=== PATIENT | male | born 1970 | race Caucasian/White ===

== ENCOUNTER 2018-04-14 12:14 | Inpatient (IN) | payer MEDICARE, MEDICAID, SELFPAY ==
--- NOTE | 2018-04-14 12:19 | PDOC.HP ---
Date of Service: 04/14/18 Assessment/Plan - Assessment/Plan (1) Cellulitis of second toe, left Assessment: Patient has been afebrile with no active ongoing signs of infection Plan: Continue ceftriaxone for 6 weeks from date of surgery which was April 08, 2018 to run through May 20, 2018 Continue wound VAC with changes Wednesdays Followed by Dr. Pollock (2) Diabetes mellitus type 2 in obese Assessment: Blood sugars have been controlled Plan: Continue monitor blood sugars before meals and at bedtime with sliding scale coverage as needed (3) Diabetic peripheral neuropathy Assessment: Stable Plan: Continue gabapentin (4) Discharge planning issues Assessment: Patient will return to his assisted living facility once he has completed his course of antibiotics (5) GERD (gastroesophageal reflux disease) Assessment: Stable Plan: Continue PPI (6) HTN (hypertension) Assessment: Stable Plan: Continue home meds (7) Schizoaffective disorder Assessment: Stable Plan: Continue home meds (8) Staphylococcus aureus bacteremia Assessment: Repeat blood cultures have been negative patient has been afebrile Plan: We will complete 6 week course of IV antibiotics, ceftriaxone 2 g IV daily (9) Type 2 diabetes mellitus Assessment: Blood sugars have been controlled Plan: Continue diabetic diet sliding scale coverage before meals and at bedtime History of Present Illness - History of Present Illness Chief Complaint: MSSA wound infection and bactermia History of Present Illness: 47-year-old male with a past medical history diabetes mellitus complicated by peripheral neuropathy who allegedly has had his diabetes under good control with the last A1c is 6.2%. He recently underwent surgery of his left great toe which Dr. Jeremy Pollock did a fracture reduction with arthrodesis of his IPJ of his left hallux with K wire fixation and arthrodesis of the left second toe hammertoe correction. Patient had sustained fracture and dislocation of left hallux and fracture dislocation of the hammertoe deformity of his left second toe. Patient does not recall how the fracture occurred. 2 days ago he said that the left second and left first toe began to swell and developed redness and pain. He waited until today to see Dr. Pollock found that the patient had disruption of the hardware of the left hallux and focal signs of infection. Patient's previous postoperative visit was on Wednesday 3 days prior and the wound has been clean and dry. Patient reported having bumped the toe several times on Wednesday and again yesterday on Wednesday. When he was seen in the afternoon today and through the pins have been disrupted in the left great toe and second toe were grossly edematous and erythematous with localized cellulitis. The pin the second toe is 80% of the toe. Dr. Pollock arranged for the patient come to the emergency room for inpatient admission including parenteral antibiotics and to be set up for surgery. He was admitted under hospitalist service to the medical surgical unit. He was started on vancomycin and Zosyn. Dr. Pollock did take him back to the OR for surgical debridement of his wound. wound cultures grew MSSA. Blood cultures grew MSSA. Antibiotics narrowed to ceftriaxone daily after consultation with ID at [facility] and Dr. Pollock. the plan is to receive 6 weeks of IV antibiotic therapy. He will be admitted to [facility] here at [facility] to complete antibiotic course. He has been afebrile he is not voicing any complaints. 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: CVA Hepatobiliary: Other (GERARDO) Psych: Bipolar Infectious Disease: Other (MSSA bacteremia) Endocrine: Diabetes Dermatology: Cellulitis Review of Systems - Review of Systems Constitutional: denies: Fever, Chills Eyes: denies: Vision Change Respiratory: denies: Cough, Shortness of Breath Cardiovascular: denies: Chest Pain Gastrointestinal: denies: Nausea, Vomiting, Abdominal Pain, Diarrhea, Constipation Genitourinary: denies: Dysuria, Frequency Musculoskeletal: Foot Pain (Chronic neuropathic) Skin: Rash, Lesions Neurological: denies: Change in Speech, Confusion - Medications/Allergies Allergies/Adverse Reactions: Allergies Allergy/AdvReac Type Severity Reaction Status Date / Time No Known Allergies Allergy Unverified 04/07/18 16:50 Medications: Current Medications Acetaminophen (Tylenol) 650 mg MA Q4H PRN PRN Acetaminophen (Tylenol) 325 - 650 mg PO Q4H PRN PRN Al Hydrox/Mg Hydrox/Simethicone (Mylanta Liquid) 30 ml PO Q2H PRN PRN Allopurinol (Zyloprim) 100 mg PO DAILY VIBHA Atenolol (Tenormin) 25 mg PO DAILY VIBHA Citalopram Hydrobromide (Celexa) 30 mg PO DAILY VIBHA Dextrose (Insta-Glucose) 0 gm PO DIRECTED PRN Dextrose/Water () 0 gm IVP DIRECTED PRN Dimethicone/Zinc Oxide (Art Protect Cream) 0 gm TP PRN PRN Docusate Sodium (Colace) 100 mg PO TID PRN PRN Esomeprazole Magnesium (Nexium) 40 mg PO Q48H VIBHA Gabapentin (Neurontin) 300 mg PO HS [facility] Ceftriaxone Sodium/Dextrose (Rocephin) 2 gm in 50 mls @ 100 mls/hr IVPB Q24H [facility] IV Miscellaneous Supplies () 1 each IV DIRECTED [facility] Insulin Aspart (Novolog Flexpen) 0 units SC 0800,1200,1700 VIBHA PRN Reason: Protocol Iron/Minerals/Multivitamins (Theragran-M) 1 tab PO DAILY [facility] Lisinopril (Prinivil) 5 mg PO DAILY VIBHA Lorazepam (Ativan) 0.5 mg PO TID PRN PRN PRN Reason: Anxiety Magnesium Hydroxide (Milk Of Magnesia) 30 ml PO DAILY PRN PRN Morphine Sulfate () 1 - 2 mg IVP Q3H PRN PRN PRN Reason: Pain Pt's Own Clozapine (100mg Tablet) 2.5 each PO HS [facility] Polyethylene Glycol (Miralax) 17 gm PO DAILY PRN PRN PRN Reason: Constipation Sodium Chloride (Saline Flush 10 Ml Syringe) 0 ml IVP PRN PRN Topiramate (Topamax) 75 mg PO BID [facility] Objective - Exam Vitals and I&O: Intake & Output 04/13/18 04/14/18 04/14/18 23:59 11:59 23:59 Weight 126.9 kg General: Alert, Oriented x3, Cooperative, No acute distress HEENT: Atraumatic, PERRLA, EOMI Neck: Supple Lungs: Clear to auscultation, Normal air movement Cardiovascular: Regular rate Abdomen: Normal bowel sounds, Soft. denies: Tenderness Skin: Rashes, Breakdown, Significant lesion (Wound VAC intact) Neurological: Normal speech, Strength at 5/5 X4 ext Psych/Mental Status: Mental status NL, Mood NL
[2018-04-14 16:26] VITALS: BP 139/78; PULSE 79; RESP 18; TEMP 36.8; O2SAT 98
[2018-04-14] MEDS: Acetaminophen 325 MG TAB PO ×2 (17:01→21:29)
--- NOTE | 2018-04-14 17:43 | CMPROGNOTE_ITS ---
Date of Service: 04/14/18 Time of Service: 17:41 Care Management Progress Note S/O: Tejas has transition to SB1 today for wound care and 5.5 more weeks of IV antibiotics. eTjas has completed the SB1 and signed the contract with [facility]. CM has offered activities including activity cart. He states that he enjoys the Reiki and Music therapy offered. He has his phone in the room which he is able to access the internet and he visits with his Mom daily. A: 47 year old male admitted with osteomyelitits of left great toe with positive blood culture. Wound vac is now in place and he will need 5.5 weeks of IV antibiotics. P: Transition to SBI today and will remain in SB1 status until he completes a 6 week course of IV Ceftriaxone. He will continue with dressing change and wound vac. He will discharge home when medically ready. Tejas does have blister packed medication in the pharmacy that he will need returned to him prior to discharge home to [place]. CM to continue to provide support to patient and family ongoing discharge planning and disposition.
[2018-04-14] MEDS: Normal Saline Flush 10 ML SYR IVP (19:46)
[2018-04-14] MEDS: Topiramate 25 MG TAB 75 MG PO (19:46)
[2018-04-14] MEDS: Gabapentin 300 MG CAP PO (21:13)
[2018-04-15] VITALS (7 sets, daily range): BP systolic 109–123; BP diastolic 71–81; PULSE 82–100; RESP 16–20; TEMP 35.5–38; O2SAT 94–97
[2018-04-15] MEDS: Multivitamin w/Minerals TAB 1 TAB PO (08:26)
[2018-04-15] MEDS: Atenolol 25 MG TAB PO (08:26)
[2018-04-15] MEDS: Allopurinol 100 MG TAB PO (08:26)
[2018-04-15] MEDS: Lisinopril 5 MG TAB PO (08:27)
[2018-04-15] MEDS: Topiramate 25 MG TAB 75 MG PO ×2 (08:27→19:54)
[2018-04-15] MEDS: Citalopram 10 MG TAB 30 MG PO (08:27)
[2018-04-15] MEDS: Normal Saline Flush 10 ML SYR IVP ×2 (10:41→19:54)
--- NOTE | 2018-04-15 11:22 | PHARADMIT ---
Addendum entered by Skylar Mosher 05/24/18 16:20: VS-okay no labs no med changes, finishes oxacillin tomorrow Original Note: Addendum entered by Kenneth Cho III 05/23/18 11:20: VS-OK Lytes-OK, Labs-OK BM yesterday.... Oxacillin through Wednesday. Original Note: Addendum entered by Skylar Mosher 05/22/18 09:26: nothing new per morning report HR-92 other VS okay no labs no med changes, oxacillin continues through 05/25 Original Note: Addendum entered by Skylar Mosher 05/21/18 09:59: nothing new per morning report VS-okay no labs no med changes, oxacillin continues through 05/25 Original Note: Addendum entered by Katerin Sánchez 05/20/18 15:16: Dr Pollock in to see pt today. Plan for pt to go home after his last dose of antibiotic next vs ok, no med changes Original Note: Addendum entered by Kenneth Cho III 05/19/18 10:24: VS-OK No Labs FSBS-118 BM yesterday No changes Original Note: Addendum entered by Kenneth Cho III 05/18/18 11:13: Wound is now dressed with a Bandaid VS-OK FSBS-115 No Labs Still on target for 05/25 Oxacillin completion. Original Note: Addendum entered by Skylar Mosher 05/17/18 12:37: nothing new per morning report VS-okay no labs no med changes, oxacillin continues through 05/25 Original Note: Addendum entered by Skylar Mosher 05/16/18 08:31: nothing new per morning report VS-okay no labs no med changes, oxacillin continues through 05/25 Original Note: Addendum entered by Kenneth Cho III 05/15/18 10:27: VS-OK FSBS-100 No BM since 05/09 No med changes Original Note: Addendum entered by Kenneth Cho III 05/14/18 09:59: No VS, No Labs Oxacillin thru 05/25 Original Note: Addendum entered by Katerin Sánchez 05/13/18 11:42: VS-OK No changes per morning meeting Oxacillin finishes 05/25/18 Original Note: Addendum entered by Kenneth Cho III 05/11/18 11:02: VS-OK Lytes, H&H, Plts-OK SCr-1.21 Last-BM 05/09 no Changes Oxacillin finishes 05/25/18 Original Note: Addendum entered by Skylar Mosher 05/10/18 08:52: nothing new per morning report VS-okay no labs no med changes, oxacillin continues Original Note: Addendum entered by Skylar Mosher 05/09/18 11:00: MD to see patient today VS-okay no labs no med changes so far today, oxacillin continues Original Note: Addendum entered by Kenneth Cho III 05/08/18 12:48: MD to see patient tomorrow. VS-OK No changes Oxacillin thru 05-25-2018 Original Note: Addendum entered by Kenneth Cho III 05/07/18 12:19: No VS No Labs No stooling. Oxacilin continues. Original Note: Addendum entered by Kenneth Cho III 05/06/18 12:01: VS-OK no Labs LACTOFERRIN-NORMAL i-[id number]-[id number], no more diarrhea Oxacillin continues Original Note: Addendum entered by Kenneth Cho III 05/05/18 11:01: No VS No Labs MD order stool studies due to explosive diarrhea. Oxacillin continues. Original Note: Addendum entered by Katerin Sánchez 05/04/18 16:35: nothing new per morning report VS okay No labs no med changes, oxacillin continues through 05/25 Original Note: Addendum entered by Skylar Mosher 05/03/18 10:27: nothing new per morning report VS okay No labs no med changes, oxacillin continues through 05/25 Original Note: Addendum entered by Skylar Mosher 05/02/18 10:56: nothing new per morning report VS okay No labs no med changes, oxacillin continues through 05/25 Original Note: Addendum entered by Katerin Sánchez 05/01/18 11:25: NO CHANGES PER MORNING MEETING Original Note: Addendum entered by Kenneth Cho III 04/29/18 10:25: Swing bed patient here for 6 weeeks of Oxacillin therapy completing on 05/25. VS-OK Plts-294 FSBS-93 No changes Original Note: Addendum entered by Kenneth Cho III 04/28/18 09:18: Pharmacy Note Subjective Swing Bed here through 05/25 Objective VS-OK No Labs BM 04/27 Assessment Oxacillin continues Plan No change in plan Original Note: Addendum entered by Skylar Mosher 04/27/18 10:29: Pharmacy Note Subjective swingbed, end date of oxacillin to 05/25 Objective VS-okay no labs Assessment oxacillin continues, no med changes Plan continue to bring up pts own clozapine daily Original Note: Addendum entered by Skylar Mosher 04/26/18 11:40: Pharmacy Note Subjective swingbed. end date of oxacillin to 05/25 Objective VS-okay no labs Assessment oxacillin continues, no med changes Plan continue to bring up pts own clozapine daily Original Note: Addendum entered by Katerin Sánchez 04/25/18 16:11: Pharmacy Note Subjective swingbed. end date of oxacillin to 05/25 Objective vs ok, Assessment oxacillin continues, no med changes Plan continue to bring up pts own clozapine daily Original Note: Addendum entered by Skylar Mosher 04/24/18 10:04: Pharmacy Note Subjective MD adjusted end date of oxacillin to 05/25 due to 4 days of ceftriaxone before changing back to oxacillin Objective no VS WBC-9.41 h/h-12.5/38.7 Assessment oxacillin continues, no med changes Plan continue to bring up pts own meds Original Note: Addendum entered by Skylar Mosher 04/23/18 11:44: Pharmacy Note Subjective MD adjusted end date of oxacillin to 05/23 due to disruption of therapy (change of therapy to ceftriaxone before changing back to oxacillin) Objective VS okay no labs Assessment oxacillin continues, no med changes Plan continue to bring up pts own meds Original Note: Addendum entered by Kenneth Cho III 04/21/18 10:54: Pharmacy Note Subjective Seen by today, doing well, continue therapy. Objective VS-OK K+3.5 SCr-1.09 WBC-10.19 H&H,Plts-OK Assessment Oxacillin continues, Plan Use 10GM vial to make 5 doses, and minibag plus to make the 2pm dose. Original Note: Addendum entered by Kenneth Cho III 04/20/18 11:55: Pharmacy Note Subjective MD to put in for weekly labs now. Objective VS-OK VVS-OK No Labs, FSBS-97 Assessment No med changes, Oxacilllin continues. Plan Use large vials of Oxacillin to reconstitute. Original Note: Addendum entered by Katerin Sánchez 04/19/18 13:53: Pharmacy Note Subjective patient will be remaining here for the duration of therapy for osteomyelitis of left great toe. Completes 05/20 Objective vs ok, no labs today Assessment no med changes , oxacillin IV continues Plan Remember to bring up [employer] Clozaril each day. (2-1/2 tabs in blister pack from [facility]) Original Note: Addendum entered by Skylar Mosher 04/18/18 15:55: Pharmacy Note Subjective Objective VS-okay WBC-12.25 H/H-12.1/37.1 Assessment no med changes oxacillin continues Plan Remember to bring up [employer]Own Clozaril each day. (2-1/2 tabs in blister pack from [facility]) Original Note: Addendum entered by Kenneth Cho III 04/17/18 11:35: Pharmacy Note Subjective Hospitalist decided to return to Oxacilllin, instead of Rocephin, as it is the preferred agent in this case,and the patient will be remaining here for the duration of therapy. Completes 05/20 Objective VS-OK pain: 210 WBC-15.44 afebrile x 24hrs H&H,Plts-OK. BM 04/16 Assessment Tramadol added for additional pain relief along with Morphine IV & APAP Plan Remember to bring up [employer]Own Clozaril each day. (2-1/2 tabs in blister brianna from [facility]) Original Note: Addendum entered by Kenneth Cho III 04/16/18 13:18: Pharmacy Note Subjective Spiked temp overnight(38 C), OK now (36.7C0. Watch for repeat Blood & Urine culture, Chest X-ray Objective VS-OK Na-138 K+3.9 SCr-1.10 WBC-16.42 H&H-12.8/38.9 Plts-350 Assessment MSSA cultured sensitive to Rocephin. Lovenox restarted Plan Rocephin through 05/20 (6 wks total) Original Note: Addendum entered by Kenneth Cho III 04/15/18 11:24: VS-OK Swing Bed patient here to receive IV ABX x 6 weeks starting 04/08/18 Original Note: Admission Pharmacy Clinical Review POST SURGICAL INFECTION LEFT GREAT TOE SWING BED Below is the acute account Pharmacy Clincial Interventions: JAY RODRÍGUEZ Male : 1970 Emr# [id number] 04/08/18 10:41 - Pharmacy Review by Kenneth Cho III Acct Num: [id number] : 1970 Patient Age: 47 Addendum entered by Katerin Sánchez 04/14/18 09:54: Pharmacy Note Subjective pt to be switched to swingbed after PICC line placed. needs total of 6 weeks antibiotics (starting 04/08) Objective pain 3/10, vs ok, no labs today, FS 108 Assessment ceftriaxone started yesterday, no other med changes noted Plan clozapine to be brought in by family. it is blister packed with other meds from [facility]. Please take out clozapine and reseal each blister. Packs to be returned to family before discharge. Any ? Jacquelin is CM for this pt. Original Note: Addendum entered by Kenneth Cho III 04/13/18 15:06: Pharmacy Note Subjective following patient, changing wound VAC MonWedFri . MIDLINE PLACED FOR IV ABX Objective VS-OK H&H-12.4/378.6 WBC-12.31 Afebrile, Micro shows MSSA Assessment Oxacillin DC'd, Rocephin 2gm IV Q24HRS Started TO RUN FOR 6 WEEKS FROM SURGERY, (04/08) Plan Left great toe treatment for next 5+ weeks.Diabetic consult: will follow blood sugars and follow up. per Karis Weaver Original Note: Addendum entered by Skylar Mosher 04/12/18 16:58: Pharmacy Note Subjective trying wound vac to see if helps instead of doing amputation Objective VS-okay no labs today Assessment six weeks of iv abx needed, currently on oxacillin, MDs consulting [facility] ID on which abx to switch too as they are trying to get pt on once a day dosing Plan watch for changing of abx Original Note: Addendum entered by Cynthia Buchanan 04/10/18 13:19: Pharmacy Note Subjective Objective VS ok, afebrile, pain 5/10, lytes ok, WBC up 12.36 Micro sensitivities: Blood and toe sample both MSSA Assessment d/c Vanco & Zosyn, starting Oxacillin 2gram Q4h based on cultures Pt's own Clozapine was obtained. Arrived in blister pack w/multiple meds. Identified and removed only the Clozapine 100mg tablets (dose is 250mg=2.5 tablets). Sending up only ONE day at a time to prevent administration error and prevent the 1/2 tablet from crumbling. Sent up in yosi vial padded with cotton. Have a 7 day supply remaining beginning 04/10 Plan to see patient Wednesday for evaluation of nursing home treatment or amputation Original Note: Addendum entered by Cynthia Buchanan 04/09/18 10:40: Pharmacy Note Subjective Went to OR yesterday for debridement, may need amputation Objective VS ok, Afebrile, pain 3/10, labs pending, FSBS 113, CrCl~79ml/min Micro: both blood and toe sample: Staph.Aureus reported this morning Assessment Pt's own Clozapine being brought in, Chief Jailer obtaining, packaged in blister pack, will label appropriately and send to floor for HS dose, did miss last night's dose, possibly more than one It is NOT good to miss doses, usually very slow taper when discontinuing therapy, ANC is being monitored (7.88 yesterday) Vanco trough 16.0, same dose 1750mg IV q12h, although Micro indicates Staph Aureus, does NOT mention MRSA no insulin changes Morphine IVP for pain No DVT prophylaxis, but is wearing TEDS Plan Expect a change in Anbx coverage if MSSA, will be in today Will need PICC line if treating Osteomylelitis, but can't until positive blood cultures clear Currently remains on Vanco/Zosyn Original Note: Admission Pharmacy Clinical Review POST SURGICAL INFECTION LEFT GREAT TOE Code Status Full Code Current Weight Wgt- 129.2 kg Renally Cleared and Narrow Therapeutic Index Meds CrCl~ 79 mL/min Meds-OK QTc Value / Action Taken QTc-415 na BP Control, Fever BP-130/84 Tmax- 37.1C Electrolytes reviewed Na- 141 K+3.9 Mag-2.0 DVT Prophylaxis No (surgery ???) Opiate Usage / Scheduled Bowel Regimen Ordered Yes Yes Plt/SCr for Heparin / Enoxaparin Plts-230 SCr-1.23 INR for Warfarin na H/H stable, WBC/Bands H&H-12.0/35.8 WBC-11.83 Antibiotic appropriateness Zosyn, Vancomycin Cultures and Sensitivities Blood-pending Surgical ABX d/c within 24 hr NA DM control / Insulin Dosing BG-117 ZrH3e-6.2 Aspart, Heart Failure (Check EF%) (TAVO's, B-Block, Diuretics) Atenolol, Lisinopril, IV to PO Switch No Home Meds Reviewed Yes Home Meds Not Ordered Tatum, Ibuprofen, Comments Truong- Clozapine Initialized on 04/08/18 10:41 - END OF NOTE
--- NOTE | 2018-04-15 14:33 | CHAPLAIN ---
Tejas seemed pleased to know that he will be able venture out of the hospital building during the day, as he is on swing bed status now. He talked about enjoying the visits from the therapy dogs today, and the [employer] and [employer] players earlier in the week. His son in [place] called today too, which Tejas seemed happy about. He will be here for several more weeks for antibiotic care.
[2018-04-15] MEDS: Acetaminophen 325 MG TAB PO (17:28)
[2018-04-15] MEDS: Gabapentin 300 MG CAP PO (21:49)
[2018-04-16 07:25] VITALS: BP 121/81; PULSE 100; RESP 18; TEMP 36.7; O2SAT 95
[2018-04-16] MEDS: Esomeprazole 40 MG CAPCR PO (09:40)
[2018-04-16] MEDS: Lisinopril 5 MG TAB PO (09:40)
[2018-04-16] MEDS: Citalopram 10 MG TAB 30 MG PO (09:40)
[2018-04-16] MEDS: Atenolol 25 MG TAB PO (09:40)
[2018-04-16] MEDS: Topiramate 25 MG TAB 75 MG PO ×2 (09:40→20:28)
[2018-04-16] MEDS: Multivitamin w/Minerals TAB 1 TAB PO (09:40)
[2018-04-16] MEDS: Allopurinol 100 MG TAB PO (09:40)
[2018-04-16] MEDS: Normal Saline Flush 10 ML SYR IVP ×4 (09:41→21:49)
[2018-04-16] MEDS: Enoxaparin 40 MG/0.4 ML SYR SC (09:41)
[2018-04-16 11:50] LABS: Abs Immature Grans 0.22 k/cumm (0.0-0.09); Absolute Basophil Count 0.03 k/cumm (0.0-0.2); Absolute Eosinophil Count 0.05 k/cumm (0.0-0.7); Absolute Lymphocyte Count 2.87 k/cumm (1.2-3.4); Absolute Monocyte Count 1.76 k/cumm (0.11-0.7); Absolute Neutrophil Count 11.49 k/cumm (1.2-6.7); Basophils % 0.2; Eosinophils % 0.3; HCT 38.9 % (40.0-50.0); HGB 12.8 g/dL (13.5-17.5); Immature Grans % 1.3; Lymphocytes % 17.5; Mean Corp. HGB Concentration 32.9 g/dL (32.0-36.0); Mean Corpuscular Hemoglobin 29.2 pg (27.0-33.0); Mean Corpuscular Volume 88.8 fL (80-95); Mean Platelet Volume 10.9 fL (8.0-11.0); Monocytes % 10.7; Platelet Count 350 x1000/uL (130-400); RBC 4.38 m/cumm (4.50-6.00); RBC Distribution Width 14.7 % (11.8-14.1); White Blood Cell Count 16.42 k/cumm (4.4-10.8)
[2018-04-16 12:02] LABS: ALT 47 U/L (12-78); AST 22 U/L (15-37); Albumin 3.1 g/dL (3.4-5.0); Alkaline Phosphatase 100 U/L (46-116); Anion Gap 9.7 mmol/L (3-11); BUN 16 mg/dL (7-18); Bilirubin, Total 0.2 mg/dL (0.2-1.0); C-Reactive Protein 7.97 mg/dL (0.0-0.3); CO2 24.3 mmol/L (21.0-32.0); Calcium 8.6 mg/dL (8.5-10.1); Chloride 104 mmol/L (98-107); Glucose 91 mg/dL (70-100); Potassium 3.9 mmol/L (3.5-5.1); Sodium 138 mmol/L (136-145); Total Protein 7.6 g/dL (6.4-8.2)
[2018-04-16 12:24] LABS: ESR 71 MM/HR (0-15)
--- NOTE | 2018-04-16 12:52 | DI.REPORT_ITS ---
SYMPTOM/DIAGNOSIS: FEVER WORK UP PA AND LATERAL CHEST: The heart is not enlarged. Note is made of a PICC line, the tip of which lies in the superior vena cava just above the right atrium. The lungs are clear and well expanded. No pleural effusion is seen. CONCLUSION: No evidence of acute intrapulmonary process.
--- NOTE | 2018-04-16 12:54 | PDOC.PROG ---
Date of Service: 04/16/18 Assessment/Plan - Assessment/Plan (1) Cellulitis of second toe, left Assessment: Wound and culture grew MSSA continue sensitive to ceftriaxone. We will continue for 6 weeks from date of surgery which was April 08, 2018 to run through May 20, 2018 Continue wound VAC with changes Wednesdays Followed by Dr. Pollock (2) Diabetes mellitus type 2 in obese Plan: Continue diabetic diet sliding scale coverage before meals and at bedtime (3) Diabetic peripheral neuropathy Assessment: Stable continue gabapentin (4) Discharge planning issues Assessment: Case management following he will return to his assisted living facility once he has completed his course of antibiotics (5) GERD (gastroesophageal reflux disease) Assessment: Stable continue PPI (6) HTN (hypertension) Assessment: Stable continue to monitor and continue medications (7) Schizoaffective disorder Assessment: Stable continue home meds (8) Staphylococcus aureus bacteremia Assessment: Repeat blood cultures were negative patient is now again running low-grade fever with some tachycardia when a repeat his blood cultures. Original blood cultures did grow MSSA which was sensitive to the ceftriaxone he has been receiving (9) Fever Assessment: No focal source of infection. His wound per nursing report is improving. He denies any chest pain shortness of breath new rashes or lesions. Differentials include resistance to current antibiotic therapy, superimposed infection, pulmonary embolism. Plan: Will add urinalysis repeat blood cultures and chest x-ray. Continue to monitor for source of infection or fever Push fluids, fever management with acetaminophen as needed Incentive spirometer every to 2 hours while awake History of Present Illness - History of Present Illness Chief Complaint: Lightheadedness History of Present Illness: 's a 47-year-old male patient with a past medical history significant for diabetes mellitus who is here under swing level status following a debridement of an infected fracture reduction, being treated with ceftriaxone daily for an MSSA positive wound culture and blood culture. Yesterday he was noted to have a temperature of 38. And heart rate of 90-100s. He has no respiratory complaints no abdominal complaints has had no rashes or lesions nursing staff report that his wound continues to improve daily he did have a scheduled wound VAC change yesterday. He has no complaints of chest pain. There is no symptoms that raise suspicion for a source. This morning he did report some lightheadedness but this has improved he is voicing no other complaints telling me right now that he is feeling good Review of Systems - Review of Systems Constitutional: Fever. denies: Chills Respiratory: denies: Cough, Shortness of Breath Cardiovascular: denies: Chest Pain Genitourinary: denies: Dysuria, Frequency Musculoskeletal: denies: Foot Pain Skin: Lesions (Status post surgical debridement great toe). denies: Rash Neurological: Other (Lightheadedness). denies: Incoordination, Change in Speech - Medications/Allergies Allergies/Adverse Reactions: Allergies Allergy/AdvReac Type Severity Reaction Status Date / Time No Known Allergies Allergy Unverified 04/07/18 16:50 Medications: Current Medications Acetaminophen (Tylenol) 650 mg [place] Q4H PRN PRN Acetaminophen (Tylenol) 325 - 650 mg PO Q4H PRN PRN Last Admin: 04/15/18 17:28 Dose: 650 mg Al Hydrox/Mg Hydrox/Simethicone (Mylanta Liquid) 30 ml PO Q2H PRN PRN Allopurinol (Zyloprim) 100 mg PO DAILY [facility] Last Admin: 04/16/18 09:40 Dose: 100 mg Atenolol (Tenormin) 25 mg PO DAILY [facility] Last Admin: 04/16/18 09:40 Dose: 25 mg Citalopram Hydrobromide (Celexa) 30 mg PO DAILY [facility] Last Admin: 04/16/18 09:40 Dose: 30 mg Dextrose (Insta-Glucose) 0 gm PO DIRECTED PRN Dextrose/Water () 0 gm IVP DIRECTED PRN Dimethicone/Zinc Oxide (Art Protect Cream) 0 gm TP PRN PRN Docusate Sodium (Colace) 100 mg PO TID PRN PRN Enoxaparin Sodium (Lovenox) 40 mg SC Q24H [facility] Last Admin: 04/16/18 09:41 Dose: 40 mg Esomeprazole Magnesium (Nexium) 40 mg PO Q48H [facility] Last Admin: 04/16/18 09:40 Dose: 40 mg Gabapentin (Neurontin) 300 mg PO HS [facility] Last Admin: 04/15/18 21:49 Dose: 300 mg Ceftriaxone Sodium/Dextrose (Rocephin) 2 gm in 50 mls @ 100 mls/hr IVPB Q24H [facility] Last Admin: 04/16/18 09:41 Dose: 100 mls/hr IV Miscellaneous Supplies () 1 each IV DIRECTED [facility] Insulin Aspart (Novolog Flexpen) 0 units SC 0800,1200,1700 VIBHA PRN Reason: Protocol Last Admin: 04/16/18 12:05 Dose: Not Given Iron/Minerals/Multivitamins (Theragran-M) 1 tab PO DAILY [facility] Last Admin: 04/16/18 09:40 Dose: 1 tab Lisinopril (Prinivil) 5 mg PO DAILY [facility] Last Admin: 04/16/18 09:40 Dose: 5 mg Lorazepam (Ativan) 0.5 mg PO TID PRN PRN PRN Reason: Anxiety Magnesium Hydroxide (Milk Of Magnesia) 30 ml PO DAILY PRN PRN Morphine Sulfate () 1 - 2 mg IVP Q3H PRN PRN PRN Reason: Pain Last Admin: 04/15/18 19:54 Dose: 2 mg Pt's Own Clozapine (100mg Tablet) 2.5 each PO HS [facility] Last Admin: 04/15/18 21:50 Dose: 2.5 each Polyethylene Glycol (Miralax) 17 gm PO DAILY PRN PRN PRN Reason: Constipation Sodium Chloride (Saline Flush 10 Ml Syringe) 0 ml IVP PRN PRN Last Admin: 04/16/18 09:41 Dose: 20 ml Topiramate (Topamax) 75 mg PO BID [facility] Last Admin: 04/16/18 09:40 Dose: 75 mg Objective - Exam Vitals and I&O: Vital Signs Temp 36.7 C 04/16/18 07:25 Pulse 100 H 04/16/18 07:25 Resp 18 04/16/18 07:25 BP 121/81 04/16/18 07:25 Pulse Ox 95 04/16/18 07:25 Intake & Output 04/15/18 04/16/18 04/16/18 23:59 11:59 23:59 Intake Total 1260 200 Balance 1260 200 Intake: IV 140 Oral 1120 200 Other: Urine Color Yellow Urine Appearance Clear Urine Odor Normal Comment pt voiding ad aquiles in toilet; not assess by RN. pt reports no issues with GI or at this time pt voided independently in toilet. Voiding Methods Toilet General: Alert, Oriented x3, Cooperative, No acute distress HEENT: Mucous membr. moist/pink Lungs: Clear to auscultation. denies: Normal air movement (Diminished bases) Cardiovascular: Regular rate Abdomen: Normal bowel sounds, Soft. denies: Tenderness Extremities: Edema Skin: Significant lesion (Wound VAC intact). denies: Rashes Neurological: Normal speech, Strength at 5/5 X4 ext Psych/Mental Status: Mental status NL, Mood NL - Results Results: Laboratory Results WBC 16.42 k/cumm (4.4-10.8) H 04/16/18 11:45 RBC 4.38 m/cumm (4.50-6.00) L 04/16/18 11:45 Hgb 12.8 g/dL (13.5-17.5) L 04/16/18 11:45 Hct 38.9 % (40.0-50.0) L 04/16/18 11:45 MCV 88.8 fL (80-95) 04/16/18 11:45 MCH 29.2 pg (27.0-33.0) 04/16/18 11:45 MCHC 32.9 g/dL (32.0-36.0) 04/16/18 11:45 RDW 14.7 % (11.8-14.1) H 04/16/18 11:45 Plt Count 350 x1000/uL (130-400) 04/16/18 11:45 MPV 10.9 fL (8.0-11.0) 04/16/18 11:45 Immature Gran % 1.3 04/16/18 11:45 Neutrophils % 70.0 04/16/18 11:45 Lymphocytes % 17.5 04/16/18 11:45 Monocytes % 10.7 04/16/18 11:45 Eosinophils % 0.3 04/16/18 11:45 Basophils % 0.2 04/16/18 11:45 Absolute Neutrophils 11.49 k/cumm (1.2-6.7) H 04/16/18 11:45 Absolute Lymphocytes 2.87 k/cumm (1.2-3.4) 04/16/18 11:45 Absolute Monocytes 1.76 k/cumm (0.11-0.7) H 04/16/18 11:45 Absolute Eosinophils 0.05 k/cumm (0.0-0.7) 04/16/18 11:45 Absolute Basophils 0.03 k/cumm (0.0-0.2) 04/16/18 11:45 ESR 71 MM/HR (0-15) H 04/16/18 11:45 Sodium 138 mmol/L (136-145) 04/16/18 11:45 Potassium 3.9 mmol/L (3.5-5.1) 04/16/18 11:45 Chloride 104 mmol/L (98-107) 04/16/18 11:45 Carbon Dioxide 24.3 mmol/L (21.0-32.0) 04/16/18 11:45 Anion Gap 9.7 mmol/L (3-11) 04/16/18 11:45 BUN 16 mg/dL (7-18) 04/16/18 11:45 Creatinine 1.10 mg/dL (0.70-1.30) 04/16/18 11:45 Estimated GFR/1.73 m2 >= 60.00 (mL/min/1.73m2) 04/16/18 11:45 Glucose 91 mg/dL (70-100) 04/16/18 11:45 Calcium 8.6 mg/dL (8.5-10.1) 04/16/18 11:45 Total Bilirubin 0.2 mg/dL (0.2-1.0) 04/16/18 11:45 AST 22 U/L (15-37) 04/16/18 11:45 ALT 47 U/L (12-78) 04/16/18 11:45 Alkaline Phosphatase 100 U/L (46-116) 04/16/18 11:45 C-Reactive Protein 7.97 mg/dL (0.0-0.3) H 04/16/18 11:45 Total Protein 7.6 g/dL (6.4-8.2) 04/16/18 11:45 Albumin 3.1 g/dL (3.4-5.0) L 04/16/18 11:45
--- NOTE | 2018-04-16 12:57 | PDOC.PROG_ITS ---
Date of Service: 04/16/18 Assessment/Plan - Assessment/Plan (1) Cellulitis of second toe, left Assessment: Wound and culture grew MSSA continue sensitive to ceftriaxone. We will continue for 6 weeks from date of surgery which was April 08, 2018 to run through May 20, 2018 Continue wound VAC with changes Wednesdays Followed by Dr. Pollock (2) Diabetes mellitus type 2 in obese Plan: Continue diabetic diet sliding scale coverage before meals and at bedtime (3) Diabetic peripheral neuropathy Assessment: Stable continue gabapentin (4) Discharge planning issues Assessment: Case management following he will return to his assisted living facility once he has completed his course of antibiotics (5) GERD (gastroesophageal reflux disease) Assessment: Stable continue PPI (6) HTN (hypertension) Assessment: Stable continue to monitor and continue medications (7) Schizoaffective disorder Assessment: Stable continue home meds (8) Staphylococcus aureus bacteremia Assessment: Repeat blood cultures were negative patient is now again running low-grade fever with some tachycardia when a repeat his blood cultures. Original blood cultures did grow MSSA which was sensitive to the ceftriaxone he has been receiving (9) Fever Assessment: No focal source of infection. His wound per nursing report is improving. He denies any chest pain shortness of breath new rashes or lesions. Differentials include resistance to current antibiotic therapy, superimposed infection, pulmonary embolism. Plan: Will add urinalysis repeat blood cultures and chest x-ray. Continue to monitor for source of infection or fever Push fluids, fever management with acetaminophen as needed Incentive spirometer every to 2 hours while awake History of Present Illness - History of Present Illness Chief Complaint: Lightheadedness History of Present Illness: 's a 47-year-old male patient with a past medical history significant for diabetes mellitus who is here under swing level status following a debridement of an infected fracture reduction, being treated with ceftriaxone daily for an MSSA positive wound culture and blood culture. Yesterday he was noted to have a temperature of 38. And heart rate of 90-100s. He has no respiratory complaints no abdominal complaints has had no rashes or lesions nursing staff report that his wound continues to improve daily he did have a scheduled wound VAC change yesterday. He has no complaints of chest pain. There is no symptoms that raise suspicion for a source. This morning he did report some lightheadedness but this has improved he is voicing no other complaints telling me right now that he is feeling good Review of Systems - Review of Systems Constitutional: Fever. denies: Chills Respiratory: denies: Cough, Shortness of Breath Cardiovascular: denies: Chest Pain Genitourinary: denies: Dysuria, Frequency Musculoskeletal: denies: Foot Pain Skin: Lesions (Status post surgical debridement great toe). denies: Rash Neurological: Other (Lightheadedness). denies: Incoordination, Change in Speech - Medications/Allergies Allergies/Adverse Reactions: Allergies Allergy/AdvReac Type Severity Reaction Status Date / Time No Known Allergies Allergy Unverified 04/07/18 16:50 Medications: Current Medications Acetaminophen (Tylenol) 650 mg [place] Q4H PRN PRN Acetaminophen (Tylenol) 325 - 650 mg PO Q4H PRN PRN Last Admin: 04/15/18 17:28 Dose: 650 mg Al Hydrox/Mg Hydrox/Simethicone (Mylanta Liquid) 30 ml PO Q2H PRN PRN Allopurinol (Zyloprim) 100 mg PO DAILY [facility] Last Admin: 04/16/18 09:40 Dose: 100 mg Atenolol (Tenormin) 25 mg PO DAILY [facility] Last Admin: 04/16/18 09:40 Dose: 25 mg Citalopram Hydrobromide (Celexa) 30 mg PO DAILY [facility] Last Admin: 04/16/18 09:40 Dose: 30 mg Dextrose (Insta-Glucose) 0 gm PO DIRECTED PRN Dextrose/Water () 0 gm IVP DIRECTED PRN Dimethicone/Zinc Oxide (Art Protect Cream) 0 gm TP PRN PRN Docusate Sodium (Colace) 100 mg PO TID PRN PRN Enoxaparin Sodium (Lovenox) 40 mg SC Q24H [facility] Last Admin: 04/16/18 09:41 Dose: 40 mg Esomeprazole Magnesium (Nexium) 40 mg PO Q48H [facility] Last Admin: 04/16/18 09:40 Dose: 40 mg Gabapentin (Neurontin) 300 mg PO HS [facility] Last Admin: 04/15/18 21:49 Dose: 300 mg Ceftriaxone Sodium/Dextrose (Rocephin) 2 gm in 50 mls @ 100 mls/hr IVPB Q24H [facility] Last Admin: 04/16/18 09:41 Dose: 100 mls/hr IV Miscellaneous Supplies () 1 each IV DIRECTED [facility] Insulin Aspart (Novolog Flexpen) 0 units SC 0800,1200,1700 VIBHA PRN Reason: Protocol Last Admin: 04/16/18 12:05 Dose: Not Given Iron/Minerals/Multivitamins (Theragran-M) 1 tab PO DAILY [facility] Last Admin: 04/16/18 09:40 Dose: 1 tab Lisinopril (Prinivil) 5 mg PO DAILY [facility] Last Admin: 04/16/18 09:40 Dose: 5 mg Lorazepam (Ativan) 0.5 mg PO TID PRN PRN PRN Reason: Anxiety Magnesium Hydroxide (Milk Of Magnesia) 30 ml PO DAILY PRN PRN Morphine Sulfate () 1 - 2 mg IVP Q3H PRN PRN PRN Reason: Pain Last Admin: 04/15/18 19:54 Dose: 2 mg Pt's Own Clozapine (100mg Tablet) 2.5 each PO HS [facility] Last Admin: 04/15/18 21:50 Dose: 2.5 each Polyethylene Glycol (Miralax) 17 gm PO DAILY PRN PRN PRN Reason: Constipation Sodium Chloride (Saline Flush 10 Ml Syringe) 0 ml IVP PRN PRN Last Admin: 04/16/18 09:41 Dose: 20 ml Topiramate (Topamax) 75 mg PO BID [facility] Last Admin: 04/16/18 09:40 Dose: 75 mg Objective - Exam Vitals and I&O: Vital Signs Temp 36.7 C 04/16/18 07:25 Pulse 100 H 04/16/18 07:25 Resp 18 04/16/18 07:25 BP 121/81 04/16/18 07:25 Pulse Ox 95 04/16/18 07:25 Intake & Output 04/15/18 04/16/18 04/16/18 23:59 11:59 23:59 Intake Total 1260 200 Balance 1260 200 Intake: IV 140 Oral 1120 200 Other: Urine Color Yellow Urine Appearance Clear Urine Odor Normal Comment pt voiding ad aquiles in toilet; not assess by RN. pt reports no issues with GI or at this time pt voided independently in toilet. Voiding Methods Toilet General: Alert, Oriented x3, Cooperative, No acute distress HEENT: Mucous membr. moist/pink Lungs: Clear to auscultation. denies: Normal air movement (Diminished bases) Cardiovascular: Regular rate Abdomen: Normal bowel sounds, Soft. denies: Tenderness Extremities: Edema Skin: Significant lesion (Wound VAC intact). denies: Rashes Neurological: Normal speech, Strength at 5/5 X4 ext Psych/Mental Status: Mental status NL, Mood NL - Results Results: Laboratory Results WBC 16.42 k/cumm (4.4-10.8) H 04/16/18 11:45 RBC 4.38 m/cumm (4.50-6.00) L 04/16/18 11:45 Hgb 12.8 g/dL (13.5-17.5) L 04/16/18 11:45 Hct 38.9 % (40.0-50.0) L 04/16/18 11:45 MCV 88.8 fL (80-95) 04/16/18 11:45 MCH 29.2 pg (27.0-33.0) 04/16/18 11:45 MCHC 32.9 g/dL (32.0-36.0) 04/16/18 11:45 RDW 14.7 % (11.8-14.1) H 04/16/18 11:45 Plt Count 350 x1000/uL (130-400) 04/16/18 11:45 MPV 10.9 fL (8.0-11.0) 04/16/18 11:45 Immature Gran % 1.3 04/16/18 11:45 Neutrophils % 70.0 04/16/18 11:45 Lymphocytes % 17.5 04/16/18 11:45 Monocytes % 10.7 04/16/18 11:45 Eosinophils % 0.3 04/16/18 11:45 Basophils % 0.2 04/16/18 11:45 Absolute Neutrophils 11.49 k/cumm (1.2-6.7) H 04/16/18 11:45 Absolute Lymphocytes 2.87 k/cumm (1.2-3.4) 04/16/18 11:45 Absolute Monocytes 1.76 k/cumm (0.11-0.7) H 04/16/18 11:45 Absolute Eosinophils 0.05 k/cumm (0.0-0.7) 04/16/18 11:45 Absolute Basophils 0.03 k/cumm (0.0-0.2) 04/16/18 11:45 ESR 71 MM/HR (0-15) H 04/16/18 11:45 Sodium 138 mmol/L (136-145) 04/16/18 11:45 Potassium 3.9 mmol/L (3.5-5.1) 04/16/18 11:45 Chloride 104 mmol/L (98-107) 04/16/18 11:45 Carbon Dioxide 24.3 mmol/L (21.0-32.0) 04/16/18 11:45 Anion Gap 9.7 mmol/L (3-11) 04/16/18 11:45 BUN 16 mg/dL (7-18) 04/16/18 11:45 Creatinine 1.10 mg/dL (0.70-1.30) 04/16/18 11:45 Estimated GFR/1.73 m2 >= 60.00 (mL/min/1.73m2) 04/16/18 11:45 Glucose 91 mg/dL (70-100) 04/16/18 11:45 Calcium 8.6 mg/dL (8.5-10.1) 04/16/18 11:45 Total Bilirubin 0.2 mg/dL (0.2-1.0) 04/16/18 11:45 AST 22 U/L (15-37) 04/16/18 11:45 ALT 47 U/L (12-78) 04/16/18 11:45 Alkaline Phosphatase 100 U/L (46-116) 04/16/18 11:45 C-Reactive Protein 7.97 mg/dL (0.0-0.3) H 04/16/18 11:45 Total Protein 7.6 g/dL (6.4-8.2) 04/16/18 11:45 Albumin 3.1 g/dL (3.4-5.0) L 04/16/18 11:45
[2018-04-16 13:21] LABS: Troponin I < 0.02 ng/mL (0.00-0.06)
--- NOTE | 2018-04-16 14:48 | DI.VRAD_ITS ---
EXAM: XR Chest, 2 Views CLINICAL HISTORY: 47 years old, male; Signs and symptoms; Fever TECHNIQUE: Frontal and lateral views of the chest. COMPARISON: CR - CHEST 2 VIEWS PA,LAT 2012-03-07 11:49 FINDINGS: Lungs: Unremarkable. No consolidation. Pleural space: Unremarkable. No pneumothorax. Right central venous catheter tip is in the SVC. Heart: Unremarkable. No cardiomegaly. Mediastinum: Unremarkable. Bones/joints: Unremarkable. IMPRESSION: Normal chest x-rays. Right central venous catheter tip is in the SVC. No pneumothorax. Dictated and Authenticated by: Genesis Bella MD. Ordering:ELIZABETH FRANZ MD
[2018-04-16 15:48] VITALS: BP 101/66; PULSE 83; RESP 18; TEMP 36.2; O2SAT 98
[2018-04-16 17:18] LABS: Bilirubin Negative (Negative); Blood Negative (Negative); Clarity Clear; Glucose Negative (Negative); Ketones Negative (Negative); Leukocyte Esterase Negative (Negative); Nitrite Negative (Negative); Specific Gravity <= 1.005 (1.005-1.025); Urobilinogen 0.2 EU/dL (Up TO 0.2); pH 5.5 (5-8)
[2018-04-16] MEDS: Normal Saline 500 ML IV (17:44)
[2018-04-16 19:57] VITALS: TEMP 36.6
[2018-04-16] MEDS: Gabapentin 300 MG CAP PO (21:47)
[2018-04-16 23:38] VITALS: BP 110/71; PULSE 84; RESP 20; TEMP 36.3; O2SAT 97
[2018-04-17] MEDS: Normal Saline Flush 10 ML SYR IVP ×6 (01:58→22:34)
[2018-04-17 07:17] LABS: Abs Immature Grans 0.13 k/cumm (0.0-0.09); Absolute Basophil Count 0.03 k/cumm (0.0-0.2); Basophils % 0.2; Eosinophils % 0.5; HCT 38.6 % (40.0-50.0); HGB 12.6 g/dL (13.5-17.5); Immature Grans % 0.8; Lymphocytes % 18.1; Mean Corp. HGB Concentration 32.6 g/dL (32.0-36.0); Mean Corpuscular Hemoglobin 29.1 pg (27.0-33.0); Mean Corpuscular Volume 89.1 fL (80-95); Mean Platelet Volume 10.7 fL (8.0-11.0); Monocytes % 8.9; Neutrophils % 71.5; Platelet Count 327 x1000/uL (130-400); RBC 4.33 m/cumm (4.50-6.00); RBC Distribution Width 14.7 % (11.8-14.1); White Blood Cell Count 15.44 k/cumm (4.4-10.8)
[2018-04-17 07:19] LABS: Absolute Eosinophil Count 0.08 k/cumm (0.0-0.7); Absolute Lymphocyte Count 2.79 k/cumm (1.2-3.4); Absolute Monocyte Count 1.37 k/cumm (0.11-0.7); Absolute Neutrophil Count 11.04 k/cumm (1.2-6.7)
[2018-04-17 07:24] LABS: C-Reactive Protein 6.61 mg/dL (0.0-0.3)
[2018-04-17 07:30] VITALS: BP 125/61; PULSE 104; RESP 20; TEMP 36.6; O2SAT 96
[2018-04-17] MEDS: Citalopram 10 MG TAB 30 MG PO (08:56)
[2018-04-17] MEDS: Allopurinol 100 MG TAB PO (08:57)
[2018-04-17] MEDS: Lisinopril 5 MG TAB PO (08:57)
[2018-04-17] MEDS: Topiramate 25 MG TAB 75 MG PO ×2 (08:57→20:39)
[2018-04-17] MEDS: Atenolol 25 MG TAB PO (08:57)
[2018-04-17] MEDS: Multivitamin w/Minerals TAB 1 TAB PO (08:57)
[2018-04-17] MEDS: Enoxaparin 40 MG/0.4 ML SYR SC (10:13)
[2018-04-17 11:35] VITALS: BP 119/75; PULSE 83; RESP 20; TEMP 36.7; O2SAT 97
[2018-04-17 15:50] VITALS: BP 115/77; PULSE 82; RESP 20; TEMP 36.4; O2SAT 98
[2018-04-17] MEDS: Normal Saline 500 ML IV (18:06)
[2018-04-17] MEDS: traMADol 50 MG TAB 100 MG PO (20:39)
[2018-04-17] MEDS: Gabapentin 300 MG CAP PO (22:23)
[2018-04-18] VITALS: BP 110/70; PULSE 85; RESP 16; TEMP 36.1; O2SAT 93
[2018-04-18] MEDS: Normal Saline Flush 10 ML SYR IVP ×5 (02:10→21:46)
[2018-04-18 07:28] LABS: Abs Immature Grans 0.13 k/cumm (0.0-0.09); Absolute Eosinophil Count 0.09 k/cumm (0.0-0.7); Absolute Lymphocyte Count 2.39 k/cumm (1.2-3.4); Absolute Monocyte Count 1.15 k/cumm (0.11-0.7); Absolute Neutrophil Count 8.46 k/cumm (1.2-6.7); Basophils % 0.2; Eosinophils % 0.7; HCT 37.1 % (40.0-50.0); HGB 12.1 g/dL (13.5-17.5); Immature Grans % 1.1; Lymphocytes % 19.5; Mean Corp. HGB Concentration 32.6 g/dL (32.0-36.0); Mean Corpuscular Hemoglobin 29.2 pg (27.0-33.0); Mean Corpuscular Volume 89.6 fL (80-95); Mean Platelet Volume 10.9 fL (8.0-11.0); Monocytes % 9.4; Neutrophils % 69.1; Platelet Count 320 x1000/uL (130-400); RBC 4.14 m/cumm (4.50-6.00); RBC Distribution Width 14.6 % (11.8-14.1); White Blood Cell Count 12.25 k/cumm (4.4-10.8)
[2018-04-18 07:30] LABS: Absolute Basophil Count 0.02 k/cumm (0.0-0.2)
[2018-04-18 07:54] LABS: Anion Gap 6.8 mmol/L (3-11); BUN 16 mg/dL (7-18); C-Reactive Protein 5.17 mg/dL (0.0-0.3); CO2 24.2 mmol/L (21.0-32.0); CREATININE 1.14 mg/dL (0.70-1.30); Calcium 8.5 mg/dL (8.5-10.1); Chloride 107 mmol/L (98-107); Glucose 95 mg/dL (70-100); Potassium 3.7 mmol/L (3.5-5.1); Sodium 138 mmol/L (136-145)
[2018-04-18 07:55] VITALS: BP 115/76; PULSE 90; RESP 18; TEMP 36.6; O2SAT 97
[2018-04-18] MEDS: Multivitamin w/Minerals TAB 1 TAB PO (08:40)
[2018-04-18] MEDS: Lisinopril 5 MG TAB PO (08:40)
[2018-04-18] MEDS: Esomeprazole 40 MG CAPCR PO (08:40)
[2018-04-18] MEDS: Atenolol 25 MG TAB PO (08:40)
[2018-04-18] MEDS: Topiramate 25 MG TAB 75 MG PO ×2 (08:40→19:07)
[2018-04-18] MEDS: Citalopram 10 MG TAB 30 MG PO (08:40)
[2018-04-18] MEDS: Allopurinol 100 MG TAB PO (08:40)
[2018-04-18] MEDS: Enoxaparin 40 MG/0.4 ML SYR SC (10:05)
--- NOTE | 2018-04-18 10:21 | PDOC.CMPRO ---
Date of Service: 04/18/18 Time of Service: 10:21 Care Management Progress Note S/O: CM met with Tejas at bedside on the MS floor. He is sitting up in his chair when CM visits. Tejas is engaged in conversation, makes good eye contact and is talkative. Tejas has transitioned to SB1 for wound care and 5 more weeks of IV antibiotics. Tejas transitioned from IV abx to PO on Wednesday and reports that he is doing well. He has a wound vac in place on his left foot and denies pain. A: 47 year old male admitted with osteomyelitits of left great toe with positive blood culture. P: Tejas is on SB1 status until he completes a 6 week course of IV Ceftriaxone. He will continue with dressing changes and wound vac. He will discharge home when medically ready. Tejas does have blister packed medication in the pharmacy that he will need returned to him prior to discharge home to [place]. CM to continue to provide support to patient and family, ongoing discharge planning, and disposition.
--- NOTE | 2018-04-18 11:50 | NUR.NOTE ---
Nursing Note: 1000: discussion with CC Liliane Fuentes RN regarding pt's wound vac. Dr. Pollock to come in after hours to see pt. Wound vac was changed on Wednesday per request of Dr. Herr. Alfredo instructs RN to leave wound vac intact at this time and allow Dr. Pollock to take down wound vac this evening. wound vac is currently intact and at 125. continue to monitor.
[2018-04-18 14:58] LABS: ESR 63 MM/HR (0-15)
[2018-04-18 15:39] VITALS: BP 122/77; PULSE 82; RESP 17; TEMP 36.5; O2SAT 98
[2018-04-18] MEDS: Acetaminophen 325 MG TAB PO (19:08)
[2018-04-18] MEDS: Gabapentin 300 MG CAP PO (21:45)
[2018-04-18] MEDS: traMADol 50 MG TAB 100 MG PO (21:45)
[2018-04-19 01:08] VITALS: BP 117/76; PULSE 68; RESP 16; TEMP 35.1; O2SAT 97
[2018-04-19] MEDS: Normal Saline Flush 10 ML SYR IVP ×5 (01:53→19:40)
[2018-04-19 07:35] VITALS: BP 118/77; PULSE 87; RESP 18; TEMP 36.6; O2SAT 97
[2018-04-19] MEDS: Lisinopril 5 MG TAB PO (09:12)
[2018-04-19] MEDS: Allopurinol 100 MG TAB PO (09:12)
[2018-04-19] MEDS: Atenolol 25 MG TAB PO (09:12)
[2018-04-19] MEDS: Topiramate 25 MG TAB 75 MG PO ×2 (09:12→19:40)
[2018-04-19] MEDS: Multivitamin w/Minerals TAB 1 TAB PO (09:12)
[2018-04-19] MEDS: Citalopram 10 MG TAB 30 MG PO (09:13)
[2018-04-19] MEDS: Enoxaparin 40 MG/0.4 ML SYR SC (10:28)
--- NOTE | 2018-04-19 11:45 | PDOC.CMPRO ---
Date of Service: 04/19/18 Time of Service: 11:45 Care Management Progress Note S/O:CM met with patient at the bedside his antibiotic coverage has changed to Oxicillian q4 hours IV anticipate a total of 6 weeks of treatment. will be here this afternoon to assess the wound. Tejas states he has had visitors he is managing to keep his spirts up. He enjoys being in the community and helping others he reports it is difficult to sit still. He is worried about his bills he likes to be on time with payments. His Mom is going to milk pickup driver his checkbook and assist him in managing this from the hospital. A: 47 year old male admitted with osteomyelitits of left great toe with positive blood culture. Wound vac is in place, his IV antibiotics P: SB! IV antibiotics and wound management. He will continue with dressing change and wound vac. He will discharge home when medically ready. Tejas does have blister packed medication in the pharmacy that he will need returned to him prior to discharge home to [place]. CM to continue to provide support to patient and family ongoing discharge planning and disposition.
--- NOTE | 2018-04-19 11:55 | CMPROGNOTE_ITS ---
Date of Service: 04/19/18 Time of Service: 11:45 Care Management Progress Note S/O:CM met with patient at the bedside his antibiotic coverage has changed to Oxicillian q4 hours IV anticipate a total of 6 weeks of treatment. will be here this afternoon to assess the wound. Tejas states he has had visitors he is managing to keep his spirts up. He enjoys being in the community and helping others he reports it is difficult to sit still. He is worried about his bills he likes to be on time with payments. His Mom is going to pecan picker his checkbook and assist him in managing this from the hospital. A: 47 year old male admitted with osteomyelitits of left great toe with positive blood culture. Wound vac is in place, his IV antibiotics P: SB! IV antibiotics and wound management. He will continue with dressing change and wound vac. He will discharge home when medically ready. Tejas does have blister packed medication in the pharmacy that he will need returned to him prior to discharge home to [place]. CM to continue to provide support to patient and family ongoing discharge planning and disposition.
[2018-04-19] MEDS: traMADol 50 MG TAB 100 MG PO (14:04)
[2018-04-19 15:52] VITALS: BP 109/68; PULSE 79; RESP 20; TEMP 36.7; O2SAT 98
--- NOTE | 2018-04-19 19:49 | PGE_ITS ---
DATE: April 19, 2018 IMPRESSIONS: Eleven days status post debridement with removal of hardware right great toe for postop erative infection, with loosening of orthopedic hardware. PLAN: I am going to discontinue the wound vac at this time. We are going to start applying Angeline, which is a collagen-based dressing, to the wound once a day with a protective covering. He is to rem ain in the postoperative shoe during all weightbearing activities. I will order a radiograph of his right great toe tomorrow to see what is going on with the operative site. I will continue to watch him. He is to continue with his IV Rocephin as scheduled. He seems to be tolerating that well. SUBJECTIVE: Tejas is seen in his La-Z-Boy chair. He is comfortable. His foot is elevated. He say s he has a little bit of discomfort and he points to the base of the first metatarsocuneiform joint b ut otherwise he has been doing well. OBJECTIVE: Vitals: Temperature 36.7. Pulse 79. BP 109/68. Respirations 20. O2 saturation at room air is 98% . Podiatric exam - His midline catheter access has been replaced with a PICC line. Wound vac is in monica ce right great toe. The wound vac was removed. The wound is pink and granular and is nearly up to t he skin surface. He still has moderate edema affecting the great toe as would be expected. There is no erythema and no cellulitis. The second toe is healed. The incision is dry. The toe is nontende r. The toe is mildly edematous but otherwise unremarkable. LABORATORY DATA: Labs yesterday - WBC 12.25, hemoglobin 12.1, hematocrit 37.1. CRP is 5.17. Sed ra te is 63. All of these values are trending down from previous readings.
[2018-04-19] MEDS: Gabapentin 300 MG CAP PO (21:51)
[2018-04-19 23:28] VITALS: BP 107/76; PULSE 72; RESP 19; TEMP 35.9; O2SAT 98
[2018-04-20] MEDS: Normal Saline Flush 10 ML SYR IVP ×3 (05:42→18:47)
[2018-04-20 07:40] VITALS: BP 145/90; PULSE 81; RESP 16; TEMP 36.2; O2SAT 97
[2018-04-20] MEDS: Lisinopril 5 MG TAB PO (08:55)
[2018-04-20] MEDS: Allopurinol 100 MG TAB PO (08:55)
[2018-04-20] MEDS: Citalopram 10 MG TAB 30 MG PO (08:55)
[2018-04-20] MEDS: Multivitamin w/Minerals TAB 1 TAB PO (08:55)
[2018-04-20] MEDS: Topiramate 25 MG TAB 75 MG PO ×2 (08:55→19:40)
[2018-04-20] MEDS: Esomeprazole 40 MG CAPCR PO (08:55)
[2018-04-20] MEDS: Atenolol 25 MG TAB PO (08:55)
[2018-04-20] MEDS: Enoxaparin 40 MG/0.4 ML SYR SC (09:47)
--- NOTE | 2018-04-20 13:11 | DI.REPORT_ITS ---
SYMPTOMS/DIAGNOSIS: LT GREAT TOE SURGICAL INFECTION LEFT FOOT: The examination is compared with the previous study of April 07. Post surgical changes involving the great toe are again identified. On today's examination there is evidence of bony osteolysis involving the proximal metaphysis of the distal phalanx and distal metaphysis of the proximal phalanx of the great toe. There is associated soft tissue swelling. The findings would be consistent with osteomyelitis.
[2018-04-20] MEDS: Acetaminophen 325 MG TAB PO (15:57)
[2018-04-20 16:12] VITALS: BP 120/72; PULSE 73; RESP 19; TEMP 37.1; O2SAT 96
[2018-04-20] MEDS: traMADol 50 MG TAB 100 MG PO (17:01)
[2018-04-20] MEDS: Normal Saline 500 ML 30 ML IV (18:48)
[2018-04-20] MEDS: Gabapentin 300 MG CAP PO (22:11)
[2018-04-21] VITALS: BP 94/65; PULSE 68; RESP 20; TEMP 36.5; O2SAT 97
[2018-04-21] MEDS: Normal Saline Flush 10 ML SYR IVP ×6 (02:24→21:26)
[2018-04-21 07:35] LABS: Abs Immature Grans 0.06 k/cumm (0.0-0.09); Absolute Basophil Count 0.04 k/cumm (0.0-0.2); Absolute Eosinophil Count 0.14 k/cumm (0.0-0.7); Absolute Neutrophil Count 6.25 k/cumm (1.2-6.7); Basophils % 0.4; Eosinophils % 1.4; HCT 37.6 % (40.0-50.0); HGB 12.1 g/dL (13.5-17.5); Immature Grans % 0.6; Lymphocytes % 26.5; Mean Corp. HGB Concentration 32.2 g/dL (32.0-36.0); Mean Corpuscular Hemoglobin 28.9 pg (27.0-33.0); Mean Corpuscular Volume 89.7 fL (80-95); Mean Platelet Volume 11.2 fL (8.0-11.0); Monocytes % 9.8; Neutrophils % 61.3; Platelet Count 362 x1000/uL (130-400); RBC 4.19 m/cumm (4.50-6.00); RBC Distribution Width 14.7 % (11.8-14.1); White Blood Cell Count 10.19 k/cumm (4.4-10.8)
[2018-04-21 08:04] LABS: ALT 35 U/L (12-78); AST 18 U/L (15-37); Albumin 2.9 g/dL (3.4-5.0); Alkaline Phosphatase 93 U/L (46-116); Anion Gap 8.7 mmol/L (3-11); BUN 15 mg/dL (7-18); Bilirubin, Total 0.2 mg/dL (0.2-1.0); CO2 26.3 mmol/L (21.0-32.0); CREATININE 1.09 mg/dL (0.70-1.30); Calcium 8.5 mg/dL (8.5-10.1); Chloride 108 mmol/L (98-107); Glucose 93 mg/dL (70-100); Potassium 3.5 mmol/L (3.5-5.1); Sodium 143 mmol/L (136-145)
[2018-04-21] MEDS: Citalopram 10 MG TAB 30 MG PO (08:31)
[2018-04-21] MEDS: Atenolol 25 MG TAB PO (08:32)
[2018-04-21] MEDS: Allopurinol 100 MG TAB PO (08:32)
[2018-04-21] MEDS: Acetaminophen 325 MG TAB PO (08:32)
[2018-04-21] MEDS: Topiramate 25 MG TAB 75 MG PO ×2 (08:33→23:07)
[2018-04-21] MEDS: Lisinopril 5 MG TAB PO (08:33)
[2018-04-21] MEDS: Multivitamin w/Minerals TAB 1 TAB PO (08:33)
[2018-04-21 08:40] VITALS: BP 132/81; PULSE 95; RESP 18; TEMP 36.7; O2SAT 95
--- NOTE | 2018-04-21 08:40 | PGE_ITS ---
PODIATRY PROGRESS NOTE DATE OF SERVICE April 21, 2018 at 7:46 a.m. IMPRESSION Post surgical infection, left great toe with ongoing osteomyelitis. PLAN We will continue with the IV oxacillin, as he appears to be tolerating it well. His WBCs have significantly improved and he appears to be responding well to this medication without side effects. We will continue with the Angeline collagen dressing in an effort to continue to get the wound to heal. I did explain to Tejas that osteomyelitis in spite of IV antibiotics osteomyelitis can be difficult to clear, but as long as I see his CRP trending downwards, his WBCs normalizing and his general health appear to be improving, I am hopeful we will get this cleared up. He still has the potential for further surgical interventions, which would include a debridement amputation of the great toe if he fails to thrive. All questions have been answered. He understands and is agreeable to the course of treatment as outlined. He remains in-house for his IV antibiotics as planned. SUBJECTIVE Tejas is seen in his room. He sleeps in his chair. He states he sleeps well in the chair. He is just staying up late watching TV. He has no new complaints or problems. He states he is feeling more like himself. He still gets occasional discomfort in his left foot, but he states this morning, he has no pain at all. OBJECTIVE VITAL SIGNS - Temperature 36.5. Pulse 68. Blood pressure 94/65. O2 sat on room air is 97% with respirations of 20. Morning labs that are available show his WBCs have normalized, they were 16.42 on 04/16, they are now down to 10.19. RBCs are 4.19, hemoglobin 12.1, hematocrit is 37.6, those values have been steady. Chemistries are pending. The radiographs of his left foot that I ordered on Wednesday are consistent with postoperative changes of the IPJ of the great toe. There is some osteolysis. On either side of the joint as would be expected, which is also consistent with osteomyelitis. EXAMINATION The dressings are removed from his great toe. The base of the wound is pink and granular. There is no undermining. No sinus tracking. The skin margins are slowly beginning to contact. There is no erythema. No cellulitis. There is still moderate edema within the toe, but this is not unexpected. Palpation within the foot itself fails to reveal any deep space abscesses, inflammatory changes, or areas of concern. His calf is nontender to palpation. Please note that when his WBCs went up to 16,000, his Rocephin had been discontinued, and he was placed on oxacillin 2 grams q. 4, which he is tolerating well.
[2018-04-21] MEDS: Enoxaparin 40 MG/0.4 ML SYR SC (10:04)
--- NOTE | 2018-04-21 11:51 | PDOC.CMACT ---
Date of Service: 04/21/18 Time of Service: 11:51 Care Management Activity Note CM met with patient at the bedside he is improving since the transition to new antibiotic per MD notes. He is has enjoyed the music therapy and participated in Reiki. CM offered the activities cart he is not interested at this time. He enjoys watching television and his mother and friends have been to visit.He has his phone in his room and is able to communicate with friends and family though social media. He misses his work through [employer]. CM to continue to provide support and activities P: Tejas continues as SWB1 for antibiotics no change in status today. Tejas needs a total of 6 weeks of antibiotics anticipate end date is May 28. Plan will be for Tejas to return to [place] at time of discharge his car is here at [facility] and plan for him to transport himself home. CM to continue to provide support Pt and care team ongoing discharge planning and disposition.
--- NOTE | 2018-04-21 11:59 | CMACTNOTE_ITS ---
Date of Service: 04/21/18 Time of Service: 11:51 Care Management Activity Note CM met with patient at the bedside he is improving since the transition to new antibiotic per MD notes. He is has enjoyed the music therapy and participated in Reiki. CM offered the activities cart he is not interested at this time. He enjoys watching television and his mother and friends have been to visit.He has his phone in his room and is able to communicate with friends and family though social media. He misses his work through [employer]. CM to continue to provide support and activities P: Tejas continues as SWB1 for antibiotics no change in status today. Tejas needs a total of 6 weeks of antibiotics anticipate end date is May 28. Plan will be for Tejas to return to [place] at time of discharge his car is here at [facility] and plan for him to transport himself home. CM to continue to provide support Pt and care team ongoing discharge planning and disposition.
[2018-04-21 15:45] VITALS: BP 122/83; PULSE 75; RESP 21; TEMP 37.5; O2SAT 97
[2018-04-21] MEDS: Gabapentin 300 MG CAP PO (21:25)
[2018-04-21] MEDS: traMADol 50 MG TAB 100 MG PO (21:28)
[2018-04-22] MEDS: Normal Saline Flush 10 ML SYR IVP ×3 (05:57→13:56)
[2018-04-22 07:25] VITALS: BP 131/78; PULSE 91; RESP 16; TEMP 36.1; O2SAT 98
[2018-04-22] MEDS: Citalopram 10 MG TAB 30 MG PO (08:41)
[2018-04-22] MEDS: Atenolol 25 MG TAB PO (08:42)
[2018-04-22] MEDS: Multivitamin w/Minerals TAB 1 TAB PO (08:42)
[2018-04-22] MEDS: Lisinopril 5 MG TAB PO (08:42)
[2018-04-22] MEDS: Allopurinol 100 MG TAB PO (08:42)
[2018-04-22] MEDS: Esomeprazole 40 MG CAPCR PO (08:42)
[2018-04-22] MEDS: Topiramate 25 MG TAB 75 MG PO ×2 (08:42→19:26)
[2018-04-22] MEDS: Enoxaparin 40 MG/0.4 ML SYR SC (10:41)
[2018-04-22 15:48] VITALS: BP 109/69; PULSE 72; RESP 18; TEMP 36.8; O2SAT 99
[2018-04-22] MEDS: traMADol 50 MG TAB 100 MG PO (19:29)
[2018-04-22] MEDS: Gabapentin 300 MG CAP PO (22:17)
[2018-04-22] MEDS: Acetaminophen 325 MG TAB PO (22:17)
[2018-04-23] MEDS: Normal Saline Flush 10 ML SYR IVP ×2 (06:15→19:22)
[2018-04-23 07:30] VITALS: BP 110/70; PULSE 80; RESP 18; TEMP 36.1; O2SAT 98
[2018-04-23] MEDS: Citalopram 10 MG TAB 30 MG PO (08:53)
[2018-04-23] MEDS: Topiramate 25 MG TAB 75 MG PO ×2 (08:53→19:22)
[2018-04-23] MEDS: Atenolol 25 MG TAB PO (08:53)
[2018-04-23] MEDS: Lisinopril 5 MG TAB PO (08:53)
[2018-04-23] MEDS: Allopurinol 100 MG TAB PO (08:53)
[2018-04-23] MEDS: Multivitamin w/Minerals TAB 1 TAB PO (08:53)
[2018-04-23] MEDS: Enoxaparin 40 MG/0.4 ML SYR SC (10:30)
[2018-04-23 15:57] VITALS: BP 117/79; PULSE 69; RESP 17; TEMP 36.5; O2SAT 96
[2018-04-23] MEDS: Gabapentin 300 MG CAP PO (21:10)
[2018-04-23] MEDS: traMADol 50 MG TAB 100 MG PO (21:10)
[2018-04-23] MEDS: Acetaminophen 325 MG TAB PO (21:56)
[2018-04-24] MEDS: Normal Saline Flush 10 ML SYR IVP ×4 (05:14→22:57)
[2018-04-24 07:02] VITALS: BP 105/69; PULSE 85; RESP 17; TEMP 36.2; O2SAT 97
[2018-04-24 07:24] LABS: HCT 38.7 % (40.0-50.0); HGB 12.5 g/dL (13.5-17.5); Mean Corp. HGB Concentration 32.3 g/dL (32.0-36.0); Mean Corpuscular Hemoglobin 29.1 pg (27.0-33.0); Mean Corpuscular Volume 90.2 fL (80-95); Platelet Count 355 x1000/uL (130-400); RBC 4.29 m/cumm (4.50-6.00); RBC Distribution Width 14.9 % (11.8-14.1); White Blood Cell Count 9.41 k/cumm (4.4-10.8)
[2018-04-24 07:25] VITALS: BP 105/69; PULSE 85; RESP 17; TEMP 36.2; O2SAT 97
[2018-04-24] MEDS: Atenolol 25 MG TAB PO (08:37)
[2018-04-24] MEDS: Multivitamin w/Minerals TAB 1 TAB PO (08:37)
[2018-04-24] MEDS: Citalopram 10 MG TAB 30 MG PO (08:37)
[2018-04-24] MEDS: Esomeprazole 40 MG CAPCR PO (08:37)
[2018-04-24] MEDS: Topiramate 25 MG TAB 75 MG PO ×2 (08:37→20:47)
[2018-04-24] MEDS: Allopurinol 100 MG TAB PO (08:37)
[2018-04-24] MEDS: Lisinopril 5 MG TAB PO (08:37)
[2018-04-24] MEDS: Enoxaparin 40 MG/0.4 ML SYR SC (10:44)
--- NOTE | 2018-04-24 14:18 | PGE_ITS ---
DATE OF SERVICE: April 23, 2018 ASSESSMENT AND PLAN: #1. Cellulitis/osteomyelitis of left great toe, MSSA bacteremia - both wound and blood cultures with growth of MSSA. Mr. Tolentino was changed to ceftriaxone for ease of administration, but went on to deve lop almost immediate fevers, tachycardia, and leukocytosis. Leukocytosis has now resolved, and heart rate and temperature have all been normal with change back t o doxycycline. The plan is to continue with the current regimen for completion of a six-week course, approximately the 25 of May given the delay in care with change to ceftriaxone. As per Pharmac y, Mr. Tolentino received a total of a four-day course of ceftriaxone prior of change back. Continue woun d care. #2. Diabetes. Continue sliding scale coverage and ADA diet. #3. Diabetic peripheral neuropathy. Continue gabapentin. #4. GERD. Continue PPI therapy. #5. Hypertension. Appears stable. Blood pressure is under good control currently. Continue atenol ol and low-dose TAVO inhibitor. #6. Schizoaffective disorder. Continue home regimen of psychiatric medications. #7. Prophylaxis. Continue subcutaneous Lovenox and PPI therapy. SUBJECTIVE: Fctcf-oik-sbyn-old man with past medical history significant for diabetes, currently und er treatment for osteomyelitis of the left great toe. Mr. Tolentino had recently undergone a fracture repair with Dr. Jeremy Pollock. He went on to sustain a fra cture and dislocation of the left hallux and fracture dislocation of the hammertoe deformity of the l eft second toe, subsequently, with development of erythema and pain around the site. Subsequent work up via Podiatry revealed disruption of the hardware and focal signs of infection and Mr. Tolentino was adm itted to the hospital for further surgical debridement of his wound. Subsequent wound cultures grew MSSA, as did blood cultures. He is currently on course to be treated for six weeks total of antibiotic therapy with oxacillin. For ease of administration, Mr. Tolentino was c hanged from oxacillin to ceftriaxone, but went on to develop near-immediate signs of infection with t achycardia and fever, and subsequent labs revealed evidence of leukocytosis with a white count of 16. 42. The patient was changed back to oxacillin with resolution of temperatures, leukocytosis, and tac hycardia. This morning Mr. Tolentino is feeling well and undergoing a wound change by nursing. The wound appears to be clean and healing. No overnight events were reported. The patient remains afebrile. PHYSICAL EXAM: General: The patient appears quite comfortable sitting up out of bed. No acute distress noted. Vitals: Temperature 36.1 and afebrile since 04/15. Blood pressure 110/70. Heart rate 80. Pulse oxi metry 98% on room air. Neck: Supple. CV: Regular, non-tachycardic. Pulm: Clear to auscultation bilaterally, without crackles, rhonchi, or wheezing. Abdomen: Bowel sounds present. Soft, nontender, nondistended. Vascular: Minimal bilateral nonpitting edema. Extremities: Left lower extremity first digit with mild swelling and minimal erythema that appears t o be improving, with no warmth overlying the joint in question. LABS: Blood work obtained on 04/21 shows a normal sodium, potassium, bicarb, BUN and creatinine. Chl oride of 108. LFTs are normal as well. CBC with a normal white blood count and essentially normal differential. Hemoglobin mildly low at 12 .1 and it appears to be stable. Platelet count is normal as well. Blood cultures from 04/16/18 shows no growth x120 hours. Last positive blood culture is from 04/08/18 showing methicillin-sensitive Staph aureus. Wound cultures from left toe show growth of MSSA as well.
[2018-04-24 17:36] VITALS: BP 127/70; PULSE 76; RESP 18; TEMP 37.1; O2SAT 95
[2018-04-24] MEDS: Gabapentin 300 MG CAP PO (22:55)
[2018-04-24] MEDS: Normal Saline 500 ML 200 ML IV (22:57)
[2018-04-25] MEDS: traMADol 50 MG TAB 100 MG PO (00:01)
[2018-04-25 00:49] VITALS: BP 110/73; PULSE 66; RESP 19; TEMP 36.1; O2SAT 98
[2018-04-25] MEDS: Normal Saline Flush 10 ML SYR IVP ×5 (02:40→23:46)
[2018-04-25 07:29] LABS: Abs Immature Grans 0.06 k/cumm (0.0-0.09); Absolute Basophil Count 0.02 k/cumm (0.0-0.2); Absolute Eosinophil Count 0.09 k/cumm (0.0-0.7); Absolute Lymphocyte Count 2.52 k/cumm (1.2-3.4); Basophils % 0.2; Eosinophils % 0.9; HCT 38.7 % (40.0-50.0); HGB 12.5 g/dL (13.5-17.5); Immature Grans % 0.6; Lymphocytes % 24.3; Mean Corp. HGB Concentration 32.3 g/dL (32.0-36.0); Mean Corpuscular Hemoglobin 29.1 pg (27.0-33.0); Monocytes % 10.6; Neutrophils % 63.4; Platelet Count 356 x1000/uL (130-400); RBC Distribution Width 15.1 % (11.8-14.1); White Blood Cell Count 10.39 k/cumm (4.4-10.8)
[2018-04-25 07:42] VITALS: BP 109/73; PULSE 80; RESP 18; TEMP 36.1; O2SAT 96
--- NOTE | 2018-04-25 07:50 | PGE_ITS ---
DATE: APRIL 25, 2018 07:50 IMPRESSION: Infection status post open reduction and external fixation, neuropathic fracture of the great toe and second toe now being treated for osteomyelitis. PLAN: We will continue with the Angeline collagen dressings for the time being as long as we continue to see the wound closing. No changes need to be done. He continues on Oxacillin 2 grams q. 4. He has another 3 1/2 weeks of IV antibiotics to go. We will continue to follow episodically and monitor his progress. I appreciate the hospitalist's management of his comorbidities. SUBJECTIVE: Tejas is seen at the bedside. He looks in his usual state of health. He indicates that he is a little tired this morning. He indicates that he gets woken up several times each night for his IVs and vitals etc. but he is tolerating services well. He has no new complaints of pain or discomfort. OBJECTIVE: Vitals: He is afebrile. Temperature is 36.1. Blood pressure 110/73, respirations 19. O2 sat at room air is98%. Morning labs show WBCs remain normalized at 10.39, RBCs 4.3, hemoglobin 12.5, hematocrit 38.7. All of these are stable. Chemistries are all pending including C-reactive protein. Dressings are removed from his left great toe. The digit continues to improve. There is decreased edema. There is no erythema and no cellulitis. It was nontender to palpation. He has had about50% reduction in wound size over the interphalangeal joint. The wound is completely granulated up to the surface of the skin and the skin is beginning to contract and close down. No sinus tracts and no undermining appreciated. The second toe is well healed and nontender as well.
[2018-04-25] MEDS: Allopurinol 100 MG TAB PO (08:18)
[2018-04-25] MEDS: Multivitamin w/Minerals TAB 1 TAB PO (08:19)
[2018-04-25] MEDS: Topiramate 25 MG TAB 75 MG PO ×2 (08:19→20:14)
[2018-04-25] MEDS: Lisinopril 5 MG TAB PO (08:19)
[2018-04-25] MEDS: Citalopram 10 MG TAB 30 MG PO (08:19)
[2018-04-25] MEDS: Atenolol 25 MG TAB PO (08:19)
[2018-04-25 08:27] LABS: Anion Gap 11.1 mmol/L (3-11); BUN 11 mg/dL (7-18); C-Reactive Protein 1.53 mg/dL (0.0-0.3); CO2 22.9 mmol/L (21.0-32.0); CREATININE 1.17 mg/dL (0.70-1.30); Calcium 8.5 mg/dL (8.5-10.1); Chloride 108 mmol/L (98-107); Glucose 85 mg/dL (70-100); Potassium 3.6 mmol/L (3.5-5.1); Sodium 142 mmol/L (136-145)
[2018-04-25] MEDS: Enoxaparin 40 MG/0.4 ML SYR SC (09:40)
[2018-04-25 16:09] VITALS: BP 117/73; PULSE 87; RESP 18; TEMP 36.5; O2SAT 97
--- NOTE | 2018-04-25 18:40 | PGE_ITS ---
DATE: April 25, 2018 IMPRESSIONS: #1. Symptomatic onychomycosis, chronic, as below. #2. Ongoing osteomyelitis left hallux. PLAN: Mechanically and electrically debrided all toenails aggressively and atraumatically to patient tolerance 1 through 5 bilaterally. Gentle curettaged all debris free of the nail grooves. Excellen t reduction was appreciated. Symptomatology was reduced. He is to continue with his current protocol for the osteomyelitis and positive blood cultures includi ng Ancef 2 grams q.4h., with anticipation of ongoing antibiotics through the end of April. SUBJECTIVE: Tejas is seen in his easy chair. He had requested nail management. He had had pain as sociated with elongated hypertrophic toenails. OBJECTIVE: Tejas looks better this afternoon. This morning he was kind of sleepy when we saw him. He is not complaining of any pain or discomfort aside from tender toenails. On exam his peripheral pulses are palpable at the ankles. Feet are warm to the touch. There is no e alex. Skin is grossly intact with the exception of the left great toe. Calves are soft to palpation . Toenails are yellowish-brown, thickened, dystrophic, hypertrophic, and elongated, in need of debri elizabeth. There is subungual debris with periungual tenderness but no active drainage. All toenails a re affected. No tinea pedis is currently appreciated. Muscle groups are 5/5 bilaterally. Skeletal exam is grossly benign with the exception of ongoing osteomyelitis to the left great toe. Neurologic ally he is moderately neuropathic secondary to diabetes. Otherwise, toes are downgoing. LABORATORY DATA: His labs that were not back earlier this morning are remarkable for a CRP that is n ow at 1.53, down from 6.61.
[2018-04-25] MEDS: Gabapentin 300 MG CAP PO (22:53)
[2018-04-25 23:56] VITALS: BP 105/70; PULSE 77; RESP 16; TEMP 36.1; O2SAT 97
[2018-04-26] MEDS: Normal Saline Flush 10 ML SYR IVP ×5 (02:26→19:28)
[2018-04-26 07:15] VITALS: BP 121/78; PULSE 90; RESP 20; TEMP 36.1; O2SAT 97
[2018-04-26] MEDS: Allopurinol 100 MG TAB PO (08:16)
[2018-04-26] MEDS: Multivitamin w/Minerals TAB 1 TAB PO (08:16)
[2018-04-26] MEDS: Topiramate 25 MG TAB 75 MG PO ×2 (08:16→19:28)
[2018-04-26] MEDS: Esomeprazole 40 MG CAPCR PO (08:16)
[2018-04-26] MEDS: Lisinopril 5 MG TAB PO (08:16)
[2018-04-26] MEDS: Atenolol 25 MG TAB PO (08:17)
[2018-04-26] MEDS: Citalopram 10 MG TAB 30 MG PO (09:38)
[2018-04-26] MEDS: Normal Saline 500 ML 30 ML IV (10:45)
[2018-04-26] MEDS: Enoxaparin 40 MG/0.4 ML SYR SC (10:45)
[2018-04-26 15:54] VITALS: BP 113/70; PULSE 76; RESP 20; TEMP 36.3; O2SAT 97
[2018-04-26] MEDS: Acetaminophen 325 MG TAB PO (21:04)
[2018-04-26] MEDS: Gabapentin 300 MG CAP PO (21:04)
[2018-04-26] MEDS: traMADol 50 MG TAB 100 MG PO (22:23)
[2018-04-27] MEDS: Normal Saline Flush 10 ML SYR IVP ×4 (06:00→19:32)
[2018-04-27 07:31] VITALS: BP 123/80; PULSE 84; RESP 16; TEMP 36.4; O2SAT 96
[2018-04-27] MEDS: Citalopram 10 MG TAB 30 MG PO (08:02)
[2018-04-27] MEDS: Atenolol 25 MG TAB PO (08:02)
[2018-04-27] MEDS: Multivitamin w/Minerals TAB 1 TAB PO (08:02)
[2018-04-27] MEDS: Topiramate 25 MG TAB 75 MG PO ×2 (08:02→19:32)
[2018-04-27] MEDS: Allopurinol 100 MG TAB PO (08:02)
[2018-04-27] MEDS: Lisinopril 5 MG TAB PO (08:02)
[2018-04-27] MEDS: Enoxaparin 40 MG/0.4 ML SYR SC (09:37)
[2018-04-27 20:00] VITALS: BP 111/73; PULSE 68; RESP 18; TEMP 36.7; O2SAT 99
[2018-04-27] MEDS: Gabapentin 300 MG CAP PO (21:35)
[2018-04-27] MEDS: Acetaminophen 325 MG TAB PO (21:40)
[2018-04-28] MEDS: Normal Saline Flush 10 ML SYR IVP ×5 (05:45→22:13)
[2018-04-28 07:30] VITALS: BP 127/80; PULSE 70; RESP 21; TEMP 36.7; O2SAT 96
[2018-04-28 07:35] VITALS: BP 135/80; PULSE 69; RESP 22; TEMP 36.7; O2SAT 97
[2018-04-28 07:40] VITALS: BP 127/80; PULSE 70; RESP 21; TEMP 36.7; O2SAT 96
[2018-04-28] MEDS: Citalopram 10 MG TAB 30 MG PO (08:46)
[2018-04-28] MEDS: Lisinopril 5 MG TAB PO (08:47)
[2018-04-28] MEDS: Topiramate 25 MG TAB 75 MG PO ×2 (08:47→19:54)
[2018-04-28] MEDS: Allopurinol 100 MG TAB PO (08:47)
[2018-04-28] MEDS: Atenolol 25 MG TAB PO (08:47)
[2018-04-28] MEDS: Esomeprazole 40 MG CAPCR PO (08:47)
[2018-04-28] MEDS: Multivitamin w/Minerals TAB 1 TAB PO (08:47)
[2018-04-28] MEDS: Enoxaparin 40 MG/0.4 ML SYR SC (10:50)
[2018-04-28 16:05] VITALS: BP 108/71; PULSE 72; RESP 19; TEMP 36.6; O2SAT 95
--- NOTE | 2018-04-28 17:16 | PDOC.CMACT ---
Date of Service: 04/28/18 Time of Service: 17:16 Care Management Activity Note CM met with patient at the bedside he cheerful he was able to leave the facility to visit with his family and friends. He has been able to participate with Reki, music therapy and pet therapy. His anticipated antibiotic end date is 05/25/18 and he is aware. P: Tejas continues as SWB1 for antibiotics no change in status today. Tejas needs a total of 6 weeks of antibiotics anticipate end date is May 25. Plan will be for Tejas to return to [place] at time of discharge his car is here at [facility] and plan for him to transport himself home. CM to continue to provide support Pt and care team ongoing discharge planning and disposition.
[2018-04-28] MEDS: Acetaminophen 325 MG TAB PO (19:53)
[2018-04-28] MEDS: Gabapentin 300 MG CAP PO (22:13)
[2018-04-28 23:45] VITALS: BP 107/68; PULSE 61; RESP 20; TEMP 36.4; O2SAT 98
[2018-04-28] MEDS: traMADol 50 MG TAB 100 MG PO (23:55)
[2018-04-29] MEDS: Normal Saline Flush 10 ML SYR IVP ×6 (02:39→21:46)
[2018-04-29 07:10] VITALS: BP 133/83; PULSE 83; RESP 18; TEMP 36.3; O2SAT 95
[2018-04-29 07:17] LABS: Platelet Count 294 x1000/uL (130-400)
[2018-04-29] MEDS: Multivitamin w/Minerals TAB 1 TAB PO (08:36)
[2018-04-29] MEDS: Allopurinol 100 MG TAB PO (08:36)
[2018-04-29] MEDS: Lisinopril 5 MG TAB PO (08:36)
[2018-04-29] MEDS: Atenolol 25 MG TAB PO (08:36)
[2018-04-29] MEDS: Citalopram 10 MG TAB 30 MG PO (08:37)
[2018-04-29] MEDS: Topiramate 25 MG TAB 75 MG PO ×2 (08:37→20:06)
[2018-04-29] MEDS: Enoxaparin 40 MG/0.4 ML SYR SC (10:53)
[2018-04-29 15:45] VITALS: BP 139/85; PULSE 82; RESP 20; TEMP 36.7; O2SAT 97
[2018-04-29] MEDS: Normal Saline 500 ML 200 ML IV (18:07)
[2018-04-29] MEDS: Acetaminophen 325 MG TAB PO (20:06)
[2018-04-29] MEDS: Gabapentin 300 MG CAP PO (21:46)
[2018-04-29] MEDS: traMADol 50 MG TAB 100 MG PO (22:48)
[2018-04-30] MEDS: Normal Saline Flush 10 ML SYR IVP ×3 (02:12→10:36)
[2018-04-30 07:35] VITALS: BP 126/79; PULSE 77; RESP 20; TEMP 36; O2SAT 97
[2018-04-30] MEDS: Multivitamin w/Minerals TAB 1 TAB PO (09:21)
[2018-04-30] MEDS: Topiramate 25 MG TAB 75 MG PO ×2 (09:21→21:46)
[2018-04-30] MEDS: Esomeprazole 40 MG CAPCR PO (09:22)
[2018-04-30] MEDS: Allopurinol 100 MG TAB PO (09:22)
[2018-04-30] MEDS: Atenolol 25 MG TAB PO (09:22)
[2018-04-30] MEDS: Citalopram 10 MG TAB 30 MG PO (09:22)
[2018-04-30] MEDS: Lisinopril 5 MG TAB PO (09:22)
[2018-04-30] MEDS: Enoxaparin 40 MG/0.4 ML SYR SC (09:22)
[2018-04-30 15:59] VITALS: BP 107/66; PULSE 72; RESP 20; TEMP 36.8; O2SAT 96
[2018-04-30] MEDS: Normal Saline 500 ML IV (18:00)
[2018-04-30] MEDS: traMADol 50 MG TAB 100 MG PO (21:46)
[2018-04-30] MEDS: Gabapentin 300 MG CAP PO (21:47)
[2018-05-01 00:28] VITALS: BP 121/69; PULSE 66; RESP 18; TEMP 36.1; O2SAT 97
[2018-05-01] MEDS: Normal Saline Flush 10 ML SYR IVP ×7 (02:14→22:01)
[2018-05-01 07:15] VITALS: BP 114/75; PULSE 83; RESP 18; TEMP 36.6; O2SAT 94
[2018-05-01] MEDS: Lisinopril 5 MG TAB PO (08:17)
[2018-05-01] MEDS: Citalopram 10 MG TAB 30 MG PO (08:17)
[2018-05-01] MEDS: Topiramate 25 MG TAB 75 MG PO ×2 (08:17→20:50)
[2018-05-01] MEDS: Atenolol 25 MG TAB PO (08:17)
[2018-05-01] MEDS: Multivitamin w/Minerals TAB 1 TAB PO (08:17)
[2018-05-01] MEDS: Allopurinol 100 MG TAB PO (08:17)
[2018-05-01] MEDS: Enoxaparin 40 MG/0.4 ML SYR SC (10:29)
[2018-05-01 16:20] VITALS: BP 144/81; PULSE 80; RESP 20; TEMP 36.7; O2SAT 98
[2018-05-01] MEDS: Gabapentin 300 MG CAP PO (20:50)
[2018-05-01] MEDS: Normal Saline 500 ML 200 ML IV (22:06)
[2018-05-02 00:20] VITALS: BP 104/68; PULSE 80; RESP 16; TEMP 35.6; O2SAT 96
[2018-05-02] MEDS: Normal Saline Flush 10 ML SYR IVP ×3 (02:20→09:16)
[2018-05-02 07:40] VITALS: BP 138/82; PULSE 77; RESP 16; TEMP 36.1; O2SAT 96
[2018-05-02] MEDS: Enoxaparin 40 MG/0.4 ML SYR SC (09:15)
[2018-05-02] MEDS: Lisinopril 5 MG TAB PO (09:16)
[2018-05-02] MEDS: Topiramate 25 MG TAB 75 MG PO ×2 (09:16→20:31)
[2018-05-02] MEDS: Citalopram 10 MG TAB 30 MG PO (09:16)
[2018-05-02] MEDS: Multivitamin w/Minerals TAB 1 TAB PO (09:16)
[2018-05-02] MEDS: Esomeprazole 40 MG CAPCR PO (09:16)
[2018-05-02] MEDS: Allopurinol 100 MG TAB PO (09:16)
[2018-05-02] MEDS: Atenolol 25 MG TAB PO (09:17)
--- NOTE | 2018-05-02 13:33 | PDOC.PROG ---
Date of Service: 05/02/18 Time of Service: 12:35 Assessment/Plan - Assessment/Plan (1) Osteomyelitis of toe of left foot Plan: Continue Ancef 2 G every 4 hours. Has remained afebrile. No surrounding erythema or excessive drainage noted. Pain is being well managed on current regimen. Plan is to continue antibiotics for a total of 6 weeks. Podiatry following. (2) Type 2 diabetes mellitus Plan: Blood sugars have been well managed. Can provide sliding scale coverage if needed. Continue carb counting diet. Time spent with patient 20 mins Discussed case with Dr. Herr who is in agreement (3) HTN (hypertension) Plan: Has been normotensive, continue ACEI. History of Present Illness - History of Present Illness History of Present Illness: Tejas is a pleasant 47 yo gentleman with DM who is currently on swing bed status for treatment of osteomyelitis of the L hallux and symptomatic chronic onychomycosis. Today he has no complaints or concerns. Pain is being well managed. Is eating and drinking well and going to the bathroom without difficulty. Has been able to get out of the hospital on outings with family roughly 1-2 times/week and enjoys this. Has no complaints or concerns. Review of Systems - Review of Systems Constitutional: Other (10 point ROS obtained with pertinent positives noted in HPI, otherwise negative.) - Medications/Allergies Allergies/Adverse Reactions: Allergies Allergy/AdvReac Type Severity Reaction Status Date / Time No Known Allergies Allergy Unverified 04/07/18 16:50 Medications: Current Medications Acetaminophen (Tylenol) 650 mg WA Q4H PRN PRN Acetaminophen (Tylenol) 325 - 650 mg PO Q4H PRN PRN Last Admin: 04/29/18 20:06 Dose: 650 mg Al Hydrox/Mg Hydrox/Simethicone (Mylanta Liquid) 30 ml PO Q2H PRN PRN Allopurinol (Zyloprim) 100 mg PO DAILY [facility] Last Admin: 05/02/18 09:16 Dose: 100 mg Atenolol (Tenormin) 25 mg PO DAILY [facility] Last Admin: 05/02/18 09:17 Dose: 25 mg Citalopram Hydrobromide (Celexa) 30 mg PO DAILY [facility] Last Admin: 05/02/18 09:16 Dose: 30 mg Dextrose (Insta-Glucose) 0 gm PO DIRECTED PRN Dextrose/Water () 0 gm IVP DIRECTED PRN Dimethicone/Zinc Oxide (Art Protect Cream) 0 gm TP PRN PRN Docusate Sodium (Colace) 100 mg PO TID PRN PRN Enoxaparin Sodium (Lovenox) 40 mg SC Q24H [facility] Last Admin: 05/02/18 09:15 Dose: 40 mg Esomeprazole Magnesium (Nexium) 40 mg PO Q48H [facility] Last Admin: 05/02/18 09:16 Dose: 40 mg Gabapentin (Neurontin) 300 mg PO HS [facility] Last Admin: 05/01/18 20:50 Dose: 300 mg Sodium Chloride (Saline 500ml Bag) 500 mls @ 0 mls/hr IV PRN PRN PRN Reason: As Directed Last Admin: 05/01/18 22:06 Dose: 200 mls/hr Oxacillin Sodium/Dextrose (Bactocill) 2 gm in 50 mls @ 100 mls/hr IVPB Q4H [facility] Last Admin: 05/02/18 09:15 Dose: 100 mls/hr IV Miscellaneous Supplies () 1 each IV DIRECTED [facility] Iron/Minerals/Multivitamins (Theragran-M) 1 tab PO DAILY [facility] Last Admin: 05/02/18 09:16 Dose: 1 tab Lisinopril (Prinivil) 5 mg PO DAILY [facility] Last Admin: 05/02/18 09:16 Dose: 5 mg Lorazepam (Ativan) 0.5 mg PO TID PRN PRN PRN Reason: Anxiety Magnesium Hydroxide (Milk Of Magnesia) 30 ml PO DAILY PRN PRN Morphine Sulfate () 1 - 2 mg IVP Q3H PRN PRN PRN Reason: Pain Last Admin: 04/16/18 20:28 Dose: 2 mg Pt's Own Clozapine (100mg Tablet) 2.5 each PO HS [facility] Last Admin: 05/01/18 20:50 Dose: 2.5 each Polyethylene Glycol (Miralax) 17 gm PO DAILY PRN PRN PRN Reason: Constipation Sodium Chloride (Saline Flush 10 Ml Syringe) 0 ml IVP PRN PRN Last Admin: 05/02/18 09:16 Dose: 10 ml Topiramate (Topamax) 75 mg PO BID [facility] Last Admin: 05/02/18 09:16 Dose: 75 mg Tramadol HCl (Ultram) 100 mg PO Q4H PRN PRN PRN Reason: Pain Last Admin: 04/30/18 21:46 Dose: 100 mg Objective - Exam Vitals and I&O: Vital Signs Temp 36.1 C L 05/02/18 07:40 Pulse 77 05/02/18 07:40 Resp 16 05/02/18 07:40 BP 138/82 05/02/18 07:40 Pulse Ox 96 05/02/18 07:40 Intake & Output 05/01/18 05/02/18 05/02/18 23:59 11:59 23:59 Intake Total 1500 120 240 Balance 1500 120 240 Intake: IV 230 Oral 1270 120 240 Other: Urine Color Yellow Urine Appearance Clear Urine Odor None Comment Void x1 in the toilet. Urine not seen, voiding independently. Voiding Methods Toilet Toilet General: Alert, Oriented x3, Cooperative, No acute distress HEENT: Atraumatic, PERRLA, EOMI, Mucous membr. moist/pink Neck: Supple Lungs: Clear to auscultation, Normal air movement Cardiovascular: Regular rate, Normal S1, Normal S2. denies: Murmurs, Gallops, Rubs, Other Abdomen: Normal bowel sounds, Soft. denies: Tenderness, Hepatospenomegaly, Masses, Other Extremities: Normal pulses, Other (Dressing noted to L foot, appears CDI. Did not take down to assess wound. No surrounding erythema.) Neurological: Normal gait, Normal speech, Strength at 5/5 X4 ext, Normal tone, Sensation intact Psych/Mental Status: Mental status NL, Mood NL - Results Results: Laboratory Results WBC 10.39 k/cumm (4.4-10.8) 04/25/18 06:30 RBC 4.30 m/cumm (4.50-6.00) L 04/25/18 06:30 Hgb 12.5 g/dL (13.5-17.5) L 04/25/18 06:30 Hct 38.7 % (40.0-50.0) L 04/25/18 06:30 MCV 90.0 fL (80-95) 04/25/18 06:30 MCH 29.1 pg (27.0-33.0) 04/25/18 06:30 MCHC 32.3 g/dL (32.0-36.0) 04/25/18 06:30 RDW 15.1 % (11.8-14.1) H 04/25/18 06:30 Plt Count 294 x1000/uL (130-400) 04/29/18 06:39 MPV 11.0 fL (8.0-11.0) 04/25/18 06:30 Immature Gran % 0.6 04/25/18 06:30 Neutrophils % 63.4 04/25/18 06:30 Lymphocytes % 24.3 04/25/18 06:30 Monocytes % 10.6 04/25/18 06:30 Eosinophils % 0.9 04/25/18 06:30 Basophils % 0.2 04/25/18 06:30 Absolute Neutrophils 6.60 k/cumm (1.2-6.7) 04/25/18 06:30 Absolute Lymphocytes 2.52 k/cumm (1.2-3.4) 04/25/18 06:30 Absolute Monocytes 1.10 k/cumm (0.11-0.7) H 04/25/18 06:30 Absolute Eosinophils 0.09 k/cumm (0.0-0.7) 04/25/18 06:30 Absolute Basophils 0.02 k/cumm (0.0-0.2) 04/25/18 06:30 ESR 63 MM/HR (0-15) H 04/18/18 07:00 Sodium 142 mmol/L (136-145) 04/25/18 06:50 Potassium 3.6 mmol/L (3.5-5.1) 04/25/18 06:50 Chloride 108 mmol/L (98-107) H 04/25/18 06:50 Carbon Dioxide 22.9 mmol/L (21.0-32.0) 04/25/18 06:50 Anion Gap 11.1 mmol/L (3-11) H 04/25/18 06:50 BUN 11 mg/dL (7-18) 04/25/18 06:50 Creatinine 1.17 mg/dL (0.70-1.30) 04/25/18 06:50 Estimated GFR/1.73 m2 >= 60.00 (mL/min/1.73m2) 04/25/18 06:50 Glucose 85 mg/dL (70-100) 04/25/18 06:50 Calcium 8.5 mg/dL (8.5-10.1) 04/25/18 06:50 Total Bilirubin 0.2 mg/dL (0.2-1.0) 04/21/18 06:35 AST 18 U/L (15-37) 04/21/18 06:35 ALT 35 U/L (12-78) 04/21/18 06:35 Alkaline Phosphatase 93 U/L (46-116) 04/21/18 06:35 Troponin I < 0.02 ng/mL (0.00-0.06) 04/16/18 11:45 C-Reactive Protein 1.53 mg/dL (0.0-0.3) H 04/25/18 06:50 Total Protein 7.0 g/dL (6.4-8.2) 04/21/18 06:35 Albumin 2.9 g/dL (3.4-5.0) L 04/21/18 06:35 Urine Color Yellow (Yellow) 04/16/18 17:05 Urine Clarity Clear 04/16/18 17:05 Urine pH 5.5 (5-8) 04/16/18 17:05 Ur Specific Marshall <= 1.005 (1.005-1.025) 04/16/18 17:05 Urine Protein Negative mg/dL (Negative) 04/16/18 17:05 Urine Ketones Negative mg/dL (Negative) 04/16/18 17:05 Urine Blood Negative (Negative) 04/16/18 17:05 Urine Nitrite Negative (Negative) 04/16/18 17:05 Urine Bilirubin Negative (Negative) 04/16/18 17:05 Urine Urobilinogen 0.2 EU/dL (Up TO 0.2) 04/16/18 17:05 Ur Leukocyte Esterase Negative (Negative) 04/16/18 17:05 Urine Glucose Negative mg/dL (Negative) 04/16/18 17:05
--- NOTE | 2018-05-02 13:36 | PDOC.PROG_ITS ---
Date of Service: 05/02/18 Time of Service: 12:35 Assessment/Plan - Assessment/Plan (1) Osteomyelitis of toe of left foot Plan: Continue Ancef 2 G every 4 hours. Has remained afebrile. No surrounding erythema or excessive drainage noted. Pain is being well managed on current regimen. Plan is to continue antibiotics for a total of 6 weeks. Podiatry following. (2) Type 2 diabetes mellitus Plan: Blood sugars have been well managed. Can provide sliding scale coverage if needed. Continue carb counting diet. Time spent with patient 20 mins Discussed case with Dr. Herr who is in agreement (3) HTN (hypertension) Plan: Has been normotensive, continue ACEI. History of Present Illness - History of Present Illness History of Present Illness: Tejas is a pleasant 47 yo gentleman with DM who is currently on swing bed status for treatment of osteomyelitis of the L hallux and symptomatic chronic onychomycosis. Today he has no complaints or concerns. Pain is being well managed. Is eating and drinking well and going to the bathroom without difficulty. Has been able to get out of the hospital on outings with family roughly 1-2 times/week and enjoys this. Has no complaints or concerns. Review of Systems - Review of Systems Constitutional: Other (10 point ROS obtained with pertinent positives noted in HPI, otherwise negative.) - Medications/Allergies Allergies/Adverse Reactions: Allergies Allergy/AdvReac Type Severity Reaction Status Date / Time No Known Allergies Allergy Unverified 04/07/18 16:50 Medications: Current Medications Acetaminophen (Tylenol) 650 mg LA Q4H PRN PRN Acetaminophen (Tylenol) 325 - 650 mg PO Q4H PRN PRN Last Admin: 04/29/18 20:06 Dose: 650 mg Al Hydrox/Mg Hydrox/Simethicone (Mylanta Liquid) 30 ml PO Q2H PRN PRN Allopurinol (Zyloprim) 100 mg PO DAILY [facility] Last Admin: 05/02/18 09:16 Dose: 100 mg Atenolol (Tenormin) 25 mg PO DAILY [facility] Last Admin: 05/02/18 09:17 Dose: 25 mg Citalopram Hydrobromide (Celexa) 30 mg PO DAILY [facility] Last Admin: 05/02/18 09:16 Dose: 30 mg Dextrose (Insta-Glucose) 0 gm PO DIRECTED PRN Dextrose/Water () 0 gm IVP DIRECTED PRN Dimethicone/Zinc Oxide (Art Protect Cream) 0 gm TP PRN PRN Docusate Sodium (Colace) 100 mg PO TID PRN PRN Enoxaparin Sodium (Lovenox) 40 mg SC Q24H [facility] Last Admin: 05/02/18 09:15 Dose: 40 mg Esomeprazole Magnesium (Nexium) 40 mg PO Q48H [facility] Last Admin: 05/02/18 09:16 Dose: 40 mg Gabapentin (Neurontin) 300 mg PO HS [facility] Last Admin: 05/01/18 20:50 Dose: 300 mg Sodium Chloride (Saline 500ml Bag) 500 mls @ 0 mls/hr IV PRN PRN PRN Reason: As Directed Last Admin: 05/01/18 22:06 Dose: 200 mls/hr Oxacillin Sodium/Dextrose (Bactocill) 2 gm in 50 mls @ 100 mls/hr IVPB Q4H [facility] Last Admin: 05/02/18 09:15 Dose: 100 mls/hr IV Miscellaneous Supplies () 1 each IV DIRECTED [facility] Iron/Minerals/Multivitamins (Theragran-M) 1 tab PO DAILY [facility] Last Admin: 05/02/18 09:16 Dose: 1 tab Lisinopril (Prinivil) 5 mg PO DAILY [facility] Last Admin: 05/02/18 09:16 Dose: 5 mg Lorazepam (Ativan) 0.5 mg PO TID PRN PRN PRN Reason: Anxiety Magnesium Hydroxide (Milk Of Magnesia) 30 ml PO DAILY PRN PRN Morphine Sulfate () 1 - 2 mg IVP Q3H PRN PRN PRN Reason: Pain Last Admin: 04/16/18 20:28 Dose: 2 mg Pt's Own Clozapine (100mg Tablet) 2.5 each PO HS [facility] Last Admin: 05/01/18 20:50 Dose: 2.5 each Polyethylene Glycol (Miralax) 17 gm PO DAILY PRN PRN PRN Reason: Constipation Sodium Chloride (Saline Flush 10 Ml Syringe) 0 ml IVP PRN PRN Last Admin: 05/02/18 09:16 Dose: 10 ml Topiramate (Topamax) 75 mg PO BID [facility] Last Admin: 05/02/18 09:16 Dose: 75 mg Tramadol HCl (Ultram) 100 mg PO Q4H PRN PRN PRN Reason: Pain Last Admin: 04/30/18 21:46 Dose: 100 mg Objective - Exam Vitals and I&O: Vital Signs Temp 36.1 C L 05/02/18 07:40 Pulse 77 05/02/18 07:40 Resp 16 05/02/18 07:40 BP 138/82 05/02/18 07:40 Pulse Ox 96 05/02/18 07:40 Intake & Output 05/01/18 05/02/18 05/02/18 23:59 11:59 23:59 Intake Total 1500 120 240 Balance 1500 120 240 Intake: IV 230 Oral 1270 120 240 Other: Urine Color Yellow Urine Appearance Clear Urine Odor None Comment Void x1 in the toilet. Urine not seen, voiding independently. Voiding Methods Toilet Toilet General: Alert, Oriented x3, Cooperative, No acute distress HEENT: Atraumatic, PERRLA, EOMI, Mucous membr. moist/pink Neck: Supple Lungs: Clear to auscultation, Normal air movement Cardiovascular: Regular rate, Normal S1, Normal S2. denies: Murmurs, Gallops, Rubs, Other Abdomen: Normal bowel sounds, Soft. denies: Tenderness, Hepatospenomegaly, Masses, Other Extremities: Normal pulses, Other (Dressing noted to L foot, appears CDI. Did not take down to assess wound. No surrounding erythema.) Neurological: Normal gait, Normal speech, Strength at 5/5 X4 ext, Normal tone, Sensation intact Psych/Mental Status: Mental status NL, Mood NL - Results Results: Laboratory Results WBC 10.39 k/cumm (4.4-10.8) 04/25/18 06:30 RBC 4.30 m/cumm (4.50-6.00) L 04/25/18 06:30 Hgb 12.5 g/dL (13.5-17.5) L 04/25/18 06:30 Hct 38.7 % (40.0-50.0) L 04/25/18 06:30 MCV 90.0 fL (80-95) 04/25/18 06:30 MCH 29.1 pg (27.0-33.0) 04/25/18 06:30 MCHC 32.3 g/dL (32.0-36.0) 04/25/18 06:30 RDW 15.1 % (11.8-14.1) H 04/25/18 06:30 Plt Count 294 x1000/uL (130-400) 04/29/18 06:39 MPV 11.0 fL (8.0-11.0) 04/25/18 06:30 Immature Gran % 0.6 04/25/18 06:30 Neutrophils % 63.4 04/25/18 06:30 Lymphocytes % 24.3 04/25/18 06:30 Monocytes % 10.6 04/25/18 06:30 Eosinophils % 0.9 04/25/18 06:30 Basophils % 0.2 04/25/18 06:30 Absolute Neutrophils 6.60 k/cumm (1.2-6.7) 04/25/18 06:30 Absolute Lymphocytes 2.52 k/cumm (1.2-3.4) 04/25/18 06:30 Absolute Monocytes 1.10 k/cumm (0.11-0.7) H 04/25/18 06:30 Absolute Eosinophils 0.09 k/cumm (0.0-0.7) 04/25/18 06:30 Absolute Basophils 0.02 k/cumm (0.0-0.2) 04/25/18 06:30 ESR 63 MM/HR (0-15) H 04/18/18 07:00 Sodium 142 mmol/L (136-145) 04/25/18 06:50 Potassium 3.6 mmol/L (3.5-5.1) 04/25/18 06:50 Chloride 108 mmol/L (98-107) H 04/25/18 06:50 Carbon Dioxide 22.9 mmol/L (21.0-32.0) 04/25/18 06:50 Anion Gap 11.1 mmol/L (3-11) H 04/25/18 06:50 BUN 11 mg/dL (7-18) 04/25/18 06:50 Creatinine 1.17 mg/dL (0.70-1.30) 04/25/18 06:50 Estimated GFR/1.73 m2 >= 60.00 (mL/min/1.73m2) 04/25/18 06:50 Glucose 85 mg/dL (70-100) 04/25/18 06:50 Calcium 8.5 mg/dL (8.5-10.1) 04/25/18 06:50 Total Bilirubin 0.2 mg/dL (0.2-1.0) 04/21/18 06:35 AST 18 U/L (15-37) 04/21/18 06:35 ALT 35 U/L (12-78) 04/21/18 06:35 Alkaline Phosphatase 93 U/L (46-116) 04/21/18 06:35 Troponin I < 0.02 ng/mL (0.00-0.06) 04/16/18 11:45 C-Reactive Protein 1.53 mg/dL (0.0-0.3) H 04/25/18 06:50 Total Protein 7.0 g/dL (6.4-8.2) 04/21/18 06:35 Albumin 2.9 g/dL (3.4-5.0) L 04/21/18 06:35 Urine Color Yellow (Yellow) 04/16/18 17:05 Urine Clarity Clear 04/16/18 17:05 Urine pH 5.5 (5-8) 04/16/18 17:05 Ur Specific Johnson <= 1.005 (1.005-1.025) 04/16/18 17:05 Urine Protein Negative mg/dL (Negative) 04/16/18 17:05 Urine Ketones Negative mg/dL (Negative) 04/16/18 17:05 Urine Blood Negative (Negative) 04/16/18 17:05 Urine Nitrite Negative (Negative) 04/16/18 17:05 Urine Bilirubin Negative (Negative) 04/16/18 17:05 Urine Urobilinogen 0.2 EU/dL (Up TO 0.2) 04/16/18 17:05 Ur Leukocyte Esterase Negative (Negative) 04/16/18 17:05 Urine Glucose Negative mg/dL (Negative) 04/16/18 17:05
[2018-05-02 15:53] VITALS: BP 130/78; PULSE 75; RESP 18; TEMP 36.4; O2SAT 98
[2018-05-02] MEDS: traMADol 50 MG TAB 100 MG PO ×2 (20:28→21:42)
[2018-05-02] MEDS: Gabapentin 300 MG CAP PO (20:31)
[2018-05-02] MEDS: Normal Saline 500 ML 30 ML IV (21:39)
[2018-05-02] MEDS: Acetaminophen 325 MG TAB PO (21:47)
[2018-05-02 23:46] VITALS: BP 108/68; PULSE 78; RESP 18; TEMP 35.7; O2SAT 96
[2018-05-03] MEDS: Normal Saline Flush 10 ML SYR IVP ×5 (01:23→19:32)
[2018-05-03 07:40] VITALS: BP 126/78; PULSE 63; RESP 17; TEMP 36.1; O2SAT 97
[2018-05-03] MEDS: Lisinopril 5 MG TAB PO (08:34)
[2018-05-03] MEDS: Multivitamin w/Minerals TAB 1 TAB PO (08:35)
[2018-05-03] MEDS: Acetaminophen 325 MG TAB PO (08:35)
[2018-05-03] MEDS: Citalopram 10 MG TAB 30 MG PO (08:35)
[2018-05-03] MEDS: Topiramate 25 MG TAB 75 MG PO ×2 (08:35→19:32)
[2018-05-03] MEDS: Atenolol 25 MG TAB PO (08:36)
[2018-05-03] MEDS: Allopurinol 100 MG TAB PO (08:36)
[2018-05-03] MEDS: Enoxaparin 40 MG/0.4 ML SYR SC (10:41)
--- NOTE | 2018-05-03 15:44 | CHAPLAIN ---
I checked in with Tejas today. He was sitting up in his chair, connecting with family and friends using Facebook in his phone. Tejas is here until May 25 but has enjoyed some opportunities to leave for a few hours at a time. He recently to [employer] with his mom for dinner. Tejas is Jainism and has been visited by the [facility] when they visit on Mondays and Fridays.
[2018-05-03 16:07] VITALS: BP 128/73; PULSE 73; RESP 19; TEMP 36.6; O2SAT 96
[2018-05-03] MEDS: Gabapentin 300 MG CAP PO (21:37)
[2018-05-04] MEDS: Normal Saline Flush 10 ML SYR IVP ×5 (05:34→21:34)
[2018-05-04 07:05] LABS: Abs Immature Grans 0.03 k/cumm (0.0-0.09); Absolute Basophil Count 0.02 k/cumm (0.0-0.2); Absolute Eosinophil Count 0.13 k/cumm (0.0-0.7); Absolute Lymphocyte Count 1.94 k/cumm (1.2-3.4); Absolute Monocyte Count 0.93 k/cumm (0.11-0.7); Absolute Neutrophil Count 5.73 k/cumm (1.2-6.7); Basophils % 0.2; Eosinophils % 1.5; HCT 39.6 % (40.0-50.0); HGB 12.8 g/dL (13.5-17.5); Immature Grans % 0.3; Lymphocytes % 22.1; Mean Corp. HGB Concentration 32.3 g/dL (32.0-36.0); Mean Corpuscular Hemoglobin 29.2 pg (27.0-33.0); Mean Corpuscular Volume 90.2 fL (80-95); Monocytes % 10.6; Neutrophils % 65.3; Platelet Count 226 x1000/uL (130-400); RBC 4.39 m/cumm (4.50-6.00); RBC Distribution Width 15.6 % (11.8-14.1); White Blood Cell Count 8.78 k/cumm (4.4-10.8)
[2018-05-04 07:25] VITALS: BP 131/79; PULSE 80; RESP 20; TEMP 36.1; O2SAT 98
[2018-05-04 07:27] LABS: ALT 28 U/L (12-78); AST 15 U/L (15-37); Albumin 2.9 g/dL (3.4-5.0); Alkaline Phosphatase 106 U/L (46-116); BUN 11 mg/dL (7-18); Bilirubin, Total 0.2 mg/dL (0.2-1.0); CREATININE 1.12 mg/dL (0.70-1.30); Calcium 8.8 mg/dL (8.5-10.1); Chloride 107 mmol/L (98-107); Glucose 82 mg/dL (70-100); Potassium 3.5 mmol/L (3.5-5.1); Sodium 140 mmol/L (136-145); Total Protein 6.7 g/dL (6.4-8.2)
[2018-05-04] MEDS: Allopurinol 100 MG TAB PO (07:41)
[2018-05-04] MEDS: Topiramate 25 MG TAB 75 MG PO ×2 (07:41→20:10)
[2018-05-04] MEDS: Atenolol 25 MG TAB PO (07:41)
[2018-05-04] MEDS: Multivitamin w/Minerals TAB 1 TAB PO (07:41)
[2018-05-04] MEDS: Citalopram 10 MG TAB 30 MG PO (07:41)
[2018-05-04] MEDS: Lisinopril 5 MG TAB PO (07:41)
[2018-05-04] MEDS: Esomeprazole 40 MG CAPCR PO (07:41)
[2018-05-04] MEDS: Enoxaparin 40 MG/0.4 ML SYR SC (10:01)
--- NOTE | 2018-05-04 13:18 | PDOC.CMPRO ---
Date of Service: 05/04/18 Time of Service: 13:18 Care Management Progress Note S/O: CM met with Tejas at the bedside he is alert and talkative he states that he has been able to leave a few times a week and spend time with his Mom. He is maintaining his sense of humour and positive outlook. He is requesting a MD note for work CM will follow up and have the note completed to fax to his employer. Tejas states he has been having frequent loose stools yesterday and one today. This was reported to MD, encouraged patient to report ongoing symptoms to his primary nurse. A: 47 year old male admitted with osteomyelitits of left great toe with positive blood culture. P:Tejas continues as SWB1 for antibiotics no change in status today. Tejas needs a total of 6 weeks of antibiotics anticipate end date is May 25. Plan will be for Tejas to return to [place] at time of discharge his car is here at [facility] and plan for him to transport himself home. CM to continue to provide support Pt and care team ongoing discharge planning and disposition.
--- NOTE | 2018-05-04 13:48 | CMPROGNOTE_ITS ---
Date of Service: 05/04/18 Time of Service: 13:18 Care Management Progress Note S/O: CM met with Tejas at the bedside he is alert and talkative he states that he has been able to leave a few times a week and spend time with his Mom. He is maintaining his sense of humour and positive outlook. He is requesting a MD note for work CM will follow up and have the note completed to fax to his employer. Tejas states he has been having frequent loose stools yesterday and one today. This was reported to MD, encouraged patient to report ongoing symptoms to his primary nurse. A: 47 year old male admitted with osteomyelitits of left great toe with positive blood culture. P:Tejas continues as SWB1 for antibiotics no change in status today. Tejas needs a total of 6 weeks of antibiotics anticipate end date is May 25. Plan will be for Tejas to return to [place] at time of discharge his car is here at [facility] and plan for him to transport himself home. CM to continue to provide support Pt and care team ongoing discharge planning and disposition.
[2018-05-04 15:46] VITALS: BP 104/70; PULSE 83; RESP 20; TEMP 36.4; O2SAT 97
[2018-05-04] MEDS: Normal Saline 500 ML 200 ML IV (21:33)
[2018-05-04] MEDS: Gabapentin 300 MG CAP PO (21:34)
[2018-05-04 23:57] VITALS: BP 108/72; PULSE 73; RESP 19; TEMP 35.9; O2SAT 96
[2018-05-05] MEDS: Normal Saline Flush 10 ML SYR IVP ×6 (01:53→21:49)
[2018-05-05 07:40] VITALS: BP 121/81; PULSE 82; RESP 18; TEMP 36.1; O2SAT 96
[2018-05-05] MEDS: Citalopram 10 MG TAB 30 MG PO (07:52)
[2018-05-05] MEDS: Multivitamin w/Minerals TAB 1 TAB PO (07:53)
[2018-05-05] MEDS: Atenolol 25 MG TAB PO (07:53)
[2018-05-05] MEDS: Topiramate 25 MG TAB 75 MG PO ×2 (07:53→19:54)
[2018-05-05] MEDS: Allopurinol 100 MG TAB PO (07:53)
[2018-05-05] MEDS: Lisinopril 5 MG TAB PO (07:53)
[2018-05-05] MEDS: Enoxaparin 40 MG/0.4 ML SYR SC (10:45)
--- NOTE | 2018-05-05 14:54 | PDOC.CMACT ---
Date of Service: 05/05/18 Time of Service: 14:54 Care Management Activity Note Tejas has been able to participate with [employer], music therapy and pet therapy. He has gone out on pass, and went out today which he enjoys. His anticipated antibiotic end date is 05/25/18 which he is aware of. Activity cart is offered, as are the above therapies, and reading materials. P: Tejas to remain in swingbed for IV antibiotics until 05/25/18, he will then return to [place] [facility] which is his place of residence.
[2018-05-05 18:12] VITALS: BP 109/73; PULSE 90; RESP 20; TEMP 36.9; O2SAT 96
[2018-05-05] MEDS: Gabapentin 300 MG CAP PO (21:48)
[2018-05-05] MEDS: traMADol 50 MG TAB 100 MG PO (23:19)
[2018-05-06] MEDS: Normal Saline 500 ML 200 ML IV (02:18)
[2018-05-06] MEDS: Normal Saline Flush 10 ML SYR IVP ×5 (02:19→17:55)
[2018-05-06 07:25] VITALS: BP 112/74; PULSE 84; RESP 17; TEMP 36.1; O2SAT 95
[2018-05-06] MEDS: Multivitamin w/Minerals TAB 1 TAB PO (08:52)
[2018-05-06] MEDS: Allopurinol 100 MG TAB PO (08:53)
[2018-05-06] MEDS: traMADol 50 MG TAB 100 MG PO (08:53)
[2018-05-06] MEDS: Citalopram 10 MG TAB 30 MG PO (08:54)
[2018-05-06] MEDS: Topiramate 25 MG TAB 75 MG PO ×2 (08:54→20:40)
[2018-05-06] MEDS: Esomeprazole 40 MG CAPCR PO (08:55)
[2018-05-06] MEDS: Atenolol 25 MG TAB PO (08:55)
[2018-05-06] MEDS: Lisinopril 5 MG TAB PO (08:55)
[2018-05-06] MEDS: Enoxaparin 40 MG/0.4 ML SYR SC (10:39)
[2018-05-06 12:23] LABS: Campylobacter PCR SEE COMMENTS; Salmonella PCR SEE COMMENTS; Shiga Toxin PCR SEE COMMENTS; Shigella/Enteroinvasive Ecoli SEE COMMENTS
[2018-05-06 15:57] VITALS: BP 122/71; PULSE 79; RESP 18; TEMP 36.3; O2SAT 96
[2018-05-06] MEDS: Gabapentin 300 MG CAP PO (22:31)
[2018-05-07 07:55] VITALS: BP 129/83; PULSE 79; RESP 17; TEMP 35.9; O2SAT 96
[2018-05-07] MEDS: Enoxaparin 40 MG/0.4 ML SYR SC (10:03)
[2018-05-07] MEDS: Lisinopril 5 MG TAB PO (10:03)
[2018-05-07] MEDS: Topiramate 25 MG TAB 75 MG PO ×2 (10:03→20:22)
[2018-05-07] MEDS: Atenolol 25 MG TAB PO (10:03)
[2018-05-07] MEDS: Allopurinol 100 MG TAB PO (10:03)
[2018-05-07] MEDS: Multivitamin w/Minerals TAB 1 TAB PO (10:03)
[2018-05-07] MEDS: Citalopram 10 MG TAB 30 MG PO (10:25)
[2018-05-07] MEDS: Normal Saline Flush 10 ML SYR IVP ×4 (11:25→18:15)
[2018-05-07 15:58] VITALS: BP 125/83; PULSE 76; RESP 18; TEMP 36.5; O2SAT 97
[2018-05-07] MEDS: Gabapentin 300 MG CAP PO (22:27)
[2018-05-08 07:29] VITALS: BP 113/74; PULSE 83; RESP 18; TEMP 36.1; O2SAT 95
[2018-05-08] MEDS: Multivitamin w/Minerals TAB 1 TAB PO (08:33)
[2018-05-08] MEDS: Esomeprazole 40 MG CAPCR PO (08:33)
[2018-05-08] MEDS: Topiramate 25 MG TAB 75 MG PO ×2 (08:33→21:13)
[2018-05-08] MEDS: Allopurinol 100 MG TAB PO (08:33)
[2018-05-08] MEDS: Lisinopril 5 MG TAB PO (08:33)
[2018-05-08] MEDS: Atenolol 25 MG TAB PO (08:34)
[2018-05-08] MEDS: Citalopram 10 MG TAB 30 MG PO (08:34)
[2018-05-08] MEDS: Normal Saline Flush 10 ML SYR IVP ×3 (10:30→17:24)
[2018-05-08] MEDS: Enoxaparin 40 MG/0.4 ML SYR SC (10:30)
[2018-05-08] MEDS: Normal Saline 500 ML 200 ML IV (13:51)
[2018-05-08] MEDS: Gabapentin 300 MG CAP PO (21:13)
[2018-05-08 22:15] VITALS: BP 127/78; PULSE 76; RESP 20; TEMP 36.7; O2SAT 97
[2018-05-09] MEDS: Normal Saline Flush 10 ML SYR IVP ×5 (01:31→21:40)
[2018-05-09 07:35] VITALS: BP 101/60; PULSE 78; RESP 18; TEMP 36.1; O2SAT 96
[2018-05-09] MEDS: Citalopram 10 MG TAB 30 MG PO (07:54)
[2018-05-09] MEDS: Multivitamin w/Minerals TAB 1 TAB PO (07:54)
[2018-05-09] MEDS: Topiramate 25 MG TAB 75 MG PO ×2 (07:54→21:44)
[2018-05-09] MEDS: Atenolol 25 MG TAB PO (07:54)
[2018-05-09] MEDS: Lisinopril 5 MG TAB PO (07:54)
[2018-05-09] MEDS: Allopurinol 100 MG TAB PO (07:54)
[2018-05-09] MEDS: Acetaminophen 325 MG TAB PO (07:58)
[2018-05-09] MEDS: Enoxaparin 40 MG/0.4 ML SYR SC (09:21)
--- NOTE | 2018-05-09 14:27 | PDOC.CMPRO ---
Date of Service: 05/09/18 Time of Service: 14:27 Care Management Progress Note S/O: CM met with Tejas at the bedside he is alert and talkative. CM provided patient with letter for work and faxed it to Everett Matos at [facility]. No changes in patients plan of care today he will be discharged when medically ready per provider. A: 47 year old male admitted with osteomyelitits of left great toe with positive blood culture. P:Tejas continues as SWB1 for antibiotics no change in status today. Tejas needs a total of 6 weeks of antibiotics anticipate end date is May 25. Plan will be for Tejas to return to [place] at time of discharge his car is here at [facility] and plan for him to transport himself home. CM to continue to provide support Pt and care team ongoing discharge planning and disposition.
--- NOTE | 2018-05-09 14:33 | CMPROGNOTE_ITS ---
Date of Service: 05/09/18 Time of Service: 14:27 Care Management Progress Note S/O: CM met with Tejas at the bedside he is alert and talkative. CM provided patient with letter for work and faxed it to Everett Matos at [facility]. No changes in patients plan of care today he will be discharged when medically ready per provider. A: 47 year old male admitted with osteomyelitits of left great toe with positive blood culture. P:Tejas continues as SWB1 for antibiotics no change in status today. Tejas needs a total of 6 weeks of antibiotics anticipate end date is May 25. Plan will be for Tejas to return to [place] at time of discharge his car is here at [facility] and plan for him to transport himself home. CM to continue to provide support Pt and care team ongoing discharge planning and disposition.
--- NOTE | 2018-05-09 15:03 | PGE_ITS ---
PROGRESS NOTE DATE: May 09, 2018 @ 1433 hours ASSESSMENT/PLAN: 1. Osteomyelitis of toe of left foot - continue Ancef 2 grams every 4 hours. Has remained afebrile a nd according to last week's blood work has no leukocytosis or left shift. There does not appear to b e any drainage or erythema noted. Pain is well managed on current regimen. Last day of antibiotics is May 25. Podiatry is following. 2. Type 2 diabetes - blood sugars have been well managed on current regimen. Can provide sliding sca le if needed. Continue carb counting diet. Time spent with patient - 25 minutes. Discussed case with Dr. Marcelo, who is in agreement. ++++++++++++++++ HISTORY OF PRESENT ILLNESS: Tejas is a pleasant 47-year-old gentleman with diabetes who is currentl y on Swing Bed status for treatment of osteomyelitis of the left hallux and symptomatic chronic onych omycosis. Today he is sitting up in a recliner watching television without complaints or concerns. He believes that his pain is being well managed on Gabapentin, Tylenol, and Tramadol. Continues to r eceive IV antibiotics and seems to be tolerating this well. REVIEW OF SYSTEMS: A 10-point review of systems obtained with pertinent positives noted in HPI, othe rwise negative. PHYSICAL EXAM: General: 47-year-old male. Appears his stated age. In no acute distress. Alert and orie nted x 3. Pleasant and cooperative. Well-developed and well-nourished. Vital Signs: Temperate 36.1 degrees Celsius, pulse 78 and regular, blood pressure 101/60, respiratio ns 18, O2 saturation 96% on room air. HEENT: Unremarkable. Cardiovascular: Regular rate and rhythm, S1, S2, no S3 or S4. No murmurs, rubs, gallops or thrills. Lungs: Chest expansion symmetrical, respirations unlabored. Lungs are clear to auscultation. Abdomen: Round, soft, nontender to palpation with normoactive bowel sounds in all four quadrants. N o hepatosplenomegaly or prominent masses. Lower extremities: Normal pulses. Dressing noted to left foot, appears clean, dry and intact, no dr ainage or odor. Did not take down to assess wound. No surrounding erythema or edema. Neurological Exam: Nonfocal. LABORATORY DATA: No current labs. Is receiving weekly, next scheduled for 05/11. Labs on 05/04 showed no leukocytosis or significant anemia; no evidence of left shift. Normal kidney function.
[2018-05-09 15:51] VITALS: BP 117/76; PULSE 71; RESP 20; TEMP 36.6; O2SAT 97
[2018-05-09] MEDS: Gabapentin 300 MG CAP PO (21:40)
[2018-05-10 00:09] VITALS: BP 116/71; PULSE 73; RESP 16; TEMP 35.7; O2SAT 96
[2018-05-10] MEDS: Normal Saline Flush 10 ML SYR IVP ×5 (01:54→21:54)
[2018-05-10 07:19] VITALS: BP 118/76; PULSE 76; RESP 20; TEMP 36.4; O2SAT 95
[2018-05-10] MEDS: Esomeprazole 40 MG CAPCR PO (09:07)
[2018-05-10] MEDS: Citalopram 10 MG TAB 30 MG PO (09:07)
[2018-05-10] MEDS: Lisinopril 5 MG TAB PO (09:07)
[2018-05-10] MEDS: Multivitamin w/Minerals TAB 1 TAB PO (09:08)
[2018-05-10] MEDS: Allopurinol 100 MG TAB PO (09:08)
[2018-05-10] MEDS: Atenolol 25 MG TAB PO (09:08)
[2018-05-10] MEDS: traMADol 50 MG TAB 100 MG PO ×2 (09:08→22:01)
[2018-05-10] MEDS: Enoxaparin 40 MG/0.4 ML SYR SC (09:08)
[2018-05-10] MEDS: Topiramate 25 MG TAB 75 MG PO ×2 (09:16→20:01)
[2018-05-10] MEDS: Normal Saline 500 ML 100 ML IV (10:13)
--- NOTE | 2018-05-10 15:01 | CHAPLAIN ---
Tejas had friends in to visit this morning, and he said his mom will be in this afternoon. He is on a two-week countdown to being discharged.
[2018-05-10 15:59] VITALS: BP 122/74; PULSE 71; RESP 20; TEMP 36.7; O2SAT 96
[2018-05-10] MEDS: Gabapentin 300 MG CAP PO (21:53)
[2018-05-11] MEDS: Normal Saline Flush 10 ML SYR IVP ×6 (01:57→22:19)
[2018-05-11 06:40] VITALS: BP 115/74; PULSE 85; RESP 18; TEMP 36.7; O2SAT 93
[2018-05-11 07:18] LABS: Abs Immature Grans 0.07 k/cumm (0.0-0.09); Absolute Basophil Count 0.02 k/cumm (0.0-0.2); Absolute Eosinophil Count 0.07 k/cumm (0.0-0.7); Absolute Lymphocyte Count 1.66 k/cumm (1.2-3.4); Absolute Monocyte Count 1.15 k/cumm (0.11-0.7); Absolute Neutrophil Count 7.12 k/cumm (1.2-6.7); Basophils % 0.2; Eosinophils % 0.7; HCT 40.3 % (40.0-50.0); HGB 13.1 g/dL (13.5-17.5); Immature Grans % 0.7; Lymphocytes % 16.5; Mean Corp. HGB Concentration 32.5 g/dL (32.0-36.0); Mean Corpuscular Hemoglobin 28.9 pg (27.0-33.0); Mean Platelet Volume 11.7 fL (8.0-11.0); Monocytes % 11.4; Neutrophils % 70.5; Platelet Count 224 x1000/uL (130-400); RBC 4.53 m/cumm (4.50-6.00); RBC Distribution Width 15.4 % (11.8-14.1); White Blood Cell Count 10.09 k/cumm (4.4-10.8)
[2018-05-11 07:24] LABS: Anion Gap 10.3 mmol/L (3-11); BUN 12 mg/dL (7-18); C-Reactive Protein 2.76 mg/dL (0.0-0.3); CO2 24.7 mmol/L (21.0-32.0); CREATININE 1.21 mg/dL (0.70-1.30); Calcium 8.5 mg/dL (8.5-10.1); Chloride 107 mmol/L (98-107); Glucose 106 mg/dL (70-100); Potassium 3.7 mmol/L (3.5-5.1); Sodium 142 mmol/L (136-145)
[2018-05-11 07:34] VITALS: BP 118/71; PULSE 76; RESP 20; TEMP 36; O2SAT 95
[2018-05-11] MEDS: Citalopram 10 MG TAB 30 MG PO (08:10)
[2018-05-11] MEDS: Topiramate 25 MG TAB 75 MG PO ×2 (08:11→20:19)
[2018-05-11] MEDS: Atenolol 25 MG TAB PO (08:11)
[2018-05-11] MEDS: Allopurinol 100 MG TAB PO (08:11)
[2018-05-11] MEDS: Multivitamin w/Minerals TAB 1 TAB PO (08:11)
[2018-05-11] MEDS: Lisinopril 5 MG TAB PO (08:11)
--- NOTE | 2018-05-11 08:27 | PGE_ITS ---
PROGRESS NOTE May 11, 2018 at 7:57 a.m. IMPRESSIONS Approximately four weeks status post removal of hardware with debridement left great toe with osteomy elitis. PLAN We will repeat his radiograph; it has been over two weeks, actually almost three weeks since his last film. I applied silver nitrate to the base of the wound. We will continue with the collagen dressing moistened with Mepilex overlay. He has approximately two weeks of IV Ancef to complete a six-week course. I appreciate the continued medical care e is receiving through the Hospitalist Service and Nursing. SUBJECTIVE Tejas is seen in his room, he sleeps in his chair. He seems a little sleepy this morning, but is do ing well overall. He does indicate he gets occasional pain in is left foot, left great toe area, and indicates he had some discomfort yesterday. He indicates he is showering every other day. He continues to receive his Ancef every 4 hours. OBJECTIVE VITAL SIGNS - Temperature 36.7. Pulse 85. Blood pressure 115/74. Respirations 18. O2 sat at room air currently 93%. On examination, dressings are removed from the left great toe. The wound has significantly granulated and contracted. The base of the wound is now level with the skin, it is red and granular. The wound is slightly triangular shaped. It appears to be approximately 4 mm x 3 mm. The surrounding skin is he althy, pink. The toe remains moderately enlarged compared to his right, but significantly improved fr om his preoperative condition. The second toe, remains well healed. He has some flexion contracture within the toe itself, but it is asymptomatic. The 1st MPJ has good range of motion of the great toe. There are no sensitivities or t eloina areas within the left foot. His calves are soft to palpation. MORNING LABS WBC normal, hemoglobin 13.1 slightly up from previous blood draws. Glucose 106, CRP 2.76, which is up from 1.53, which was drawn two weeks ago on 04/25/2018.
[2018-05-11] MEDS: Enoxaparin 40 MG/0.4 ML SYR SC (10:04)
[2018-05-11] MEDS: Acetaminophen 325 MG TAB PO (10:13)
--- NOTE | 2018-05-11 11:06 | DI.REPORT_ITS ---
SYMPTOMS/DIAGNOSIS: OSTEOMYELITIS OF LEFT HALLUX/MONITORING, WOUND INFECTION LEFT FOOT: Examination is compared with the previous examination of 04/20/18, which showed bony resorption of the bones adjacent to the IP joint of the great toe with mildly increased loss of cortical bone at the base of the distal phalanx and probably increased radiodensity present in the head of the proximal phalanx. Deformity of second toe proximal phalanx again noted, grossly unchanged from the previous examination. CONCLUSION: Presumed infectious process at the IP joint of the great toe, increased bony density of the head of the proximal phalanx and mixed areas of increased bony lysis and increased bone density of the base of the distal phalanx with slight overall loss of length of the distal phalanx. The findings are consistent with osteomyelitis.
--- NOTE | 2018-05-11 12:56 | PDOC.PROG ---
Date of Service: 05/11/18 Time of Service: 12:56 Assessment/Plan - Assessment/Plan (1) Osteomyelitis of toe of left foot Assessment: Continue oxacillin with planned end date 05/25/2018. (2) Gout Assessment: Appears to be an acute gout flare left knee. Will check uric acid level. Rx indomethacin 50 mg 3 times daily ?9 doses. Local measures. Follow his exam. (3) Diabetes mellitus type 2 in obese Assessment: Blood sugar 106 today. Stable on current meds. (4) Schizoaffective disorder Assessment: Behaviors been stable. Continue present meds. (5) Discharge planning issues Assessment: Continue to monitor in swing bed level 1 through completion of the course of antibiotics for osteomyelitis. History of Present Illness - History of Present Illness Chief Complaint: Osteomyelitis left foot/acute gout History of Present Illness: He is about 4 weeks into his 6 week course of IV antibiotics for osteomyelitis. The oxacillin infusions are going well. He is developed some left knee pain. He states he has had gout in the past and this feels like an episode of gout. Dr. Pollock checked his wound today and thought things were going well. Review of Systems - Review of Systems Constitutional: denies: Fever, Chills, Sweats, Weakness Respiratory: denies: Cough, Shortness of Breath Cardiovascular: denies: Chest Pain, Palpitations Gastrointestinal: denies: Nausea, Vomiting, Abdominal Pain Musculoskeletal: Leg Pain (Left knee pain with flexion and weightbearing) Skin: denies: Rash, Lesions Neurological: denies: Weakness, Incoordination - Medications/Allergies Allergies/Adverse Reactions: Allergies Allergy/AdvReac Type Severity Reaction Status Date / Time No Known Allergies Allergy Unverified 04/07/18 16:50 Medications: Current Medications Acetaminophen (Tylenol) 650 mg [place] Q4H PRN PRN Acetaminophen (Tylenol) 325 - 650 mg PO Q4H PRN PRN Last Admin: 05/11/18 10:13 Dose: 650 mg Al Hydrox/Mg Hydrox/Simethicone (Mylanta Liquid) 30 ml PO Q2H PRN PRN Allopurinol (Zyloprim) 100 mg PO DAILY [facility] Last Admin: 05/11/18 08:11 Dose: 100 mg Atenolol (Tenormin) 25 mg PO DAILY [facility] Last Admin: 05/11/18 08:11 Dose: 25 mg Citalopram Hydrobromide (Celexa) 30 mg PO DAILY [facility] Last Admin: 05/11/18 08:10 Dose: 30 mg Dextrose (Insta-Glucose) 0 gm PO DIRECTED PRN Dextrose/Water () 0 gm IVP DIRECTED PRN Dimethicone/Zinc Oxide (Art Protect Cream) 0 gm TP PRN PRN Docusate Sodium (Colace) 100 mg PO TID PRN PRN Enoxaparin Sodium (Lovenox) 40 mg SC Q24H [facility] Last Admin: 05/11/18 10:04 Dose: 40 mg Esomeprazole Magnesium (Nexium) 40 mg PO Q48H [facility] Last Admin: 05/10/18 09:07 Dose: 40 mg Gabapentin (Neurontin) 300 mg PO HS [facility] Last Admin: 05/10/18 21:53 Dose: 300 mg Sodium Chloride (Saline 500ml Bag) 500 mls @ 0 mls/hr IV PRN PRN PRN Reason: As Directed Last Admin: 05/10/18 10:13 Dose: 100 mls/hr Oxacillin Sodium/Dextrose (Bactocill) 2 gm in 50 mls @ 100 mls/hr IVPB Q4H [facility] Last Admin: 05/11/18 10:04 Dose: 100 mls/hr IV Miscellaneous Supplies () 1 each IV DIRECTED [facility] Indomethacin (Indocin) 50 mg PO TID [facility] Stop: 05/14/18 08:31 Iron/Minerals/Multivitamins (Theragran-M) 1 tab PO DAILY [facility] Last Admin: 05/11/18 08:11 Dose: 1 tab Lisinopril (Prinivil) 5 mg PO DAILY [facility] Last Admin: 05/11/18 08:11 Dose: 5 mg Lorazepam (Ativan) 0.5 mg PO TID PRN PRN PRN Reason: Anxiety Magnesium Hydroxide (Milk Of Magnesia) 30 ml PO DAILY PRN PRN Morphine Sulfate () 1 - 2 mg IVP Q3H PRN PRN PRN Reason: Pain Last Admin: 04/16/18 20:28 Dose: 2 mg Pt's Own Clozapine (100mg Tablet) 2.5 each PO HS [facility] Last Admin: 05/10/18 21:53 Dose: 2.5 each Polyethylene Glycol (Miralax) 17 gm PO DAILY PRN PRN PRN Reason: Constipation Sodium Chloride (Saline Flush 10 Ml Syringe) 0 ml IVP PRN PRN Last Admin: 05/11/18 10:04 Dose: 30 ml Topiramate (Topamax) 75 mg PO BID [facility] Last Admin: 05/11/18 08:11 Dose: 75 mg Tramadol HCl (Ultram) 100 mg PO Q4H PRN PRN PRN Reason: Pain Last Admin: 05/10/18 22:01 Dose: 100 mg Objective - Exam Vitals and I&O: Vital Signs Temp 36.0 C L 05/11/18 07:34 Pulse 76 05/11/18 07:34 Resp 20 05/11/18 07:34 BP 118/71 05/11/18 07:34 Pulse Ox 95 05/11/18 07:34 Intake & Output 05/10/18 05/11/18 05/11/18 23:59 11:59 23:59 Intake Total 2042 618 Balance 2042 618 Intake: IV 303 198 Oral 1740 420 Other: Urine Color Yellow Urine Appearance Clear Urine Odor Normal Comment Voids independently, urine not seen. Denies problems pt up ad aquiles to void. urine unseen by nursing Voiding Methods Toilet Toilet General: Alert, Oriented x3, Cooperative Lungs: Normal air movement Cardiovascular: Regular rate Extremities: Tenderness/swelling (Left knee has some warmth overlying the joint but no outward sign of deformity no effusion no redness, right knee negative). denies: Clubbing, Cyanosis, Edema - Results Results: Laboratory Results WBC 10.09 k/cumm (4.4-10.8) 05/11/18 06:45 RBC 4.53 m/cumm (4.50-6.00) 05/11/18 06:45 Hgb 13.1 g/dL (13.5-17.5) L 05/11/18 06:45 Hct 40.3 % (40.0-50.0) 05/11/18 06:45 MCV 89.0 fL (80-95) 05/11/18 06:45 MCH 28.9 pg (27.0-33.0) 05/11/18 06:45 MCHC 32.5 g/dL (32.0-36.0) 05/11/18 06:45 RDW 15.4 % (11.8-14.1) H 05/11/18 06:45 Plt Count 224 x1000/uL (130-400) 05/11/18 06:45 MPV 11.7 fL (8.0-11.0) H 05/11/18 06:45 Immature Gran % 0.7 05/11/18 06:45 Neutrophils % 70.5 05/11/18 06:45 Lymphocytes % 16.5 05/11/18 06:45 Monocytes % 11.4 05/11/18 06:45 Eosinophils % 0.7 05/11/18 06:45 Basophils % 0.2 05/11/18 06:45 Absolute Neutrophils 7.12 k/cumm (1.2-6.7) H 05/11/18 06:45 Absolute Lymphocytes 1.66 k/cumm (1.2-3.4) 05/11/18 06:45 Absolute Monocytes 1.15 k/cumm (0.11-0.7) H 05/11/18 06:45 Absolute Eosinophils 0.07 k/cumm (0.0-0.7) 05/11/18 06:45 Absolute Basophils 0.02 k/cumm (0.0-0.2) 05/11/18 06:45 ESR 63 MM/HR (0-15) H 04/18/18 07:00 Sodium 142 mmol/L (136-145) 05/11/18 06:45 Potassium 3.7 mmol/L (3.5-5.1) 05/11/18 06:45 Chloride 107 mmol/L (98-107) 05/11/18 06:45 Carbon Dioxide 24.7 mmol/L (21.0-32.0) 05/11/18 06:45 Anion Gap 10.3 mmol/L (3-11) 05/11/18 06:45 BUN 12 mg/dL (7-18) 05/11/18 06:45 Creatinine 1.21 mg/dL (0.70-1.30) 05/11/18 06:45 Estimated GFR/1.73 m2 >= 60.00 (mL/min/1.73m2) 05/11/18 06:45 Glucose 106 mg/dL (70-100) H 05/11/18 06:45 Calcium 8.5 mg/dL (8.5-10.1) 05/11/18 06:45 Total Bilirubin 0.2 mg/dL (0.2-1.0) 05/04/18 06:24 AST 15 U/L (15-37) 05/04/18 06:24 ALT 28 U/L (12-78) 05/04/18 06:24 Alkaline Phosphatase 106 U/L (46-116) 05/04/18 06:24 Troponin I < 0.02 ng/mL (0.00-0.06) 04/16/18 11:45 C-Reactive Protein 2.76 mg/dL (0.0-0.3) H 05/11/18 06:45 Total Protein 6.7 g/dL (6.4-8.2) 05/04/18 06:24 Albumin 2.9 g/dL (3.4-5.0) L 05/04/18 06:24 Urine Color Yellow (Yellow) 04/16/18 17:05 Urine Clarity Clear 04/16/18 17:05 Urine pH 5.5 (5-8) 04/16/18 17:05 Ur Specific [place] <= 1.005 (1.005-1.025) 04/16/18 17:05 Urine Protein Negative mg/dL (Negative) 04/16/18 17:05 Urine Ketones Negative mg/dL (Negative) 04/16/18 17:05 Urine Blood Negative (Negative) 04/16/18 17:05 Urine Nitrite Negative (Negative) 04/16/18 17:05 Urine Bilirubin Negative (Negative) 04/16/18 17:05 Urine Urobilinogen 0.2 EU/dL (Up TO 0.2) 04/16/18 17:05 Ur Leukocyte Esterase Negative (Negative) 04/16/18 17:05 Urine Glucose Negative mg/dL (Negative) 04/16/18 17:05 Stool Campylobacter PCR See comments 05/05/18 11:35 Stool Salmonella PCR See comments 05/05/18 11:35 Stool Shigella PCR See comments 05/05/18 11:35 Shiga Toxin (PCR) See comments 05/05/18 11:35
--- NOTE | 2018-05-11 13:00 | PDOC.PROG_ITS ---
Date of Service: 05/11/18 Time of Service: 12:56 Assessment/Plan - Assessment/Plan (1) Osteomyelitis of toe of left foot Assessment: Continue oxacillin with planned end date 05/25/2018. (2) Gout Assessment: Appears to be an acute gout flare left knee. Will check uric acid level. Rx indomethacin 50 mg 3 times daily 9 doses. Local measures. Follow his exam. (3) Diabetes mellitus type 2 in obese Assessment: Blood sugar 106 today. Stable on current meds. (4) Schizoaffective disorder Assessment: Behaviors been stable. Continue present meds. (5) Discharge planning issues Assessment: Continue to monitor in swing bed level 1 through completion of the course of antibiotics for osteomyelitis. History of Present Illness - History of Present Illness Chief Complaint: Osteomyelitis left foot/acute gout History of Present Illness: He is about 4 weeks into his 6 week course of IV antibiotics for osteomyelitis. The oxacillin infusions are going well. He is developed some left knee pain. He states he has had gout in the past and this feels like an episode of gout. Dr. Pollock checked his wound today and thought things were going well. Review of Systems - Review of Systems Constitutional: denies: Fever, Chills, Sweats, Weakness Respiratory: denies: Cough, Shortness of Breath Cardiovascular: denies: Chest Pain, Palpitations Gastrointestinal: denies: Nausea, Vomiting, Abdominal Pain Musculoskeletal: Leg Pain (Left knee pain with flexion and weightbearing) Skin: denies: Rash, Lesions Neurological: denies: Weakness, Incoordination - Medications/Allergies Allergies/Adverse Reactions: Allergies Allergy/AdvReac Type Severity Reaction Status Date / Time No Known Allergies Allergy Unverified 04/07/18 16:50 Medications: Current Medications Acetaminophen (Tylenol) 650 mg [place] Q4H PRN PRN Acetaminophen (Tylenol) 325 - 650 mg PO Q4H PRN PRN Last Admin: 05/11/18 10:13 Dose: 650 mg Al Hydrox/Mg Hydrox/Simethicone (Mylanta Liquid) 30 ml PO Q2H PRN PRN Allopurinol (Zyloprim) 100 mg PO DAILY [facility] Last Admin: 05/11/18 08:11 Dose: 100 mg Atenolol (Tenormin) 25 mg PO DAILY [facility] Last Admin: 05/11/18 08:11 Dose: 25 mg Citalopram Hydrobromide (Celexa) 30 mg PO DAILY [facility] Last Admin: 05/11/18 08:10 Dose: 30 mg Dextrose (Insta-Glucose) 0 gm PO DIRECTED PRN Dextrose/Water () 0 gm IVP DIRECTED PRN Dimethicone/Zinc Oxide (Art Protect Cream) 0 gm TP PRN PRN Docusate Sodium (Colace) 100 mg PO TID PRN PRN Enoxaparin Sodium (Lovenox) 40 mg SC Q24H [facility] Last Admin: 05/11/18 10:04 Dose: 40 mg Esomeprazole Magnesium (Nexium) 40 mg PO Q48H [facility] Last Admin: 05/10/18 09:07 Dose: 40 mg Gabapentin (Neurontin) 300 mg PO HS [facility] Last Admin: 05/10/18 21:53 Dose: 300 mg Sodium Chloride (Saline 500ml Bag) 500 mls @ 0 mls/hr IV PRN PRN PRN Reason: As Directed Last Admin: 05/10/18 10:13 Dose: 100 mls/hr Oxacillin Sodium/Dextrose (Bactocill) 2 gm in 50 mls @ 100 mls/hr IVPB Q4H [facility] Last Admin: 05/11/18 10:04 Dose: 100 mls/hr IV Miscellaneous Supplies () 1 each IV DIRECTED [facility] Indomethacin (Indocin) 50 mg PO TID [facility] Stop: 05/14/18 08:31 Iron/Minerals/Multivitamins (Theragran-M) 1 tab PO DAILY [facility] Last Admin: 05/11/18 08:11 Dose: 1 tab Lisinopril (Prinivil) 5 mg PO DAILY [facility] Last Admin: 05/11/18 08:11 Dose: 5 mg Lorazepam (Ativan) 0.5 mg PO TID PRN PRN PRN Reason: Anxiety Magnesium Hydroxide (Milk Of Magnesia) 30 ml PO DAILY PRN PRN Morphine Sulfate () 1 - 2 mg IVP Q3H PRN PRN PRN Reason: Pain Last Admin: 04/16/18 20:28 Dose: 2 mg Pt's Own Clozapine (100mg Tablet) 2.5 each PO HS [facility] Last Admin: 05/10/18 21:53 Dose: 2.5 each Polyethylene Glycol (Miralax) 17 gm PO DAILY PRN PRN PRN Reason: Constipation Sodium Chloride (Saline Flush 10 Ml Syringe) 0 ml IVP PRN PRN Last Admin: 05/11/18 10:04 Dose: 30 ml Topiramate (Topamax) 75 mg PO BID [facility] Last Admin: 05/11/18 08:11 Dose: 75 mg Tramadol HCl (Ultram) 100 mg PO Q4H PRN PRN PRN Reason: Pain Last Admin: 05/10/18 22:01 Dose: 100 mg Objective - Exam Vitals and I&O: Vital Signs Temp 36.0 C L 05/11/18 07:34 Pulse 76 05/11/18 07:34 Resp 20 05/11/18 07:34 BP 118/71 05/11/18 07:34 Pulse Ox 95 05/11/18 07:34 Intake & Output 05/10/18 05/11/18 05/11/18 23:59 11:59 23:59 Intake Total 2042 618 Balance 2042 618 Intake: IV 303 198 Oral 1740 420 Other: Urine Color Yellow Urine Appearance Clear Urine Odor Normal Comment Voids independently, urine not seen. Denies problems pt up ad aquiles to void. urine unseen by nursing Voiding Methods Toilet Toilet General: Alert, Oriented x3, Cooperative Lungs: Normal air movement Cardiovascular: Regular rate Extremities: Tenderness/swelling (Left knee has some warmth overlying the joint but no outward sign of deformity no effusion no redness, right knee negative). denies: Clubbing, Cyanosis, Edema - Results Results: Laboratory Results WBC 10.09 k/cumm (4.4-10.8) 05/11/18 06:45 RBC 4.53 m/cumm (4.50-6.00) 05/11/18 06:45 Hgb 13.1 g/dL (13.5-17.5) L 05/11/18 06:45 Hct 40.3 % (40.0-50.0) 05/11/18 06:45 MCV 89.0 fL (80-95) 05/11/18 06:45 MCH 28.9 pg (27.0-33.0) 05/11/18 06:45 MCHC 32.5 g/dL (32.0-36.0) 05/11/18 06:45 RDW 15.4 % (11.8-14.1) H 05/11/18 06:45 Plt Count 224 x1000/uL (130-400) 05/11/18 06:45 MPV 11.7 fL (8.0-11.0) H 05/11/18 06:45 Immature Gran % 0.7 05/11/18 06:45 Neutrophils % 70.5 05/11/18 06:45 Lymphocytes % 16.5 05/11/18 06:45 Monocytes % 11.4 05/11/18 06:45 Eosinophils % 0.7 05/11/18 06:45 Basophils % 0.2 05/11/18 06:45 Absolute Neutrophils 7.12 k/cumm (1.2-6.7) H 05/11/18 06:45 Absolute Lymphocytes 1.66 k/cumm (1.2-3.4) 05/11/18 06:45 Absolute Monocytes 1.15 k/cumm (0.11-0.7) H 05/11/18 06:45 Absolute Eosinophils 0.07 k/cumm (0.0-0.7) 05/11/18 06:45 Absolute Basophils 0.02 k/cumm (0.0-0.2) 05/11/18 06:45 ESR 63 MM/HR (0-15) H 04/18/18 07:00 Sodium 142 mmol/L (136-145) 05/11/18 06:45 Potassium 3.7 mmol/L (3.5-5.1) 05/11/18 06:45 Chloride 107 mmol/L (98-107) 05/11/18 06:45 Carbon Dioxide 24.7 mmol/L (21.0-32.0) 05/11/18 06:45 Anion Gap 10.3 mmol/L (3-11) 05/11/18 06:45 BUN 12 mg/dL (7-18) 05/11/18 06:45 Creatinine 1.21 mg/dL (0.70-1.30) 05/11/18 06:45 Estimated GFR/1.73 m2 >= 60.00 (mL/min/1.73m2) 05/11/18 06:45 Glucose 106 mg/dL (70-100) H 05/11/18 06:45 Calcium 8.5 mg/dL (8.5-10.1) 05/11/18 06:45 Total Bilirubin 0.2 mg/dL (0.2-1.0) 05/04/18 06:24 AST 15 U/L (15-37) 05/04/18 06:24 ALT 28 U/L (12-78) 05/04/18 06:24 Alkaline Phosphatase 106 U/L (46-116) 05/04/18 06:24 Troponin I < 0.02 ng/mL (0.00-0.06) 04/16/18 11:45 C-Reactive Protein 2.76 mg/dL (0.0-0.3) H 05/11/18 06:45 Total Protein 6.7 g/dL (6.4-8.2) 05/04/18 06:24 Albumin 2.9 g/dL (3.4-5.0) L 05/04/18 06:24 Urine Color Yellow (Yellow) 04/16/18 17:05 Urine Clarity Clear 04/16/18 17:05 Urine pH 5.5 (5-8) 04/16/18 17:05 Ur Specific [place] <= 1.005 (1.005-1.025) 04/16/18 17:05 Urine Protein Negative mg/dL (Negative) 04/16/18 17:05 Urine Ketones Negative mg/dL (Negative) 04/16/18 17:05 Urine Blood Negative (Negative) 04/16/18 17:05 Urine Nitrite Negative (Negative) 04/16/18 17:05 Urine Bilirubin Negative (Negative) 04/16/18 17:05 Urine Urobilinogen 0.2 EU/dL (Up TO 0.2) 04/16/18 17:05 Ur Leukocyte Esterase Negative (Negative) 04/16/18 17:05 Urine Glucose Negative mg/dL (Negative) 04/16/18 17:05 Stool Campylobacter PCR See comments 05/05/18 11:35 Stool Salmonella PCR See comments 05/05/18 11:35 Stool Shigella PCR See comments 05/05/18 11:35 Shiga Toxin (PCR) See comments 05/05/18 11:35
[2018-05-11 13:38] LABS: Uric Acid 5.8 mg/dL (3.5-7.2)
[2018-05-11] MEDS: INDOMETHACIN 50 MG CAP PO ×2 (13:59→20:19)
[2018-05-11] MEDS: Normal Saline 500 ML 100 ML IV (14:32)
[2018-05-11 15:32] VITALS: BP 112/79; PULSE 76; RESP 16; TEMP 36.2; O2SAT 98
[2018-05-11] MEDS: traMADol 50 MG TAB 100 MG PO (22:18)
[2018-05-11] MEDS: Gabapentin 300 MG CAP PO (22:18)
[2018-05-11 22:51] VITALS: BP 119/75; PULSE 68; RESP 18; TEMP 36.9; O2SAT 94
[2018-05-12] MEDS: Normal Saline Flush 10 ML SYR IVP ×6 (01:56→22:31)
[2018-05-12 07:45] VITALS: BP 122/75; PULSE 76; RESP 18; TEMP 36.2; O2SAT 96
[2018-05-12] MEDS: Esomeprazole 40 MG CAPCR PO (08:52)
[2018-05-12] MEDS: INDOMETHACIN 50 MG CAP PO ×3 (08:52→20:05)
[2018-05-12] MEDS: Topiramate 25 MG TAB 75 MG PO ×2 (08:52→20:05)
[2018-05-12] MEDS: Allopurinol 100 MG TAB PO (08:53)
[2018-05-12] MEDS: Lisinopril 5 MG TAB PO (08:53)
[2018-05-12] MEDS: Multivitamin w/Minerals TAB 1 TAB PO (08:53)
[2018-05-12] MEDS: Citalopram 10 MG TAB 30 MG PO (08:53)
[2018-05-12] MEDS: Atenolol 25 MG TAB PO (08:54)
[2018-05-12] MEDS: Enoxaparin 40 MG/0.4 ML SYR SC (10:22)
[2018-05-12] MEDS: Normal Saline 500 ML 200 ML IV (14:44)
[2018-05-12 15:40] VITALS: BP 109/70; PULSE 76; RESP 20; TEMP 36.4; O2SAT 97
--- NOTE | 2018-05-12 16:23 | PDOC.CMACT ---
Date of Service: 05/12/18 Time of Service: 16:24 Care Management Activity Note CM met with patient at the bedside he cheerful he was able to leave the facility to visit with his family and friends. He has been able to participate with Reki, music therapy and pet therapy. His anticipated antibiotic end date is 05/25/18 and he is aware. Tejas asked that CM check on his car to make sure it is not in the way of other visitors. He states he was happy to receive a card from his coworkers he also received a gift certificate. Tejas appears to enjoy visitors including the trampoline team coach who visited this week. P: Tejas continues as SWB1 for antibiotics no change in status today. Tejas needs a total of 6 weeks of antibiotics anticipate end date is May 25. Plan will be for Tejas to return to [place] at time of discharge his car is here at [facility] and plan for him to transport himself home. CM to continue to provide support Pt and care team ongoing discharge planning and disposition.
--- NOTE | 2018-05-12 16:26 | CMACTNOTE_ITS ---
Date of Service: 05/12/18 Time of Service: 16:24 Care Management Activity Note CM met with patient at the bedside he cheerful he was able to leave the facility to visit with his family and friends. He has been able to participate with Reki, music therapy and pet therapy. His anticipated antibiotic end date is 05/25/18 and he is aware. Tejas asked that CM check on his car to make sure it is not in the way of other visitors. He states he was happy to receive a card from his coworkers he also received a gift certificate. Tejas appears to enjoy visitors including the educational psychology professor who visited this week. P: Tejas continues as SWB1 for antibiotics no change in status today. Tejas needs a total of 6 weeks of antibiotics anticipate end date is May 25. Plan will be for Tejas to return to [place] at time of discharge his car is here at [facility] and plan for him to transport himself home. CM to continue to provide support Pt and care team ongoing discharge planning and disposition.
[2018-05-12] MEDS: traMADol 50 MG TAB 100 MG PO (22:31)
[2018-05-12] MEDS: Gabapentin 300 MG CAP PO (22:32)
[2018-05-12 22:38] VITALS: BP 118/74; PULSE 63; RESP 20; TEMP 36.6; O2SAT 95
[2018-05-13] MEDS: Normal Saline Flush 10 ML SYR IVP ×5 (01:55→19:35)
[2018-05-13 07:46] VITALS: BP 107/62; PULSE 93; RESP 17; TEMP 36.5; O2SAT 94
[2018-05-13] MEDS: Atenolol 25 MG TAB PO (09:20)
[2018-05-13] MEDS: Multivitamin w/Minerals TAB 1 TAB PO (09:20)
[2018-05-13] MEDS: INDOMETHACIN 50 MG CAP PO ×3 (09:20→19:36)
[2018-05-13] MEDS: Allopurinol 100 MG TAB PO (09:20)
[2018-05-13] MEDS: Lisinopril 5 MG TAB PO (09:21)
[2018-05-13] MEDS: Topiramate 25 MG TAB 75 MG PO ×2 (09:21→19:35)
[2018-05-13] MEDS: Citalopram 10 MG TAB 30 MG PO (09:21)
[2018-05-13] MEDS: Enoxaparin 40 MG/0.4 ML SYR SC (09:22)
--- NOTE | 2018-05-13 12:35 | PDOC.CMPRO ---
Date of Service: 05/13/18 Time of Service: 12:35 Care Management Progress Note S/O: CM met with patient at the bedside. He states he is concerned today that his room at [facility] has been given away to another resident and he was not told he was being moved. He is able to articulate his feelings related to the change and he feels he should not have been moved. He states he worked hard to get his own room at the facility. He discussing the possibility of moving to subsidized housing. CM reviewed process for applying and offered assistance in completing he states he is not ready to move out and does not want to complete application. CM provide active listening and reflection of Tejas concern's. Encouraged Tejas to talk with Lillie at [facility] and express his feelings about the move and what his legal rights are. Tejas does not want CM to contact Lillie or advocate at this time. Encourage Tejas to talk with his Mom and offered other resources including mental health and [place]. He has been able to participate with Sharla today which he reports helped his mood. P: Tejas continues as SWB1 for antibiotics no change in status today. Tejas needs a total of 6 weeks of antibiotics anticipate end date is May 25. Plan will be for Tejas to return to [facility] at time of discharge his car is here at [facility] and plan for him to transport himself home. CM to continue to provide support Pt and care team ongoing discharge planning and disposition.
--- NOTE | 2018-05-13 12:48 | CMPROGNOTE_ITS ---
Date of Service: 05/13/18 Time of Service: 12:35 Care Management Progress Note S/O: CM met with patient at the bedside. He states he is concerned today that his room at [facility] has been given away to another resident and he was not told he was being moved. He is able to articulate his feelings related to the change and he feels he should not have been moved. He states he worked hard to get his own room at the facility. He discussing the possibility of moving to subsidized housing. CM reviewed process for applying and offered assistance in completing he states he is not ready to move out and does not want to complete application. CM provide active listening and reflection of Tejas concern's. Encouraged Tejas to talk with Llilie at [facility] and express his feelings about the move and what his legal rights are. Tejas does not want CM to contact Lillie or advocate at this time. Encourage Tejas to talk with his Mom and offered other resources including mental health and [place]. He has been able to participate with Sharla today which he reports helped his mood. P: Tejas continues as SWB1 for antibiotics no change in status today. Tejas needs a total of 6 weeks of antibiotics anticipate end date is May 25. Plan will be for Tejas to return to [facility] at time of discharge his car is here at [facility] and plan for him to transport himself home. CM to continue to provide support Pt and care team ongoing discharge planning and disposition.
--- NOTE | 2018-05-13 14:35 | CHAPLAIN ---
Tejas's mom was visiting when I stopped in. Tejas told me right away that he has less than two weeks left in his stay here. He also said he had Reiki today and has enjoyed receiving Reiki from both Delaney and Fercho, the Reiki volunteers. Earlier today, Tejas's 911 Emergency Dispatcher, Jacquelin Mondragon, told me that Tejas learned from [facility] staff today he was moved form a single room to a double room and so now has a roommate. He was upset about this, according to Jacquelin. Tejas didn't mention this during our conversation.
[2018-05-13 18:32] VITALS: BP 136/92; PULSE 69; RESP 20; TEMP 36.4; O2SAT 97
[2018-05-13] MEDS: traMADol 50 MG TAB 100 MG PO (21:45)
[2018-05-13] MEDS: Gabapentin 300 MG CAP PO (21:45)
[2018-05-13 23:12] VITALS: BP 107/67; PULSE 64; RESP 18; TEMP 36.6; O2SAT 96
[2018-05-14] MEDS: Normal Saline Flush 10 ML SYR IVP ×4 (06:07→21:59)
[2018-05-14] MEDS: Multivitamin w/Minerals TAB 1 TAB PO (08:25)
[2018-05-14] MEDS: INDOMETHACIN 50 MG CAP PO (08:25)
[2018-05-14] MEDS: Allopurinol 100 MG TAB PO (08:25)
[2018-05-14] MEDS: Lisinopril 5 MG TAB PO (08:25)
[2018-05-14] MEDS: Atenolol 25 MG TAB PO (08:25)
[2018-05-14] MEDS: Esomeprazole 40 MG CAPCR PO (08:26)
[2018-05-14] MEDS: Topiramate 25 MG TAB 75 MG PO ×2 (08:26→21:17)
[2018-05-14] MEDS: Citalopram 10 MG TAB 30 MG PO (08:27)
[2018-05-14 08:35] VITALS: BP 106/65; PULSE 72; RESP 16; TEMP 35.8; O2SAT 95
[2018-05-14] MEDS: Enoxaparin 40 MG/0.4 ML SYR SC (10:52)
[2018-05-14 15:32] VITALS: BP 124/62; PULSE 65; RESP 19; TEMP 36.7; O2SAT 97
[2018-05-14] MEDS: Gabapentin 300 MG CAP PO (21:18)
[2018-05-15] MEDS: Normal Saline Flush 10 ML SYR IVP ×6 (02:27→21:32)
[2018-05-15] MEDS: Normal Saline 500 ML 200 ML IV (02:28)
[2018-05-15 07:15] VITALS: BP 136/85; PULSE 77; RESP 16; TEMP 36.6; O2SAT 96
[2018-05-15] MEDS: Citalopram 10 MG TAB 30 MG PO (08:37)
[2018-05-15] MEDS: Topiramate 25 MG TAB 75 MG PO ×2 (08:38→19:29)
[2018-05-15] MEDS: Atenolol 25 MG TAB PO (08:38)
[2018-05-15] MEDS: Lisinopril 5 MG TAB PO (08:38)
[2018-05-15] MEDS: Multivitamin w/Minerals TAB 1 TAB PO (08:38)
[2018-05-15] MEDS: Allopurinol 100 MG TAB PO (08:38)
[2018-05-15] MEDS: Enoxaparin 40 MG/0.4 ML SYR SC (09:34)
[2018-05-15 15:33] VITALS: BP 132/67; PULSE 77; RESP 18; TEMP 36.4; O2SAT 96
[2018-05-15] MEDS: Acetaminophen 325 MG TAB PO (19:29)
[2018-05-15] MEDS: traMADol 50 MG TAB 100 MG PO (21:33)
[2018-05-15] MEDS: Gabapentin 300 MG CAP PO (21:33)
[2018-05-15 23:14] VITALS: BP 110/69; PULSE 70; RESP 16; TEMP 35.7; O2SAT 96
[2018-05-16] MEDS: Normal Saline Flush 10 ML SYR IVP ×5 (01:58→21:18)
[2018-05-16 07:27] VITALS: BP 116/78; PULSE 76; RESP 17; TEMP 36; O2SAT 96
[2018-05-16] MEDS: Atenolol 25 MG TAB PO (08:18)
[2018-05-16] MEDS: Multivitamin w/Minerals TAB 1 TAB PO (08:18)
[2018-05-16] MEDS: Citalopram 10 MG TAB 30 MG PO (08:18)
[2018-05-16] MEDS: Topiramate 25 MG TAB 75 MG PO ×2 (08:18→19:46)
[2018-05-16] MEDS: Esomeprazole 40 MG CAPCR PO (08:18)
[2018-05-16] MEDS: Allopurinol 100 MG TAB PO (08:18)
[2018-05-16] MEDS: Lisinopril 5 MG TAB PO (08:18)
[2018-05-16] MEDS: Enoxaparin 40 MG/0.4 ML SYR SC (09:35)
[2018-05-16 15:15] VITALS: BP 124/75; PULSE 72; RESP 20; TEMP 36.7; O2SAT 97
[2018-05-16] MEDS: Gabapentin 300 MG CAP PO (21:18)
--- NOTE | 2018-05-16 21:45 | PGE_ITS ---
DATE: May 16, 2018 IMPRESSION: Osteomyelitis of the left great toe, appears stable, approximately nine days of IV antib iotics remaining. PLAN: I am going to discontinue the current wound care to the left great toe and just cover it with a dry Band-Aid. The toe and foot should be washed on a daily basis with soap and water. I believe some of his pain is secondary to the postoperative shoe. It is not made for normal ambulat ory activities and I believe he is ready to advance back into his diabetic extra depth shoes. He is to remain in-house for the IV antibiotics. I will continue to follow him episodically or perio dically. SUBJECTIVE: Tejas is seen in his room. He remains in his recliner. He has completed approximately 4-1/2 weeks of IV Ancef management of osteomyelitis of his left great toe. He had some concern camelia ier today about swelling of his great toe and foot. He denies any fever, chills, or feelings of anca ise. He has been tolerating his IV infusions well. He indicates that after he walked around the hasmukh or in the surgical shoe his left foot aches after he sits down and he points to the ankle medial mall eolus medial side of his left foot. He is not having pain in the great toe. OBJECTIVE: Vital signs: Temperature 36.7. Pulse 72. BP 124/75. Respirations 20. O2 saturation at room air i s 97%. Podiatric exam - On examination of the left great toe the wound is 99% healed. There is a very small scab overlying the IPJ but it has basically closed. The toe remains moderately edematous but he alw ays has had a rather edematous great toe even preoperatively. The second toe is well healed. It case s show some mild flexor contracture. There is no pain to palpation of either toe at this point. Ran ge of motion at the first MPJ is adequate. He has no pain to palpable of the ankle, rear foot or mid foot joints. Tendon structures are intact. The posterior tibial tendon does not appear deficient. He has trace pretibial edema in the left leg as compared to the right but his calf is soft to palpati on, no findings of DVT. He does complain of numbness in both feet and has well established periphera l neuropathy secondary to his diabetes. LABORATORY DATA: There are no new labs to report at this time. IMAGING: He did have radiographs performed as I had ordered on 05/11/18. I did review these films an d they are as I would expect. There are changes consistent with osteomyelitis but I do not see any p rogressive deterioration of the bone structures.
[2018-05-17] MEDS: Normal Saline Flush 10 ML SYR IVP ×4 (02:00→21:43)
[2018-05-17 02:05] VITALS: BP 120/76; PULSE 85; RESP 17; TEMP 37; O2SAT 98
[2018-05-17 07:35] VITALS: BP 126/78; PULSE 76; RESP 24; TEMP 36.3; O2SAT 96
[2018-05-17] MEDS: Citalopram 10 MG TAB 30 MG PO (08:38)
[2018-05-17] MEDS: Topiramate 25 MG TAB 75 MG PO ×2 (08:38→20:16)
[2018-05-17] MEDS: Atenolol 25 MG TAB PO (08:38)
[2018-05-17] MEDS: Multivitamin w/Minerals TAB 1 TAB PO (08:38)
[2018-05-17] MEDS: Allopurinol 100 MG TAB PO (08:38)
[2018-05-17] MEDS: Lisinopril 5 MG TAB PO (08:39)
[2018-05-17] MEDS: Enoxaparin 40 MG/0.4 ML SYR SC (10:55)
--- NOTE | 2018-05-17 11:00 | PDOC.CMPRO ---
Date of Service: 05/17/18 Time of Service: 11:00 Care Management Progress Note S/O: CM met with patient at the bedside. He is engaged in conversation and denies any additional activity needs. He had music therapy and reki this week. He was seen by on 05/16/18, continue with the plan for him to return home to [place] at time of discharge. No changes in status today. P: Tejas continues as SWB1 for antibiotics q4 hours no change in status today. Tejas needs a total of 6 weeks of antibiotics anticipate end date is May 25. Plan will be for Tejas to return to [place] at time of discharge his car is here at [facility] and plan for him to transport himself home. CM to continue to provide support Pt and care team ongoing discharge planning and disposition.
--- NOTE | 2018-05-17 11:03 | CMPROGNOTE_ITS ---
Date of Service: 05/17/18 Time of Service: 11:00 Care Management Progress Note S/O: CM met with patient at the bedside. He is engaged in conversation and denies any additional activity needs. He had music therapy and reki this week. He was seen by on 05/16/18, continue with the plan for him to return home to [place] at time of discharge. No changes in status today. P: Tejas continues as SWB1 for antibiotics q4 hours no change in status today. Tejas needs a total of 6 weeks of antibiotics anticipate end date is May 25. Plan will be for Tejas to return to [place] at time of discharge his car is here at [facility] and plan for him to transport himself home. CM to continue to provide support Pt and care team ongoing discharge planning and disposition.
[2018-05-17] MEDS: Normal Saline 500 ML IV (11:14)
[2018-05-17 16:02] VITALS: BP 104/69; PULSE 77; RESP 19; TEMP 36.7; O2SAT 97
[2018-05-17] MEDS: Gabapentin 300 MG CAP PO (21:43)
[2018-05-18 01:36] VITALS: BP 133/83; PULSE 77; RESP 17; TEMP 36.1; O2SAT 96
[2018-05-18] MEDS: Normal Saline Flush 10 ML SYR IVP ×4 (01:36→22:02)
[2018-05-18 07:20] VITALS: BP 147/81; PULSE 83; RESP 16; TEMP 36.3; O2SAT 95
[2018-05-18] MEDS: Allopurinol 100 MG TAB PO (08:00)
[2018-05-18] MEDS: Acetaminophen 325 MG TAB PO (08:00)
[2018-05-18] MEDS: Topiramate 25 MG TAB 75 MG PO ×2 (08:00→21:23)
[2018-05-18] MEDS: Esomeprazole 40 MG CAPCR PO (08:00)
[2018-05-18] MEDS: Citalopram 10 MG TAB 30 MG PO (08:00)
[2018-05-18] MEDS: Atenolol 25 MG TAB PO (08:00)
[2018-05-18] MEDS: Lisinopril 5 MG TAB PO (08:01)
[2018-05-18] MEDS: Multivitamin w/Minerals TAB 1 TAB PO (08:01)
[2018-05-18] MEDS: Enoxaparin 40 MG/0.4 ML SYR SC (10:05)
--- NOTE | 2018-05-18 12:45 | PDOC.CMACT ---
Date of Service: 05/18/18 Time of Service: 12:45 Care Management Activity Note Tejas is doing well in the swingbed program for IV antibiotics. He has been able to leave the facility on pass and enjoys this as he is able to visit with friends. He has been able to participate with Reiki, music therapy and pet therapy. His anticipated antibiotic end date is 05/25/18 and he is aware. P: Tejas continues as SWB1 for antibiotics no change in status today. Tejas needs a total of 6 weeks of antibiotics anticipate end date is May 25. Plan will be for Tejas to return to [place] at time of discharge his car is here at [facility] and plan for him to transport himself home. CM to continue to provide support Pt and care team ongoing discharge planning and disposition.
--- NOTE | 2018-05-18 13:02 | CMACTNOTE_ITS ---
Date of Service: 05/18/18 Time of Service: 12:45 Care Management Activity Note Tejas is doing well in the swingbed program for IV antibiotics. He has been able to leave the facility on pass and enjoys this as he is able to visit with friends. He has been able to participate with Reiki, music therapy and pet therapy. His anticipated antibiotic end date is 05/25/18 and he is aware. P: Tejas continues as SWB1 for antibiotics no change in status today. Tejas needs a total of 6 weeks of antibiotics anticipate end date is May 25. Plan will be for Tejas to return to [place] at time of discharge his car is here at [facility] and plan for him to transport himself home. CM to continue to provide support Pt and care team ongoing discharge planning and disposition.
[2018-05-18] MEDS: Normal Saline 500 ML IV (14:15)
[2018-05-18 15:26] VITALS: BP 116/78; PULSE 72; RESP 18; TEMP 36.8; O2SAT 95
[2018-05-18] MEDS: Gabapentin 300 MG CAP PO (21:23)
[2018-05-19 07:25] VITALS: BP 111/74; PULSE 64; RESP 18; TEMP 36.4; O2SAT 96
[2018-05-19] MEDS: Citalopram 10 MG TAB 30 MG PO (08:50)
[2018-05-19] MEDS: Multivitamin w/Minerals TAB 1 TAB PO (08:50)
[2018-05-19] MEDS: Lisinopril 5 MG TAB PO (08:50)
[2018-05-19] MEDS: Atenolol 25 MG TAB PO (08:50)
[2018-05-19] MEDS: Topiramate 25 MG TAB 75 MG PO ×2 (08:50→19:49)
[2018-05-19] MEDS: Allopurinol 100 MG TAB PO (08:50)
[2018-05-19] MEDS: Enoxaparin 40 MG/0.4 ML SYR SC (10:40)
[2018-05-19 16:18] VITALS: BP 120/77; PULSE 68; RESP 18; TEMP 36.3; O2SAT 98
[2018-05-19] MEDS: traMADol 50 MG TAB 100 MG PO (22:10)
[2018-05-19] MEDS: Gabapentin 300 MG CAP PO (22:10)
[2018-05-19] MEDS: Normal Saline Flush 10 ML SYR IVP (22:11)
[2018-05-19 22:12] VITALS: BP 119/78; PULSE 67; TEMP 36.8; O2SAT 98
[2018-05-20] MEDS: Normal Saline Flush 10 ML SYR IVP ×4 (02:07→14:58)
[2018-05-20 08:14] VITALS: BP 119/80; PULSE 82; RESP 17; TEMP 36.9; O2SAT 95
[2018-05-20] MEDS: Topiramate 25 MG TAB 75 MG PO ×2 (08:23→20:01)
[2018-05-20] MEDS: Allopurinol 100 MG TAB PO (08:23)
[2018-05-20] MEDS: Citalopram 10 MG TAB 30 MG PO (08:23)
[2018-05-20] MEDS: Esomeprazole 40 MG CAPCR PO (08:23)
[2018-05-20] MEDS: Atenolol 25 MG TAB PO (08:23)
[2018-05-20] MEDS: Lisinopril 5 MG TAB PO (08:24)
[2018-05-20] MEDS: Multivitamin w/Minerals TAB 1 TAB PO (08:24)
[2018-05-20] MEDS: Enoxaparin 40 MG/0.4 ML SYR SC (09:55)
--- NOTE | 2018-05-20 13:59 | PGE_ITS ---
PODIATRY PROGRESS NOTE DATE: May 20, 2018 @ 1254 hours IMPRESSIONS: Entering his last week of IV antibiotics for osteomyelitis of the left great toe. PLAN: 1. Continue prescribed course of antibiotics. Anticipate going home after his last dose next . 2. I will follow-up sometime next week and then see him obviously in the office for ongoing care. +++++++++++++++++ SUBJECTIVE: Tejas is seen in his room. He is resting quietly. He appears in his usual state of he alth. He indicates that he's been trying to walk twice a day and that after he walks he gets a littl e bit of pain up on the dorsal aspect of his foot back towards the rear foot. Otherwise he has no co mplaints or problems. He did shower this morning. Continues to put a Band-Aid strip over the top of the great toe. OBJECTIVE: Vitals - temperature is 36.9, pulse 82, BP 119/80, respirations 17, O2 sat at room air is 95%. There are no new labs to report. Examination of his LEFT FOOT - the great toe is looking better overall. The edema is markedly reduce d, color is normal. He still has a small, very superficial opening over the top of the toe; but ther e are no signs of infection at all. The second toe is asymptomatic. I palpated across the forefoot, midfoot, rearfoot and ankle joints of his left foot - no pain, no tenosynovitis, nothing to indicate there was any type of pathology. His calf is soft to palpation. There were no concerns at this santana cture.
--- NOTE | 2018-05-20 15:14 | CHAPLAIN ---
Tejas said Dr. Degroot, DPM, was in early today and said Tejas is healing well. He will be discharged in less than a week. Today Tejas showed my photos of his grandchildren and shared some personal history. He is looking forward to his son, daughter in law and grandchildren's visit in May. Tejas said he may go out on a pass tomorrow.
[2018-05-20 16:48] VITALS: BP 145/83; PULSE 74; RESP 18; TEMP 36.1; O2SAT 98
[2018-05-20] MEDS: Acetaminophen 325 MG TAB PO (21:50)
[2018-05-20] MEDS: Gabapentin 300 MG CAP PO (21:51)
[2018-05-20] MEDS: Docusate Sodium 100 MG CAP PO (21:51)
[2018-05-21 08:05] VITALS: BP 112/63; PULSE 86; RESP 18; TEMP 36.6; O2SAT 97
[2018-05-21] MEDS: Multivitamin w/Minerals TAB 1 TAB PO (09:13)
[2018-05-21] MEDS: Lisinopril 5 MG TAB PO (09:13)
[2018-05-21] MEDS: Atenolol 25 MG TAB PO (09:13)
[2018-05-21] MEDS: Allopurinol 100 MG TAB PO (09:13)
[2018-05-21] MEDS: Enoxaparin 40 MG/0.4 ML SYR SC (09:13)
[2018-05-21] MEDS: Citalopram 10 MG TAB 30 MG PO (09:13)
[2018-05-21] MEDS: Topiramate 25 MG TAB 75 MG PO ×2 (09:13→19:51)
[2018-05-21] MEDS: Normal Saline Flush 10 ML SYR IVP ×2 (09:14→14:24)
[2018-05-21] MEDS: Acetaminophen 325 MG TAB PO ×2 (09:22→22:07)
[2018-05-21] MEDS: Gabapentin 300 MG CAP PO (22:07)
[2018-05-21 23:41] VITALS: BP 116/74; PULSE 72; RESP 19; TEMP 36.2; O2SAT 97
[2018-05-22] MEDS: Normal Saline Flush 10 ML SYR IVP ×3 (05:26→13:51)
[2018-05-22 07:45] VITALS: BP 121/82; PULSE 92; RESP 20; TEMP 36.5; O2SAT 95
[2018-05-22] MEDS: Lisinopril 5 MG TAB PO (08:37)
[2018-05-22] MEDS: Topiramate 25 MG TAB 75 MG PO ×2 (08:38→21:40)
[2018-05-22] MEDS: Atenolol 25 MG TAB PO (08:38)
[2018-05-22] MEDS: Multivitamin w/Minerals TAB 1 TAB PO (08:38)
[2018-05-22] MEDS: Allopurinol 100 MG TAB PO (08:38)
[2018-05-22] MEDS: Citalopram 10 MG TAB 30 MG PO (08:38)
[2018-05-22] MEDS: Esomeprazole 40 MG CAPCR PO (08:38)
[2018-05-22] MEDS: Enoxaparin 40 MG/0.4 ML SYR SC (09:15)
[2018-05-22] MEDS: traMADol 50 MG TAB 100 MG PO (12:45)
[2018-05-22 15:30] VITALS: BP 108/70; PULSE 78; RESP 18; TEMP 35.7; O2SAT 96
[2018-05-22] MEDS: Acetaminophen 325 MG TAB PO (18:55)
[2018-05-22] MEDS: Normal Saline 500 ML IV (18:56)
[2018-05-22] MEDS: Gabapentin 300 MG CAP PO (22:03)
[2018-05-23] MEDS: Normal Saline Flush 10 ML SYR IVP ×5 (02:47→20:32)
[2018-05-23 05:53] VITALS: BP 115/73; PULSE 55; RESP 18; TEMP 35.9; O2SAT 94
[2018-05-23 07:10] VITALS: BP 137/82; PULSE 76; RESP 20; TEMP 36.4; O2SAT 96
[2018-05-23] MEDS: Atenolol 25 MG TAB PO (07:49)
[2018-05-23] MEDS: Lisinopril 5 MG TAB PO (07:49)
[2018-05-23] MEDS: Citalopram 10 MG TAB 30 MG PO (07:49)
[2018-05-23] MEDS: Multivitamin w/Minerals TAB 1 TAB PO (07:49)
[2018-05-23] MEDS: Topiramate 25 MG TAB 75 MG PO ×2 (07:49→20:32)
[2018-05-23] MEDS: Allopurinol 100 MG TAB PO (07:49)
[2018-05-23] MEDS: Enoxaparin 40 MG/0.4 ML SYR SC (09:05)
[2018-05-23 09:28] LABS: Abs Immature Grans 0.08 k/cumm (0.0-0.09); Absolute Basophil Count 0.02 k/cumm (0.0-0.2); Absolute Lymphocyte Count 2.11 k/cumm (1.2-3.4); Absolute Neutrophil Count 6.84 k/cumm (1.2-6.7); Basophils % 0.2; HCT 41.5 % (40.0-50.0); HGB 13.4 g/dL (13.5-17.5); Immature Grans % 0.8; Lymphocytes % 20.8; Mean Corp. HGB Concentration 32.3 g/dL (32.0-36.0); Mean Corpuscular Hemoglobin 29.1 pg (27.0-33.0); Mean Platelet Volume 11.9 fL (8.0-11.0); Monocytes % 9.9; Neutrophils % 67.3; Platelet Count 258 x1000/uL (130-400); RBC 4.61 m/cumm (4.50-6.00); RBC Distribution Width 15.3 % (11.8-14.1); White Blood Cell Count 10.15 k/cumm (4.4-10.8)
[2018-05-23 10:19] LABS: ALT 38 U/L (12-78); AST 18 U/L (15-37); Albumin 3.2 g/dL (3.4-5.0); Alkaline Phosphatase 121 U/L (46-116); Anion Gap 5.6 mmol/L (3-11); BUN 12 mg/dL (7-18); Bilirubin, Total 0.2 mg/dL (0.2-1.0); C-Reactive Protein 1.47 mg/dL (0.0-0.3); CO2 25.4 mmol/L (21.0-32.0); CREATININE 1.24 mg/dL (0.70-1.30); Calcium 8.7 mg/dL (8.5-10.1); Chloride 107 mmol/L (98-107); Glucose 134 mg/dL (70-100); Sodium 138 mmol/L (136-145); Total Protein 6.6 g/dL (6.4-8.2)
--- NOTE | 2018-05-23 11:10 | PDOC.CMPRO ---
Date of Service: 05/23/18 Time of Service: 11:10 Care Management Progress Note S/O: Tejas makes good eye contact, he is engaged in conversation related to his discharge plan. He has several questions r/t his follow up care. He does not feel he will need home health services. He states I am nervous about returning home. CM provided active listening he states he is unsure when he should return to work. He also is concerned that his room has changed at [facility] and he will now have a roommate. He states he does not want to look for other housing at this time. Tejas has been able to voice his concerns about the room change to development administrator at [facility]. He understands that he will need to continue to follow up with as directed. He states he is having more pain in the left foot, he feels that is is related to his neuropathy. He reports he has taken Tylenol, and Tramadol neither provided him with relief. He states is aware of his discomfort and explained to him that is was probably r/t his neuropathy. CM will follow up with as to when Tejas should return to work. Tejas does have several medications in the pharmacy that he will need to be given back upon discharge. A: Tejas is a 47 year old male admitted with wound infection to his left foot, currently swing bed level 1 for IV antibiotics. P: Tejas continues as SWB1 for antibiotics no change in status today. Tejas's final day of antibiotics are on Wednesday. Plan will be for Tejas to return to [place] at time of discharge his car is here at [facility] and plan for him to transport himself home. CM to continue to provide support Pt and care team ongoing discharge planning and disposition.
--- NOTE | 2018-05-23 11:24 | CMPROGNOTE_ITS ---
Date of Service: 05/23/18 Time of Service: 11:10 Care Management Progress Note S/O: Tejas makes good eye contact, he is engaged in conversation related to his discharge plan. He has several questions r/t his follow up care. He does not feel he will need home health services. He states I am nervous about returning home. CM provided active listening he states he is unsure when he should return to work. He also is concerned that his room has changed at [facility] and he will now have a roommate. He states he does not want to look for other housing at this time. Tejas has been able to voice his concerns about the room change to learning administrator at [facility]. He understands that he will need to continue to follow up with as directed. He states he is having more pain in the left foot, he feels that is is related to his neuropathy. He reports he has taken Tylenol, and Tramadol neither provided him with relief. He states is aware of his discomfort and explained to him that is was probably r/t his neuropathy. CM will follow up with as to when Tejas should return to work. Tejas does have several medications in the pharmacy that he will need to be given back upon discharge. A: Tejas is a 47 year old male admitted with wound infection to his left foot, currently swing bed level 1 for IV antibiotics. P: Tejas continues as SWB1 for antibiotics no change in status today. Tejas's final day of antibiotics are on Wednesday. Plan will be for Tejas to return to [place] at time of discharge his car is here at [facility] and plan for him to transport himself home. CM to continue to provide support Pt and care team ongoing discharge planning and disposition.
[2018-05-23 11:33] LABS: ESR 24 MM/HR (0-15)
[2018-05-23 15:46] VITALS: BP 103/72; PULSE 78; RESP 20; TEMP 36.3; O2SAT 96
[2018-05-23 20:40] VITALS: BP 129/85; PULSE 81; RESP 16; TEMP 37.6; O2SAT 98
[2018-05-23] MEDS: Gabapentin 300 MG CAP PO (21:38)
[2018-05-24 07:50] VITALS: BP 137/82; PULSE 90; RESP 18; TEMP 36.3; O2SAT 100
[2018-05-24] MEDS: Lisinopril 5 MG TAB PO (07:50)
[2018-05-24] MEDS: Esomeprazole 40 MG CAPCR PO (07:50)
[2018-05-24] MEDS: Multivitamin w/Minerals TAB 1 TAB PO (07:50)
[2018-05-24] MEDS: Citalopram 10 MG TAB 30 MG PO (07:50)
[2018-05-24] MEDS: Allopurinol 100 MG TAB PO (07:51)
[2018-05-24] MEDS: Atenolol 25 MG TAB PO (07:51)
[2018-05-24] MEDS: Topiramate 25 MG TAB 75 MG PO ×2 (07:51→20:26)
[2018-05-24] MEDS: Enoxaparin 40 MG/0.4 ML SYR SC (09:12)
[2018-05-24] MEDS: Normal Saline 500 ML IV (09:12)
[2018-05-24] MEDS: Normal Saline Flush 10 ML SYR IVP ×3 (09:12→17:34)
--- NOTE | 2018-05-24 15:45 | CHAPLAIN ---
Tejas was pleasant as always. Said he is looking forward to discharge tomorrow or the next day.
[2018-05-24 15:54] VITALS: BP 110/74; PULSE 74; RESP 20; TEMP 36.7; O2SAT 97
[2018-05-24] MEDS: Gabapentin 300 MG CAP PO (22:09)
[2018-05-24 23:46] VITALS: BP 100/66; PULSE 71; RESP 18; TEMP 35.8; O2SAT 95
[2018-05-25 07:30] VITALS: BP 137/78; PULSE 87; RESP 20; TEMP 36; O2SAT 96
[2018-05-25] MEDS: Allopurinol 100 MG TAB PO (07:42)
[2018-05-25] MEDS: Topiramate 25 MG TAB 75 MG PO (07:42)
[2018-05-25] MEDS: Citalopram 10 MG TAB 30 MG PO (07:42)
[2018-05-25] MEDS: Atenolol 25 MG TAB PO (07:43)
[2018-05-25] MEDS: Normal Saline Flush 10 ML SYR IVP ×2 (07:43→14:32)
[2018-05-25] MEDS: Multivitamin w/Minerals TAB 1 TAB PO (07:43)
[2018-05-25] MEDS: Lisinopril 5 MG TAB PO (07:43)
--- NOTE | 2018-05-25 11:48 | DISCHARGE ---
Discharge - Discharge Orders Referrals: Sakina Meng MD [Primary Care Provider] - 06/09/18 9:45 am Jeremy Pollock DPM [[facility] STAFF PHYSICIAN] - 06/16/18 2:00 pm - Discharge Plan Disposition: HOME Condition: Improving Diet:: Carb Counting Equipment/Supplies:: No Equipment Needed Activity:: Activity as Tolerated - Instructions Micromedex Instructions: Wound Infection (DC) Additional Instructions: wash feet, including wound on left great toe daily with warm soapy water. Rinse well and gently pat dry. can cover with dry bandaid to protect. Continue all your medications as directed.
--- NOTE | 2018-05-25 11:51 | PDOC.DISCH_ITS ---
Discharge - Discharge Orders Referrals: Sakina Meng MD [Primary Care Provider] - 06/09/18 9:45 am Jeremy Pollock DPM [[facility] STAFF PHYSICIAN] - 06/16/18 2:00 pm - Discharge Plan Disposition: HOME Condition: Improving Diet:: Carb Counting Equipment/Supplies:: No Equipment Needed Activity:: Activity as Tolerated - Instructions Micromedex Instructions: Wound Infection (DC) Additional Instructions: wash feet, including wound on left great toe daily with warm soapy water. Rinse well and gently pat dry. can cover with dry bandaid to protect. Continue all your medications as directed.
--- NOTE | 2018-05-25 12:02 | PDOC.DCSUM_ITS ---
Date of Service: 05/25/18 Discharge diagnosis: Osteomyelitis of the left great toe Diabetes mellitus type 2 History of present illness and hospital course: This is a 47-year-old male patient with a past medical history significant for diabetes mellitus type 2 well-known to the hospitalist service who was admitted back in March for diabetic foot ulcer with osteomyelitis of the left great toe. He has been followed by podiatry who was recommended 6-week course of Ancef 2 g every 4 hours which she is due to complete today. Dr. Pollock has been satisfied with the appearance of his left great toe and deems him safe for discharge to home. He has remained afebrile with stable vital signs. Medically he has been stable with no active issues. He is eating and drinking well his bowels and bladder are functioning well. His diabetes mellitus type 2 has been well controlled on his carb controlled diet. His blood sugars have been 80s to low 100s. His sed rate and CRP have continually trended downward. He has had no elevated white counts. He will be discharged back to his assisted living facility with no services follow-up appointments have been scheduled with his primary care provider and Dr. Pollock. Condition at discharge Temp 36.0 pulse 87 respiratory rate 20 O2 sat 96% on room air blood pressure 137 /78 General: Skin is pale warm dry well perfused she is in no acute distress HEENT head is normocephalic atraumatic oral mucosa moist Cardiovascular: Regular rate and rhythm Respiratory: Respirations are even and unlabored breath sounds are clear Abdomen: Round soft slightly distended nontender with positive bowel sounds Extremities: Moves all extremities x4 strength equal bilaterally Skin: Superficial open area less than 1 cm on left great toe Psychiatric: Normal mood flat affect Lab data White count 10.1 hemoglobin 13.4 hematocrit 41.5 platelet count 258. Sodium 138 potassium 4.0 chloride 107 CO2 25 anion gap 5.6 BUN 12 creatinine 1.24 GFR greater than 60 glucose 134 total bili 0.2 calcium 8.7 AST 18 ALT 38 alk phos 121 C-reactive protein 1.47 ESR 24 protein 6.6 albumin 3.2 Medications at discharge: No new medications Continue as previously prescribed Mylanta 30 mL's daily as needed Acetaminophen 650 mg 4 times daily as needed Allopurinol 100 mg daily Atenolol 25 mg daily Citalopram 30 mg daily Clozapine 250 mg at bedtime Colace 100 mg daily if needed esomeprazole 40 mg daily Neurontin 300 mg at bedtime Sliding scale NovoLog as needed Lisinopril 5 mg daily Lorazepam 0.5 mg daily Milk of magnesia 30 mL's as needed Multivitamin 1 tab daily Polyethylene glycol 17 g daily as needed Topamax 75 mg twice daily Disposition: Discharged back to his residence with no new services follow-up appointment has been scheduled with his primary care provider, Sakina Hadley MD on June 09, 2018 at 9:[address] Pollock June 16, 2018 at 2 PM.
--- NOTE | 2018-05-25 12:31 | PDOC.CMDIS ---
Date of Service: 05/25/18 Time of Service: 12:31 LACE Index Scoring Tool - Questions: Length of Stay (in days): 14 or more Acuity (Admit via E.D.?): Yes Comorbidities: Diabetes w/o Complication E.D. Visits: 2 - Answers: Total Score: 13 Risk of Readmission: High Risk Care Management Discharge Reason for Hospitalization: Cellulitis of the left foot with osteomylitis swing bed x 6 weeks for antibiotics. Discharge Plan: Tejas will be dischaged home today to [place], and follow up with as directed. He is nervous about returning home, and the infection returning to his left foot. He would like to meet with before leaving the hosptial. CCRN has contacted 's office to inquire on seeing the patient prior to his discharge. Patient/Family Education Needs: Discharge education, limitation and follow up plan of care. Ask me three education, and self management. CM contacted OR and requested see patient prior to his discharge. - MH Services (Omit if N/A) Current MH Services: [facility]
--- NOTE | 2018-05-25 15:56 | PGE_ITS ---
DATE: May 25, 2018 IMPRESSIONS: #1. 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 #2. Subsequent open reduction with fixation. #3. Subsequent pin track infections involving the great toe with disruption of hardware requiring op en debridement and prolonged antibiotics secondary to osteomyelitis. PLAN: Tejas is fully aware that he needs to control his diabetes. He needs to wash his foot on a d aily basis with soap and water. Apply moisturizing creams. Wear appropriate shoes and socks during all weightbearing activities. He is to phone the office if there is any increasing pain, redness, or swelling in any of his digits. Otherwise, I will see him in the office within two weeks. He should have his PICC line removed upon discharge. I appreciate the hospitalists and nursing support of thi s difficult case. SUBJECTIVE: Tejas is seen in his room. He is comfortable. He is dressed back in his street clothe s. He is receiving his final dose of oxacillin and he is preparing to go home. He has no new compla ints of pain or discomfort. He is a little anxious about returning home. OBJECTIVE: Vital signs: He is afebrile. BP is 137/78. Pulse is 87. Respirations 20. O2 saturation at room a ir is 96%. On exam his left foot is significantly improved. The incision is closed. The toe is not warm. Ther e is generalized enlargement of the toe but not unexpected based on his operative needs and the sever e edema and deformity that was previously inherent to the digit. The second toe is slightly contract ured at the PIPJ but is completely asymptomatic. The rest of the foot is cool to the touch in a norm al sort of way. There is no inflammation, no pain, no tenderness. He has completed six weeks of oxa cillin through a PICC line. LABORATORY DATA: Labs drawn on 05/23 show normalized WBCs at 10.15, hemoglobin at 13.4, which is actu ally on the high side of where he has been during this admission. Neutrophils are 6.84. Monocytes a re 1.0. His sed rate is 24. Blood sugar was 134. CRP is 1.47, down from 2.76 on 05/11. His albumin is 3.2, which is low but high er than it has been; the last reading at 2.9.
[2018-05-25] MEDS: Bacitracin 1 PACKET (16:00)
[2018-05-31 19:22] LABS: Clozapine 297 ng/mL (>350); Clozapine+Norclozapine Total 446 ng/mL (>450); Norclozapine 149 ng/mL
== END 2018-05-25 16:21 | disposition home or self-care (01) | DRG 949 ==
PROVIDERS: Family Medicine; Internal Medicine; Nurse Practitioner Acute Care; Nurse Practitioner Primary Care; Admitting Provider Internal Medicine; PCP Family Medicine; Visit Provider Family Medicine
DX: T81.4XXD Infection following a procedure, subsequent encounter (principal); R78.81 Bacteremia; M86.172 Other acute osteomyelitis, left ankle and foot; T84.223D Displacement of internal fixation device of bones of foot and toes, subsequent encounter; L03.032 Cellulitis of left toe; B95.61 Methicillin susceptible Staphylococcus aureus infection as the cause of diseases classified elsewhere; E11.42 Type 2 diabetes mellitus with diabetic polyneuropathy; Z79.2 Long term (current) use of antibiotics; K21.9 Gastro-esophageal reflux disease without esophagitis; I10 Essential (primary) hypertension; F25.9 Schizoaffective disorder, unspecified; S92.412D Displaced fracture of proximal phalanx of left great toe, subsequent encounter for fracture with routine healing; S92.502D Displaced unspecified fracture of left lesser toe(s), subsequent encounter for fracture with routine healing; Z98.1 Arthrodesis status; X58.XXXD Exposure to other specified factors, subsequent encounter; I25.10 Atherosclerotic heart disease of native coronary artery without angina pectoris; K75.81 Nonalcoholic steatohepatitis (NASH); E66.9 Obesity, unspecified; B35.1 Tinea unguium; M10.9 Gout, unspecified; F31.9 Bipolar disorder, unspecified
CPT/HCPCS: 36415; 80048; 80053; 85027; 85652; 87040; 87505; 99309; 99315; J1650; 71046; 73630; 73660; 80159; 81003; 83630; 84484; 84550; 85025; 85049; 86140; 87324; 93005; 93010; 99305; 99308; 99310; J2700

== ENCOUNTER 2018-06-02 08:53 | Outpatient (CLI) | payer MEDICARE, MEDICAID, SELFPAY ==
[2018-06-02 09:19] LABS: Abs Immature Grans 0.04 k/cumm (0.0-0.09); Absolute Basophil Count 0.02 k/cumm (0.0-0.2); Absolute Eosinophil Count 0.07 k/cumm (0.0-0.7); Absolute Lymphocyte Count 2.29 k/cumm (1.2-3.4); Absolute Monocyte Count 0.91 k/cumm (0.11-0.7); Basophils % 0.2; Eosinophils % 0.6; HCT 41.8 % (40.0-50.0); HGB 13.7 g/dL (13.5-17.5); Immature Grans % 0.4; Lymphocytes % 20.1; Mean Corp. HGB Concentration 32.8 g/dL (32.0-36.0); Mean Corpuscular Hemoglobin 28.7 pg (27.0-33.0); Mean Corpuscular Volume 87.6 fL (80-95); Mean Platelet Volume 11.8 fL (8.0-11.0); Neutrophils % 70.7; Platelet Count 267 x1000/uL (130-400); RBC 4.77 m/cumm (4.50-6.00); White Blood Cell Count 11.39 k/cumm (4.4-10.8)
[2018-06-02 09:21] LABS: Absolute Neutrophil Count 8.05 k/cumm (1.2-6.7)
== END 2018-06-02 09:13 ==
PROVIDERS: PCP Family Medicine; Visit Provider Nurse Practitioner Psychiatric/Mental Health
DX: F20.9 Schizophrenia, unspecified (principal); Z79.899 Other long term (current) drug therapy
CPT/HCPCS: 36415; 85025

== ENCOUNTER 2018-06-29 11:19 | Outpatient (CLI) | payer MEDICARE, MEDICAID, SELFPAY ==
[2018-06-29 12:07] LABS: Abs Immature Grans 0.07 k/cumm (0.0-0.09); Absolute Lymphocyte Count 2.68 k/cumm (1.2-3.4); Absolute Monocyte Count 1.12 k/cumm (0.11-0.7); Basophils % 0.2; Eosinophils % 0.5; HCT 41.9 % (40.0-50.0); HGB 13.9 g/dL (13.5-17.5); Immature Grans % 0.5; Lymphocytes % 20.1; Mean Corp. HGB Concentration 33.2 g/dL (32.0-36.0); Mean Corpuscular Hemoglobin 28.4 pg (27.0-33.0); Mean Corpuscular Volume 85.7 fL (80-95); Mean Platelet Volume 11.9 fL (8.0-11.0); Monocytes % 8.4; Neutrophils % 70.3; Platelet Count 273 x1000/uL (130-400); RBC 4.89 m/cumm (4.50-6.00); White Blood Cell Count 13.32 k/cumm (4.4-10.8)
[2018-06-29 12:10] LABS: Absolute Basophil Count 0.03 k/cumm (0.0-0.2); Absolute Eosinophil Count 0.07 k/cumm (0.0-0.7); Absolute Neutrophil Count 9.36 k/cumm (1.2-6.7)
== END 2018-06-29 11:39 ==
PROVIDERS: PCP Family Medicine; Visit Provider Nurse Practitioner Psychiatric/Mental Health
DX: F20.9 Schizophrenia, unspecified (principal); Z79.899 Other long term (current) drug therapy
CPT/HCPCS: 36415; 85025

== ENCOUNTER 2018-08-01 09:28 | Outpatient (CLI) | payer MEDICARE, MEDICAID, SELFPAY ==
[2018-08-01 10:12] LABS: Absolute Basophil Count 0.02 k/cumm (0.0-0.2); Absolute Monocyte Count 0.88 k/cumm (0.11-0.7); Absolute Neutrophil Count 8.48 k/cumm (1.2-6.7); Basophils % 0.2; Eosinophils % 0.3; HCT 44.1 % (40.0-50.0); HGB 14.6 g/dL (13.5-17.5); Immature Grans % 0.8; Lymphocytes % 19.9; Mean Corp. HGB Concentration 33.1 g/dL (32.0-36.0); Mean Corpuscular Hemoglobin 28.3 pg (27.0-33.0); Mean Corpuscular Volume 85.5 fL (80-95); Mean Platelet Volume 11.5 fL (8.0-11.0); Monocytes % 7.4; Neutrophils % 71.4; Platelet Count 280 x1000/uL (130-400); RBC 5.16 m/cumm (4.50-6.00); RBC Distribution Width 15.2 % (11.8-14.1); White Blood Cell Count 11.88 k/cumm (4.4-10.8)
[2018-08-01 10:16] LABS: Absolute Eosinophil Count 0.04 k/cumm (0.0-0.7); Absolute Lymphocyte Count 2.36 k/cumm (1.2-3.4)
== END 2018-08-01 09:48 ==
PROVIDERS: PCP Family Medicine; Visit Provider Nurse Practitioner Psychiatric/Mental Health
DX: F20.9 Schizophrenia, unspecified (principal); Z79.899 Other long term (current) drug therapy
CPT/HCPCS: 36415; 85025

== ENCOUNTER 2018-08-29 09:32 | Outpatient (CLI) | payer MEDICARE, MEDICAID, SELFPAY ==
[2018-08-29 10:27] LABS: Abs Immature Grans 0.13 k/cumm (0.0-0.09); Absolute Basophil Count 0.01 k/cumm (0.0-0.2); Absolute Eosinophil Count 0.05 k/cumm (0.0-0.7); Absolute Monocyte Count 0.96 k/cumm (0.11-0.7); Basophils % 0.1; Eosinophils % 0.4; HCT 44.3 % (40.0-50.0); HGB 14.8 g/dL (13.5-17.5); Immature Grans % 1.1; Mean Corp. HGB Concentration 33.4 g/dL (32.0-36.0); Mean Corpuscular Hemoglobin 28.7 pg (27.0-33.0); Mean Platelet Volume 11.3 fL (8.0-11.0); Monocytes % 7.8; Neutrophils % 71.6; Platelet Count 261 x1000/uL (130-400); RBC 5.15 m/cumm (4.50-6.00); RBC Distribution Width 15.7 % (11.8-14.1); White Blood Cell Count 12.29 k/cumm (4.4-10.8)
[2018-08-29 10:29] LABS: Absolute Lymphocyte Count 2.34 k/cumm (1.2-3.4)
== END 2018-08-29 09:52 ==
PROVIDERS: PCP Family Medicine; Visit Provider Nurse Practitioner Psychiatric/Mental Health
DX: F20.9 Schizophrenia, unspecified (principal); Z79.899 Other long term (current) drug therapy
CPT/HCPCS: 36415; 85025

== ENCOUNTER 2018-09-29 08:57 | Outpatient (CLI) | payer MEDICARE, MEDICAID, SELFPAY ==
[2018-09-29 09:23] LABS: Abs Immature Grans 0.09 k/cumm (0.0-0.09); Absolute Lymphocyte Count 2.76 k/cumm (1.2-3.4); Absolute Monocyte Count 1.08 k/cumm (0.11-0.7); Basophils % 0.2; Eosinophils % 0.6; HGB 14.3 g/dL (13.5-17.5); Immature Grans % 0.7; Lymphocytes % 21.7; Mean Corp. HGB Concentration 33.3 g/dL (32.0-36.0); Mean Corpuscular Hemoglobin 29.1 pg (27.0-33.0); Mean Corpuscular Volume 87.6 fL (80-95); Mean Platelet Volume 11.4 fL (8.0-11.0); Monocytes % 8.5; Neutrophils % 68.3; Platelet Count 255 x1000/uL (130-400); RBC 4.91 m/cumm (4.50-6.00); RBC Distribution Width 15.3 % (11.8-14.1); White Blood Cell Count 12.71 k/cumm (4.4-10.8)
[2018-09-29 09:28] LABS: Absolute Basophil Count 0.03 k/cumm (0.0-0.2); Absolute Eosinophil Count 0.08 k/cumm (0.0-0.7); Absolute Neutrophil Count 8.68 k/cumm (1.2-6.7)
== END 2018-09-29 09:17 ==
PROVIDERS: PCP Family Medicine; Visit Provider Nurse Practitioner Psychiatric/Mental Health
DX: F20.9 Schizophrenia, unspecified (principal); Z79.899 Other long term (current) drug therapy
CPT/HCPCS: 36415; 85025

== ENCOUNTER 2018-11-03 11:17 | Outpatient (CLI) | payer MEDICARE, MEDICAID, SELFPAY ==
[2018-11-03 11:40] LABS: Abs Immature Grans 0.09 k/cumm (0.0-0.09); Absolute Basophil Count 0.01 k/cumm (0.0-0.2); Absolute Eosinophil Count 0.24 k/cumm (0.0-0.7); Absolute Monocyte Count 1.52 k/cumm (0.11-0.7); Basophils % 0.1; Eosinophils % 1.7; HCT 43.9 % (40.0-50.0); HGB 14.6 g/dL (13.5-17.5); Immature Grans % 0.6; Mean Corp. HGB Concentration 33.3 g/dL (32.0-36.0); Mean Corpuscular Volume 87.1 fL (80-95); Mean Platelet Volume 11.2 fL (8.0-11.0); Neutrophils % 69.6; Platelet Count 257 x1000/uL (130-400); RBC 5.04 m/cumm (4.50-6.00); RBC Distribution Width 15.3 % (11.8-14.1); White Blood Cell Count 13.85 k/cumm (4.4-10.8)
[2018-11-03 11:42] LABS: Absolute Lymphocyte Count 2.35 k/cumm (1.2-3.4); Absolute Neutrophil Count 9.64 k/cumm (1.2-6.7)
== END 2018-11-03 11:37 ==
PROVIDERS: PCP Family Medicine; Visit Provider Nurse Practitioner Psychiatric/Mental Health
DX: F20.9 Schizophrenia, unspecified (principal); Z79.899 Other long term (current) drug therapy
CPT/HCPCS: 36415; 85025

== ENCOUNTER 2018-11-29 11:34 | Outpatient (CLI) | payer MEDICARE, MEDICAID, SELFPAY ==
[2018-11-29 12:17] LABS: Abs Immature Grans 0.06 k/cumm (0.0-0.09); Absolute Monocyte Count 1.09 k/cumm (0.11-0.7); Basophils % 0.2; Eosinophils % 0.6; HCT 44.2 % (40.0-50.0); HGB 14.8 g/dL (13.5-17.5); Immature Grans % 0.5; Lymphocytes % 19.2; Mean Corp. HGB Concentration 33.5 g/dL (32.0-36.0); Mean Corpuscular Hemoglobin 29.2 pg (27.0-33.0); Mean Corpuscular Volume 87.4 fL (80-95); Monocytes % 8.7; Neutrophils % 70.8; Platelet Count 251 x1000/uL (130-400); RBC 5.06 m/cumm (4.50-6.00); RBC Distribution Width 14.9 % (11.8-14.1); White Blood Cell Count 12.53 k/cumm (4.4-10.8)
[2018-11-29 12:20] LABS: Absolute Basophil Count 0.03 k/cumm (0.0-0.2); Absolute Eosinophil Count 0.08 k/cumm (0.0-0.7); Absolute Lymphocyte Count 2.41 k/cumm (1.2-3.4); Absolute Neutrophil Count 8.87 k/cumm (1.2-6.7)
== END 2018-11-29 11:54 ==
PROVIDERS: PCP Family Medicine; Visit Provider Nurse Practitioner Psychiatric/Mental Health
DX: F20.9 Schizophrenia, unspecified (principal); Z79.899 Other long term (current) drug therapy
CPT/HCPCS: 36415; 85025

== ENCOUNTER 2018-12-22 18:40 | Outpatient (REF) | payer MEDICARE, MEDICAID, SELFPAY ==
[2018-12-22 22:08] LABS: Anion Gap 12.3 mmol/L (3-11); BUN 17 mg/dL (7-18); CO2 23.7 mmol/L (21.0-32.0); CREATININE 1.31 mg/dL (0.70-1.30); Calcium 9.1 mg/dL (8.5-10.1); Chloride 104 mmol/L (98-107); Estimated GFR 58.65 (mL/min/1.73m2); Glucose 88 mg/dL (70-100); Potassium 3.8 mmol/L (3.5-5.1); Sodium 140 mmol/L (136-145); TSH (W/Ref FT4) 3.03 uIU/mL (0.358-3.74)
== END 2018-12-22 19:00 ==
LOC: NCHCN 18:40
PROVIDERS: PCP Family Medicine; Visit Provider Specialist/Technologist Athletic Trainer
DX: R19.7 Diarrhea, unspecified (principal); R79.89 Other specified abnormal findings of blood chemistry
CPT/HCPCS: 80048; 84443

== ENCOUNTER 2018-12-27 13:54 | Outpatient (CLI) | payer MEDICARE, MEDICAID, SELFPAY ==
[2018-12-27 14:22] LABS: Abs Immature Grans 0.09 k/cumm (0.0-0.09); Absolute Basophil Count 0.03 k/cumm (0.0-0.2); Absolute Eosinophil Count 0.06 k/cumm (0.0-0.7); Absolute Lymphocyte Count 2.67 k/cumm (1.2-3.4); Absolute Monocyte Count 1.14 k/cumm (0.11-0.7); Basophils % 0.2; Eosinophils % 0.4; HCT 41.9 % (40.0-50.0); HGB 14.1 g/dL (13.5-17.5); Immature Grans % 0.6; Lymphocytes % 17.1; Mean Corp. HGB Concentration 33.7 g/dL (32.0-36.0); Mean Corpuscular Hemoglobin 29.6 pg (27.0-33.0); Mean Corpuscular Volume 87.8 fL (80-95); Mean Platelet Volume 11.7 fL (8.0-11.0); Monocytes % 7.3; Neutrophils % 74.4; Platelet Count 260 x1000/uL (130-400); RBC 4.77 m/cumm (4.50-6.00); White Blood Cell Count 15.59 k/cumm (4.4-10.8)
[2018-12-27 15:40] LABS: Hemoglobin A1C 6.2 % (4.5-6.2)
[2018-12-27 15:57] LABS: ALT 40 U/L (12-78); AST 16 U/L (15-37); Albumin 3.5 g/dL (3.4-5.0); Alkaline Phosphatase 99 U/L (46-116); Anion Gap 12.5 mmol/L (3-11); BUN 16 mg/dL (7-18); Bilirubin, Total 0.3 mg/dL (0.2-1.0); CO2 21.5 mmol/L (21.0-32.0); CREATININE 1.37 mg/dL (0.70-1.30); Calcium 8.9 mg/dL (8.5-10.1); Chloride 106 mmol/L (98-107); Cholesterol 136 mg/dL (50-200); Glucose 118 mg/dL (70-100); HDL Cholesterol 37 mg/dL (40-60); LDL CHOLESTEROL 71 mg/dL (<100); Potassium 4.2 mmol/L (3.5-5.1); Sodium 140 mmol/L (136-145); TSH (W/Ref FT4) 1.06 uIU/mL (0.358-3.74); Total Protein 6.7 g/dL (6.4-8.2); Triglyceride 255 mg/dL (30-150)
[2018-12-29 06:53] LABS: Vitamin D 25 Total 22.9 ng/ml (30-100)
[2018-12-29 08:39] LABS: Clozapine 417 ng/mL (>350); Clozapine+Norclozapine Total 644 ng/mL (>450); Norclozapine 227 ng/mL
== END 2018-12-27 14:14 ==
PROVIDERS: PCP Family Medicine; Visit Provider Nurse Practitioner Psychiatric/Mental Health
DX: F25.0 Schizoaffective disorder, bipolar type (principal); Z51.81 Encounter for therapeutic drug level monitoring; Z79.899 Other long term (current) drug therapy
CPT/HCPCS: 36415; 80053; 80061; 82306; 83721; 80159; 83036; 84443; 85025

== ENCOUNTER 2019-01-27 09:56 | Outpatient (CLI) | payer MEDICARE, MEDICAID, SELFPAY ==
[2019-01-27 10:26] LABS: Abs Immature Grans 0.04 k/cumm (0.0-0.09); Absolute Basophil Count 0.01 k/cumm (0.0-0.2); Absolute Eosinophil Count 0.03 k/cumm (0.0-0.7); Absolute Lymphocyte Count 2.17 k/cumm (1.2-3.4); Absolute Monocyte Count 0.85 k/cumm (0.11-0.7); Basophils % 0.1; Eosinophils % 0.3; HCT 43.4 % (40.0-50.0); HGB 14.6 g/dL (13.5-17.5); Immature Grans % 0.4; Lymphocytes % 19.4; Mean Corp. HGB Concentration 33.6 g/dL (32.0-36.0); Mean Corpuscular Hemoglobin 29.2 pg (27.0-33.0); Mean Corpuscular Volume 86.8 fL (80-95); Mean Platelet Volume 11.8 fL (8.0-11.0); Monocytes % 7.6; Neutrophils % 72.2; Platelet Count 256 x1000/uL (130-400); RBC Distribution Width 14.7 % (11.8-14.1); White Blood Cell Count 11.18 k/cumm (4.4-10.8)
[2019-01-27 10:36] LABS: Absolute Neutrophil Count 8.07 k/cumm (1.2-6.7)
== END 2019-01-27 10:16 ==
PROVIDERS: Nurse Practitioner Psychiatric/Mental Health; PCP Family Medicine; Visit Provider Nurse Practitioner Psychiatric/Mental Health
DX: F20.9 Schizophrenia, unspecified (principal); Z79.899 Other long term (current) drug therapy
CPT/HCPCS: 36415; 85025

== ENCOUNTER 2019-03-01 11:41 | Outpatient (CLI) | payer MEDICARE, MEDICAID, SELFPAY ==
[2019-03-01 12:30] LABS: Abs Immature Grans 0.07 k/cumm (0.0-0.09); Absolute Basophil Count 0.01 k/cumm (0.0-0.2); Absolute Lymphocyte Count 2.29 k/cumm (1.2-3.4); Absolute Monocyte Count 0.86 k/cumm (0.11-0.7); Basophils % 0.1; Eosinophils % 0.3; HCT 42.4 % (40.0-50.0); HGB 14.2 g/dL (13.5-17.5); Immature Grans % 0.6; Lymphocytes % 19.2; Mean Corp. HGB Concentration 33.5 g/dL (32.0-36.0); Mean Corpuscular Hemoglobin 29.3 pg (27.0-33.0); Mean Corpuscular Volume 87.4 fL (80-95); Monocytes % 7.2; Neutrophils % 72.6; Platelet Count 241 x1000/uL (130-400); RBC 4.85 m/cumm (4.50-6.00); RBC Distribution Width 14.9 % (11.8-14.1); White Blood Cell Count 11.94 k/cumm (4.4-10.8)
[2019-03-01 12:50] LABS: Absolute Eosinophil Count 0.04 k/cumm (0.0-0.7); Absolute Neutrophil Count 8.67 k/cumm (1.2-6.7)
[2019-03-03 11:15] LABS: IgA 174 mg/dL (85-499); Interpretation SEE COMMENTS; Tissue Transglutaminase IgA <1.2 U/mL (<4.0)
== END 2019-03-01 12:01 ==
PROVIDERS: PCP Family Medicine; Visit Provider Nurse Practitioner Psychiatric/Mental Health
DX: F20.9 Schizophrenia, unspecified (principal); Z79.899 Other long term (current) drug therapy; R19.7 Diarrhea, unspecified
CPT/HCPCS: 36415; 82784; 83516; 85025

== ENCOUNTER 2019-03-31 10:08 | Outpatient (CLI) | payer MEDICARE, MEDICAID, SELFPAY ==
[2019-03-31 10:57] LABS: Abs Immature Grans 0.11 k/cumm (0.0-0.09); Absolute Basophil Count 0.02 k/cumm (0.0-0.2); Absolute Eosinophil Count 0.04 k/cumm (0.0-0.7); Absolute Lymphocyte Count 2.31 k/cumm (1.2-3.4); Absolute Monocyte Count 1.01 k/cumm (0.11-0.7); Basophils % 0.2; Eosinophils % 0.3; HCT 43.3 % (40.0-50.0); HGB 14.8 g/dL (13.5-17.5); Immature Grans % 0.9; Mean Corp. HGB Concentration 34.2 g/dL (32.0-36.0); Mean Corpuscular Volume 87.7 fL (80-95); Mean Platelet Volume 11.5 fL (8.0-11.0); Monocytes % 8.3; Neutrophils % 71.3; Platelet Count 256 x1000/uL (130-400); RBC 4.94 m/cumm (4.50-6.00); RBC Distribution Width 15.1 % (11.8-14.1); White Blood Cell Count 12.14 k/cumm (4.4-10.8)
[2019-03-31 11:00] LABS: Absolute Neutrophil Count 8.66 k/cumm (1.2-6.7)
== END 2019-03-31 10:28 ==
PROVIDERS: PCP Family Medicine; Visit Provider Nurse Practitioner Psychiatric/Mental Health
DX: F20.9 Schizophrenia, unspecified (principal); Z79.899 Other long term (current) drug therapy
CPT/HCPCS: 36415; 85025

== ENCOUNTER 2019-05-03 13:33 | Outpatient (CLI) | payer MEDICARE, MEDICAID, SELFPAY ==
[2019-05-03 14:07] LABS: Abs Immature Grans 0.08 k/cumm (0.0-0.09); Absolute Basophil Count 0.03 k/cumm (0.0-0.2); Absolute Eosinophil Count 0.04 k/cumm (0.0-0.7); Absolute Monocyte Count 1.06 k/cumm (0.11-0.7); Basophils % 0.2; Eosinophils % 0.3; HCT 40.4 % (40.0-50.0); HGB 13.7 g/dL (13.5-17.5); Immature Grans % 0.5; Lymphocytes % 18.8; Mean Corp. HGB Concentration 33.9 g/dL (32.0-36.0); Mean Corpuscular Volume 88.6 fL (80-95); Mean Platelet Volume 11.1 fL (8.0-11.0); Monocytes % 7.3; Neutrophils % 72.9; Platelet Count 228 x1000/uL (130-400); RBC 4.56 m/cumm (4.50-6.00); RBC Distribution Width 14.8 % (11.8-14.1); White Blood Cell Count 14.56 k/cumm (4.4-10.8)
[2019-05-03 14:15] LABS: Absolute Lymphocyte Count 2.74 k/cumm (1.2-3.4); Absolute Neutrophil Count 10.61 k/cumm (1.2-6.7)
== END 2019-05-03 13:53 ==
PROVIDERS: PCP Family Medicine; Visit Provider Nurse Practitioner Psychiatric/Mental Health
DX: F20.9 Schizophrenia, unspecified (principal); Z79.899 Other long term (current) drug therapy
CPT/HCPCS: 36415; 85025

== ENCOUNTER 2019-06-02 12:41 | Outpatient (CLI) | payer MEDICARE, MEDICAID, SELFPAY ==
[2019-06-02 13:05] LABS: Abs Immature Grans 0.13 k/cumm (0.0-0.09); Absolute Basophil Count 0.03 k/cumm (0.0-0.2); Absolute Eosinophil Count 0.07 k/cumm (0.0-0.7); Absolute Lymphocyte Count 2.85 k/cumm (1.2-3.4); Absolute Monocyte Count 1.21 k/cumm (0.11-0.7); Absolute Neutrophil Count 12.01 k/cumm (1.2-6.7); Basophils % 0.2; Eosinophils % 0.4; HCT 42.3 % (40.0-50.0); HGB 14.3 g/dL (13.5-17.5); Immature Grans % 0.8; Lymphocytes % 17.5; Mean Corp. HGB Concentration 33.8 g/dL (32.0-36.0); Mean Corpuscular Hemoglobin 30.2 pg (27.0-33.0); Mean Corpuscular Volume 89.4 fL (80-95); Mean Platelet Volume 11.7 fL (8.0-11.0); Monocytes % 7.4; Neutrophils % 73.7; Platelet Count 280 x1000/uL (130-400); RBC 4.73 m/cumm (4.50-6.00); RBC Distribution Width 14.4 % (11.8-14.1)
== END 2019-06-02 13:01 ==
PROVIDERS: PCP Family Medicine; Visit Provider Nurse Practitioner Psychiatric/Mental Health
DX: F20.9 Schizophrenia, unspecified (principal); Z79.899 Other long term (current) drug therapy
CPT/HCPCS: 36415; 85025

== ENCOUNTER 2019-06-28 13:33 | Outpatient (CLI) | payer MEDICARE, MEDICAID, SELFPAY ==
[2019-06-28 14:01] LABS: Abs Immature Grans 0.11 k/cumm (0.0-0.09); Absolute Basophil Count 0.01 k/cumm (0.0-0.2); Absolute Eosinophil Count 0.03 k/cumm (0.0-0.7); Absolute Lymphocyte Count 2.88 k/cumm (1.2-3.4); Absolute Monocyte Count 1.17 k/cumm (0.11-0.7); Absolute Neutrophil Count 10.27 k/cumm (1.2-6.7); Basophils % 0.1; Eosinophils % 0.2; HCT 39.9 % (40.0-50.0); HGB 13.7 g/dL (13.5-17.5); Immature Grans % 0.8; Lymphocytes % 19.9; Mean Corp. HGB Concentration 34.3 g/dL (32.0-36.0); Mean Corpuscular Hemoglobin 30.5 pg (27.0-33.0); Mean Corpuscular Volume 88.9 fL (80-95); Mean Platelet Volume 11.4 fL (8.0-11.0); Monocytes % 8.1; Neutrophils % 70.9; Platelet Count 259 x1000/uL (130-400); RBC 4.49 m/cumm (4.50-6.00); RBC Distribution Width 14.2 % (11.8-14.1); White Blood Cell Count 14.49 k/cumm (4.4-10.8)
== END 2019-06-28 13:53 ==
PROVIDERS: PCP Family Medicine; Visit Provider Nurse Practitioner Psychiatric/Mental Health
DX: F20.9 Schizophrenia, unspecified (principal); Z79.899 Other long term (current) drug therapy
CPT/HCPCS: 36415; 85025

== ENCOUNTER 2019-08-02 14:27 | Outpatient (CLI) | payer MEDICARE, MEDICAID, SELFPAY ==
[2019-08-02 15:03] LABS: Absolute Basophil Count 0.03 k/cumm (0.0-0.2); Absolute Lymphocyte Count 3.24 k/cumm (1.2-3.4); Absolute Monocyte Count 1.13 k/cumm (0.11-0.7); Basophils % 0.2; Eosinophils % 0.4; HCT 40.4 % (40.0-50.0); HGB 13.6 g/dL (13.5-17.5); Immature Grans % 0.7; Lymphocytes % 23.6; Mean Corp. HGB Concentration 33.7 g/dL (32.0-36.0); Mean Corpuscular Hemoglobin 30.2 pg (27.0-33.0); Mean Corpuscular Volume 89.8 fL (80-95); Mean Platelet Volume 11.5 fL (8.0-11.0); Monocytes % 8.2; Neutrophils % 66.9; Platelet Count 261 x1000/uL (130-400); RBC Distribution Width 14.4 % (11.8-14.1); White Blood Cell Count 13.74 k/cumm (4.4-10.8)
[2019-08-02 15:05] LABS: Absolute Eosinophil Count 0.05 k/cumm (0.0-0.7); Absolute Neutrophil Count 9.19 k/cumm (1.2-6.7)
== END 2019-08-02 14:47 ==
PROVIDERS: PCP Family Medicine; Visit Provider Nurse Practitioner Psychiatric/Mental Health
DX: F20.9 Schizophrenia, unspecified (principal); Z79.899 Other long term (current) drug therapy
CPT/HCPCS: 36415; 85025

== ENCOUNTER 2019-08-28 15:18 | Outpatient (CLI) | payer MEDICARE, MEDICAID, SELFPAY ==
[2019-08-28 15:57] LABS: Abs Immature Grans 0.11 k/cumm (0.0-0.09); Absolute Basophil Count 0.02 k/cumm (0.0-0.2); Absolute Eosinophil Count 0.06 k/cumm (0.0-0.7); Absolute Lymphocyte Count 3.26 k/cumm (1.2-3.4); Basophils % 0.1; Eosinophils % 0.4; HCT 39.8 % (40.0-50.0); HGB 13.7 g/dL (13.5-17.5); Immature Grans % 0.7; Lymphocytes % 20.2; Mean Corp. HGB Concentration 34.4 g/dL (32.0-36.0); Mean Corpuscular Hemoglobin 30.8 pg (27.0-33.0); Mean Corpuscular Volume 89.4 fL (80-95); Mean Platelet Volume 11.2 fL (8.0-11.0); Monocytes % 8.3; Neutrophils % 70.3; Platelet Count 272 x1000/uL (130-400); RBC 4.45 m/cumm (4.50-6.00); RBC Distribution Width 14.2 % (11.8-14.1); White Blood Cell Count 16.12 k/cumm (4.4-10.8)
[2019-08-28 15:59] LABS: Absolute Monocyte Count 1.34 k/cumm (0.11-0.7); Absolute Neutrophil Count 11.33 k/cumm (1.2-6.7)
== END 2019-08-28 15:38 ==
PROVIDERS: PCP Family Medicine; Visit Provider Nurse Practitioner Psychiatric/Mental Health
DX: F20.9 Schizophrenia, unspecified (principal); Z79.899 Other long term (current) drug therapy
CPT/HCPCS: 36415; 85025

== ENCOUNTER 2019-09-08 16:15 | Outpatient (REF) | payer MEDICARE, MEDICAID, SELFPAY ==
[2019-09-08 19:12] LABS: Anion Gap 10.1 mmol/L (3-11); BUN 14 mg/dL (7-18); CO2 22.9 mmol/L (21.0-32.0); CREATININE 1.17 mg/dL (0.70-1.30); Chloride 107 mmol/L (98-107); Glucose 125 mg/dL (74-106); Sodium 140 mmol/L (136-145); Vitamin B12 506 pg/mL (193-986)
== END 2019-09-08 16:35 ==
LOC: NCHCN 16:15
PROVIDERS: PCP Family Medicine; Visit Provider Family Medicine
DX: R79.89 Other specified abnormal findings of blood chemistry (principal); R73.09 Other abnormal glucose; G60.9 Hereditary and idiopathic neuropathy, unspecified
CPT/HCPCS: 80048; 82607

== ENCOUNTER 2019-09-28 15:23 | Outpatient (CLI) | payer MEDICARE, MEDICAID, SELFPAY ==
[2019-09-28 15:54] LABS: Abs Immature Grans 0.11 k/cumm (0.0-0.09); Absolute Basophil Count 0.02 k/cumm (0.0-0.2); Absolute Monocyte Count 1.21 k/cumm (0.11-0.7); Absolute Neutrophil Count 10.95 k/cumm (1.2-6.7); Basophils % 0.1; Eosinophils % 0.3; HCT 41.8 % (40.0-50.0); HGB 14.3 g/dL (13.5-17.5); Immature Grans % 0.7 %; Lymphocytes % 18.5; Mean Corp. HGB Concentration 34.2 g/dL (32.0-36.0); Mean Corpuscular Hemoglobin 30.6 pg (27.0-33.0); Mean Corpuscular Volume 89.5 fL (80-95); Mean Platelet Volume 11.2 fL (8.0-11.0); Neutrophils % 72.4; Platelet Count 243 x1000/uL (130-400); RBC 4.67 m/cumm (4.50-6.00); RBC Distribution Width 14.5 % (11.8-14.1); White Blood Cell Count 15.12 k/cumm (4.4-10.8)
[2019-09-28 15:55] LABS: Absolute Eosinophil Count 0.05 k/cumm (0.0-0.7)
== END 2019-09-28 15:43 ==
PROVIDERS: PCP Family Medicine; Visit Provider Nurse Practitioner Psychiatric/Mental Health
DX: F20.9 Schizophrenia, unspecified (principal); Z79.899 Other long term (current) drug therapy
CPT/HCPCS: 36415; 85025

== ENCOUNTER 2019-10-30 10:58 | Outpatient (CLI) | payer MEDICARE, MEDICAID, SELFPAY ==
[2019-10-30 11:32] LABS: Absolute Eosinophil Count 0.03 k/cumm (0.0-0.7); Absolute Lymphocyte Count 2.59 k/cumm (1.2-3.4); Absolute Monocyte Count 1.16 k/cumm (0.11-0.7); Basophils % 0.1; Eosinophils % 0.2; HCT 41.9 % (40.0-50.0); HGB 14.2 g/dL (13.5-17.5); Immature Grans % 0.7 %; Lymphocytes % 18.9; Mean Corp. HGB Concentration 33.9 g/dL (32.0-36.0); Mean Corpuscular Hemoglobin 30.3 pg (27.0-33.0); Mean Corpuscular Volume 89.3 fL (80-95); Mean Platelet Volume 11.2 fL (8.0-11.0); Monocytes % 8.5; Neutrophils % 71.6; Platelet Count 273 x1000/uL (130-400); RBC 4.69 m/cumm (4.50-6.00); RBC Distribution Width 14.2 % (11.8-14.1)
[2019-10-30 11:36] LABS: Absolute Basophil Count 0.01 k/cumm (0.0-0.2); Absolute Neutrophil Count 9.81 k/cumm (1.2-6.7)
== END 2019-10-30 11:18 ==
PROVIDERS: PCP Family Medicine; Visit Provider Nurse Practitioner Psychiatric/Mental Health
DX: F20.9 Schizophrenia, unspecified (principal); Z79.899 Other long term (current) drug therapy
CPT/HCPCS: 36415; 85025

== ENCOUNTER 2019-11-29 12:31 | Outpatient (CLI) | payer MEDICARE, MEDICAID, SELFPAY ==
[2019-11-29 13:06] LABS: Abs Immature Grans 0.08 k/cumm (0.0-0.09); Absolute Basophil Count 0.01 k/cumm (0.0-0.2); Absolute Eosinophil Count 0.03 k/cumm (0.0-0.7); Absolute Lymphocyte Count 2.68 k/cumm (1.2-3.4); Basophils % 0.1; Eosinophils % 0.2; HCT 41.2 % (40.0-50.0); HGB 13.8 g/dL (13.5-17.5); Immature Grans % 0.6 %; Lymphocytes % 21.4; Mean Corp. HGB Concentration 33.5 g/dL (32.0-36.0); Mean Corpuscular Volume 89.6 fL (80-95); Mean Platelet Volume 11.4 fL (8.0-11.0); Monocytes % 6.9; Neutrophils % 70.8; Platelet Count 256 x1000/uL (130-400); RBC Distribution Width 14.4 % (11.8-14.1); White Blood Cell Count 12.53 k/cumm (4.4-10.8)
[2019-11-29 13:09] LABS: Absolute Monocyte Count 0.86 k/cumm (0.11-0.7); Absolute Neutrophil Count 8.87 k/cumm (1.2-6.7)
== END 2019-11-29 12:51 ==
PROVIDERS: PCP Family Medicine; Visit Provider Nurse Practitioner Psychiatric/Mental Health
DX: F20.9 Schizophrenia, unspecified (principal); Z79.899 Other long term (current) drug therapy
CPT/HCPCS: 36415; 85025

== ENCOUNTER 2019-12-24 13:43 | Outpatient (REF) | payer MEDICARE, MEDICAID, SELFPAY ==
[2019-12-26 23:27] LABS: Clozapine 740 ng/mL (>350); Clozapine+Norclozapine Total 1064 ng/mL (>450); Norclozapine 324 ng/mL
== END 2019-12-24 14:03 ==
LOC: NCHCN 13:43
PROVIDERS: PCP Family Medicine; Visit Provider Family Medicine
DX: F20.89 Other schizophrenia (principal); Z51.81 Encounter for therapeutic drug level monitoring
CPT/HCPCS: 80159

== ENCOUNTER 2020-01-09 01:45 | Outpatient (CLI) | payer MEDICARE, MEDICAID, SELFPAY ==
[2020-01-09 13:00] LABS: Abs Immature Grans 0.04 k/cumm (0.0-0.09); Absolute Basophil Count 0.02 k/cumm (0.0-0.2); Absolute Eosinophil Count 0.05 k/cumm (0.0-0.7); Absolute Lymphocyte Count 2.92 k/cumm (1.2-3.4); Absolute Monocyte Count 0.85 k/cumm (0.11-0.7); Absolute Neutrophil Count 7.83 k/cumm (1.2-6.7); Basophils % 0.2; Eosinophils % 0.4; HCT 42.5 % (40.0-50.0); HGB 14.6 g/dL (13.5-17.5); Immature Grans % 0.3 %; Lymphocytes % 24.9; Mean Corp. HGB Concentration 34.4 g/dL (32.0-36.0); Mean Corpuscular Hemoglobin 30.5 pg (27.0-33.0); Mean Corpuscular Volume 88.7 fL (80-95); Mean Platelet Volume 11.7 fL (8.0-11.0); Monocytes % 7.3; Neutrophils % 66.9; Platelet Count 272 x1000/uL (130-400); RBC 4.79 m/cumm (4.50-6.00); RBC Distribution Width 14.7 % (11.8-14.1); White Blood Cell Count 11.71 k/cumm (4.4-10.8)
[2020-01-11 02:11] LABS: Clozapine 687 ng/mL (>350); Clozapine+Norclozapine Total 1013 ng/mL (>450); Norclozapine 326 ng/mL
== END 2020-01-09 02:05 ==
PROVIDERS: PCP Family Medicine; Visit Provider Nurse Practitioner Psychiatric/Mental Health
DX: F20.9 Schizophrenia, unspecified (principal); Z79.899 Other long term (current) drug therapy; Z51.81 Encounter for therapeutic drug level monitoring
CPT/HCPCS: 36415; 80159; 85025

== ENCOUNTER 2020-03-01 02:02 | Outpatient (CLI) | payer MEDICARE, MEDICAID, SELFPAY ==
--- NOTE | 2020-03-01 | DI.MRI_ITS ---
EXAM: MR LOWER EXTREMITY LT WO/W CLINICAL HISTORY: DIABETIC ULCER, ? OSTEOMYELITIS. TECHNIQUE: Multiplanar multisequence MRI was performed. COMPARISON: CR LEFT GREAT TOE from 05/11/2018 FINDINGS: MR examination of the forefoot was performed to evaluate suspected osteomyelitis in a patient with re ported diabetic ulcer. There is soft tissue deformity the great toe. There is abnormal signal in what appears to be fused p halanx of the great toe. This is most prominent in distal phalanx, also increased signal noted at si te of the interphalangeal fusion. Enhancement is noted associated with the distal aspect of fused digit and associated with the region of the IP fusion and in the distal shaft of the proximal phalangeal component. There may be some con tribution by postsurgical changes but the findings are suspicious for osteomyelitis particularly invo lving the distal portion of the digit. Remainder of the bones of great toe and bones of the 2nd thro ugh 4th toes appear intact. Metatarsals show normal signal. Increased soft tissue signal noted arou nd the fused phalanx of the great toe. No abscess formation. No significant tendinous or ligamentou s abnormality, the IP joint is fused in a flexed position. IMPRESSION: Findings suspicious for osteomyelitis involving the distal phalangeal component and possibly the prox imal phalangeal component of fused great toe phalanx. No abscess or other significant findings. DATA REPOSITORY:
[2020-03-01 14:02] LABS: CREATININE 1.24 mg/dL (0.70-1.30)
[2020-03-01] MEDS: Normal Saline Flush 10 ML SYR IVP (14:46)
[2020-03-01] MEDS: Gadoterate meglumine 20 ML VIAL IVP (14:47)
== END 2020-03-01 02:22 ==
PROVIDERS: PCP Family Medicine; Visit Provider Podiatrist
DX: L97.528 Non-pressure chronic ulcer of other part of left foot with other specified severity (principal); Z13.89 Encounter for screening for other disorder; E11.9 Type 2 diabetes mellitus without complications
CPT/HCPCS: 73720; 82565

== ENCOUNTER 2020-03-13 03:51 | Outpatient (CLI) | payer MEDICARE, MEDICAID, SELFPAY ==
[2020-03-13 08:04] LABS: Absolute Basophil Count 0.01 k/cumm (0.0-0.2); Absolute Eosinophil Count 0.06 k/cumm (0.0-0.7); Absolute Lymphocyte Count 3.68 k/cumm (1.2-3.4); Absolute Neutrophil Count 7.75 k/cumm (1.2-6.7); Basophils % 0.1; Eosinophils % 0.5; HCT 44.1 % (40.0-50.0); HGB 14.9 g/dL (13.5-17.5); Immature Grans % 0.8 %; Lymphocytes % 28.7; Mean Corp. HGB Concentration 33.8 g/dL (32.0-36.0); Mean Corpuscular Hemoglobin 30.5 pg (27.0-33.0); Mean Corpuscular Volume 90.2 fL (80-95); Mean Platelet Volume 11.4 fL (8.0-11.0); Monocytes % 9.4; Neutrophils % 60.5; Platelet Count 269 x1000/uL (130-400); RBC 4.89 m/cumm (4.50-6.00); RBC Distribution Width 14.6 % (11.8-14.1); White Blood Cell Count 12.81 k/cumm (4.4-10.8)
== END 2020-03-13 04:11 ==
PROVIDERS: PCP Family Medicine; Visit Provider Nurse Practitioner Psychiatric/Mental Health
DX: F20.9 Schizophrenia, unspecified (principal); Z79.899 Other long term (current) drug therapy
CPT/HCPCS: 36415; 85025

== ENCOUNTER 2020-03-15 06:24 | Day surgery (SDC) | payer MEDICARE, MEDICAID, SELFPAY ==
[2020-03-15 06:38] VITALS: BP 131/75; PULSE 94; RESP 18; TEMP 36.4; O2SAT 97
[2020-03-15] MEDS: Lactated Ringers 1,000 ML 80 ML IV (07:03)
[2020-03-15] MEDS: ceFAZolin 1 GM/50 ML BAG IVPB (07:25)
[2020-03-15] MEDS: Bupivacaine 0.5% Pres-Free 30 ML VIAL (07:29)
[2020-03-15] MEDS: Lidocaine 1% Multi-Dose 50 ML VIAL (07:29)
--- NOTE | 2020-03-15 07:48 | BONE_PTH ---
PATIENT: Tejas Tolentino LOC: [facility] U#:[id number] AGE/SX: 49/M ROOM: RE03/15/[address]: Jeremy Pollock : 1970 BED: DIS: 03/15/2020 SPEC #: [id number] RECD: 03/15/20 11:49 STATUS: BETHANY REQ #: [id number] ALTAGRACIA: 03/15/20 07:[address]: Jeremy Pollock DEPT: Surgical Specimen RECD BY: Tammie Gil ENTERED: 03/15/20 11:50 SP TYPE: Bone OTHR DR: Sakina Meng V Tissues: 1 - BONE BX/CURRETTE NOT PATH FRACTURE Procedures: GROSS AND MICRO LEVEL 3 DECALCIFICATION Comments: [id number]
--- NOTE | 2020-03-15 08:07 | W.PM.DSUDISC ---
Discharge Plan Disposition Patient Disposition: HOME Condition: Good Discharge Details Reason For Visit: debridement left hallux Attending Provider: Jeremy Pollock Primary Care Provider: Sakina Meng V Home Meds and New Rx's Prescriptions: New amoxicillin-pot clavulanate [Augmentin] 875-125 mg tablet 1 tab PO Q12H Qty: 30 RF: 0 Continued clozapine 100 MG tablet 250 mg PO HS RF: 0 citalopram [Celexa] 10 MG tablet 30 mg PO DAILY Qty: 3 RF: 0 atenolol 25 MG tablet 25 mg PO DAILY RF: 0 gabapentin [Neurontin] 300 MG capsule 300 mg PO HS Qty: 3 RF: 0 lisinopril 5 MG tablet 5 mg PO DAILY RF: 0 Freedavite 1 EACH tablet 1 ea PO DAILY RF: 0 acetaminophen [Tylenol] 325 MG tablet 325 - 650 mg PO Q4H PRN PRNRF: 0 polyethylene glycol 3350 17 GM powder in packet 17 gm PO DAILY PRN PRN (Reason: Constipation) RF: 0 magnesium hydroxide [Milk of Magnesia] 30 ML suspension 30 ml PO DAILY PRN PRNRF: 0 docusate sodium [Colace] 100 MG capsule 100 mg PO TID PRN PRNRF: 0 alum-mag hydroxide-simeth [Mag-Al Plus] 30 ML suspension 30 ml PO Q2H PRN PRNRF: 0 insulin aspart U-100 [Novolog Flexpen U-100 Insulin] 300 UNITS/3 ML insulin pen 0 units Sub-Q 0800,1200,1700 RF: 0 allopurinol 100 MG tablet 100 mg PO DAILY RF: 0 topiramate [Topamax] 25 MG tablet 75 mg PO BID RF: 0 esomeprazole magnesium [Nexium] 40 MG capsule,delayed release(DR/EC) 40 mg PO .EVERY OTHER DAY RF: 0 lorazepam 0.5 MG tablet 0.5 mg PO PRN PRNRF: 0 Discharge Orders Discharge Orders: Discharge Order (Routine); Ordered 03/15/20 Ordered By: Jeremy Pollock DS: Diagnosis Discharge Diagnosis (1) Osteomyelitis of toe of left foot: Status: Acute
--- NOTE | 2020-03-15 08:23 | ROE_ITS ---
Date of service: 03/15/20 Time of Service: 08:23 Operative Note Operative Note DATE OF PROCEDURE: 03/15/20 PRE-OP DIAGNOSIS: Osteomyelitis left hallux PROCEDURE: Debridement left hallux including bone SURGEON: Jeremy Pollock ANESTHESIA: local ESTIMATED BLOOD LOSS: 1 PATHOLOGY: other COMPLICATIONS: None Patient was transported to: same day Patient's condition: stable Indications: 49-year-old male with poorly controlled diabetes, diabetic peripheral neuropathy, chronic ulceration to the left hallux with osteomyelitis. He is being brought to the OR for debridement of the left hallux and to obtain bone for microbiology and pathology. Tejas understands potential risks and complications pertaining to pain, scarring, ongoing infection, he understands the potential for loss of the great toe. All questions have been answered. Informed consents been obtained. Findings: No purulence was identified within the incisional?debridement region. The bone was hard when resected and no purulence identified. Procedure Description: Tejas was brought to the operative suite placed in the supine position with the left great toe was anesthetized with 5 cc of a 50: 50 mixture 1% lidocaine with epinephrine, 0.5% Marcaine plain. He was prepped and draped in the usual sterile podiatric fashion. Timeout was performed by protocol. Attention was directed to the medial aspect of his left great toe where a chronic ulcer is noted along the plantar medial aspect at the IPJ level. A lateral, lateral dorsal incision was placed approximately 2 cm in length at the IPJ level. The incision was deepened in controlled depth fashion. The incision was opened and dorsal and plantarly. The medial side of the hallux was appreciated no purulence was identified hypertrophy medially at the interphalangeal joint which is clinically fused was appreciated. With osteotome and mallet this hypertrophic region was resected. Bone specimens were sent to microbiology for aerobic and anaerobic culture and a piece sent to pathology for evaluation. Utilizing a hand rasp all rough and bony edges were smoothed. Co pious irrigation of the wound was performed. Utilizing a #15 scalpel the plantar ulcer was gently debrided removing the hyper hypertrophy and getting it down to bloody margins. The medial wound incision was closed with simple interrupted suture of 4-0 nylon Xeroform gauze fluff compression dressings were applied. Tejas left the OR with vital signs stable vascular status intact sharp and sponge counts were correct he will be followed by myself next week in the office.
== END 2020-03-15 08:37 | disposition home or self-care (01) ==
PROVIDERS: PCP Family Medicine; Visit Provider Podiatrist
PROC: (CPT 11044; principal; 2020-03-15 07:30)
DX: E11.622 Type 2 diabetes mellitus with other skin ulcer (principal); L98.496 Non-pressure chronic ulcer of skin of other sites with bone involvement without evidence of necrosis; E11.65 Type 2 diabetes mellitus with hyperglycemia; E11.42 Type 2 diabetes mellitus with diabetic polyneuropathy
CPT/HCPCS: 11044; 87070; 87075; 87205; 88304; 88311; J0690

== ENCOUNTER 2020-04-10 01:17 | Outpatient (CLI) | payer MEDICARE, MEDICAID, SELFPAY ==
[2020-04-10 11:23] LABS: Abs Immature Grans 0.07 k/cumm (0.0-0.09); Absolute Basophil Count 0.01 k/cumm (0.0-0.2); Absolute Eosinophil Count 0.04 k/cumm (0.0-0.7); Absolute Lymphocyte Count 2.25 k/cumm (1.2-3.4); Basophils % 0.1; Eosinophils % 0.3; HCT 43.1 % (40.0-50.0); HGB 14.5 g/dL (13.5-17.5); Immature Grans % 0.6 %; Lymphocytes % 18.9; Mean Corp. HGB Concentration 33.6 g/dL (32.0-36.0); Mean Corpuscular Hemoglobin 30.1 pg (27.0-33.0); Mean Corpuscular Volume 89.6 fL (80-95); Mean Platelet Volume 11.8 fL (8.0-11.0); Monocytes % 6.5; Neutrophils % 73.6; Platelet Count 281 x1000/uL (130-400); RBC 4.81 m/cumm (4.50-6.00); RBC Distribution Width 14.8 % (11.8-14.1); White Blood Cell Count 11.91 k/cumm (4.4-10.8)
[2020-04-10 11:24] LABS: Absolute Monocyte Count 0.77 k/cumm (0.11-0.7); Absolute Neutrophil Count 8.77 k/cumm (1.2-6.7)
[2020-04-12 09:07] LABS: Clozapine 666 ng/mL (350-600); Clozapine+Norclozapine Total 946 ng/mL; Norclozapine 280 ng/mL
== END 2020-04-10 01:37 ==
PROVIDERS: PCP Family Medicine; Visit Provider Nurse Practitioner Family
DX: F20.9 Schizophrenia, unspecified (principal); Z79.899 Other long term (current) drug therapy; Z51.81 Encounter for therapeutic drug level monitoring
CPT/HCPCS: 36415; 80159; 85025

== ENCOUNTER 2020-04-30 01:26 | Outpatient (CLI) | payer MEDICARE, MEDICAID, SELFPAY ==
[2020-04-30 11:44] LABS: Absolute Basophil Count 0.03 10^3/uL (0.0-0.2); Absolute Eosinophil Count 0.04 10^3/uL (0.0-0.7); Absolute Lymphocyte Count 2.69 10^3/uL (1.2-3.4); Basophils % 0.2; Eosinophils % 0.3; HCT 43.1 % (40.0-50.0); HGB 14.5 g/dL (13.5-17.5); Immature Grans % 0.8; Lymphocytes % 21.1; MCH 29.9 pg (27.0-33.0); MCHC 33.6 % (32.0-36.0); MCV 88.9 fL (80-95); MPV 11.7 fL (8.0-11.0); Monocytes % 6.4; Neutrophils % 71.2; Nucleated RBC 0 %; Platelet Count 251 10^3/uL (130-400); RBC 4.85 10^6/uL (4.36-5.78); RDW 14.4 % (11.8-14.1); RDW-SD 46.1 fL; WBC 12.73 10^3/uL (4.4-10.8)
[2020-04-30 11:48] LABS: Absolute Monocyte Count 0.81 10^3/uL (0.1-0.8); Absolute Neutrophil Count 9.06 10^3/uL (1.2-6.7)
== END 2020-04-30 01:46 ==
PROVIDERS: PCP Family Medicine; Visit Provider Nurse Practitioner Family
DX: Z79.899 Other long term (current) drug therapy (principal); F20.9 Schizophrenia, unspecified
CPT/HCPCS: 36415; 85025

== ENCOUNTER 2020-05-29 05:00 | Outpatient (CLI) | payer MEDICARE, MEDICAID, SELFPAY ==
[2020-05-29 12:18] LABS: Abs Immature Grans 0.08 10^3/uL (0.0-0.06); Absolute Basophil Count 0.03 10^3/uL (0.0-0.2); Absolute Eosinophil Count 0.03 10^3/uL (0.0-0.7); Absolute Lymphocyte Count 2.17 10^3/uL (1.2-3.4); Absolute Monocyte Count 0.85 10^3/uL (0.1-0.8); Basophils % 0.2; Eosinophils % 0.2; HCT 45.3 % (40.0-50.0); HGB 14.7 g/dL (13.5-17.5); Immature Grans % 0.6; Lymphocytes % 17.1; MCH 29.7 pg (27.0-33.0); MCHC 32.5 % (32.0-36.0); MCV 91.5 fL (80-95); MPV 11.6 fL (8.0-11.0); Monocytes % 6.7; Neutrophils % 75.2; Nucleated RBC 0 %; Platelet Count 261 10^3/uL (130-400); RBC 4.95 10^6/uL (4.36-5.78); RDW 14.2 % (11.8-14.1); RDW-SD 47.4 fL; WBC 12.71 10^3/uL (4.4-10.8)
[2020-05-29 12:19] LABS: Absolute Neutrophil Count 9.56 10^3/uL (1.2-6.7)
== END 2020-05-29 05:20 ==
PROVIDERS: PCP Family Medicine; Visit Provider Nurse Practitioner Family
DX: F20.9 Schizophrenia, unspecified (principal); Z79.899 Other long term (current) drug therapy
CPT/HCPCS: 36415; 85025

== ENCOUNTER 2020-06-27 05:00 | Outpatient (CLI) | payer MEDICARE, MEDICAID, SELFPAY ==
[2020-06-27 13:26] LABS: Absolute Basophil Count 0.04 10^3/uL (0.0-0.2); Absolute Lymphocyte Count 2.57 10^3/uL (1.2-3.4); Basophils % 0.3; Eosinophils % 0.5; HCT 42.7 % (40.0-50.0); HGB 14.2 g/dL (13.5-17.5); Immature Grans % 0.8; Lymphocytes % 19.7; MCHC 33.3 % (32.0-36.0); MCV 90.3 fL (80-95); MPV 11.9 fL (8.0-11.0); Monocytes % 7.4; Neutrophils % 71.3; Nucleated RBC 0 %; Platelet Count 266 10^3/uL (130-400); RBC 4.73 10^6/uL (4.36-5.78); RDW 13.7 % (11.8-14.1); RDW-SD 45.3 fL; WBC 13.05 10^3/uL (4.4-10.8)
[2020-06-27 13:28] LABS: Absolute Eosinophil Count 0.07 10^3/uL (0.0-0.7); Absolute Monocyte Count 0.97 10^3/uL (0.1-0.8)
== END 2020-06-27 05:20 ==
PROVIDERS: PCP Family Medicine; Visit Provider Nurse Practitioner Family
DX: F20.9 Schizophrenia, unspecified (principal); Z79.899 Other long term (current) drug therapy
CPT/HCPCS: 36415; 85025

== ENCOUNTER 2020-07-30 03:17 | Outpatient (CLI) | payer MEDICARE, MEDICAID, SELFPAY ==
[2020-07-30 11:30] LABS: Abs Immature Grans 0.11 10^3/uL (0.0-0.06); Absolute Basophil Count 0.04 10^3/uL (0.0-0.2); Absolute Eosinophil Count 0.04 10^3/uL (0.0-0.7); Absolute Lymphocyte Count 2.72 10^3/uL (1.2-3.4); Absolute Monocyte Count 0.95 10^3/uL (0.1-0.8); Basophils % 0.3; Eosinophils % 0.3; HCT 44.8 % (40.0-50.0); HGB 15.1 g/dL (13.5-17.5); Immature Grans % 0.9; Lymphocytes % 21.4; MCHC 33.7 % (32.0-36.0); MCV 89.1 fL (80-95); MPV 11.7 fL (8.0-11.0); Monocytes % 7.5; Neutrophils % 69.6; Nucleated RBC 0 %; Platelet Count 267 10^3/uL (130-400); RBC 5.03 10^6/uL (4.36-5.78); RDW 14.2 % (11.8-14.1); WBC 12.73 10^3/uL (4.4-10.8)
[2020-07-30 11:35] LABS: Absolute Neutrophil Count 8.86 10^3/uL (1.2-6.7)
== END 2020-07-30 03:37 ==
PROVIDERS: PCP Family Medicine; Visit Provider Nurse Practitioner Family
DX: F20.9 Schizophrenia, unspecified (principal); Z79.899 Other long term (current) drug therapy
CPT/HCPCS: 36415; 85025

== ENCOUNTER 2020-08-27 03:17 | Outpatient (CLI) | payer MEDICARE, MEDICAID, SELFPAY ==
[2020-08-27 11:46] LABS: Abs Immature Grans 0.09 10^3/uL (0.0-0.06); Absolute Basophil Count 0.03 10^3/uL (0.0-0.2); Absolute Eosinophil Count 0.04 10^3/uL (0.0-0.7); Absolute Monocyte Count 0.93 10^3/uL (0.1-0.8); Basophils % 0.2; Eosinophils % 0.3; HCT 42.8 % (40.0-50.0); HGB 14.5 g/dL (13.5-17.5); Immature Grans % 0.7; Lymphocytes % 19.9; MCH 29.8 pg (27.0-33.0); MCHC 33.9 % (32.0-36.0); MCV 87.9 fL (80-95); MPV 11.7 fL (8.0-11.0); Neutrophils % 71.9; Nucleated RBC 0 %; Platelet Count 276 10^3/uL (130-400); RBC 4.87 10^6/uL (4.36-5.78); RDW 14.2 % (11.8-14.1); RDW-SD 45.5 fL; WBC 13.29 10^3/uL (4.4-10.8)
[2020-08-27 11:49] LABS: Absolute Lymphocyte Count 2.64 10^3/uL (1.2-3.4); Absolute Neutrophil Count 9.56 10^3/uL (1.2-6.7)
== END 2020-08-27 03:37 ==
PROVIDERS: PCP Family Medicine; Visit Provider Nurse Practitioner Family
DX: F20.9 Schizophrenia, unspecified (principal); Z79.899 Other long term (current) drug therapy
CPT/HCPCS: 36415; 85025

== ENCOUNTER 2020-09-09 08:02 | Outpatient (REF) | payer MEDICARE, MEDICAID, SELFPAY ==
[2020-09-09 20:16] LABS: Bacteria Negative HPF (Negative); C & S Indicated? No; Casts Negative LPF (Negative); Crystals Negative HPF (Negative); Epithelial Cells Rare HPF (Negative); Mucus Negative (Negative); WBC 0-2 HPF (0-5)
== END 2020-09-09 08:22 ==
LOC: NCHCN 08:02
PROVIDERS: PCP Family Medicine; Visit Provider Nurse Practitioner Family
DX: R30.0 Dysuria (principal)
CPT/HCPCS: 81015

== ENCOUNTER 2020-09-24 03:19 | Outpatient (CLI) | payer MEDICARE, MEDICAID, SELFPAY ==
[2020-09-24 11:58] LABS: Abs Immature Grans 0.09 10^3/uL (0.0-0.06); Absolute Basophil Count 0.03 10^3/uL (0.0-0.2); Absolute Lymphocyte Count 2.55 10^3/uL (1.2-3.4); Absolute Monocyte Count 0.99 10^3/uL (0.1-0.8); Basophils % 0.2; Eosinophils % 0.3; HCT 44.5 % (40.0-50.0); HGB 14.9 g/dL (13.5-17.5); Immature Grans % 0.6; Lymphocytes % 17.3; MCHC 33.5 % (32.0-36.0); MCV 89.7 fL (80-95); MPV 11.7 fL (8.0-11.0); Monocytes % 6.7; Neutrophils % 74.9; Nucleated RBC 0 %; Platelet Count 284 10^3/uL (130-400); RBC 4.96 10^6/uL (4.36-5.78); RDW 13.9 % (11.8-14.1); RDW-SD 45.1 fL; WBC 14.76 10^3/uL (4.4-10.8)
[2020-09-24 11:59] LABS: Absolute Eosinophil Count 0.04 10^3/uL (0.0-0.7); Absolute Neutrophil Count 11.06 10^3/uL (1.2-6.7)
== END 2020-09-24 03:39 ==
PROVIDERS: Psychiatry & Neurology Psychiatry; PCP Family Medicine; Visit Provider Family Medicine
DX: F20.9 Schizophrenia, unspecified (principal); Z79.899 Other long term (current) drug therapy
CPT/HCPCS: 36415; 85025

== ENCOUNTER 2020-10-23 03:20 | Outpatient (CLI) | payer MEDICARE, MEDICAID, SELFPAY ==
[2020-10-23 09:37] LABS: Abs Immature Grans 0.09 10^3/uL (0.0-0.06); Absolute Basophil Count 0.03 10^3/uL (0.0-0.2); Absolute Eosinophil Count 0.06 10^3/uL (0.0-0.7); Absolute Monocyte Count 0.74 10^3/uL (0.1-0.8); Basophils % 0.3; Eosinophils % 0.5; HCT 45.4 % (40.0-50.0); Immature Grans % 0.8; Lymphocytes % 20.6; MCH 29.8 pg (27.0-33.0); MCV 90.3 fL (80-95); MPV 11.3 fL (8.0-11.0); Monocytes % 6.4; Neutrophils % 71.4; Nucleated RBC 0 %; Platelet Count 278 10^3/uL (130-400); RBC 5.03 10^6/uL (4.36-5.78); RDW-SD 46.8 fL; WBC 11.58 10^3/uL (4.4-10.8)
[2020-10-23 09:38] LABS: Absolute Lymphocyte Count 2.39 10^3/uL (1.2-3.4); Absolute Neutrophil Count 8.27 10^3/uL (1.2-6.7)
== END 2020-10-23 03:40 ==
PROVIDERS: Psychiatry & Neurology Psychiatry; PCP Family Medicine; Visit Provider Family Medicine
DX: F20.9 Schizophrenia, unspecified (principal); Z79.899 Other long term (current) drug therapy
CPT/HCPCS: 36415; 85025

== ENCOUNTER 2020-11-19 02:24 | Outpatient (CLI) | payer MEDICARE, MEDICAID, SELFPAY ==
[2020-11-19 10:31] LABS: Abs Immature Grans 0.12 10^3/uL (0.0-0.06); Absolute Basophil Count 0.04 10^3/uL (0.0-0.2); Absolute Lymphocyte Count 2.59 10^3/uL (1.2-3.4); Basophils % 0.3; Eosinophils % 0.4; HCT 43.2 % (40.0-50.0); HGB 14.4 g/dL (13.5-17.5); Immature Grans % 0.9; Lymphocytes % 19.3; MCH 29.8 pg (27.0-33.0); MCHC 33.3 % (32.0-36.0); MCV 89.4 fL (80-95); MPV 11.2 fL (8.0-11.0); Monocytes % 6.6; Neutrophils % 72.5; Nucleated RBC 0 %; Platelet Count 291 10^3/uL (130-400); RBC 4.83 10^6/uL (4.36-5.78); RDW 13.8 % (11.8-14.1); RDW-SD 45.4 fL
[2020-11-19 10:33] LABS: Absolute Eosinophil Count 0.05 10^3/uL (0.0-0.7); Absolute Monocyte Count 0.88 10^3/uL (0.1-0.8); Absolute Neutrophil Count 9.72 10^3/uL (1.2-6.7)
== END 2020-11-19 02:25 | disposition home or self-care (01) ==
LOC: LBO 02:24
PROVIDERS: Psychiatry & Neurology Psychiatry; PCP Family Medicine; Visit Provider Family Medicine
DX: F20.9 Schizophrenia, unspecified (principal); Z79.899 Other long term (current) drug therapy
CPT/HCPCS: 36415; 85025

== ENCOUNTER 2020-12-09 03:11 | Outpatient (CLI) | payer MEDICARE, MEDICAID, SELFPAY ==
[2020-12-09 10:20] LABS: Abs Immature Grans 0.11 10^3/uL (0.0-0.06); Absolute Eosinophil Count 0.02 10^3/uL (0.0-0.7); Absolute Monocyte Count 0.71 10^3/uL (0.1-0.8); Basophils % 0.3; Eosinophils % 0.2; HCT 42.8 % (40.0-50.0); HGB 14.3 g/dL (13.5-17.5); Immature Grans % 0.9; Lymphocytes % 15.3; MCH 29.8 pg (27.0-33.0); MCHC 33.4 % (32.0-36.0); MCV 89.2 fL (80-95); MPV 11.5 fL (8.0-11.0); Monocytes % 5.9; Neutrophils % 77.4; Nucleated RBC 0 %; Platelet Count 274 10^3/uL (130-400); RDW 13.8 % (11.8-14.1); RDW-SD 44.6 fL
[2020-12-09 10:24] LABS: Absolute Basophil Count 0.04 10^3/uL (0.0-0.2); Absolute Lymphocyte Count 1.84 10^3/uL (1.2-3.4); Absolute Neutrophil Count 9.29 10^3/uL (1.2-6.7)
== END 2020-12-09 03:12 | disposition home or self-care (01) ==
LOC: LBO 03:11
PROVIDERS: PCP Family Medicine; Visit Provider Psychiatry & Neurology Psychiatry
DX: F20.9 Schizophrenia, unspecified (principal); Z79.899 Other long term (current) drug therapy
CPT/HCPCS: 36415; 85025

== ENCOUNTER 2020-12-31 04:09 | Outpatient (CLI) | payer MEDICARE, MEDICAID, SELFPAY ==
[2020-12-31 10:47] LABS: Abs Immature Grans 0.07 10^3/uL (0.0-0.06); Absolute Basophil Count 0.03 10^3/uL (0.0-0.2); Absolute Eosinophil Count 0.06 10^3/uL (0.0-0.7); Absolute Lymphocyte Count 2.56 10^3/uL (1.2-3.4); Absolute Monocyte Count 1.09 10^3/uL (0.1-0.8); Basophils % 0.2; Eosinophils % 0.4; HCT 44.1 % (40.0-50.0); HGB 14.6 g/dL (13.5-17.5); Immature Grans % 0.5; Lymphocytes % 17.2; MCH 29.7 pg (27.0-33.0); MCHC 33.1 % (32.0-36.0); MCV 89.6 fL (80-95); MPV 11.3 fL (8.0-11.0); Monocytes % 7.3; Neutrophils % 74.4; Nucleated RBC 0 %; Platelet Count 288 10^3/uL (130-400); RBC 4.92 10^6/uL (4.36-5.78); RDW 13.9 % (11.8-14.1); RDW-SD 45.5 fL; WBC 14.91 10^3/uL (4.4-10.8)
[2020-12-31 10:49] LABS: Absolute Neutrophil Count 11.09 10^3/uL (1.2-6.7)
== END 2020-12-31 04:10 | disposition home or self-care (01) ==
PROVIDERS: PCP Family Medicine; Visit Provider Psychiatry & Neurology Psychiatry
DX: F20.9 Schizophrenia, unspecified (principal); Z79.899 Other long term (current) drug therapy
CPT/HCPCS: 36415; 85025

== ENCOUNTER 2021-02-04 03:41 | Outpatient (CLI) | payer MEDICARE, MEDICAID, SELFPAY ==
[2021-02-04 13:21] LABS: Abs Immature Grans 0.11 10^3/uL (0.0-0.06); Absolute Basophil Count 0.04 10^3/uL (0.0-0.2); Absolute Eosinophil Count 0.06 10^3/uL (0.0-0.7); Absolute Lymphocyte Count 3.41 10^3/uL (1.2-3.4); Absolute Neutrophil Count 9.46 10^3/uL (1.2-6.7); Basophils % 0.3; Eosinophils % 0.4; HCT 40.9 % (40.0-50.0); HGB 13.9 g/dL (13.5-17.5); Immature Grans % 0.8; Lymphocytes % 23.9; MCV 88.3 fL (80-95); MPV 11.3 fL (8.0-11.0); Monocytes % 8.3; Neutrophils % 66.3; Nucleated RBC 0 %; Platelet Count 272 10^3/uL (130-400); RBC 4.63 10^6/uL (4.36-5.78); RDW 14.1 % (11.8-14.1); RDW-SD 45.2 fL; WBC 14.27 10^3/uL (4.4-10.8)
[2021-02-04 14:03] LABS: Absolute Monocyte Count 1.18 10^3/uL (0.1-0.8)
== END 2021-02-04 03:42 | disposition home or self-care (01) ==
LOC: LBO 03:41
PROVIDERS: PCP Family Medicine; Visit Provider Psychiatry & Neurology Psychiatry
DX: F20.9 Schizophrenia, unspecified (principal); Z79.899 Other long term (current) drug therapy
CPT/HCPCS: 36415; 85025

== ENCOUNTER 2021-03-04 03:47 | Outpatient (CLI) | payer MEDICARE, MEDICAID, SELFPAY ==
[2021-03-04 09:02] LABS: Abs Immature Grans 0.11 10^3/uL (0.0-0.06); Absolute Basophil Count 0.06 10^3/uL (0.0-0.2); Absolute Lymphocyte Count 2.68 10^3/uL (1.2-3.4); Basophils % 0.5; Eosinophils % 0.6; HGB 14.5 g/dL (13.5-17.5); Immature Grans % 0.9; Lymphocytes % 21.5; MCH 29.7 pg (27.0-33.0); MCV 90.2 fL (80-95); MPV 11.1 fL (8.0-11.0); Monocytes % 7.5; Nucleated RBC 0 %; Platelet Count 295 10^3/uL (130-400); RBC 4.88 10^6/uL (4.36-5.78); RDW 13.6 % (11.8-14.1); RDW-SD 45.2 fL; WBC 12.47 10^3/uL (4.4-10.8)
[2021-03-04 09:03] LABS: Absolute Eosinophil Count 0.07 10^3/uL (0.0-0.7); Absolute Monocyte Count 0.94 10^3/uL (0.1-0.8)
== END 2021-03-04 03:48 | disposition home or self-care (01) ==
LOC: LBO 03:47
PROVIDERS: PCP Family Medicine; Visit Provider Psychiatry & Neurology Psychiatry
DX: F20.9 Schizophrenia, unspecified (principal); Z79.899 Other long term (current) drug therapy
CPT/HCPCS: 36415; 85025

== ENCOUNTER 2021-04-01 03:59 | Outpatient (CLI) | payer MEDICARE, MEDICAID, SELFPAY ==
[2021-04-01 10:14] LABS: Abs Immature Grans 0.11 10^3/uL (0.0-0.06); Absolute Basophil Count 0.05 10^3/uL (0.0-0.2); Absolute Eosinophil Count 0.05 10^3/uL (0.0-0.7); Absolute Lymphocyte Count 2.46 10^3/uL (1.2-3.4); Basophils % 0.4; Eosinophils % 0.4; HCT 43.1 % (40.0-50.0); HGB 14.4 g/dL (13.5-17.5); Immature Grans % 0.8; Lymphocytes % 18.9; MCH 29.9 pg (27.0-33.0); MCHC 33.4 % (32.0-36.0); MCV 89.6 fL (80-95); Monocytes % 7.5; Nucleated RBC 0 %; Platelet Count 284 10^3/uL (130-400); RBC 4.81 10^6/uL (4.36-5.78); RDW 13.7 % (11.8-14.1); RDW-SD 45.4 fL; WBC 12.99 10^3/uL (4.4-10.8)
[2021-04-01 10:17] LABS: Absolute Monocyte Count 0.97 10^3/uL (0.1-0.8); Absolute Neutrophil Count 9.35 10^3/uL (1.2-6.7)
== END 2021-04-01 04:00 | disposition home or self-care (01) ==
LOC: LBO 03:59
PROVIDERS: PCP Family Medicine; Visit Provider Psychiatry & Neurology Psychiatry
DX: F20.9 Schizophrenia, unspecified (principal); Z79.899 Other long term (current) drug therapy
CPT/HCPCS: 36415; 85025

== ENCOUNTER 2021-04-29 03:54 | Outpatient (CLI) | payer MEDICARE, MEDICAID, SELFPAY ==
[2021-04-29 10:50] LABS: Abs Immature Grans 0.13 10^3/uL (0.0-0.06); Absolute Basophil Count 0.05 10^3/uL (0.0-0.2); Absolute Eosinophil Count 0.05 10^3/uL (0.0-0.7); Absolute Lymphocyte Count 2.53 10^3/uL (1.2-3.4); Absolute Monocyte Count 1.01 10^3/uL (0.1-0.8); Absolute Neutrophil Count 9.06 10^3/uL (1.2-6.7); Basophils % 0.4; Eosinophils % 0.4; HCT 43.1 % (40.0-50.0); HGB 14.3 g/dL (13.5-17.5); Lymphocytes % 19.7; MCH 29.4 pg (27.0-33.0); MCHC 33.2 % (32.0-36.0); MCV 88.5 fL (80-95); Monocytes % 7.9; Neutrophils % 70.6; Nucleated RBC 0 %; Platelet Count 324 10^3/uL (130-400); RBC 4.87 10^6/uL (4.36-5.78); RDW 13.6 % (11.8-14.1); RDW-SD 44.1 fL; WBC 12.83 10^3/uL (4.4-10.8)
== END 2021-04-29 03:55 | disposition home or self-care (01) ==
PROVIDERS: PCP Family Medicine; Visit Provider Psychiatry & Neurology Psychiatry
DX: F20.9 Schizophrenia, unspecified (principal); Z79.899 Other long term (current) drug therapy
CPT/HCPCS: 36415; 85025

== ENCOUNTER 2021-05-29 03:34 | Outpatient (CLI) | payer MEDICARE, MEDICAID, SELFPAY ==
[2021-05-29 10:26] LABS: Abs Immature Grans 0.12 10^3/uL (0.0-0.06); Absolute Eosinophil Count 0.04 10^3/uL (0.0-0.7); Absolute Monocyte Count 0.88 10^3/uL (0.1-0.8); Basophils % 0.4; Eosinophils % 0.3; HCT 44.1 % (40.0-50.0); HGB 14.5 g/dL (13.5-17.5); Immature Grans % 0.9; Lymphocytes % 17.3; MCH 29.2 pg (27.0-33.0); MCHC 32.9 % (32.0-36.0); MCV 88.7 fL (80-95); MPV 11.3 fL (8.0-11.0); Monocytes % 6.3; Neutrophils % 74.8; Nucleated RBC 0 %; Platelet Count 292 10^3/uL (130-400); RBC 4.97 10^6/uL (4.36-5.78); RDW 13.8 % (11.8-14.1); RDW-SD 44.9 fL; WBC 13.89 10^3/uL (4.4-10.8)
[2021-05-29 10:28] LABS: Absolute Basophil Count 0.06 10^3/uL (0.0-0.2); Absolute Neutrophil Count 10.39 10^3/uL (1.2-6.7)
== END 2021-05-29 03:35 | disposition home or self-care (01) ==
LOC: LBO 03:34
PROVIDERS: PCP Family Medicine; Visit Provider Psychiatry & Neurology Psychiatry
DX: F20.9 Schizophrenia, unspecified (principal); Z79.899 Other long term (current) drug therapy
CPT/HCPCS: 36415; 85025

== ENCOUNTER 2021-06-27 11:48 | Outpatient (REF) | payer MEDICARE, MEDICAID, SELFPAY ==
[2021-06-27 20:49] LABS: ALT 49 U/L (16-63); AST 29 U/L (15-37); Albumin 3.7 g/dL (3.4-5.0); Alkaline Phosphatase 109 U/L (46-116); Anion Gap 13.3 mmol/L (3-11); BUN 9 mg/dL (7-18); Bilirubin, Total 0.3 mg/dL (0.2-1.0); CO2 21.7 mmol/L (21.0-32.0); Calcium 9.1 mg/dL (8.5-10.1); Calculated LDL 84 mg/dL (<100); Chloride 105 mmol/L (98-107); Cholesterol 156 mg/dL (<200); Glucose 108 mg/dL (74-106); HDL Cholesterol 38 mg/dL (40-60); Potassium 4.4 mmol/L (3.5-5.1); Sodium 140 mmol/L (136-145); Total Protein 7.1 g/dL (6.4-8.2); Triglyceride 173 mg/dL (<150)
[2021-06-27 21:06] LABS: Hemoglobin A1C 5.9 % (<5.7)
[2021-06-30 05:20] LABS: Vitamin D 25 Total 23.6 ng/mL (30-100)
[2021-06-30 10:15] LABS: HBs Antibody, Quant <3.1 mIU/mL (See Note); Hepatitis B Surface Ab Negative (See Note)
[2021-06-30 10:29] LABS: PSA, Screening 0.4 ng/mL (0.0-3.5)
[2021-06-30 10:53] LABS: Hepatitis C Ab w Rflx HCV PCR Negative (Negative)
== END 2021-06-27 11:49 | disposition home or self-care (01) ==
LOC: NCHCN 11:48
PROVIDERS: PCP Family Medicine; Visit Provider Family Medicine
DX: K76.0 Fatty (change of) liver, not elsewhere classified (principal); E11.9 Type 2 diabetes mellitus without complications; Z00.00 Encounter for general adult medical examination without abnormal findings; I10 Essential (primary) hypertension; E78.5 Hyperlipidemia, unspecified; Z12.5 Encounter for screening for malignant neoplasm of prostate; Z11.59 Encounter for screening for other viral diseases
CPT/HCPCS: 80053; 80061; 82306; 84153; 86706; 86803; 83036

== ENCOUNTER 2021-06-30 03:47 | Outpatient (CLI) | payer MEDICARE, MEDICAID, SELFPAY ==
[2021-06-30 09:55] LABS: Abs Immature Grans 0.17 10^3/uL (0.0-0.06); Absolute Basophil Count 0.06 10^3/uL (0.0-0.2); Absolute Lymphocyte Count 2.72 10^3/uL (1.2-3.4); Absolute Neutrophil Count 9.67 10^3/uL (1.2-6.7); Basophils % 0.4; Eosinophils % 0.6; HGB 14.5 g/dL (13.5-17.5); Immature Grans % 1.2; Lymphocytes % 19.6; MCH 29.5 pg (27.0-33.0); MCV 89.6 fL (80-95); MPV 11.3 fL (8.0-11.0); Monocytes % 8.6; Neutrophils % 69.6; Nucleated RBC 0 %; Platelet Count 287 10^3/uL (130-400); RBC 4.91 10^6/uL (4.36-5.78); RDW 13.9 % (11.8-14.1); RDW-SD 45.9 fL
[2021-06-30 09:56] LABS: Absolute Eosinophil Count 0.08 10^3/uL (0.0-0.7)
== END 2021-06-30 03:48 | disposition home or self-care (01) ==
LOC: LBO 03:48
PROVIDERS: PCP Family Medicine; Visit Provider Psychiatry & Neurology Psychiatry
DX: F20.9 Schizophrenia, unspecified (principal); Z79.899 Other long term (current) drug therapy
CPT/HCPCS: 36415; 85025

== ENCOUNTER 2021-07-29 02:24 | Outpatient (CLI) | payer MEDICARE, MEDICAID, SELFPAY ==
[2021-07-29 11:05] LABS: Abs Immature Grans 0.22 10^3/uL (0.0-0.06); Absolute Basophil Count 0.08 10^3/uL (0.0-0.2); Absolute Eosinophil Count 0.06 10^3/uL (0.0-0.7); Basophils % 0.5; Eosinophils % 0.4; HCT 45.5 % (40.0-50.0); HGB 14.3 g/dL (13.5-17.5); Immature Grans % 1.4; Lymphocytes % 15.7; MCH 28.9 pg (27.0-33.0); MCHC 31.4 % (32.0-36.0); MCV 91.9 fL (80-95); Monocytes % 7.4; Neutrophils % 74.6; Nucleated RBC 0 %; Platelet Count 270 10^3/uL (130-400); RBC 4.95 10^6/uL (4.36-5.78); RDW 14.4 % (11.8-14.1); RDW-SD 48.5 fL; WBC 16.21 10^3/uL (4.4-10.8)
[2021-07-29 11:06] LABS: Absolute Lymphocyte Count 2.54 10^3/uL (1.2-3.4); Absolute Neutrophil Count 12.09 10^3/uL (1.2-6.7)
== END 2021-07-29 02:25 | disposition home or self-care (01) ==
LOC: LBO 02:24
PROVIDERS: PCP Family Medicine; Visit Provider Psychiatry & Neurology Psychiatry
DX: Z79.899 Other long term (current) drug therapy (principal); F20.9 Schizophrenia, unspecified
CPT/HCPCS: 36415; 85025

== ENCOUNTER 2021-08-28 02:18 | Outpatient (CLI) | payer MEDICARE, MEDICAID, SELFPAY ==
[2021-08-28 13:35] LABS: Abs Immature Grans 0.14 10^3/uL (0.0-0.06); Absolute Eosinophil Count 0.05 10^3/uL (0.0-0.7); Absolute Lymphocyte Count 2.98 10^3/uL (1.2-3.4); Basophils % 0.3; Eosinophils % 0.3; HCT 42.9 % (40.0-50.0); Immature Grans % 0.9; Lymphocytes % 19.1; MCH 29.5 pg (27.0-33.0); MCHC 32.6 % (32.0-36.0); MCV 90.3 fL (80-95); MPV 11.3 fL (8.0-11.0); Monocytes % 6.4; Nucleated RBC 0 %; Platelet Count 288 10^3/uL (130-400); RBC 4.75 10^6/uL (4.36-5.78); RDW 13.8 % (11.8-14.1); RDW-SD 46.2 fL; WBC 15.58 10^3/uL (4.4-10.8)
[2021-08-28 13:44] LABS: Absolute Basophil Count 0.05 10^3/uL (0.0-0.2); Absolute Neutrophil Count 11.37 10^3/uL (1.2-6.7)
== END 2021-08-28 02:19 | disposition home or self-care (01) ==
LOC: LBO 02:18
PROVIDERS: PCP Family Medicine; Visit Provider Psychiatry & Neurology Psychiatry
DX: F20.9 Schizophrenia, unspecified (principal); Z79.899 Other long term (current) drug therapy
CPT/HCPCS: 36415; 85025

== ENCOUNTER 2021-09-29 02:37 | Outpatient (CLI) | payer MEDICARE, MEDICAID, SELFPAY ==
[2021-09-29 11:55] LABS: Abs Immature Grans 0.15 10^3/uL (0.0-0.06); Absolute Basophil Count 0.05 10^3/uL (0.0-0.2); Absolute Eosinophil Count 0.06 10^3/uL (0.0-0.7); Basophils % 0.3; Eosinophils % 0.4; HCT 44.5 % (40.0-50.0); HGB 14.6 g/dL (13.5-17.5); Lymphocytes % 19.8; MCH 29.7 pg (27.0-33.0); MCHC 32.8 % (32.0-36.0); MCV 90.6 fL (80-95); Monocytes % 6.9; Neutrophils % 71.6; Nucleated RBC 0 %; Platelet Count 268 10^3/uL (130-400); RBC 4.91 10^6/uL (4.36-5.78); RDW 13.9 % (11.8-14.1); RDW-SD 46.4 fL; WBC 15.57 10^3/uL (4.4-10.8)
[2021-09-29 12:00] LABS: Absolute Lymphocyte Count 3.08 10^3/uL (1.2-3.4); Absolute Monocyte Count 1.07 10^3/uL (0.1-0.8); Absolute Neutrophil Count 11.15 10^3/uL (1.2-6.7)
== END 2021-09-29 02:38 | disposition home or self-care (01) ==
PROVIDERS: PCP Family Medicine; Visit Provider Psychiatry & Neurology Psychiatry
DX: Z79.899 Other long term (current) drug therapy (principal); F20.9 Schizophrenia, unspecified
CPT/HCPCS: 36415; 85025

== ENCOUNTER 2021-10-28 02:01 | Outpatient (CLI) | payer MEDICARE, MEDICAID, SELFPAY ==
[2021-10-28 10:59] LABS: Abs Immature Grans 0.19 10^3/uL (0.0-0.06); Absolute Basophil Count 0.04 10^3/uL (0.0-0.2); Absolute Eosinophil Count 0.06 10^3/uL (0.0-0.7); Absolute Lymphocyte Count 2.71 10^3/uL (1.2-3.4); Absolute Neutrophil Count 9.87 10^3/uL (1.2-6.7); Basophils % 0.3; Eosinophils % 0.4; HCT 43.3 % (40.0-50.0); HGB 14.2 g/dL (13.5-17.5); Immature Grans % 1.4; Lymphocytes % 19.4; MCH 29.6 pg (27.0-33.0); MCHC 32.8 % (32.0-36.0); MCV 90.4 fL (80-95); Monocytes % 7.9; Neutrophils % 70.6; Nucleated RBC 0 %; Platelet Count 278 10^3/uL (130-400); RBC 4.79 10^6/uL (4.36-5.78); RDW 13.7 % (11.8-14.1); RDW-SD 45.6 fL; WBC 13.98 10^3/uL (4.4-10.8)
[2021-10-28 12:03] LABS: Hemoglobin A1C 6.1 % (<5.7)
[2021-10-28 13:46] LABS: ALT 76 U/L (16-63); AST 50 U/L (15-37); Albumin 3.6 g/dL (3.4-5.0); Alkaline Phosphatase 106 U/L (46-116); Anion Gap 12.6 mmol/L (3-11); BUN 10 mg/dL (7-18); Bilirubin, Total 0.3 mg/dL (0.2-1.0); CO2 22.4 mmol/L (21.0-32.0); CREATININE 1.1 mg/dL (0.70-1.30); Calcium 8.9 mg/dL (8.5-10.1); Calculated LDL 38 mg/dL (<100); Chloride 105 mmol/L (98-107); Cholesterol 124 mg/dL (<200); Ferritin 231 ng/mL (26-388); Glucose 114 mg/dL (74-106); HDL Cholesterol 47 mg/dL (40-60); Magnesium 1.6 mg/dL (1.8-2.4); Potassium 4.1 mmol/L (3.5-5.1); Sodium 140 mmol/L (136-145); Total Protein 6.9 g/dL (6.4-8.2); Triglyceride 195 mg/dL (<150); Vitamin B12 366 pg/mL (193-986)
[2021-10-28 14:08] LABS: C-Reactive Protein 1.23 mg/dL (0.0-0.3); FREE T4 0.81 ng/dL (0.76-1.46)
[2021-10-28 22:29] LABS: T3,Free 3.5 pg/mL (2.8-5.3)
[2021-10-30 05:05] LABS: Vitamin D 25 Total 30.2 ng/mL (30-100)
== END 2021-10-28 02:02 | disposition home or self-care (01) ==
LOC: LBO 02:01
PROVIDERS: PCP Family Medicine; Visit Provider Psychiatry & Neurology Psychiatry
DX: F25.0 Schizoaffective disorder, bipolar type (principal); Z79.899 Other long term (current) drug therapy
CPT/HCPCS: 36415; 80053; 80061; 82306; 82607; 82728; 83036; 83735; 84439; 84443; 84481; 85025; 86140

== ENCOUNTER 2021-11-17 02:46 | Outpatient (CLI) | payer MEDICARE, MEDICAID, SELFPAY ==
[2021-11-17 11:25] LABS: Abs Immature Grans 0.16 10^3/uL (0.0-0.06); Absolute Basophil Count 0.05 10^3/uL (0.0-0.2); Absolute Eosinophil Count 0.05 10^3/uL (0.0-0.7); Absolute Neutrophil Count 10.91 10^3/uL (1.2-6.7); Basophils % 0.3; Eosinophils % 0.3; HCT 44.3 % (40.0-50.0); HGB 14.6 g/dL (13.5-17.5); Immature Grans % 1.1; Lymphocytes % 19.1; MCH 29.5 pg (27.0-33.0); MCV 89.5 fL (80-95); Monocytes % 7.4; Neutrophils % 71.8; Nucleated RBC 0 %; Platelet Count 276 10^3/uL (130-400); RBC 4.95 10^6/uL (4.36-5.78); RDW-SD 45.7 fL
[2021-11-17 11:37] LABS: Absolute Monocyte Count 1.12 10^3/uL (0.1-0.8)
== END 2021-11-17 02:47 | disposition home or self-care (01) ==
LOC: LBO 02:46
PROVIDERS: PCP Family Medicine; Visit Provider Psychiatry & Neurology Psychiatry
DX: Z79.899 Other long term (current) drug therapy (principal); F20.9 Schizophrenia, unspecified
CPT/HCPCS: 36415; 85025

== ENCOUNTER 2021-12-08 08:53 | Emergency (ER) | payer MEDICARE, MEDICAID, SELFPAY ==
[2021-12-08 09:08] VITALS: BP 153/91; PULSE 98; RESP 16; TEMP 36.6; O2SAT 100
--- NOTE | 2021-12-08 09:36 | ED.GENADUL_ITS ---
Discharge Plan Disposition Patient Disposition: HOME Condition: Stable Discharge Details Clinical Impression: Constipation, Right sided abdominal pain Primary Care Provider: Sakina Meng V ED Provider: Desiree Smith Home Meds and New Rx's Prescriptions: Continued clozapine 100 MG tablet 250 mg PO HS 0RF atenolol 25 MG tablet 25 mg PO DAILY 0RF gabapentin [Neurontin] 300 MG capsule 300 mg PO HS Qty: 3 0RF lisinopril 5 MG tablet 5 mg PO DAILY 0RF Freedavite 1 EACH tablet 1 ea PO DAILY 0RF acetaminophen [Tylenol] 325 MG tablet 325 - 650 mg PO Q4H PRN PRN0RF allopurinol 100 MG tablet 100 mg PO DAILY 0RF topiramate [Topamax] 25 MG tablet 50 mg PO BID 0RF No Action citalopram 40 mg tablet 40 mg PO DAILY 0RF Metamucil Packet 1 packet PO DAILY 0RF Rx Instructions: mix into at least 8 oz of water or juice before administering aspirin 325 mg Tablet,Delayed Release (Dr/Ec) 325 mg PO DAILY 0RF pantoprazole 40 mg tablet,delayed release (DR/EC) 40 mg PO DAILY 0RF Label Comments: TAKE 1 TABLET BY MOUTH DAILY rosuvastatin 5 mg tablet 5 mg PO DAILY 0RF acidophilus-pectin, citrus 25 million cell -100 mg Tablet 1 tab PO DAILY 0RF cholecalciferol (vitamin D3) [Vitamin D3] 50 mcg (2,000 unit) Tablet 50 mcg PO DAILY 0RF Discharge Instructions Instructions: Constipation (ED), Abdominal Pain (ED) Additional Instructions: Your recurrent right-sided abdominal discomfort seems to correlate with your constipation. The most important thing you can do is encourage more water intake. This will help soften your stool and allow you to have a bowel movement. This should also make your Metamucil more effective. You are given a dose of milk of magnesia while here. Hopefully, this will produce a bowel movement in the next few hours and help with your discomfort. This is available [id number]. If this is unsuccessful over the next 24 to 48 hours, you may consider trying magnesium citrate which is also available [id number]. For both of these, please increase water intake and take as directed on the packaging. Please follow-up with your primary care provider within the week for reevaluation if your constipation persists. If you develop fever/chills, and pain, nausea/vomiting, inability to hydrate or other new/worsening symptom please seek care urgently once again. Referrals: Sakina Meng MD [Primary Care Provider] - Discharge Data Discharge Date/Time-TO BE ENTERED AT DEPARTURE: 12/08/21 10:10 Medical Decision Making Patient is a pleasant 51-year-old male presenting with chief complaint of right- sided abdominal discomfort and constipation. Patient endorses history of irritable bowel syndrome. States that typically he takes Metamucil daily. States that despite this he has not had a bowel movement in the past 4 days. He states that typically when he becomes constipated he has a right-sided abdominal discomfort. Indicates the upper aspect of the right side of the abdomen is area of pain. Denies any lower pain. States that it is quite mild. Not worsened with food. Patient is status post cholecystectomy. He denies any nausea or vomiting. No change in urinary habits. Pain does not radiate into his back. No change in his appetite. Denies any chest pain, shortness of breath. He has not tried any stool softeners. He reports he does not drink any water throughout the course of the day. On exam, patient appears nontoxic. Vital signs are stable. He does appear dehydrated. Skin is quite dry. Normal cardiac and lung auscultation. Abdomen is benign with no peritoneal findings noted. No pain is elicited with palpation. No CVA tenderness. Patient I discussed treatment options. It sounds at this time that his pain is associated with recurrent constipation. I encouraged hydration. We did discuss the need for hydration while taking his daily Metamucil. He is interested in trying a stool softener prior to discharge. Patient I did discuss labs or imaging and he would like to hold off on this, follow watch and wait approach. Encourage close follow-up with primary care. Just prior to patient leaving, he had large spontaneous bowel movement. HPI General Date/Time Provider Initiated Documentation: 12/08/21 09:22 . Limitations to Documentation: no limitations . Information obtained by: patient and RN notes reviewed . History of Present Illness 51 year old M presents to the emergency department with the chief complaint of constipation, described as moderate, with intensity rated at 5. Quality is described as aching, and is localized to the abdomen. Patient reports no radiation. Patient started experiencing this day(s) (4) and it has been constant. improves with No relieving factors improve symptom(s), No exacerbating factors reported . Patient notes no other symptoms.. Patient did receive the following treatments prior to arrival, none Related Data Home Medications Medication Instructions Recorded Confirmed Freedavite 1.8 mg iron-400 mcg 1 ea PO DAILY NS 01/16/13 12/08/21 tablet (jbvoefrt-lop-jqeo fum-folic ac) Neurontin 300 mg capsule 300 mg PO HS #3 NS 01/16/13 12/08/21 (gabapentin) atenolol 25 mg tablet 25 mg PO DAILY tab-cap NS 01/16/13 12/08/21 clozapine 100 mg tablet 250 mg PO HS NS 01/16/13 12/08/21 lisinopril 5 mg tablet 5 mg PO DAILY NS 01/16/13 12/08/21 allopurinol 100 mg tablet 100 mg PO DAILY 03/16/18 12/08/21 topiramate 25 mg tablet (Topamax) 50 mg PO BID 03/16/18 12/08/21 acetaminophen 325 mg tablet 325 - 650 mg PO Q4H PRN PRN tab 04/14/18 12/08/21 (Tylenol) acidophilus 25 million 1 tab PO DAILY 12/08/21 12/08/21 cell-pectin, citrus 100 mg tablet aspirin 325 mg tablet,delayed 325 mg PO DAILY 12/08/21 12/08/21 release cholecalciferol (vitamin D3) 50 50 mcg PO DAILY 12/08/21 12/08/21 mcg (2,000 unit) tablet (Vitamin D3) citalopram 40 mg tablet 40 mg PO DAILY 12/08/21 12/08/21 pantoprazole 40 mg tablet,delayed 40 mg PO DAILY 12/08/21 12/08/21 release psyllium 1 packet PO DAILY 12/08/21 12/08/21 rosuvastatin 5 mg tablet 5 mg PO DAILY 12/08/21 12/08/21 Previous Rx's Medication Instructions Recorded acetaminophen 325 mg tablet 325 - 650 mg PO Q4H PRN PRN tab 04/14/18 (Tylenol) Allergies Allergy/AdvReac Type Severity Reaction Status Date / Time No Known Allergies Allergy Unverified 12/08/21 09:13 General Stated Complaint: Abd Prob GUS: 3 Review of Systems Constitutional Constitutional: Reports as per HPI, Denies chills and Denies fever(s) Cardiovascular Cardiovascular: Reports as per HPI, Denies chest pain and Denies dyspnea Respiratory Respiratory: Reports as per HPI, Denies cough and Denies dyspnea Gastrointestinal Gastrointestinal: Reports as per HPI Genitourinary Genitourinary: Denies system reviewed and no additional complaints, except as documented (patient denies any change in urinary habits) Musculoskeletal Musculoskeletal: Reports as per HPI and Denies back pain Integumentary/Breasts Skin/Breast: Reports as per HPI and Denies rash Neurologic Neurologic: Reports as per HPI [facility] All Active Problems (Updated 12/08/21 @ 09:59 by ANGELO Flores) Constipation (Acute) Right sided abdominal pain (Acute) Osteomyelitis of toe of left foot (Acute) Type 2 diabetes mellitus (Chronic) Discharge planning issues (Acute) Staphylococcus aureus bacteremia (Acute) Fever (Acute) Positive blood culture (Acute) Diabetic peripheral neuropathy (Chronic) GERD (gastroesophageal reflux disease) (Chronic) Gout (Acute) Schizoaffective disorder (Chronic) HTN (hypertension) (Chronic) Cellulitis of great toe, left (Acute) Cellulitis of second toe, left (Acute) Diabetes mellitus type 2 in obese (Chronic) Medical History (Updated 12/08/21 @ 09:59 by ANGELO Flores) Diabetes mellitus Diabetic polyneuropathy Essential hypertension Fatty liver Hyperlipidemia Hypothyroidism Morbid obesity Schizoaffective disorder Surgical History (Updated 07/13/18 @ 14:35 by [facility]) Cholecystectomy repair Patent foramen ovale Family History Mother Personal history of malignant neoplasm Breast cancer Father Heart disease Atrial Fibrillation Sister Epilepsy Grandfather Personal history of malignant neoplasm Leukemia Grandmother Personal history of malignant neoplasm pancreatic cancer Social History Smoking/Tobacco Use Status: Former Tobacco Use Smoking risk assessment performed?: Yes Alcohol Intake: never Drug use: Never Do you feel safe at home: Yes Do you feel safe in your relationship?: Yes Exam Const General: cooperative, healthy appearing, comfortable, no acute distress and well developed Nutritional Appearance: well nourished and overweight Orientation: alert and awake Resp Effort & Inspection: normal respiratory effort, able to speak in complete sentences and no respiratory distress Auscultation: clear to auscultation bilaterally, no rales, no rhonchi and no wheezes Cardio Rate: regular rate Rhythm: regular rhythm Heart Sounds: S1 normal and S2 normal GI Inspection: normal to inspection, no edema and non-distended Palpation: soft, no hepatosplenomegaly, no guarding, not rigid and tender (mild tenderness along the right side of the abdomen, more so in RUQ) Negative for not at McBurney's point, Major's sign negative and with no rebound tenderness Back/Spine/Pelvis Back: no CVA tenderness Skin General skin exam: no rashes or lesions noted Trauma: no lacerations or abrasions Neuro General: patient alert and patient awake Cognition: normal cognition Speech: speech normal Gait: normal gait Psych Appearance: grossly normal and well kempt Mental Status: mental status grossly normal Speech and Movement: speech and movement normal Course Vital Signs Vital signs: Vital Signs Temperature 36.6 C 12/08/21 09:08 Pulse 98 H 12/08/21 09:08 Respiratory Rate 16 12/08/21 09:08 Blood Pressure 153/91 H 12/08/21 09:08 Pulse Oximetry 100 12/08/21 09:08 Temperature 36.6 C 12/08/21 09:08 Temperature Source Temporal Artery Scan 12/08/21 09:08 Pulse 98 H 12/08/21 09:08 Respiratory Rate 16 12/08/21 09:08 Respiratory Effort Non-Labored 12/08/21 09:11 Blood Pressure 153/91 H 12/08/21 09:08 Blood Pressure Position Sitting 12/08/21 09:08 Pulse Oximetry 100 12/08/21 09:08 Oxygen Delivery Method Room Air 12/08/21 09:08 Oxygen Flow Rate 0 12/08/21 09:08 Pain Level 5 12/08/21 09:08
== END 2021-12-08 10:10 | disposition home or self-care (01) ==
PROVIDERS: Emergency Provider Physician Assistant; PCP Family Medicine
DX: K59.00 Constipation, unspecified (principal); R10.9 Unspecified abdominal pain
CPT/HCPCS: 99282

== ENCOUNTER 2021-12-23 02:57 | Outpatient (CLI) | payer MEDICARE, MEDICAID, SELFPAY ==
[2021-12-23 10:24] LABS: Abs Immature Grans 0.16 10^3/uL (0.0-0.06); Absolute Basophil Count 0.08 10^3/uL (0.0-0.2); Absolute Eosinophil Count 0.15 10^3/uL (0.0-0.7); Absolute Lymphocyte Count 3.09 10^3/uL (1.2-3.4); Basophils % 0.5; Eosinophils % 0.9; HCT 45.7 % (40.0-50.0); HGB 14.7 g/dL (13.5-17.5); Lymphocytes % 19.1; MCH 29.6 pg (27.0-33.0); MCHC 32.2 % (32.0-36.0); Monocytes % 8.4; Neutrophils % 70.1; Nucleated RBC 0 %; Platelet Count 276 10^3/uL (130-400); RBC 4.97 10^6/uL (4.36-5.78); RDW-SD 47.2 fL; WBC 16.16 10^3/uL (4.4-10.8)
[2021-12-23 10:25] LABS: Absolute Monocyte Count 1.36 10^3/uL (0.1-0.8); Absolute Neutrophil Count 11.33 10^3/uL (1.2-6.7)
== END 2021-12-23 02:58 | disposition home or self-care (01) ==
LOC: LBO 02:57
PROVIDERS: PCP Family Medicine; Visit Provider Psychiatry & Neurology Psychiatry
DX: F25.0 Schizoaffective disorder, bipolar type (principal); Z79.899 Other long term (current) drug therapy
CPT/HCPCS: 36415; 85025

== ENCOUNTER 2022-01-12 02:40 | Outpatient (CLI) | payer MEDICARE, MEDICAID, SELFPAY ==
[2022-01-12 10:55] LABS: Abs Immature Grans 0.21 10^3/uL (0.0-0.06); Absolute Eosinophil Count 0.06 10^3/uL (0.0-0.7); Absolute Lymphocyte Count 2.77 10^3/uL (1.2-3.4); Absolute Monocyte Count 1.04 10^3/uL (0.1-0.8); Basophils % 0.4; Eosinophils % 0.4; HCT 44.2 % (40.0-50.0); HGB 14.3 g/dL (13.5-17.5); Immature Grans % 1.3; Lymphocytes % 17.3; MCH 29.4 pg (27.0-33.0); MCHC 32.4 % (32.0-36.0); MCV 90.8 fL (80-95); Monocytes % 6.5; Neutrophils % 74.1; Platelet Count 267 10^3/uL (130-400); RBC 4.87 10^6/uL (4.36-5.78); RDW 13.8 % (11.8-14.1); RDW-SD 46.5 fL
[2022-01-12 10:58] LABS: Absolute Basophil Count 0.06 10^3/uL (0.0-0.2); Absolute Neutrophil Count 11.86 10^3/uL (1.2-6.7)
[2022-01-12 12:16] LABS: Vitamin D 25 Total 34.5 ng/mL (30-100)
[2022-01-12 12:18] LABS: Hemoglobin A1C 6.2 % (<5.7)
[2022-01-12 12:33] LABS: ALT 61 U/L (16-63); AST 37 U/L (15-37); Albumin 3.7 g/dL (3.4-5.0); Alkaline Phosphatase 136 U/L (46-116); Anion Gap 10.8 mmol/L (3-11); BUN 15 mg/dL (7-18); Bilirubin, Total 0.3 mg/dL (0.2-1.0); CO2 23.2 mmol/L (21.0-32.0); CREATININE 1.1 mg/dL (0.70-1.30); Calcium 8.8 mg/dL (8.5-10.1); Calculated LDL 17 mg/dL (<100); Chloride 107 mmol/L (98-107); Cholesterol 115 mg/dL (<200); Ferritin 243 ng/mL (26-388); Glucose 129 mg/dL (74-106); HDL Cholesterol 43 mg/dL (40-60); Magnesium 1.9 mg/dL (1.8-2.4); Potassium 4.3 mmol/L (3.5-5.1); Sodium 141 mmol/L (136-145); TSH 0.68 uIU/mL (0.36-3.74); Triglyceride 278 mg/dL (<150); Vitamin B12 333 pg/mL (193-986)
[2022-01-12 12:50] LABS: C-Reactive Protein 1.35 mg/dL (0.0-0.3)
[2022-01-12 17:43] LABS: T3,Free 3.2 pg/mL (2.8-5.3)
== END 2022-01-12 02:41 | disposition home or self-care (01) ==
LOC: LBO 02:40
PROVIDERS: PCP Family Medicine; Visit Provider Psychiatry & Neurology Psychiatry
DX: F25.9 Schizoaffective disorder, unspecified (principal)
CPT/HCPCS: 36415; 80053; 80061; 82306; 82607; 82728; 83036; 83735; 84439; 84443; 84481; 85025; 86140

== ENCOUNTER 2022-02-10 02:19 | Outpatient (CLI) | payer MEDICARE, MEDICAID, SELFPAY ==
[2022-02-10 10:18] LABS: Abs Immature Grans 0.17 10^3/uL (0.0-0.06); Absolute Basophil Count 0.05 10^3/uL (0.0-0.2); Absolute Eosinophil Count 0.08 10^3/uL (0.0-0.7); Basophils % 0.4; Eosinophils % 0.6; HCT 42.6 % (40.0-50.0); HGB 14.3 g/dL (13.5-17.5); Immature Grans % 1.3; Lymphocytes % 19.6; MCH 29.6 pg (27.0-33.0); MCHC 33.6 % (32.0-36.0); MCV 88 fL (80-95); MPV 11.2 fL (8.0-11.0); Monocytes % 6.6; Neutrophils % 71.5; Platelet Count 281 10^3/uL (130-400); RBC 4.83 10^6/uL (4.36-5.78)
[2022-02-10 10:26] LABS: Absolute Lymphocyte Count 2.67 10^3/uL (1.2-3.4); Absolute Neutrophil Count 9.72 10^3/uL (1.2-6.7)
== END 2022-02-10 02:20 | disposition home or self-care (01) ==
LOC: LBO 02:19
PROVIDERS: PCP Family Medicine; Visit Provider Psychiatry & Neurology Psychiatry
DX: F20.9 Schizophrenia, unspecified (principal); Z79.899 Other long term (current) drug therapy
CPT/HCPCS: 36415; 85025

== ENCOUNTER 2022-03-11 02:10 | Outpatient (CLI) | payer MEDICARE, MEDICAID, SELFPAY ==
[2022-03-11 10:19] LABS: Absolute Lymphocyte Count 1.99 10^3/uL (1.2-3.4); Absolute Monocyte Count 0.91 10^3/uL (0.1-0.8); Basophils % 0.2; Eosinophils % 0.6; HCT 44.1 % (40.0-50.0); HGB 14.5 g/dL (13.5-17.5); Immature Grans % 0.8; Lymphocytes % 16.1; MCHC 32.9 % (32.0-36.0); MCV 91 fL (80-95); MPV 11.1 fL (8.0-11.0); Monocytes % 7.4; Neutrophils % 74.9; Platelet Count 246 10^3/uL (130-400); RBC 4.84 10^6/uL (4.36-5.78); RDW 13.8 % (11.8-14.1); RDW-SD 46.8 fL; WBC 12.35 10^3/uL (4.4-10.8)
[2022-03-11 10:20] LABS: Absolute Basophil Count 0.02 10^3/uL (0.0-0.2); Absolute Eosinophil Count 0.07 10^3/uL (0.0-0.7); Absolute Neutrophil Count 9.25 10^3/uL (1.2-6.7)
== END 2022-03-11 02:11 | disposition home or self-care (01) ==
LOC: LBO 02:10
PROVIDERS: PCP Family Medicine; Visit Provider Psychiatry & Neurology Psychiatry
DX: F20.9 Schizophrenia, unspecified (principal); Z79.899 Other long term (current) drug therapy
CPT/HCPCS: 36415; 85025

== ENCOUNTER 2022-03-24 16:01 | Outpatient (REF) | payer MEDICARE, MEDICAID, SELFPAY ==
[2022-03-24 15:48] LABS: Hemoglobin A1C 5.9 % (<5.7)
[2022-03-24 16:46] LABS: TSH (W/Ref FT4) 1.02 uIU/mL (0.36-3.74); Vitamin B12 374 pg/mL (193-986)
== END 2022-03-24 16:02 | disposition home or self-care (01) ==
LOC: NCHCN 16:01
PROVIDERS: PCP Family Medicine; Visit Provider Family Medicine
DX: I10 Essential (primary) hypertension (principal); E11.9 Type 2 diabetes mellitus without complications; R20.2 Paresthesia of skin
CPT/HCPCS: 82607; 83036; 84443

== ENCOUNTER 2022-04-06 11:31 | Outpatient (CLI) | payer MEDICARE, MEDICAID, SELFPAY ==
[2022-04-06 12:05] LABS: Abs Immature Grans 0.11 10^3/uL (0.0-0.06); Absolute Eosinophil Count 0.06 10^3/uL (0.0-0.7); Absolute Lymphocyte Count 2.64 10^3/uL (1.2-3.4); Absolute Monocyte Count 0.96 10^3/uL (0.1-0.8); Basophils % 0.3; Eosinophils % 0.4; HCT 43.2 % (40.0-50.0); HGB 14.8 g/dL (13.5-17.5); Immature Grans % 0.8; Lymphocytes % 18.1; MCH 30.3 pg (27.0-33.0); MCHC 34.3 % (32.0-36.0); MCV 89 fL (80-95); MPV 11.2 fL (8.0-11.0); Monocytes % 6.6; Neutrophils % 73.8; Platelet Count 264 10^3/uL (130-400); RBC 4.88 10^6/uL (4.36-5.78); RDW 14.2 % (11.8-14.1); RDW-SD 45.8 fL; WBC 14.61 10^3/uL (4.4-10.8)
[2022-04-06 12:07] LABS: Absolute Basophil Count 0.04 10^3/uL (0.0-0.2); Absolute Neutrophil Count 10.78 10^3/uL (1.2-6.7)
== END 2022-04-06 11:32 | disposition home or self-care (01) ==
LOC: LBO 11:32
PROVIDERS: PCP Family Medicine; Visit Provider Psychiatry & Neurology Psychiatry
DX: F25.0 Schizoaffective disorder, bipolar type (principal); Z79.899 Other long term (current) drug therapy
CPT/HCPCS: 36415; 85025

== ENCOUNTER 2022-05-04 04:00 | Outpatient (CLI) | payer MEDICARE, MEDICAID, SELFPAY ==
[2022-05-04 10:46] LABS: Abs Immature Grans 0.16 10^3/uL (0.0-0.06); Absolute Eosinophil Count 0.14 10^3/uL (0.0-0.7); Basophils % 0.3; Eosinophils % 0.9; HCT 42.4 % (40.0-50.0); HGB 14.6 g/dL (13.5-17.5); Immature Grans % 1.1; Lymphocytes % 18.2; MCH 30.5 pg (27.0-33.0); MCHC 34.4 % (32.0-36.0); MCV 89 fL (80-95); MPV 11.1 fL (8.0-11.0); Monocytes % 6.6; Neutrophils % 72.9; Platelet Count 289 10^3/uL (130-400); RBC 4.78 10^6/uL (4.36-5.78); RDW 14.2 % (11.8-14.1); RDW-SD 46.5 fL; WBC 15.19 10^3/uL (4.4-10.8)
[2022-05-04 10:47] LABS: Absolute Basophil Count 0.05 10^3/uL (0.0-0.2); Absolute Lymphocyte Count 2.76 10^3/uL (1.2-3.4); Absolute Neutrophil Count 11.07 10^3/uL (1.2-6.7)
== END 2022-05-04 04:01 | disposition home or self-care (01) ==
LOC: LBO 04:01
PROVIDERS: PCP Family Medicine; Visit Provider Psychiatry & Neurology Psychiatry
DX: F20.9 Schizophrenia, unspecified (principal); Z79.899 Other long term (current) drug therapy
CPT/HCPCS: 36415; 85025

== ENCOUNTER 2022-06-02 02:09 | Outpatient (CLI) | payer MEDICARE, MEDICAID, SELFPAY ==
[2022-06-02 11:34] LABS: Abs Immature Grans 0.13 10^3/uL (0.0-0.06); Absolute Basophil Count 0.06 10^3/uL (0.0-0.2); Absolute Lymphocyte Count 2.59 10^3/uL (1.2-3.4); Basophils % 0.4; Eosinophils % 0.8; HCT 43.4 % (40.0-50.0); HGB 14.5 g/dL (13.5-17.5); Immature Grans % 0.9; Lymphocytes % 18.3; MCHC 33.4 % (32.0-36.0); MCV 90 fL (80-95); MPV 11.2 fL (8.0-11.0); Monocytes % 7.6; Platelet Count 268 10^3/uL (130-400); RBC 4.84 10^6/uL (4.36-5.78); RDW 13.9 % (11.8-14.1); RDW-SD 45.6 fL; WBC 14.13 10^3/uL (4.4-10.8)
[2022-06-02 11:35] LABS: Absolute Eosinophil Count 0.11 10^3/uL (0.0-0.7); Absolute Monocyte Count 1.07 10^3/uL (0.1-0.8); Absolute Neutrophil Count 10.17 10^3/uL (1.2-6.7)
[2022-06-02 11:54] LABS: Hemoglobin A1C 5.8 % (<5.7)
[2022-06-02 12:49] LABS: ALT 41 U/L (16-63); AST 26 U/L (15-37); Albumin 3.6 g/dL (3.4-5.0); Alkaline Phosphatase 106 U/L (46-116); BUN 11 mg/dL (7-18); Bilirubin, Total 0.4 mg/dL (0.2-1.0); CREATININE 1.2 mg/dL (0.70-1.30); Calcium 8.9 mg/dL (8.5-10.1); Calculated LDL 35 mg/dL (<100); Chloride 106 mmol/L (98-107); Cholesterol 108 mg/dL (<200); Estimated GFR 73.67 (mL/min/1.73m2); Ferritin 141 ng/mL (26-388); Folate 19.5 ng/mL (8.6-20.0); Glucose 119 mg/dL (74-106); HDL Cholesterol 40 mg/dL (40-60); Magnesium 1.7 mg/dL (1.8-2.4); Potassium 4.1 mmol/L (3.5-5.1); Sodium 141 mmol/L (136-145); TSH 1.29 uIU/mL (0.36-3.74); Total Protein 7.4 g/dL (6.4-8.2); Triglyceride 169 mg/dL (<150); Vitamin B12 357 pg/mL (193-986)
[2022-06-02 13:05] LABS: C-Reactive Protein 1.44 mg/dL (0.0-0.3); FREE T4 0.77 ng/dL (0.76-1.46)
[2022-06-02 22:30] LABS: T3,Free 2.9 pg/mL (2.8-5.3)
[2022-06-03 08:00] LABS: Homocysteine 10.6 umol/L (5.0-13.9)
[2022-06-03 15:47] LABS: Copper, Serum 92 mcg/dL (73-129)
[2022-06-03 22:16] LABS: Zinc, S 64 mcg/dL (60-106)
[2022-06-04 15:07] LABS: 1,25-Dihydroxyvitamin D 22 pg/mL (18-64)
== END 2022-06-02 02:10 | disposition home or self-care (01) ==
LOC: LBO 02:09
PROVIDERS: PCP Family Medicine; Visit Provider Psychiatry & Neurology Psychiatry
DX: F25.0 Schizoaffective disorder, bipolar type (principal); Z51.81 Encounter for therapeutic drug level monitoring; Z79.899 Other long term (current) drug therapy; R79.89 Other specified abnormal findings of blood chemistry
CPT/HCPCS: 36415; 80053; 80061; 82306; 82525; 83090; 84630; 82607; 82652; 82728; 82746; 83036; 83735; 84439; 84443; 84481; 85025; 86140

== ENCOUNTER 2022-06-30 01:54 | Outpatient (CLI) | payer MEDICARE, MEDICAID, SELFPAY ==
[2022-06-30 10:57] LABS: Abs Immature Grans 0.12 10^3/uL (0.0-0.06); Absolute Basophil Count 0.04 10^3/uL (0.0-0.2); Absolute Eosinophil Count 0.13 10^3/uL (0.0-0.7); Absolute Lymphocyte Count 2.73 10^3/uL (1.2-3.4); Absolute Monocyte Count 0.95 10^3/uL (0.1-0.8); Absolute Neutrophil Count 9.27 10^3/uL (1.2-6.7); Basophils % 0.3; HCT 43.8 % (40.0-50.0); HGB 14.2 g/dL (13.5-17.5); Immature Grans % 0.9; Lymphocytes % 20.6; MCH 29.3 pg (27.0-33.0); MCHC 32.4 % (32.0-36.0); MCV 91 fL (80-95); MPV 11.1 fL (8.0-11.0); Monocytes % 7.2; Platelet Count 280 10^3/uL (130-400); RBC 4.84 10^6/uL (4.36-5.78); RDW 14.2 % (11.8-14.1); RDW-SD 47.3 fL; WBC 13.24 10^3/uL (4.4-10.8)
== END 2022-06-30 01:55 | disposition home or self-care (01) ==
LOC: LBO 01:54
PROVIDERS: PCP Family Medicine; Visit Provider Psychiatry & Neurology Psychiatry
DX: F25.0 Schizoaffective disorder, bipolar type (principal); Z79.899 Other long term (current) drug therapy
CPT/HCPCS: 36415; 85025

== ENCOUNTER 2022-07-27 03:18 | Outpatient (CLI) | payer MEDICARE, MEDICAID, SELFPAY ==
[2022-07-27 11:35] LABS: Abs Immature Grans 0.14 10^3/uL (0.0-0.06); Absolute Eosinophil Count 0.06 10^3/uL (0.0-0.7); Absolute Lymphocyte Count 2.83 10^3/uL (1.2-3.4); Absolute Monocyte Count 1.17 10^3/uL (0.1-0.8); Basophils % 0.3; Eosinophils % 0.4; HGB 15.1 g/dL (13.5-17.5); Immature Grans % 0.9; Lymphocytes % 18.2; MCHC 33.6 % (32.0-36.0); MCV 89 fL (80-95); MPV 11.1 fL (8.0-11.0); Monocytes % 7.5; Neutrophils % 72.7; Platelet Count 264 10^3/uL (130-400); RBC 5.04 10^6/uL (4.36-5.78); RDW 14.3 % (11.8-14.1); RDW-SD 46.9 fL; WBC 15.55 10^3/uL (4.4-10.8)
[2022-07-27 11:36] LABS: Absolute Basophil Count 0.05 10^3/uL (0.0-0.2)
== END 2022-07-27 03:19 | disposition home or self-care (01) ==
LOC: LBO 03:18
PROVIDERS: PCP Family Medicine; Visit Provider Psychiatry & Neurology Psychiatry
DX: F25.0 Schizoaffective disorder, bipolar type (principal); Z79.899 Other long term (current) drug therapy
CPT/HCPCS: 36415; 85025

== ENCOUNTER 2022-08-24 02:55 | Outpatient (CLI) | payer MEDICARE, MEDICAID, SELFPAY ==
[2022-08-24 11:26] LABS: Abs Immature Grans 0.15 10^3/uL (0.0-0.06); Absolute Basophil Count 0.06 10^3/uL (0.0-0.2); Absolute Eosinophil Count 0.09 10^3/uL (0.0-0.7); Absolute Lymphocyte Count 2.86 10^3/uL (1.2-3.4); Absolute Monocyte Count 1.06 10^3/uL (0.1-0.8); Absolute Neutrophil Count 10.73 10^3/uL (1.2-6.7); Basophils % 0.4; Eosinophils % 0.6; Lymphocytes % 19.1; MCH 30.4 pg (27.0-33.0); MCHC 33.3 % (32.0-36.0); MCV 91 fL (80-95); MPV 11.3 fL (8.0-11.0); Monocytes % 7.1; Neutrophils % 71.8; Platelet Count 263 10^3/uL (130-400); RBC 4.61 10^6/uL (4.36-5.78); RDW 14.2 % (11.8-14.1); RDW-SD 47.7 fL; WBC 14.95 10^3/uL (4.4-10.8)
== END 2022-08-24 02:56 | disposition home or self-care (01) ==
LOC: LBO 02:55
PROVIDERS: PCP Family Medicine; Visit Provider Psychiatry & Neurology Psychiatry
DX: F25.0 Schizoaffective disorder, bipolar type (principal); Z79.899 Other long term (current) drug therapy
CPT/HCPCS: 36415; 85025

== ENCOUNTER 2022-09-22 03:49 | Outpatient (CLI) | payer MEDICARE, MEDICAID, SELFPAY ==
[2022-09-22 12:36] LABS: Abs Immature Grans 0.11 10^3/uL (0.0-0.06); Absolute Basophil Count 0.03 10^3/uL (0.0-0.2); Absolute Lymphocyte Count 3.15 10^3/uL (1.2-3.4); Absolute Monocyte Count 1.05 10^3/uL (0.1-0.8); Basophils % 0.2; Eosinophils % 0.8; HCT 43.4 % (40.0-50.0); HGB 14.3 g/dL (13.5-17.5); Immature Grans % 0.8; Lymphocytes % 21.9; MCH 29.7 pg (27.0-33.0); MCHC 32.9 % (32.0-36.0); MCV 90 fL (80-95); MPV 11.1 fL (8.0-11.0); Monocytes % 7.3; Platelet Count 247 10^3/uL (130-400); RBC 4.81 10^6/uL (4.36-5.78); RDW 14.3 % (11.8-14.1); RDW-SD 47.7 fL; WBC 14.38 10^3/uL (4.4-10.8)
[2022-09-22 12:38] LABS: Absolute Eosinophil Count 0.12 10^3/uL (0.0-0.7); Absolute Neutrophil Count 9.92 10^3/uL (1.2-6.7)
== END 2022-09-22 03:50 | disposition home or self-care (01) ==
LOC: LBO 03:49
PROVIDERS: PCP Family Medicine; Visit Provider Psychiatry & Neurology Psychiatry
DX: F20.9 Schizophrenia, unspecified (principal); Z79.899 Other long term (current) drug therapy
CPT/HCPCS: 36415; 85025

== ENCOUNTER 2022-10-20 03:13 | Outpatient (CLI) | payer MEDICARE, MEDICAID, SELFPAY ==
[2022-10-20 09:47] LABS: Abs Immature Grans 0.15 10^3/uL (0.0-0.06); Absolute Basophil Count 0.04 10^3/uL (0.0-0.2); Absolute Eosinophil Count 0.07 10^3/uL (0.0-0.7); Absolute Lymphocyte Count 2.74 10^3/uL (1.2-3.4); Absolute Monocyte Count 0.95 10^3/uL (0.1-0.8); Absolute Neutrophil Count 8.13 10^3/uL (1.2-6.7); Basophils % 0.3; Eosinophils % 0.6; HCT 45.3 % (40.0-50.0); HGB 14.9 g/dL (13.5-17.5); Immature Grans % 1.2; Lymphocytes % 22.7; MCH 29.7 pg (27.0-33.0); MCHC 32.9 % (32.0-36.0); MCV 90 fL (80-95); MPV 11.9 fL (8.0-11.0); Monocytes % 7.9; Neutrophils % 67.3; Platelet Count 226 10^3/uL (130-400); RBC 5.01 10^6/uL (4.36-5.78); RDW 14.1 % (11.8-14.1); WBC 12.08 10^3/uL (4.4-10.8)
== END 2022-10-20 03:14 | disposition home or self-care (01) ==
LOC: LBO 03:13
PROVIDERS: PCP Family Medicine; Visit Provider Psychiatry & Neurology Psychiatry
DX: F25.0 Schizoaffective disorder, bipolar type (principal); Z79.899 Other long term (current) drug therapy
CPT/HCPCS: 36415; 85025

== ENCOUNTER 2022-11-10 02:03 | Outpatient (CLI) | payer MEDICARE, MEDICAID, SELFPAY ==
[2022-11-10 09:26] LABS: Abs Immature Grans 0.16 10^3/uL (0.0-0.06); Absolute Eosinophil Count 0.14 10^3/uL (0.0-0.7); Absolute Monocyte Count 1.08 10^3/uL (0.1-0.8); Absolute Neutrophil Count 9.52 10^3/uL (1.2-6.7); Basophils % 0.4; HCT 46.4 % (40.0-50.0); Immature Grans % 1.2; Lymphocytes % 19.8; MCH 29.5 pg (27.0-33.0); MCHC 32.3 % (32.0-36.0); MCV 91 fL (80-95); Monocytes % 7.9; Neutrophils % 69.7; Platelet Count 318 10^3/uL (130-400); RBC 5.08 10^6/uL (4.36-5.78); RDW 13.9 % (11.8-14.1); RDW-SD 46.9 fL; WBC 13.66 10^3/uL (4.4-10.8)
[2022-11-10 09:28] LABS: Absolute Basophil Count 0.05 10^3/uL (0.0-0.2)
== END 2022-11-10 02:04 | disposition home or self-care (01) ==
LOC: LBO 02:03
PROVIDERS: PCP Family Medicine; Visit Provider Psychiatry & Neurology Psychiatry
DX: F25.0 Schizoaffective disorder, bipolar type (principal); Z79.899 Other long term (current) drug therapy
CPT/HCPCS: 36415; 85025

== ENCOUNTER 2022-12-10 02:03 | Outpatient (CLI) | payer MEDICARE, MEDICAID, SELFPAY ==
[2022-12-10 10:29] LABS: Abs Immature Grans 0.12 10^3/uL (0.0-0.06); Absolute Eosinophil Count 0.07 10^3/uL (0.0-0.7); Absolute Monocyte Count 1.15 10^3/uL (0.1-0.8); Basophils % 0.3; Eosinophils % 0.5; HCT 43.6 % (40.0-50.0); HGB 14.6 g/dL (13.5-17.5); Immature Grans % 0.8; Lymphocytes % 17.2; MCH 30.7 pg (27.0-33.0); MCHC 33.5 % (32.0-36.0); MCV 92 fL (80-95); MPV 11.4 fL (8.0-11.0); Neutrophils % 73.2; Platelet Count 273 10^3/uL (130-400); RBC 4.75 10^6/uL (4.36-5.78); RDW 13.9 % (11.8-14.1); RDW-SD 46.8 fL; WBC 14.34 10^3/uL (4.4-10.8)
[2022-12-10 10:30] LABS: Absolute Basophil Count 0.04 10^3/uL (0.0-0.2); Absolute Lymphocyte Count 2.47 10^3/uL (1.2-3.4)
== END 2022-12-10 02:04 | disposition home or self-care (01) ==
LOC: LBO 02:03
PROVIDERS: PCP Family Medicine; Visit Provider Psychiatry & Neurology Psychiatry
DX: F25.0 Schizoaffective disorder, bipolar type (principal); Z79.899 Other long term (current) drug therapy
CPT/HCPCS: 36415; 85025

== ENCOUNTER 2023-01-05 02:12 | Outpatient (CLI) | payer MEDICARE, MEDICAID, SELFPAY ==
[2023-01-05 09:08] LABS: Abs Immature Grans 0.13 10^3/uL (0.0-0.06); Absolute Basophil Count 0.05 10^3/uL (0.0-0.2); Absolute Eosinophil Count 0.12 10^3/uL (0.0-0.7); Absolute Lymphocyte Count 2.94 10^3/uL (1.2-3.4); Absolute Monocyte Count 1.19 10^3/uL (0.1-0.8); Basophils % 0.3; Eosinophils % 0.8; HGB 14.3 g/dL (13.5-17.5); Immature Grans % 0.8; MCH 29.9 pg (27.0-33.0); MCHC 33.3 % (32.0-36.0); MCV 90 fL (80-95); MPV 10.8 fL (8.0-11.0); Monocytes % 7.7; Neutrophils % 71.4; Platelet Count 307 10^3/uL (130-400); RBC 4.78 10^6/uL (4.36-5.78); RDW-SD 46.4 fL; WBC 15.47 10^3/uL (4.4-10.8)
[2023-01-05 09:10] LABS: Absolute Neutrophil Count 11.05 10^3/uL (1.2-6.7)
== END 2023-01-05 02:13 | disposition home or self-care (01) ==
LOC: LBO 02:13
PROVIDERS: PCP Family Medicine; Visit Provider Psychiatry & Neurology Psychiatry
DX: Z79.899 Other long term (current) drug therapy (principal); F20.9 Schizophrenia, unspecified
CPT/HCPCS: 36415; 85025

== ENCOUNTER 2023-01-13 19:13 | Outpatient (REF) | payer MEDICARE, MEDICAID, SELFPAY | END 2023-01-13 19:14 | disposition home or self-care (01) | LOC: NCHCN 19:13 | PROVIDERS: PCP Family Medicine; Visit Provider Podiatrist Foot & Ankle Surgery | DX: L02.612 Cutaneous abscess of left foot; E11.42 Type 2 diabetes mellitus with diabetic polyneuropathy; L03.032 Cellulitis of left toe | CPT/HCPCS: 87077; 87070; 87075; 87186; 87205 ==

== ENCOUNTER 2023-02-01 15:45 | Outpatient (CLI) | payer MEDICARE, MEDICAID, SELFPAY ==
[2023-02-01 09:24] LABS: Abs Immature Grans 0.11 10^3/uL (0.0-0.06); Absolute Basophil Count 0.03 10^3/uL (0.0-0.2); Absolute Lymphocyte Count 2.36 10^3/uL (1.2-3.4); Absolute Monocyte Count 1.14 10^3/uL (0.1-0.8); Basophils % 0.2; Eosinophils % 0.5; HCT 42.9 % (40.0-50.0); HGB 14.4 g/dL (13.5-17.5); Immature Grans % 0.7; Lymphocytes % 15.9; MCH 30.1 pg (27.0-33.0); MCHC 33.6 % (32.0-36.0); MCV 90 fL (80-95); MPV 10.9 fL (8.0-11.0); Monocytes % 7.7; Platelet Count 276 10^3/uL (130-400); RBC 4.79 10^6/uL (4.36-5.78); RDW 14.2 % (11.8-14.1); RDW-SD 46.5 fL; WBC 14.82 10^3/uL (4.4-10.8)
[2023-02-01 09:40] LABS: Absolute Eosinophil Count 0.07 10^3/uL (0.0-0.7); Absolute Neutrophil Count 11.12 10^3/uL (1.2-6.7)
== END 2023-02-01 15:46 | disposition home or self-care (01) ==
LOC: LBO 15:45
PROVIDERS: PCP Family Medicine; Visit Provider Psychiatry & Neurology Psychiatry
DX: F25.0 Schizoaffective disorder, bipolar type (principal); Z79.899 Other long term (current) drug therapy
CPT/HCPCS: 36415; 85025

== ENCOUNTER 2023-03-02 03:14 | Outpatient (CLI) | payer MEDICARE, MEDICAID, SELFPAY ==
[2023-03-02 10:10] LABS: Abs Immature Grans 0.13 10^3/uL (0.0-0.06); Absolute Basophil Count 0.05 10^3/uL (0.0-0.2); Absolute Eosinophil Count 0.17 10^3/uL (0.0-0.7); Basophils % 0.3; HCT 43.9 % (40.0-50.0); HGB 14.5 g/dL (13.5-17.5); Immature Grans % 0.8; Lymphocytes % 14.7; MCH 29.7 pg (27.0-33.0); MCV 90 fL (80-95); MPV 10.6 fL (8.0-11.0); Monocytes % 7.1; Neutrophils % 76.1; Platelet Count 312 10^3/uL (130-400); RBC 4.88 10^6/uL (4.36-5.78); RDW 14.3 % (11.8-14.1); RDW-SD 47.5 fL; WBC 16.58 10^3/uL (4.4-10.8)
[2023-03-02 10:13] LABS: Absolute Lymphocyte Count 2.44 10^3/uL (1.2-3.4); Absolute Monocyte Count 1.18 10^3/uL (0.1-0.8); Absolute Neutrophil Count 12.62 10^3/uL (1.2-6.7)
== END 2023-03-02 03:15 | disposition home or self-care (01) ==
LOC: LBO 03:14
PROVIDERS: PCP Family Medicine; Visit Provider Counselor Addiction (Substance Use Disorder)
DX: F20.9 Schizophrenia, unspecified (principal); Z79.899 Other long term (current) drug therapy
CPT/HCPCS: 36415; 85025

== ENCOUNTER 2023-03-31 02:34 | Outpatient (CLI) | payer MEDICARE, MEDICAID, SELFPAY ==
[2023-03-31 11:02] LABS: Abs Immature Grans 0.14 10^3/uL (0.0-0.06); Absolute Eosinophil Count 0.05 10^3/uL (0.0-0.7); Absolute Monocyte Count 1.09 10^3/uL (0.1-0.8); Absolute Neutrophil Count 11.19 10^3/uL (1.2-6.7); Basophils % 0.3; Eosinophils % 0.3; HCT 39.7 % (40.0-50.0); HGB 13.2 g/dL (13.5-17.5); Immature Grans % 0.9; Lymphocytes % 17.3; MCH 29.2 pg (27.0-33.0); MCHC 33.2 % (32.0-36.0); MCV 88 fL (80-95); MPV 10.1 fL (8.0-11.0); Monocytes % 7.2; Platelet Count 365 10^3/uL (130-400); RBC 4.52 10^6/uL (4.36-5.78); RDW 14.2 % (11.8-14.1); RDW-SD 45.7 fL; WBC 15.12 10^3/uL (4.4-10.8)
[2023-03-31 11:09] LABS: Absolute Basophil Count 0.05 10^3/uL (0.0-0.2); Absolute Lymphocyte Count 2.62 10^3/uL (1.2-3.4)
== END 2023-03-31 02:35 | disposition home or self-care (01) ==
PROVIDERS: PCP Family Medicine; Visit Provider Counselor Addiction (Substance Use Disorder)
DX: F20.9 Schizophrenia, unspecified (principal); Z79.899 Other long term (current) drug therapy
CPT/HCPCS: 36415; 85025

== ENCOUNTER 2023-04-29 15:04 | Outpatient (CLI) | payer MEDICARE, MEDICAID, SELFPAY ==
[2023-04-29 10:55] LABS: Abs Immature Grans 0.11 10^3/uL (0.0-0.06); Absolute Basophil Count 0.04 10^3/uL (0.0-0.2); Absolute Eosinophil Count 0.07 10^3/uL (0.0-0.7); Absolute Lymphocyte Count 2.19 10^3/uL (1.2-3.4); Absolute Neutrophil Count 10.99 10^3/uL (1.2-6.7); Basophils % 0.3; Eosinophils % 0.5; HCT 43.1 % (40.0-50.0); HGB 14.2 g/dL (13.5-17.5); Immature Grans % 0.8; Lymphocytes % 15.2; MCH 28.9 pg (27.0-33.0); MCHC 32.9 % (32.0-36.0); MCV 88 fL (80-95); MPV 10.4 fL (8.0-11.0); Monocytes % 6.9; Neutrophils % 76.3; Platelet Count 334 10^3/uL (130-400); RBC 4.91 10^6/uL (4.36-5.78); RDW 14.2 % (11.8-14.1); RDW-SD 45.8 fL
[2023-04-29 10:56] LABS: Absolute Monocyte Count 0.99 10^3/uL (0.1-0.8)
[2023-04-29 11:31] LABS: Hemoglobin A1C 6.1 % (<5.7)
[2023-04-29 12:06] LABS: ALT 29 U/L (16-63); AST 19 U/L (15-37); Albumin 3.4 g/dL (3.4-5.0); Alkaline Phosphatase 126 U/L (46-116); Anion Gap 8.3 mmol/L (3-11); BUN 8 mg/dL (7-18); Bilirubin, Total 0.4 mg/dL (0.2-1.0); CO2 24.7 mmol/L (21.0-32.0); CREATININE 1.3 mg/dL (0.70-1.30); Chloride 106 mmol/L (98-107); Creatine Kinase 173 U/L (39-308); Estimated GFR 66.51 (mL/min/1.73m2); Glucose 124 mg/dL (74-106); Potassium 3.7 mmol/L (3.5-5.1); Sodium 139 mmol/L (136-145); Total Protein 7.5 g/dL (6.4-8.2)
== END 2023-04-29 15:05 | disposition home or self-care (01) ==
LOC: LBO 15:09
PROVIDERS: PCP Family Medicine; Visit Provider Counselor Addiction (Substance Use Disorder)
DX: Z79.899 Other long term (current) drug therapy (principal); E11.9 Type 2 diabetes mellitus without complications; I10 Essential (primary) hypertension
CPT/HCPCS: 36415; 80053; 82550; 83036; 85025

== ENCOUNTER 2023-05-26 02:09 | Outpatient (CLI) | payer MEDICARE, MEDICAID, SELFPAY ==
[2023-05-26 14:43] LABS: Abs Immature Grans 0.11 10^3/uL (0.0-0.06); Absolute Lymphocyte Count 2.85 10^3/uL (1.2-3.4); Basophils % 0.3; Eosinophils % 0.8; HCT 40.4 % (40.0-50.0); HGB 13.4 g/dL (13.5-17.5); Immature Grans % 0.8; Lymphocytes % 19.5; MCH 28.6 pg (27.0-33.0); MCHC 33.2 % (32.0-36.0); MCV 86 fL (80-95); MPV 11.1 fL (8.0-11.0); Monocytes % 7.3; Neutrophils % 71.3; Platelet Count 262 10^3/uL (130-400); RBC 4.69 10^6/uL (4.36-5.78); RDW 14.5 % (11.8-14.1); RDW-SD 45.4 fL; WBC 14.59 10^3/uL (4.4-10.8)
[2023-05-26 14:45] LABS: Absolute Basophil Count 0.04 10^3/uL (0.0-0.2); Absolute Eosinophil Count 0.12 10^3/uL (0.0-0.7); Absolute Monocyte Count 1.07 10^3/uL (0.1-0.8)
== END 2023-05-26 02:10 | disposition home or self-care (01) ==
LOC: LBO 02:09
PROVIDERS: PCP Family Medicine; Visit Provider Counselor Addiction (Substance Use Disorder)
DX: F20.9 Schizophrenia, unspecified (principal); Z79.899 Other long term (current) drug therapy
CPT/HCPCS: 36415; 85025

== ENCOUNTER 2023-06-21 02:00 | Outpatient (CLI) | payer MEDICARE, MEDICAID, SELFPAY ==
[2023-06-21 11:05] LABS: Abs Immature Grans 0.09 10^3/uL (0.0-0.06); Absolute Basophil Count 0.03 10^3/uL (0.0-0.2); Absolute Eosinophil Count 0.05 10^3/uL (0.0-0.7); Absolute Lymphocyte Count 2.13 10^3/uL (1.2-3.4); Absolute Monocyte Count 1.13 10^3/uL (0.1-0.8); Absolute Neutrophil Count 9.98 10^3/uL (1.2-6.7); Basophils % 0.2; Eosinophils % 0.4; HCT 43.1 % (40.0-50.0); HGB 14.3 g/dL (13.5-17.5); Immature Grans % 0.7; Lymphocytes % 15.9; MCH 28.5 pg (27.0-33.0); MCHC 33.2 % (32.0-36.0); MCV 86 fL (80-95); MPV 10.9 fL (8.0-11.0); Monocytes % 8.4; Neutrophils % 74.4; Platelet Count 291 10^3/uL (130-400); RBC 5.02 10^6/uL (4.36-5.78); RDW 14.6 % (11.8-14.1); WBC 13.41 10^3/uL (4.4-10.8)
== END 2023-06-21 02:01 | disposition home or self-care (01) ==
LOC: LBO 02:00
PROVIDERS: PCP Family Medicine; Visit Provider Counselor Addiction (Substance Use Disorder)
DX: F20.9 Schizophrenia, unspecified (principal); Z79.899 Other long term (current) drug therapy
CPT/HCPCS: 36415; 85025

== ENCOUNTER 2023-07-05 13:19 | Outpatient (REF) | payer MEDICARE, MEDICAID, SELFPAY ==
[2023-07-05 16:00] LABS: Abs Immature Grans 0.06 10^3/uL (0.0-0.06); Absolute Eosinophil Count 0.06 10^3/uL (0.0-0.7); Absolute Lymphocyte Count 1.87 10^3/uL (1.2-3.4); Absolute Monocyte Count 0.86 10^3/uL (0.1-0.8); Absolute Neutrophil Count 8.79 10^3/uL (1.2-6.7); Basophils % 0.3; Eosinophils % 0.5; HCT 44.7 % (40.0-50.0); HGB 14.9 g/dL (13.5-17.5); Immature Grans % 0.5; MCH 28.8 pg (27.0-33.0); MCHC 33.3 % (32.0-36.0); MCV 87 fL (80-95); MPV 11.6 fL (8.0-11.0); Monocytes % 7.4; Neutrophils % 75.3; Platelet Count 316 10^3/uL (130-400); RBC 5.17 10^6/uL (4.36-5.78); RDW-SD 47.7 fL; WBC 11.67 10^3/uL (4.4-10.8)
[2023-07-05 16:16] LABS: Absolute Basophil Count 0.04 10^3/uL (0.0-0.2)
[2023-07-05 16:28] LABS: Anion Gap 12.5 mmol/L (3-11); BUN 6 mg/dL (7-18); CO2 22.5 mmol/L (21.0-32.0); CREATININE 1.2 mg/dL (0.70-1.30); Calcium 9.9 mg/dL (8.5-10.1); Chloride 106 mmol/L (98-107); Estimated GFR 72.76 (mL/min/1.73m2); Glucose 143 mg/dL (74-106); Potassium 3.7 mmol/L (3.5-5.1); Sodium 141 mmol/L (136-145)
== END 2023-07-05 13:20 | disposition home or self-care (01) ==
LOC: NCHCN 13:19
PROVIDERS: PCP Family Medicine; Visit Provider Nurse Practitioner Family
DX: R19.7 Diarrhea, unspecified (principal)
CPT/HCPCS: 80048; 85025

== ENCOUNTER 2023-07-20 02:58 | Outpatient (CLI) | payer MEDICARE, MEDICAID, SELFPAY ==
[2023-07-20 10:11] LABS: Abs Immature Grans 0.09 10^3/uL (0.0-0.06); Absolute Basophil Count 0.05 10^3/uL (0.0-0.2); Absolute Eosinophil Count 0.05 10^3/uL (0.0-0.7); Absolute Lymphocyte Count 1.67 10^3/uL (1.2-3.4); Absolute Monocyte Count 1.08 10^3/uL (0.1-0.8); Basophils % 0.4; Eosinophils % 0.4; HCT 44.1 % (40.0-50.0); HGB 14.4 g/dL (13.5-17.5); Immature Grans % 0.7; Lymphocytes % 12.2; MCH 28.2 pg (27.0-33.0); MCHC 32.7 % (32.0-36.0); MCV 87 fL (80-95); MPV 10.8 fL (8.0-11.0); Monocytes % 7.9; Neutrophils % 78.4; Platelet Count 314 10^3/uL (130-400); RDW 15.5 % (11.8-14.1); WBC 13.72 10^3/uL (4.4-10.8)
[2023-07-20 10:14] LABS: Absolute Neutrophil Count 10.76 10^3/uL (1.2-6.7)
== END 2023-07-20 02:59 | disposition home or self-care (01) ==
LOC: LBO 02:59
PROVIDERS: PCP Family Medicine; Visit Provider Counselor Addiction (Substance Use Disorder)
DX: F20.9 Schizophrenia, unspecified (principal)
CPT/HCPCS: 36415; 85025

== ENCOUNTER 2023-08-18 03:33 | Outpatient (CLI) | payer MEDICARE, MEDICAID, SELFPAY ==
[2023-08-18 11:05] LABS: Abs Immature Grans 0.13 10^3/uL (0.0-0.06); Absolute Basophil Count 0.05 10^3/uL (0.0-0.2); Absolute Eosinophil Count 0.07 10^3/uL (0.0-0.7); Absolute Lymphocyte Count 2.31 10^3/uL (1.2-3.4); Basophils % 0.3; Eosinophils % 0.4; HCT 43.1 % (40.0-50.0); HGB 14.3 g/dL (13.5-17.5); Immature Grans % 0.8; Lymphocytes % 14.1; MCH 28.8 pg (27.0-33.0); MCHC 33.2 % (32.0-36.0); MCV 87 fL (80-95); MPV 11.6 fL (8.0-11.0); Monocytes % 5.7; Neutrophils % 78.7; Platelet Count 293 10^3/uL (130-400); RBC 4.97 10^6/uL (4.36-5.78); RDW 15.2 % (11.8-14.1); RDW-SD 48.3 fL; WBC 16.35 10^3/uL (4.4-10.8)
[2023-08-18 11:08] LABS: Absolute Monocyte Count 0.93 10^3/uL (0.1-0.8); Absolute Neutrophil Count 12.87 10^3/uL (1.2-6.7)
== END 2023-08-18 03:34 | disposition home or self-care (01) ==
LOC: LBO 03:33
PROVIDERS: PCP Family Medicine; Visit Provider Counselor Addiction (Substance Use Disorder)
DX: F20.9 Schizophrenia, unspecified (principal); Z79.899 Other long term (current) drug therapy
CPT/HCPCS: 36415; 85025

== ENCOUNTER 2023-09-13 02:53 | Outpatient (CLI) | payer MEDICARE, MEDICAID, SELFPAY ==
[2023-09-13 10:29] LABS: Absolute Basophil Count 0.05 10^3/uL (0.0-0.2); Absolute Eosinophil Count 0.08 10^3/uL (0.0-0.7); Absolute Monocyte Count 1.12 10^3/uL (0.1-0.8); Basophils % 0.3; Eosinophils % 0.5; HCT 44.4 % (40.0-50.0); HGB 14.8 g/dL (13.5-17.5); Immature Grans % 0.7; MCH 29.2 pg (27.0-33.0); MCHC 33.3 % (32.0-36.0); MCV 88 fL (80-95); MPV 11.2 fL (8.0-11.0); Monocytes % 7.3; Neutrophils % 74.2; Platelet Count 282 10^3/uL (130-400); RBC 5.07 10^6/uL (4.36-5.78); RDW 14.7 % (11.8-14.1); RDW-SD 47.2 fL; WBC 15.32 10^3/uL (4.4-10.8)
[2023-09-13 10:31] LABS: Absolute Neutrophil Count 11.37 10^3/uL (1.2-6.7)
== END 2023-09-13 02:54 | disposition home or self-care (01) ==
LOC: LBO 02:53
PROVIDERS: PCP Family Medicine; Visit Provider Counselor Addiction (Substance Use Disorder)
DX: F20.9 Schizophrenia, unspecified (principal); Z79.899 Other long term (current) drug therapy
CPT/HCPCS: 36415; 85025

== ENCOUNTER 2023-09-17 05:45 | Emergency (ER) | payer MEDICARE, MEDICAID, SELFPAY ==
[2023-09-17 05:37] VITALS: BP 154/85; PULSE 110; RESP 18; TEMP 36.7; O2SAT 98
--- NOTE | 2023-09-17 05:57 | W.ED.GENAD ---
Discharge Plan Disposition Patient Disposition: Home Condition: Stable Discharge Details Clinical Impression: Ulcer of heel, Constipation Primary Care Provider: Sakina Meng V ED Provider: Andrzej Segovia Meds and New Rx's Prescriptions: New docusate sodium [DOK] 100 mg capsule 100 mg PO DAILY Qty: 30 0RF Continued indomethacin 50 mg capsule 50 mg PO TID PRN Rx Instructions: administer with food or milk diphenoxylate-atropine 2.5-0.025 mg tablet 1 tab PO QID PRN psyllium husk [Metamucil] 0.4 gram capsule 0.4 g PO DAILY gabapentin 300 mg capsule 300 mg PO QHS citalopram 10 mg tablet 10 mg PO DAILY multivitamin Tablet 1 tab PO DAILY benztropine 1 mg tablet 1 mg PO DAILY Rx Instructions: along with 2 mg to total 3 mg hs. benztropine 2 mg tablet See Rx Instructions PO QHS Rx Instructions: orally every day at bedtime; Take QHS for side-effect of shaking hands along with 1 mg to total 3 mg hs. Probiotic (B. coagulans) 10 billion cell capsule,delayed release(DR/EC) 1 cell PO clotrimazole 1 % cream 1 applic topical BID docusate sodium [Colace] 100 mg capsule 100 mg PO DAILY PRN clozapine 100 MG tablet 250 mg PO HS atenolol 25 MG tablet 25 mg PO DAILY lisinopril 5 MG tablet 5 mg PO DAILY Freedavite 1 EACH tablet 1 ea PO DAILY aspirin 325 mg Tablet,Delayed Release (Dr/Ec) 325 mg PO DAILY pantoprazole 40 mg tablet,delayed release (DR/EC) 40 mg PO DAILY Patient Comments: TAKE 1 TABLET BY MOUTH DAILY rosuvastatin 5 mg tablet 5 mg PO DAILY cholecalciferol (vitamin D3) [Vitamin D3] 50 mcg (2,000 unit) Tablet 50 mcg PO DAILY allopurinol 100 MG tablet 100 mg PO DAILY topiramate [Topamax] 25 MG tablet 50 mg PO BID Discharge Instructions Instructions: Constipation (ED) Referrals: Sakina Meng MD [Primary Care Provider] - 5 days Discharge Data Discharge Physician: Andrzej Segovia Medical Decision Making Patient who comes in for constipation that is chronic requesting medication. This time he has no abdominal pain does not seem to be impacted and has no vomiting will be giving mag citrate to take at the intermediate. His heel ulcers and left foot are in good condition and will continue treatments at the long-term and have advised him that the restless leg syndrome should be addressed with a primary care provider. Medical Records Medical records reviewed: Yes I reviewed the patient's medical records. HPI General Date/Time Provider Initiated Documentation: 09/17/23 05:57. HPI Narrative: Patient presents emergency department brought in by the ambulance from a long-term where they take care of him. He is a diabetic and has a chronic foot ulcer that they take care of him but the reason is here is that he has been constipated on and off for the last 2 weeks and is requesting something for his constipation. Denies any abdominal pain denies any fever denies any chills states it is also she has restless leg syndrome. Related Data Home Medications Medication Instructions Recorded Confirmed Freedavite 1.8 mg iron-400 mcg 1 ea PO DAILY 01/16/13 01/28/23 tablet (qzllozzg-bjo-iyit fum-folic ac) atenolol 25 mg tablet 25 mg PO DAILY 01/16/13 01/28/23 clozapine 100 mg tablet 250 mg PO HS 01/16/13 01/28/23 lisinopril 5 mg tablet 5 mg PO DAILY 01/16/13 01/28/23 allopurinol 100 mg tablet 100 mg PO DAILY 03/16/18 01/28/23 topiramate 25 mg tablet (Topamax) 50 mg PO BID 03/16/18 01/28/23 aspirin 325 mg tablet,delayed 325 mg PO DAILY 12/08/21 01/28/23 release cholecalciferol (vitamin D3) 50 50 mcg PO DAILY 12/08/21 01/28/23 mcg (2,000 unit) tablet (Vitamin D3) pantoprazole 40 mg tablet,delayed 40 mg PO DAILY 12/08/21 01/28/23 release rosuvastatin 5 mg tablet 5 mg PO DAILY 12/08/21 01/28/23 diphenoxylate-atropine 2.5 1 tab PO QID PRN 10/29/22 01/28/23 mg-0.025 mg tablet gabapentin 300 mg capsule 300 mg PO QHS 10/29/22 01/28/23 indomethacin 50 mg capsule 50 mg PO TID PRN 10/29/22 01/28/23 psyllium husk 0.4 gram capsule 0.4 g PO DAILY 10/29/22 01/28/23 (Metamucil) Bacillus coagulans 10 billion cell 1 cell PO 11/02/22 01/28/23 capsule,delayed release (Probiotic (B. coagulans)) benztropine 1 mg tablet 1 mg PO DAILY 11/02/22 01/28/23 benztropine 2 mg tablet See Rx Instructions PO QHS 11/02/22 01/28/23 citalopram 10 mg tablet 10 mg PO DAILY 11/02/22 01/28/23 clotrimazole 1 % topical cream 1 applic topical BID 11/02/22 01/28/23 docusate sodium 100 mg capsule 100 mg PO DAILY PRN 11/02/22 01/28/23 (Colace) multivitamin 1 tab PO DAILY 11/02/22 01/28/23 docusate sodium 100 mg capsule 100 mg PO DAILY #30 caps 09/17/23 (DOK) Previous Rx's Medication Instructions Recorded docusate sodium 100 mg capsule 100 mg PO DAILY #30 caps 09/17/23 (DOK) Allergies Allergy/AdvReac Type Severity Reaction Status Date / Time No Known Allergies Allergy Unverified 09/17/23 05:42 General Stated Complaint: Orthopedic GUS: 4 Review of Systems Narrative: Review of Systems: Constitutional: No fevers, chills, sweats Eye: No recent visual problems ENT: No ear pain, nasal congestion, sore throat Respiratory: No shortness of breath, cough Cardiovascular: No Chest pain, palpitations, syncope Gastrointestinal: No nausea, vomiting, diarrhea Genitourinary: No hematuria Pernell/Lymph: Negative for bruising tendency, swollen lymph glands Endocrine: Negative for excessive thirst, excessive hunger Musculoskeletal: No back pain, neck pain, joint pain, muscle pain, decreased range of motion Integumentary: No rash, pruritus, abrasions Neurologic: Alert & oriented X 4 Psychiatric: No anxiety, depression PFSH All Active Problems (Updated 09/17/23 @ 06:12 by Andrzej Segovia MD) Constipation (Acute) Abscess (Acute) Ulcer of heel (Acute) BMI 38.0-38.9,adult (Acute) History of tobacco use (Acute) IBS (irritable bowel syndrome) (Chronic) Foot deformity (Acute) Tremor (Acute) Nail dystrophy (Acute) Osteomyelitis of toe of left foot (Acute) Type 2 diabetes mellitus (Chronic) Discharge planning issues (Acute) Staphylococcus aureus bacteremia (Acute) Fever (Acute) Positive blood culture (Acute) Diabetic peripheral neuropathy (Chronic) GERD (gastroesophageal reflux disease) (Chronic) Gout (Acute) Schizoaffective disorder (Chronic) HTN (hypertension) (Chronic) Cellulitis of great toe, left (Acute) Cellulitis of second toe, left (Acute) Diabetes mellitus type 2 in obese (Chronic) Medical History Acute pain of left knee (03/04/16) Diverticulosis Cerebral artery occlusion Atrial septal aneurysm Fatty liver Schizoaffective disorder Hypothyroidism Hyperlipidemia Morbid obesity Diabetes mellitus Diabetic polyneuropathy Essential hypertension Surgical History repair Patent foramen ovale Cholecystectomy Family History Mother Personal history of malignant neoplasm Breast cancer Father Heart disease Atrial Fibrillation Sister Epilepsy Grandfather Personal history of malignant neoplasm Leukemia Grandmother Personal history of malignant neoplasm pancreatic cancer Social History Smoking/Tobacco Use Status: Former Tobacco Use Smoking risk assessment performed?: Yes Alcohol Intake: never Drug use: Never Substance use type: does not use Housing: other Do you feel safe at home: Yes Do you feel safe in your relationship?: Yes Exam Narrative Exam Narrative: Exam; vitals signs as reported above normal Constitutional; In no acute distress, afebrile General: cooperative, healthy appearing, comfortable and no acute distress HEENT: Head: normal to inspection, no palpable skull fracture and normocephalic atraumatic Eyes: : appearance normal, both eyes and all related structures EOM intact bilaterally Pupils: PERRL : conjunctiva normal Direct ophthalmoscopy: normal light reflex, normal conjunctiva, normal visual acuity Ears: Normal TM, normal external canal Nose: normal no rhinorreha Neck no JVD, supple non tender Neck: normal visual inspection, full ROM and no lymphadenopathy Chest: normal inspection of the chest Respiratory : normal respiratory effort and able to speak in complete sentences no wheezing no rales Cardio Rate: regular rate, rhythm: regular rhythm normal heart sounds S1 and S2 no murmurs, gallops, or rubs GI : normal to inspection, normal bowel sounds, soft, non tender, non distended, no organomegaly Back/Spine/ no CVA tenderness Thoracic/Lumbar Spine: no tenderness or deformities Skin no rashes or lesions Neuro: patient alert oriented x 4 and no meningeal signs, Cranial Nerves: CN's II-XI intact bilaterally, Cognition: normal cognition, Speech: speech normal, Gait: normal gait, Depp tendon reflexes normal 2+ muscle strength 5/5 bilaterally Extremities, no edema, full range of motion, normal strength with the left sided heel and toe ulcers that are granulating nonnecrotic no redness no erythema Course Vital Signs Vital signs: Vital Signs Temperature 36.7 C 09/17/23 05:37 Pulse 110 H 09/17/23 05:37 Respiratory Rate 18 09/17/23 05:37 Blood Pressure 154/85 H 09/17/23 05:37 Pulse Oximetry 98 09/17/23 05:37 Temperature 36.7 C 09/17/23 05:37 Temperature Source Temporal Artery Scan 09/17/23 05:37 Pulse 110 H 09/17/23 05:37 Respiratory Rate 18 09/17/23 05:37 Respiratory Effort Normal, Non-Labored 09/17/23 05:43 Blood Pressure 154/85 H 09/17/23 05:37 Blood Pressure Position Sitting 09/17/23 05:37 Pulse Oximetry 98 09/17/23 05:37 Oxygen Delivery Method Room Air 09/17/23 05:37 Oxygen Flow Rate 0 09/17/23 05:37 Pain Level 7 09/17/23 05:44
[2023-09-17] MEDS: Magnesium Citrate 300 ML BTL PO (06:25)
== END 2023-09-17 06:25 | disposition home or self-care (01) ==
PROVIDERS: Emergency Provider Emergency Medicine Emergency Medical Services; PCP Family Medicine
DX: K59.00 Constipation, unspecified (principal); L97.429 Non-pressure chronic ulcer of left heel and midfoot with unspecified severity; E11.9 Type 2 diabetes mellitus without complications
CPT/HCPCS: 99283

== ENCOUNTER 2023-09-17 23:11 | Emergency (ER) | payer MEDICARE, MEDICAID, SELFPAY ==
[2023-09-17 23:05] VITALS: BP 119/90; PULSE 103; RESP 18; TEMP 36.6; O2SAT 98
--- NOTE | 2023-09-17 23:10 | ED.GENADUL_ITS ---
Discharge Plan Disposition Patient Disposition: Home Condition: Stable Discharge Details Clinical Impression: Trouble getting to sleep, Anxiousness Primary Care Provider: Sakina Meng V ED Provider: Corinna Hernandez Home Meds and New Rx's Prescriptions: No Action indomethacin 50 mg capsule 50 mg PO TID PRN Rx Instructions: administer with food or milk diphenoxylate-atropine 2.5-0.025 mg tablet 1 tab PO QID PRN psyllium husk [Metamucil] 0.4 gram capsule 0.4 g PO DAILY gabapentin 300 mg capsule 300 mg PO QHS citalopram 10 mg tablet 10 mg PO DAILY multivitamin Tablet 1 tab PO DAILY benztropine 1 mg tablet 1 mg PO DAILY Rx Instructions: along with 2 mg to total 3 mg hs. benztropine 2 mg tablet See Rx Instructions PO QHS Rx Instructions: orally every day at bedtime; Take QHS for side-effect of shaking hands along with 1 mg to total 3 mg hs. Probiotic (B. coagulans) 10 billion cell capsule,delayed release(DR/EC) 1 cell PO clotrimazole 1 % cream 1 applic topical BID docusate sodium [Colace] 100 mg capsule 100 mg PO DAILY PRN clozapine 100 MG tablet 250 mg PO HS atenolol 25 MG tablet 25 mg PO DAILY lisinopril 5 MG tablet 5 mg PO DAILY Freedavite 1 EACH tablet 1 ea PO DAILY aspirin 325 mg Tablet,Delayed Release (Dr/Ec) 325 mg PO DAILY pantoprazole 40 mg tablet,delayed release (DR/EC) 40 mg PO DAILY Patient Comments: TAKE 1 TABLET BY MOUTH DAILY rosuvastatin 5 mg tablet 5 mg PO DAILY cholecalciferol (vitamin D3) [Vitamin D3] 50 mcg (2,000 unit) Tablet 50 mcg PO DAILY allopurinol 100 MG tablet 100 mg PO DAILY topiramate [Topamax] 25 MG tablet 50 mg PO BID docusate sodium [DOK] 100 mg capsule 100 mg PO DAILY Qty: 30 0RF Discharge Instructions Instructions: Anxiety (ED) Additional Instructions: You were given 1 mg or Lorazepam and 3mg Melatonin here in the ED. Please take 1mg Lorazepam at bedtime as needed at bedtime to help with sleeping. You may also try melatonin 3 mg at bedtime which you may get [id number]. Follow up with primary care provider in 3-5 days to discuss your new medication and whether or not this may be related to the medication. Return to ED sooner if any worsening or concerns. Increase oral fluids. Referrals: Sakina Meng MD [Primary Care Provider] - 09/21/23 (Call to discuss adverse reaction) Medical Decision Making 53-year-old male presents with chief complaint of unable to sleep. He did start a new medication 3 days ago and now is anxious and restless and cannot sleep. Lorazepam 1 mg p.o. ordered. Patient is able to call to get a ride home. Will observe for approximately 15 minutes and plan to discharge patient home with 3 tablets of lorazepam, 3 mg Melatonin and instructions. Patient was able to get ahold of family for a ride. Medical Records Medical records reviewed: Yes I reviewed the patient's medical records. HPI General Mode of arrival: EMS (Ambulatory with EMS) . Date/Time Provider Initiated Documentation: 09/17/23 23:24 . Limitations to Documentation: no limitations . Information obtained by: patient, EMS, RN notes reviewed and old records revie wed . HPI Narrative: 53-year-old male with past medical history of schizoaffective disorder, restless leg syndrome, diabetes mellitus, morbid obesity hyperlipidemia hypothyroidism, hypertension and diabetic polyneuropathy presents to the ER with a chief complaint of anxiety unable to relax and trouble sleeping. He did start Ingrezza 3 days ago which is for tardive dyskinesia. Patient was seen here approximately 24 hours ago for constipation and a foot ulcer. He is being treated by his PCP from [facility] following his foot ulcer for diabetes. Related Data Home Medications Medication Instructions Recorded Confirmed Freedavite 1.8 mg iron-400 mcg 1 ea PO DAILY 01/16/13 01/28/23 tablet (zwxvjlvd-qqb-zbtk fum-folic ac) atenolol 25 mg tablet 25 mg PO DAILY 01/16/13 01/28/23 clozapine 100 mg tablet 250 mg PO HS 01/16/13 01/28/23 lisinopril 5 mg tablet 5 mg PO DAILY 01/16/13 01/28/23 allopurinol 100 mg tablet 100 mg PO DAILY 03/16/18 01/28/23 topiramate 25 mg tablet (Topamax) 50 mg PO BID 03/16/18 01/28/23 aspirin 325 mg tablet,delayed 325 mg PO DAILY 12/08/21 01/28/23 release cholecalciferol (vitamin D3) 50 50 mcg PO DAILY 12/08/21 01/28/23 mcg (2,000 unit) tablet (Vitamin D3) pantoprazole 40 mg tablet,delayed 40 mg PO DAILY 12/08/21 01/28/23 release rosuvastatin 5 mg tablet 5 mg PO DAILY 12/08/21 01/28/23 diphenoxylate-atropine 2.5 1 tab PO QID PRN 10/29/22 01/28/23 mg-0.025 mg tablet gabapentin 300 mg capsule 300 mg PO QHS 10/29/22 01/28/23 indomethacin 50 mg capsule 50 mg PO TID PRN 10/29/22 01/28/23 psyllium husk 0.4 gram capsule 0.4 g PO DAILY 10/29/22 01/28/23 (Metamucil) Bacillus coagulans 10 billion cell 1 cell PO 11/02/22 01/28/23 capsule,delayed release (Probiotic (B. coagulans)) benztropine 1 mg tablet 1 mg PO DAILY 11/02/22 01/28/23 benztropine 2 mg tablet See Rx Instructions PO QHS 11/02/22 01/28/23 citalopram 10 mg tablet 10 mg PO DAILY 11/02/22 01/28/23 clotrimazole 1 % topical cream 1 applic topical BID 11/02/22 01/28/23 docusate sodium 100 mg capsule 100 mg PO DAILY PRN 11/02/22 01/28/23 (Colace) multivitamin 1 tab PO DAILY 11/02/22 01/28/23 docusate sodium 100 mg capsule 100 mg PO DAILY #30 caps 09/17/23 (DOK) Previous Rx's Medication Instructions Recorded docusate sodium 100 mg capsule 100 mg PO DAILY #30 caps 09/17/23 (DOK) Allergies Allergy/AdvReac Type Severity Reaction Status Date / Time No Known Allergies Allergy Unverified 09/17/23 23:11 General GUS: 4 Review of Systems Psychiatric Psychiatric: Reports as per HPI and Reports anxiety PFSH All Active Problems (Updated 09/17/23 @ 23:29 by Corinna Hernandez NP) Anxiousness (Chronic) Trouble getting to sleep (Acute) Constipation (Acute) Abscess (Acute) Ulcer of heel (Acute) BMI 38.0-38.9,adult (Acute) History of tobacco use (Acute) IBS (irritable bowel syndrome) (Chronic) Foot deformity (Acute) Tremor (Acute) Nail dystrophy (Acute) Osteomyelitis of toe of left foot (Acute) Type 2 diabetes mellitus (Chronic) Discharge planning issues (Acute) Staphylococcus aureus bacteremia (Acute) Fever (Acute) Positive blood culture (Acute) Diabetic peripheral neuropathy (Chronic) GERD (gastroesophageal reflux disease) (Chronic) Gout (Acute) Schizoaffective disorder (Chronic) HTN (hypertension) (Chronic) Cellulitis of great toe, left (Acute) Cellulitis of second toe, left (Acute) Diabetes mellitus type 2 in obese (Chronic) Medical History Acute pain of left knee (03/04/16) Diverticulosis Cerebral artery occlusion Atrial septal aneurysm Fatty liver Schizoaffective disorder Hypothyroidism Hyperlipidemia Morbid obesity Diabetes mellitus Diabetic polyneuropathy Essential hypertension Surgical History repair Patent foramen ovale Cholecystectomy Family History Mother Personal history of malignant neoplasm Breast cancer Father Heart disease Atrial Fibrillation Sister Epilepsy Grandfather Personal history of malignant neoplasm Leukemia Grandmother Personal history of malignant neoplasm pancreatic cancer Social History Smoking/Tobacco Use Status: Former Tobacco Use Smoking risk assessment performed?: Yes Alcohol Intake: never Drug use: Never Substance use type: does not use Housing: other Do you feel safe at home: Yes Do you feel safe in your relationship?: Yes Exam Narrative Exam Narrative: Constitutional: Alert and oriented x3. Appears stated age. Obese body habitus. Appears anxious. Requesting to walk around the department. Head: Normocephalic, no trauma. Eyes: Pupils PERRL, Red reflex noted, EOM's intact. Eyelids symmetrical without lesions, discharge, or swelling. Chest: , Normal S1, S2, distal pulses intact. Resp: Lungs clear to auscultation bilaterally, no wheezes, rales, or rhonchi. Abdomen: Soft, non-distended, Normoactive bowel sounds all 4 quads. Musculoskeletal: Normal gait, 5/5 strength to all four extremities. Wearing a walking boot on his left lower extremity. Skin: No suspicious rashes or lesions. Capillary refill less than 2 sec. Neurologic: Cranial nerves II-XII intact. Alert and oriented x 3. Motor: No deficits noted. Sensory: Intact bilaterally all 4 extremities. Reflexes: DTR's intact bilaterally.. Hematologic/Lymphatic: No ecchymosis, no lymphadenopathy. Psych Appearance: well kempt Mood: anxious mood Affect: anxious affect Attitude: cooperative Thought Content: no hallucinations, no homicidality and suicidality
[2023-09-17 23:12] VITALS: RESP 18
[2023-09-17] MEDS: LORazepam 1 MG TAB PO (23:27)
[2023-09-17] MEDS: Melatonin 3 MG TAB PO (23:27)
[2023-09-18] MEDS: LORazepam 1 MG TAB 3 MG PO (00:08)
== END 2023-09-18 00:29 | disposition home or self-care (01) ==
PROVIDERS: Emergency Provider Registered Nurse Emergency; PCP Family Medicine
DX: F41.9 Anxiety disorder, unspecified (principal); G47.9 Sleep disorder, unspecified; G25.81 Restless legs syndrome; E03.9 Hypothyroidism, unspecified; E78.5 Hyperlipidemia, unspecified; E11.42 Type 2 diabetes mellitus with diabetic polyneuropathy; I10 Essential (primary) hypertension; Z79.82 Long term (current) use of aspirin; Z79.899 Other long term (current) drug therapy; Z87.891 Personal history of nicotine dependence
CPT/HCPCS: 99283

== ENCOUNTER 2023-10-19 03:44 | Outpatient (CLI) | payer MEDICARE, MEDICAID, SELFPAY ==
[2023-10-19 11:03] LABS: Abs Immature Grans 0.13 10^3/uL (0.0-0.06); Absolute Basophil Count 0.05 10^3/uL (0.0-0.2); Absolute Eosinophil Count 0.03 10^3/uL (0.0-0.7); Absolute Monocyte Count 1.07 10^3/uL (0.1-0.8); Basophils % 0.3; Eosinophils % 0.2; HCT 41.8 % (40.0-50.0); HGB 13.9 g/dL (13.5-17.5); Immature Grans % 0.8; Lymphocytes % 19.6; MCH 29.6 pg (27.0-33.0); MCHC 33.3 % (32.0-36.0); MCV 89 fL (80-95); Neutrophils % 72.1; Platelet Count 327 10^3/uL (130-400); RBC 4.69 10^6/uL (4.36-5.78); RDW 14.5 % (11.8-14.1); RDW-SD 46.9 fL; WBC 15.32 10^3/uL (4.4-10.8)
[2023-10-19 11:05] LABS: Absolute Neutrophil Count 11.05 10^3/uL (1.2-6.7)
== END 2023-10-19 03:45 | disposition home or self-care (01) ==
PROVIDERS: PCP Family Medicine; Visit Provider Counselor Addiction (Substance Use Disorder)
DX: Z79.899 Other long term (current) drug therapy (principal)
CPT/HCPCS: 36415; 85025

== ENCOUNTER 2023-11-15 05:04 | Outpatient (CLI) | payer MEDICARE, MEDICAID, SELFPAY ==
[2023-11-15 13:40] LABS: Abs Immature Grans 0.12 10^3/uL (0.0-0.06); Absolute Lymphocyte Count 2.77 10^3/uL (1.2-3.4); Absolute Monocyte Count 1.17 10^3/uL (0.1-0.8); Absolute Neutrophil Count 12.15 10^3/uL (1.2-6.7); Basophils % 0.4; Eosinophils % 0.2; HCT 43.2 % (40.0-50.0); HGB 14.6 g/dL (13.5-17.5); Immature Grans % 0.7; MCH 29.6 pg (27.0-33.0); MCHC 33.8 % (32.0-36.0); MCV 88 fL (80-95); MPV 11.6 fL (8.0-11.0); Monocytes % 7.2; Neutrophils % 74.5; Platelet Count 298 10^3/uL (130-400); RBC 4.93 10^6/uL (4.36-5.78); RDW 14.1 % (11.8-14.1); RDW-SD 45.4 fL; WBC 16.31 10^3/uL (4.4-10.8)
[2023-11-15 13:41] LABS: Absolute Basophil Count 0.07 10^3/uL (0.0-0.2); Absolute Eosinophil Count 0.03 10^3/uL (0.0-0.7)
== END 2023-11-15 05:05 | disposition home or self-care (01) ==
LOC: LBO 05:04
PROVIDERS: PCP Family Medicine; Visit Provider Counselor Addiction (Substance Use Disorder)
DX: F20.9 Schizophrenia, unspecified (principal); Z79.899 Other long term (current) drug therapy
CPT/HCPCS: 36415; 85025

== ENCOUNTER 2023-12-07 12:56 | Outpatient (CLI) | payer MEDICARE, MEDICAID, SELFPAY ==
[2023-12-07 11:41] LABS: Abs Immature Grans 0.07 10^3/uL (0.0-0.06); Absolute Basophil Count 0.04 10^3/uL (0.0-0.2); Absolute Eosinophil Count 0.03 10^3/uL (0.0-0.7); Absolute Lymphocyte Count 2.37 10^3/uL (1.2-3.4); Basophils % 0.3; Eosinophils % 0.2; HCT 41.5 % (40.0-50.0); HGB 14.1 g/dL (13.5-17.5); Immature Grans % 0.5; Lymphocytes % 16.9; MCH 29.1 pg (27.0-33.0); MCV 86 fL (80-95); MPV 11.3 fL (8.0-11.0); Monocytes % 8.1; Platelet Count 285 10^3/uL (130-400); RBC 4.84 10^6/uL (4.36-5.78); RDW 13.7 % (11.8-14.1); RDW-SD 42.7 fL
[2023-12-07 11:43] LABS: Absolute Monocyte Count 1.13 10^3/uL (0.1-0.8); Absolute Neutrophil Count 10.36 10^3/uL (1.2-6.7)
== END 2023-12-07 12:57 | disposition home or self-care (01) ==
LOC: LBO 12:56
PROVIDERS: PCP Family Medicine; Visit Provider Counselor Addiction (Substance Use Disorder)
DX: F20.9 Schizophrenia, unspecified (principal); Z79.899 Other long term (current) drug therapy
CPT/HCPCS: 36415; 85025

== ENCOUNTER 2023-12-13 20:23 | Outpatient (REF) | payer MEDICARE, MEDICAID, SELFPAY ==
[2023-12-14 20:31] LABS: Campylobacter PCR Negative (Negative); Salmonella PCR Negative (Negative); Shiga Toxin PCR Negative (Negative); Shigella/Enteroinvasive Ecoli Negative (Negative)
== END 2023-12-13 20:24 | disposition home or self-care (01) ==
LOC: NCHCN 20:23
PROVIDERS: PCP Family Medicine; Visit Provider Nurse Practitioner Family
DX: R19.7 Diarrhea, unspecified (principal)
CPT/HCPCS: 87329; 87505

== ENCOUNTER 2023-12-14 18:14 | Outpatient (REF) | payer MEDICARE, MEDICAID, SELFPAY ==
[2023-12-14 17:50] LABS: C Diff PCR Negative (Negative)
== END 2023-12-14 18:15 | disposition home or self-care (01) ==
LOC: NCHCN 18:14
PROVIDERS: PCP Family Medicine; Visit Provider Nurse Practitioner Family
DX: R19.7 Diarrhea, unspecified (principal)
CPT/HCPCS: 87329; 87493; 87505; 83630

== ENCOUNTER 2024-01-04 04:33 | Outpatient (CLI) | payer MEDICARE, MEDICAID, SELFPAY ==
[2024-01-04 10:15] LABS: Abs Immature Grans 0.06 10^3/uL (0.0-0.06); Absolute Basophil Count 0.04 10^3/uL (0.0-0.2); Absolute Eosinophil Count 0.08 10^3/uL (0.0-0.7); Absolute Lymphocyte Count 2.79 10^3/uL (1.2-3.4); Absolute Monocyte Count 0.86 10^3/uL (0.1-0.8); Absolute Neutrophil Count 8.76 10^3/uL (1.2-6.7); Basophils % 0.3; Eosinophils % 0.6; HCT 46.2 % (40.0-50.0); HGB 15.1 g/dL (13.5-17.5); Immature Grans % 0.5; Lymphocytes % 22.2; MCH 29.2 pg (27.0-33.0); MCHC 32.7 % (32.0-36.0); MCV 89 fL (80-95); MPV 11.1 fL (8.0-11.0); Monocytes % 6.8; Neutrophils % 69.6; Platelet Count 300 10^3/uL (130-400); RBC 5.17 10^6/uL (4.36-5.78); RDW 14.6 % (11.8-14.1); RDW-SD 48.2 fL; WBC 12.59 10^3/uL (4.4-10.8)
== END 2024-01-04 04:34 | disposition home or self-care (01) ==
LOC: LBO 04:33
PROVIDERS: PCP Family Medicine; Visit Provider Counselor Addiction (Substance Use Disorder)
DX: F20.9 Schizophrenia, unspecified (principal); Z79.899 Other long term (current) drug therapy
CPT/HCPCS: 36415; 85025

== ENCOUNTER 2024-02-07 04:45 | Outpatient (CLI) | payer MEDICARE, MEDICAID, SELFPAY ==
[2024-02-07 11:02] LABS: Abs Immature Grans 0.12 10^3/uL (0.0-0.06); Absolute Basophil Count 0.07 10^3/uL (0.0-0.2); Absolute Lymphocyte Count 2.97 10^3/uL (1.2-3.4); Basophils % 0.4 %; Eosinophils % 0.2 %; HCT 43.2 % (40.0-50.0); HGB 14.2 g/dL (13.5-17.5); Immature Grans % 0.7 %; Lymphocytes % 16.8 %; MCH 28.8 pg (27.0-33.0); MCHC 32.9 % (32.0-36.0); MCV 88 fL (80-95); MPV 11.3 fL (8.0-11.0); Monocytes % 6.2 %; Neutrophils % 75.7 %; Platelet Count 322 10^3/uL (130-400); RBC 4.93 10^6/uL (4.36-5.78); RDW 14.4 % (11.8-14.1); RDW-SD 46.5 fL; WBC 17.69 10^3/uL (4.4-10.8)
[2024-02-07 11:04] LABS: Absolute Eosinophil Count 0.04 10^3/uL (0.0-0.7); Absolute Neutrophil Count 13.39 10^3/uL (1.2-6.7)
== END 2024-02-07 04:46 | disposition home or self-care (01) ==
PROVIDERS: PCP Family Medicine; Visit Provider Nurse Practitioner Family
DX: F20.5 Residual schizophrenia (principal); Z79.899 Other long term (current) drug therapy
CPT/HCPCS: 36415; 85025

== ENCOUNTER 2024-02-10 14:23 | Outpatient (REF) | payer MEDICARE, MEDICAID, SELFPAY ==
[2024-02-11 23:26] LABS: Campylobacter PCR Negative (Negative); Salmonella PCR Negative (Negative); Shiga Toxin PCR Negative (Negative); Shigella/Enteroinvasive Ecoli Negative (Negative)
== END 2024-02-10 14:24 | disposition home or self-care (01) ==
LOC: NCHCN 14:23
PROVIDERS: PCP Family Medicine; Visit Provider Nurse Practitioner Family
DX: R19.7 Diarrhea, unspecified (principal)
CPT/HCPCS: 87329; 87505; 83630

== ENCOUNTER 2024-03-06 06:03 | Outpatient (CLI) | payer MEDICARE, MEDICAID, SELFPAY ==
[2024-03-06 11:11] LABS: Abs Immature Grans 0.08 10^3/uL (0.0-0.06); Absolute Eosinophil Count 0.07 10^3/uL (0.0-0.7); Absolute Monocyte Count 1.13 10^3/uL (0.1-0.8); Absolute Neutrophil Count 13.05 10^3/uL (1.2-6.7); Basophils % 0.2 %; Eosinophils % 0.4 %; HCT 44.2 % (40.0-50.0); HGB 14.8 g/dL (13.5-17.5); Immature Grans % 0.5 %; MCH 29.5 pg (27.0-33.0); MCHC 33.5 % (32.0-36.0); MCV 88 fL (80-95); MPV 11.4 fL (8.0-11.0); Monocytes % 6.7 %; Neutrophils % 77.2 %; Platelet Count 281 10^3/uL (130-400); RBC 5.02 10^6/uL (4.36-5.78); RDW 14.6 % (11.8-14.1)
[2024-03-06 11:28] LABS: Absolute Basophil Count 0.03 10^3/uL (0.0-0.2); Absolute Lymphocyte Count 2.54 10^3/uL (1.2-3.4)
== END 2024-03-06 06:04 | disposition home or self-care (01) ==
LOC: LBO 06:04
PROVIDERS: PCP Family Medicine; Visit Provider Nurse Practitioner Family
DX: Z79.899 Other long term (current) drug therapy (principal)
CPT/HCPCS: 36415; 85025

== ENCOUNTER 2024-04-04 04:49 | Outpatient (CLI) | payer MEDICARE, MEDICAID, SELFPAY ==
[2024-04-04 11:56] LABS: Absolute Basophil Count 0.04 10^3/uL (0.0-0.2); Absolute Eosinophil Count 0.05 10^3/uL (0.0-0.7); Absolute Neutrophil Count 9.23 10^3/uL (1.2-6.7); Basophils % 0.3 %; Eosinophils % 0.4 %; HCT 41.7 % (40.0-50.0); Immature Grans % 0.8 %; Lymphocytes % 21.4 %; MCH 29.9 pg (27.0-33.0); MCHC 33.6 % (32.0-36.0); MCV 89 fL (80-95); MPV 10.8 fL (8.0-11.0); Monocytes % 6.6 %; Neutrophils % 70.5 %; Platelet Count 271 10^3/uL (130-400); RBC 4.68 10^6/uL (4.36-5.78); RDW 14.2 % (11.8-14.1); RDW-SD 45.5 fL; WBC 13.09 10^3/uL (4.4-10.8)
[2024-04-04 11:58] LABS: Absolute Monocyte Count 0.86 10^3/uL (0.1-0.8)
== END 2024-04-04 04:50 | disposition home or self-care (01) ==
LOC: LBO 04:49
PROVIDERS: PCP Family Medicine; Visit Provider Nurse Practitioner Family
DX: Z79.899 Other long term (current) drug therapy (principal); F25.0 Schizoaffective disorder, bipolar type
CPT/HCPCS: 36415; 85025

== ENCOUNTER 2024-05-02 16:20 | Outpatient (CLI) | payer MEDICARE, MEDICAID, SELFPAY ==
[2024-05-02 10:36] LABS: Abs Immature Grans 0.07 10^3/uL (0.0-0.06); Absolute Basophil Count 0.03 10^3/uL (0.0-0.2); Absolute Lymphocyte Count 2.44 10^3/uL (1.2-3.4); Absolute Monocyte Count 1.01 10^3/uL (0.1-0.8); Basophils % 0.2 %; Eosinophils % 0.4 %; HGB 14.3 g/dL (13.5-17.5); Immature Grans % 0.5 %; Lymphocytes % 17.4 %; MCH 29.8 pg (27.0-33.0); MCV 88 fL (80-95); MPV 11.4 fL (8.0-11.0); Monocytes % 7.2 %; Neutrophils % 74.3 %; Platelet Count 284 10^3/uL (130-400); RDW 14.1 % (11.8-14.1); RDW-SD 45.6 fL; WBC 14.04 10^3/uL (4.4-10.8)
[2024-05-02 10:40] LABS: Absolute Eosinophil Count 0.06 10^3/uL (0.0-0.7); Absolute Neutrophil Count 10.43 10^3/uL (1.2-6.7)
== END 2024-05-02 16:21 | disposition home or self-care (01) ==
LOC: LBO 16:21
PROVIDERS: PCP Family Medicine; Visit Provider Nurse Practitioner Family
DX: Z79.899 Other long term (current) drug therapy (principal)
CPT/HCPCS: 36415; 85025

== ENCOUNTER 2024-06-02 01:21 | Outpatient (CLI) | payer MEDICARE, MEDICAID, SELFPAY ==
[2024-06-02 10:25] LABS: Abs Immature Grans 0.13 10^3/uL (0.0-0.06); Absolute Eosinophil Count 0.06 10^3/uL (0.0-0.7); Basophils % 0.3 %; Eosinophils % 0.4 %; HCT 43.9 % (40.0-50.0); HGB 15.1 g/dL (13.5-17.5); Immature Grans % 0.9 %; Lymphocytes % 18.4 %; MCH 30.6 pg (27.0-33.0); MCHC 34.4 % (32.0-36.0); MCV 89 fL (80-95); MPV 11.5 fL (8.0-11.0); Monocytes % 7.3 %; Neutrophils % 72.7 %; Platelet Count 314 10^3/uL (130-400); RBC 4.93 10^6/uL (4.36-5.78); RDW 14.4 % (11.8-14.1); RDW-SD 46.1 fL; WBC 15.02 10^3/uL (4.4-10.8)
[2024-06-02 10:27] LABS: Absolute Basophil Count 0.05 10^3/uL (0.0-0.2); Absolute Lymphocyte Count 2.76 10^3/uL (1.2-3.4); Absolute Neutrophil Count 10.92 10^3/uL (1.2-6.7)
== END 2024-06-02 01:22 | disposition home or self-care (01) ==
PROVIDERS: Nurse Practitioner Psychiatric/Mental Health; PCP Family Medicine; Visit Provider Nurse Practitioner Psychiatric/Mental Health
DX: Z79.899 Other long term (current) drug therapy (principal)
CPT/HCPCS: 36415; 85025

== ENCOUNTER 2024-06-27 03:41 | Outpatient (CLI) | payer MEDICARE, MEDICAID, SELFPAY ==
[2024-06-27 10:50] LABS: Abs Immature Grans 0.13 10^3/uL (0.0-0.06); Absolute Basophil Count 0.04 10^3/uL (0.0-0.2); Absolute Eosinophil Count 0.04 10^3/uL (0.0-0.7); Absolute Monocyte Count 1.08 10^3/uL (0.1-0.8); Basophils % 0.3 %; Eosinophils % 0.3 %; HCT 41.3 % (40.0-50.0); Immature Grans % 0.9 %; Lymphocytes % 17.9 %; MCH 30.1 pg (27.0-33.0); MCHC 33.9 % (32.0-36.0); MCV 89 fL (80-95); MPV 11.2 fL (8.0-11.0); Monocytes % 7.6 %; Platelet Count 272 10^3/uL (130-400); RBC 4.65 10^6/uL (4.36-5.78); RDW 14.1 % (11.8-14.1); RDW-SD 45.4 fL; WBC 14.22 10^3/uL (4.4-10.8)
[2024-06-27 10:52] LABS: Absolute Lymphocyte Count 2.55 10^3/uL (1.2-3.4); Absolute Neutrophil Count 10.38 10^3/uL (1.2-6.7)
== END 2024-06-27 03:42 | disposition home or self-care (01) ==
LOC: LBO 03:42
PROVIDERS: PCP Family Medicine; Visit Provider Nurse Practitioner Psychiatric/Mental Health
DX: Z79.899 Other long term (current) drug therapy (principal)
CPT/HCPCS: 36415; 85025

== ENCOUNTER 2024-07-25 02:51 | Outpatient (CLI) | payer MEDICARE, MEDICAID, SELFPAY ==
[2024-07-25 11:25] LABS: Abs Immature Grans 0.18 10^3/uL (0.0-0.06); Absolute Basophil Count 0.03 10^3/uL (0.0-0.2); Absolute Lymphocyte Count 2.89 10^3/uL (1.2-3.4); Basophils % 0.2 %; Eosinophils % 0.3 %; HCT 43.8 % (40.0-50.0); HGB 14.6 g/dL (13.5-17.5); Immature Grans % 1.2 %; Lymphocytes % 19.2 %; MCH 29.7 pg (27.0-33.0); MCHC 33.3 % (32.0-36.0); MCV 89 fL (80-95); MPV 11.1 fL (8.0-11.0); Monocytes % 6.9 %; Neutrophils % 72.2 %; Platelet Count 304 10^3/uL (130-400); RBC 4.92 10^6/uL (4.36-5.78); RDW 13.8 % (11.8-14.1); RDW-SD 44.9 fL; WBC 15.03 10^3/uL (4.4-10.8)
[2024-07-25 11:27] LABS: Absolute Eosinophil Count 0.05 10^3/uL (0.0-0.7); Absolute Monocyte Count 1.04 10^3/uL (0.1-0.8); Absolute Neutrophil Count 10.85 10^3/uL (1.2-6.7)
== END 2024-07-25 02:52 | disposition home or self-care (01) ==
LOC: LBO 02:51
PROVIDERS: PCP Family Medicine; Visit Provider Nurse Practitioner Family
DX: Z79.899 Other long term (current) drug therapy (principal); F25.0 Schizoaffective disorder, bipolar type
CPT/HCPCS: 36415; 85025

== ENCOUNTER 2024-08-11 11:58 | Outpatient (CLI) | payer MEDICARE, MEDICAID, SELFPAY ==
[2024-08-11 12:25] LABS: Abs Immature Grans 0.12 10^3/uL (0.0-0.06); Absolute Basophil Count 0.05 10^3/uL (0.0-0.2); Absolute Monocyte Count 0.79 10^3/uL (0.1-0.8); Basophils % 0.3 %; Eosinophils % 0.3 %; HCT 42.8 % (40.0-50.0); HGB 14.2 g/dL (13.5-17.5); Immature Grans % 0.8 %; Lymphocytes % 16.3 %; MCH 29.8 pg (27.0-33.0); MCHC 33.2 % (32.0-36.0); MCV 90 fL (80-95); MPV 10.9 fL (8.0-11.0); Monocytes % 5.1 %; Neutrophils % 77.2 %; Platelet Count 286 10^3/uL (130-400); RBC 4.76 10^6/uL (4.36-5.78); RDW 13.8 % (11.8-14.1); RDW-SD 45.8 fL; WBC 15.54 10^3/uL (4.4-10.8)
[2024-08-11 12:29] LABS: Absolute Eosinophil Count 0.05 10^3/uL (0.0-0.7); Absolute Lymphocyte Count 2.53 10^3/uL (1.2-3.4)
== END 2024-08-11 11:59 | disposition home or self-care (01) ==
LOC: LBO 12:00
PROVIDERS: PCP Family Medicine; Visit Provider Nurse Practitioner Family
DX: Z79.899 Other long term (current) drug therapy (principal); F25.0 Schizoaffective disorder, bipolar type
CPT/HCPCS: 36415; 85025

== ENCOUNTER 2024-08-29 11:23 | Outpatient (CLI) | payer MEDICARE, MEDICAID, SELFPAY ==
[2024-08-29 11:36] LABS: Abs Immature Grans 0.07 10^3/uL (0.0-0.06); Absolute Basophil Count 0.05 10^3/uL (0.0-0.2); Absolute Eosinophil Count 0.02 10^3/uL (0.0-0.7); Absolute Lymphocyte Count 2.49 10^3/uL (1.2-3.4); Absolute Monocyte Count 0.82 10^3/uL (0.1-0.8); Basophils % 0.4 %; Eosinophils % 0.2 %; HCT 43.7 % (40.0-50.0); HGB 14.5 g/dL (13.5-17.5); Immature Grans % 0.6 %; Lymphocytes % 21.4 %; MCH 29.6 pg (27.0-33.0); MCHC 33.2 % (32.0-36.0); MCV 89 fL (80-95); MPV 10.9 fL (8.0-11.0); Neutrophils % 70.4 %; Platelet Count 292 10^3/uL (130-400); RDW 13.7 % (11.8-14.1); RDW-SD 44.8 fL; WBC 11.65 10^3/uL (4.4-10.8)
== END 2024-08-29 11:24 | disposition home or self-care (01) ==
LOC: LBO 11:25
PROVIDERS: PCP Family Medicine; Visit Provider Nurse Practitioner Family
DX: Z79.899 Other long term (current) drug therapy (principal)
CPT/HCPCS: 36415; 85025

== ENCOUNTER 2024-11-03 01:18 | Outpatient (CLI) | payer MEDICARE, MEDICAID, SELFPAY ==
[2024-11-03 11:44] LABS: Abs Immature Grans 0.11 10^3/uL (0.0-0.06); Absolute Basophil Count 0.05 10^3/uL (0.0-0.2); Absolute Lymphocyte Count 2.28 10^3/uL (1.2-3.4); Basophils % 0.3 %; Eosinophils % 0.3 %; HCT 41.7 % (40.0-50.0); HGB 13.7 g/dL (13.5-17.5); Immature Grans % 0.6 %; Lymphocytes % 12.8 %; MCH 29.2 pg (27.0-33.0); MCHC 32.9 % (32.0-36.0); MCV 89 fL (80-95); Neutrophils % 77.1 %; Platelet Count 289 10^3/uL (130-400); RBC 4.69 10^6/uL (4.36-5.78); RDW-SD 48.8 fL; WBC 17.85 10^3/uL (4.4-10.8)
[2024-11-03 12:01] LABS: Absolute Eosinophil Count 0.05 10^3/uL (0.0-0.7); Absolute Monocyte Count 1.59 10^3/uL (0.1-0.8); Absolute Neutrophil Count 13.76 10^3/uL (1.2-6.7)
[2024-11-03 12:02] LABS: Monocytes % 8.9 %
== END 2024-11-03 01:19 | disposition home or self-care (01) ==
LOC: LBO 01:18
PROVIDERS: PCP Family Medicine; Visit Provider Nurse Practitioner Psychiatric/Mental Health
DX: F25.0 Schizoaffective disorder, bipolar type (principal); Z79.899 Other long term (current) drug therapy
CPT/HCPCS: 36415; 85025

== ENCOUNTER 2024-11-28 03:03 | Outpatient (CLI) | payer MEDICARE, MEDICAID, SELFPAY ==
[2024-11-28 11:13] LABS: Abs Immature Grans 0.08 10^3/uL (0.0-0.06); Absolute Basophil Count 0.04 10^3/uL (0.0-0.2); Absolute Lymphocyte Count 2.34 10^3/uL (1.2-3.4); Absolute Monocyte Count 0.92 10^3/uL (0.1-0.8); Basophils % 0.3 %; Eosinophils % 0.4 %; HCT 43.1 % (40.0-50.0); HGB 14.3 g/dL (13.5-17.5); Immature Grans % 0.6 %; Lymphocytes % 17.1 %; MCH 28.9 pg (27.0-33.0); MCHC 33.2 % (32.0-36.0); MCV 87 fL (80-95); MPV 11.1 fL (8.0-11.0); Monocytes % 6.7 %; Neutrophils % 74.9 %; Platelet Count 298 10^3/uL (130-400); RBC 4.95 10^6/uL (4.36-5.78); RDW 14.9 % (11.8-14.1); RDW-SD 47.8 fL; WBC 13.66 10^3/uL (4.4-10.8)
[2024-11-28 11:15] LABS: Absolute Eosinophil Count 0.05 10^3/uL (0.0-0.7); Absolute Neutrophil Count 10.23 10^3/uL (1.2-6.7)
[2024-11-28 11:24] LABS: Hemoglobin A1C 5.7 % (<5.7)
[2024-11-28 11:53] LABS: ALT 25 U/L (16-63); AST 17 U/L (15-37); Albumin 3.7 g/dL (3.4-5.0); Alkaline Phosphatase 126 U/L (46-116); Anion Gap 10.7 mmol/L (3-11); BUN 16 mg/dL (7-18); Bilirubin, Total 0.36 mg/dL (0.2-1.0); CO2 23.3 mmol/L (21.0-32.0); CREATININE 1.3 mg/dL (0.70-1.30); Calcium 9.2 mg/dL (8.5-10.1); Chloride 108 mmol/L (98-107); Estimated GFR 65.69 (mL/min/1.73m2); Glucose 129 mg/dL (74-106); Sodium 142 mmol/L (136-145); Total Protein 7.4 g/dL (6.4-8.2)
[2024-11-28 18:28] LABS: CRP, High Sensitivity 8.42 mg/L (See Note)
== END 2024-11-28 03:04 | disposition home or self-care (01) ==
PROVIDERS: PCP Family Medicine; Visit Provider Nurse Practitioner Psychiatric/Mental Health
DX: Z79.899 Other long term (current) drug therapy (principal); Z12.5 Encounter for screening for malignant neoplasm of prostate; F25.0 Schizoaffective disorder, bipolar type
CPT/HCPCS: 36415; 80053; 84153; 86141; 83036; 85025; 86140

== ENCOUNTER 2024-12-27 03:01 | Outpatient (CLI) | payer MEDICARE, MEDICAID, SELFPAY ==
[2024-12-27 09:15] LABS: Abs Immature Grans 0.13 10^3/uL (0.0-0.06); Absolute Basophil Count 0.03 10^3/uL (0.0-0.2); Absolute Eosinophil Count 0.08 10^3/uL (0.0-0.7); Absolute Lymphocyte Count 3.25 10^3/uL (1.2-3.4); Absolute Monocyte Count 1.05 10^3/uL (0.1-0.8); Absolute Neutrophil Count 8.79 10^3/uL (1.2-6.7); Basophils % 0.2 %; Eosinophils % 0.6 %; HCT 43.4 % (40.0-50.0); HGB 14.5 g/dL (13.5-17.5); Lymphocytes % 24.4 %; MCHC 33.4 % (32.0-36.0); MCV 87 fL (80-95); MPV 10.8 fL (8.0-11.0); Monocytes % 7.9 %; Neutrophils % 65.9 %; Platelet Count 305 10^3/uL (130-400); RDW 15.2 % (11.8-14.1); RDW-SD 48.4 fL; WBC 13.34 10^3/uL (4.4-10.8)
== END 2024-12-27 03:02 | disposition home or self-care (01) ==
LOC: LBO 03:02
PROVIDERS: PCP Family Medicine; Visit Provider Nurse Practitioner Psychiatric/Mental Health
DX: Z79.899 Other long term (current) drug therapy (principal); F25.0 Schizoaffective disorder, bipolar type
CPT/HCPCS: 36415; 85025

== ENCOUNTER 2025-01-30 01:55 | Outpatient (CLI) | payer MEDICARE, MEDICAID, SELFPAY ==
[2025-01-30 10:03] LABS: Abs Immature Grans 0.12 10^3/uL (0.0-0.06); Absolute Lymphocyte Count 3.09 10^3/uL (1.2-3.4); Basophils % 0.3 %; Eosinophils % 0.3 %; HCT 42.3 % (40.0-50.0); HGB 14.2 g/dL (13.5-17.5); Immature Grans % 0.8 %; Lymphocytes % 21.6 %; MCH 29.1 pg (27.0-33.0); MCHC 33.6 % (32.0-36.0); MCV 87 fL (80-95); MPV 10.8 fL (8.0-11.0); Monocytes % 7.5 %; Neutrophils % 69.5 %; Platelet Count 348 10^3/uL (130-400); RBC 4.88 10^6/uL (4.36-5.78); RDW 15.2 % (11.8-14.1); RDW-SD 48.3 fL; WBC 14.32 10^3/uL (4.4-10.8)
[2025-01-30 10:10] LABS: Absolute Basophil Count 0.04 10^3/uL (0.0-0.2); Absolute Eosinophil Count 0.04 10^3/uL (0.0-0.7); Absolute Monocyte Count 1.07 10^3/uL (0.1-0.8); Absolute Neutrophil Count 9.95 10^3/uL (1.2-6.7)
== END 2025-01-30 01:56 | disposition home or self-care (01) ==
LOC: LBO 01:56
PROVIDERS: PCP Family Medicine; Visit Provider Nurse Practitioner Psychiatric/Mental Health
DX: F25.0 Schizoaffective disorder, bipolar type (principal); Z79.899 Other long term (current) drug therapy
CPT/HCPCS: 36415; 85025

== ENCOUNTER 2025-02-27 02:07 | Outpatient (CLI) | payer MEDICARE, MEDICAID, SELFPAY ==
[2025-02-27 10:54] LABS: Absolute Basophil Count 0.04 10^3/uL (0.0-0.2); Absolute Eosinophil Count 0.04 10^3/uL (0.0-0.7); Basophils % 0.2 %; Eosinophils % 0.2 %; HCT 44.7 % (40.0-50.0); HGB 14.6 g/dL (13.5-17.5); Immature Grans % 0.5 %; Lymphocytes % 12.8 %; MCH 28.9 pg (27.0-33.0); MCHC 32.7 % (32.0-36.0); MCV 88 fL (80-95); MPV 11.3 fL (8.0-11.0); Monocytes % 5.4 %; Neutrophils % 80.9 %; Platelet Count 276 10^3/uL (130-400); RBC 5.06 10^6/uL (4.36-5.78); RDW 14.7 % (11.8-14.1); RDW-SD 47.4 fL; WBC 19.17 10^3/uL (4.4-10.8)
[2025-02-27 10:58] LABS: Absolute Lymphocyte Count 2.45 10^3/uL (1.2-3.4); Absolute Monocyte Count 1.04 10^3/uL (0.1-0.8); Absolute Neutrophil Count 15.51 10^3/uL (1.2-6.7)
== END 2025-02-27 02:08 | disposition home or self-care (01) ==
PROVIDERS: PCP Family Medicine; Visit Provider Nurse Practitioner Psychiatric/Mental Health
DX: F25.0 Schizoaffective disorder, bipolar type (principal)
CPT/HCPCS: 36415; 85025

== ENCOUNTER 2025-03-29 02:52 | Outpatient (CLI) | payer MEDICARE, MEDICAID, SELFPAY ==
[2025-03-29 10:40] LABS: Abs Immature Grans 0.08 10^3/uL (0.0-0.06); HCT 41.6 % (40.0-50.0); HGB 13.9 g/dL (13.5-17.5); Immature Grans % 0.6 %; MCH 29.4 pg (27.0-33.0); MCHC 33.4 % (32.0-36.0); MCV 88 fL (80-95); MPV 11.2 fL (8.0-11.0); Platelet Count 282 10^3/uL (130-400); RBC 4.72 10^6/uL (4.36-5.78); RDW 13.9 % (11.8-14.1); RDW-SD 45.3 fL; WBC 13.56 10^3/uL (4.4-10.8)
== END 2025-03-29 02:53 | disposition home or self-care (01) ==
LOC: LBO 02:52
PROVIDERS: PCP Family Medicine; Visit Provider Nurse Practitioner Psychiatric/Mental Health
DX: Z79.899 Other long term (current) drug therapy (principal); F25.0 Schizoaffective disorder, bipolar type
CPT/HCPCS: 36415; 85025

== ENCOUNTER 2025-05-01 03:40 | Outpatient (CLI) | payer MEDICARE, MEDICAID, SELFPAY ==
[2025-05-01 12:49] LABS: Abs Immature Grans 0.09 10^3/uL (0.0-0.06); HCT 42.9 % (40.0-50.0); HGB 14.4 g/dL (13.5-17.5); Immature Grans % 0.6 %; MCH 30.1 pg (27.0-33.0); MCHC 33.6 % (32.0-36.0); MCV 90 fL (80-95); MPV 11.1 fL (8.0-11.0); Platelet Count 278 10^3/uL (130-400); RBC 4.78 10^6/uL (4.36-5.78); RDW 13.5 % (11.8-14.1); RDW-SD 44.6 fL; WBC 13.98 10^3/uL (4.4-10.8)
== END 2025-05-01 03:41 | disposition home or self-care (01) ==
LOC: LBO 03:40
PROVIDERS: PCP Family Medicine; Visit Provider Nurse Practitioner Psychiatric/Mental Health
DX: F25.0 Schizoaffective disorder, bipolar type (principal)
CPT/HCPCS: 36415; 85025

== ENCOUNTER 2025-05-20 01:38 | Emergency (ER) | payer MEDICARE, MEDICAID, SELFPAY ==
[2025-05-20 01:27] VITALS: BP 108/72; PULSE 91; RESP 18; TEMP 36.6; O2SAT 93
--- NOTE | 2025-05-20 01:43 | ED.GENADUL_ITS ---
Discharge Plan Discharge Details Chief Complaint: PsychEval Primary Care Provider: Sakina Meng V ED Provider: Gold Shipman [place] Meds and New Rx's Prescriptions: No Action psyllium husk [Metamucil] 0.4 gram capsule 0.4 g PO DAILY gabapentin 300 mg capsule 400 mg PO QHS citalopram 10 mg tablet 20 mg PO DAILY Probiotic (B. coagulans) 10 billion cell capsule,delayed release(DR/EC) 1 cell PO DAILY clozapine 100 MG tablet 250 mg PO HS atenolol 25 MG tablet 25 mg PO DAILY lisinopril 5 MG tablet 5 mg PO DAILY Freedavite 1 EACH tablet 1 ea PO DAILY aspirin 325 mg Tablet,Delayed Release (Dr/Ec) 325 mg PO DAILY pantoprazole 40 mg tablet,delayed release (DR/EC) 40 mg PO DAILY Patient Comments: TAKE 1 TABLET BY MOUTH DAILY rosuvastatin 5 mg tablet 5 mg PO DAILY cholecalciferol (vitamin D3) [Vitamin D3] 50 mcg (2,000 unit) Tablet 50 mcg PO DAILY allopurinol 100 MG tablet 100 mg PO DAILY HPI General Mode of arrival: EMS . Date/Time Provider Initiated Documentation: 05/20/25 01:43 . Limitations to Documentation: no limitations . Information obtained by: patient and RN notes reviewed . HPI Narrative: Patient presents to ED from his [facility], [place], with overwhelming anxiety and confusion. Initial EMS activation was for inability of patient to move. On arrival here patient is reporting just overwhelming anxiety and feeling more confused than normal. He thinks it may be due to some medication adjustments that have been going on over the last month. He denies being ill with fever, cough, vomiting, diarrhea. Denies any urinary symptoms. He was able to ambulate to EMS stretcher. He is awake and alert here and completely oriented. He is followed by [facility] in the community. Related Data Home Medications ?Medication ?Instructions ?Recorded ?Confirmed Freedavite 1.8 mg iron-400 mcg 1 ea PO DAILY 01/16/13 05/20/25 tablet (usnfatyx-wqi-vruo fum-folic ac) atenolol 25 mg tablet 25 mg PO DAILY 01/16/1304/28 clozapine 100 mg tablet 250 mg PO HS 01/16/13 lisinopril 5 mg tablet 5 mg PO DAILY 01/16/1305/20 allopurinol 100 mg tablet 100 mg PO DAILY 03/16/18 aspirin 325 mg tablet,delayed 325 mg PO DAILY 12/08/21 05/20/25 release cholecalciferol (vitamin D3) 50 50 mcg PO DAILY 05/20/25 mcg (2,000 unit) tablet (Vitamin D3) pantoprazole 40 mg tablet,delayed 40 mg PO DAILY 12/0805/20/25 release rosuvastatin 5 mg tablet 5 mg PO DAILY 12/08/2105/20 gabapentin 300 mg capsule 400 mg PO QHS 10/29/2205/20 psyllium husk 0.4 gram capsule 0.4 g PO DAILY 10/29/22 05/20/25 (Metamucil) Bacillus coagulans 10 billion cell 1 cell PO DAILY 03/1905/20/25 capsule,delayed release (Probiotic (B. coagulans)) citalopram 10 mg tablet 20 mg PO DAILY 11/02/2204/28 Allergies Allergy/AdvReac Type Severity Reaction Status Date / Time valbenazine (From Ingrezza) AdvReac Mild Other (See Verified 05/20/25 01:35 Comment) General Stated Complaint: PsychEval GUS: 3 Exam Narrative Exam Narrative: Const: Obese male in NAD. VS per triage. HEENT: NC/AT. Normal facial exam. Neck: Supple. Trachea midline. Lungs: Normal respiratory effort. Lungs are clear. Cor: RRR without murmur. Good radial pulses. GI: Soft/ND/NT. Neuro: A+O x 3. Normal speech, mentation. Cranial nerves II - XII grossly intact. No gross motor or sensory deficit. Course Vital Signs Vital signs: Vital Signs Temperature 97.8 F 05/20/25 01:27 Pulse 91 H 05/20/25 01:27 Respiratory Rate 18 05/20/25 01:27 Blood Pressure 108/72 05/20/25 01:27 Pulse Oximetry 93 05/20/25 01:27 Temperature 97.8 F 05/20/25 01:27 Temperature Source Oral 05/20/25 01:27 Pulse 91 H 05/20/25 01:27 Respiratory Rate 18 05/20/25 01:27 Blood Pressure 108/72 05/20/25 01:27 Pulse Oximetry 93 05/20/25 01:27 Oxygen Delivery Method Room Air 05/20/25 01:27 Oxygen Flow Rate 0 05/20/25 01:27 Pain Level 8 05/20/25 01:27 Medical Decision Making Patient presenting to ED with complaint of anxiety and confusion that he feels may be related to medication changes that have been made recently. He did not have any focal neurologic deficits, report is that he was unable to move at all. He is neurologically intact here. He is alert and oriented x 3 with normal speech. 04:00 - Patient's labs with a white count of 15 but normal platelets and hemoglo bin. Chemistry, kidney function, liver function unremarkable. Urinalysis is not infected. Patient still quite anxious. Does not know whether talking to [facility] will help or not. Told him we would hold him in the ED to see if he can calm himself down and reevaluate in the morning. 06:30 - Patient still not sure what to do, feels anxious still. Seems to be ruminating on the fact that he might have a stroke. Patient reassured. Patient wanted to call his mother but it went to voicemail. He is now stating to nursing that he is feeling suicidal. Will place mental health consult with [facility]. He is medically clear. Lab Data Lab results reviewed: Yes I reviewed the patient's lab results. [facility] All Active Problems Abscess (Acute) Ulcer of heel (Acute) BMI 38.0-38.9,adult (Acute) History of tobacco use (Acute) IBS (irritable bowel syndrome) (Chronic) Foot deformity (Acute) Tremor (Acute) Nail dystrophy (Acute) Osteomyelitis of toe of left foot (Acute) Type 2 diabetes mellitus (Chronic) Discharge planning issues (Acute) Staphylococcus aureus bacteremia (Acute) Fever (Acute) Positive blood culture (Acute) Diabetic peripheral neuropathy (Chronic) GERD (gastroesophageal reflux disease) (Chronic) Gout (Acute) Schizoaffective disorder (Chronic) HTN (hypertension) (Chronic) Cellulitis of great toe, left (Acute) Cellulitis of second toe, left (Acute) Diabetes mellitus type 2 in obese (Chronic) Medical History Acute pain of left knee (03/04/16) Diverticulosis Cerebral artery occlusion Atrial septal aneurysm Fatty liver Schizoaffective disorder Hypothyroidism Hyperlipidemia Morbid obesity Diabetes mellitus Diabetic polyneuropathy Essential hypertension Surgical History repair Patent foramen ovale Cholecystectomy Family History Mother Personal history of malignant neoplasm Breast cancer Father Heart disease Atrial Fibrillation Sister Epilepsy Grandfather Personal history of malignant neoplasm Leukemia Grandmother Personal history of malignant neoplasm pancreatic cancer Social History Smoking/Tobacco Use Status: Former Tobacco Use Smoking risk assessment performed?: Yes Alcohol Intake: never Drug use: Never Substance use type: does not use Housing: other Do you feel safe at home: Yes Do you feel safe in your relationship?: Yes
[2025-05-20 03:14] VITALS: BP 129/78; PULSE 76; RESP 18; O2SAT 95
[2025-05-20 03:29] LABS: ALT 44 U/L (16-63); AST 27 U/L (15-37); Albumin 3.9 g/dL (3.4-5.0); Alkaline Phosphatase 126 U/L (46-116); Anion Gap 9.7 mmol/L (3-11); BUN 10 mg/dL (7-18); Bilirubin, Total 0.7 mg/dL (0.2-1.0); CO2 28.3 mmol/L (21.0-32.0); Calcium 9.5 mg/dL (8.5-10.1); Chloride 105 mmol/L (98-107); Estimated GFR 80.27 (mL/min/1.73m2); Glucose 113 mg/dL (74-106); Potassium 3.9 mmol/L (3.5-5.1); Sodium 143 mmol/L (136-145); Total Protein 7.3 g/dL (6.4-8.2)
[2025-05-20 03:31] LABS: Abs Immature Grans 0.10 10^3/uL (0.0-0.06); HCT 42.6 % (40.0-50.0); HGB 14.4 g/dL (13.5-17.5); Immature Grans % 0.7 %; MCH 30.0 pg (27.0-33.0); MCHC 33.8 % (32.0-36.0); MCV 89 fL (80-95); MPV 11.5 fL (8.0-11.0); Platelet Count 252 10^3/uL (130-400); RBC 4.80 10^6/uL (4.36-5.78); RDW 13.3 % (11.8-14.1); RDW-SD 44.0 fL; WBC 15.05 10^3/uL (4.4-10.8)
[2025-05-20 03:37] LABS: Glucose Negative (Negative)
[2025-05-20 03:41] LABS: C & S Indicated? No; RBC Negative HPF (0-2)
[2025-05-20] MEDS: LORazepam 1 MG TAB PO (08:51)
--- NOTE | 2025-05-20 10:03 | CMSP_ITS ---
Date of service: 05/20/25 Time of Service: 10:03 Care Management Safety Plan Status Status: Voluntary Reason for Wait Reason for Wait: Inpatient Admission Safety Plan Safety Plan: VOLUNTARY FOR INPATIENT PSYCHIATRIC STABILIZATION.? Patient is appropriate in all interactions since arriving at [facility]; Pt has demonstrated appropriate coping and communication skills, has articulated his needs and concerns and is fully engaged during staff interactions. Safety plan has been established with patient, and care team, to adhere to patient goals, identify restrictions based on behavioral status, address nutrition, and determine allowed personal belongings, tools for hygiene and personal care. Determine level of activity including ambulation, level of supervision, visitors, and determine privileges based on behaviors and level of engagement by pt. VOLUNTARY SAFETY PLAN: 1. Will remain on suicide precautions, in paper clothes 2. Will remain in Zone B under direct supervision of one-on-one staff at all times provided by [employer]; SID, [employer] carton forming machine helper. 3. May have paper cups, plates, finger foods as well as a cardboard spoon with which to eat meals. 4. Follow [facility] Management of the Admitted Behavioral Health Patient policy. 5. Shower available in Zone B without restriction. 6. Personal belongings-soft items permitted at RN discretion. 7. Visitors-none at this time. 8. Activities: soft cart items, hospital tablets (Netflix/Ekron+/music) approved per RN discretion. 9.? Bathroom available in Zone B without restriction. 10. Phone: limited to [facility] cordless phone at RN discretion. Due to VOLUNTARY status, if patient wishes to leave [facility], staff will contact [facility] Crisis Screener ([phone]) and Dial Polisher ([phone]) as soon as possible. In the event of elopement, notify [facility] Police ([phone]). Patient is currently voluntarily at [facility] and seeking inpatient admission when a bed becomes available. [facility] Frontline Graphic Specialist will continue seeking placement. Please contact the Dial Polisher ([phone]) and [facility] Graphic Specialist ([phone]) for any needed changes in the Safety Plan. Safety plan has been provided to interdepartmental care team.
--- NOTE | 2025-05-20 10:03 | PDOC.CMSAFE ---
Date of service: 05/20/25 Time of Service: 10:03 Care Management Safety Plan Status Status: Voluntary Reason for Wait Reason for Wait: Inpatient Admission Safety Plan Safety Plan: VOLUNTARY FOR INPATIENT PSYCHIATRIC STABILIZATION.? Patient is appropriate in all interactions since arriving at [facility]; Pt has demonstrated appropriate coping and communication skills, has articulated his needs and concerns and is fully engaged during staff interactions. Safety plan has been established with patient, and care team, to adhere to patient goals, identify restrictions based on behavioral status, address nutrition, and determine allowed personal belongings, tools for hygiene and personal care. Determine level of activity including ambulation, level of supervision, visitors, and determine privileges based on behaviors and level of engagement by pt. VOLUNTARY SAFETY PLAN: 1. Will remain on suicide precautions, in paper clothes 2. Will remain in Zone B under direct supervision of one-on-one staff at all times provided by [employer]; SID, ANESTHESIOLOGIST/PHYSICIAN aids counselor. 3. May have paper cups, plates, finger foods as well as a cardboard spoon with which to eat meals. 4. Follow [facility] Management of the Admitted Behavioral Health Patient policy. 5. Shower available in Zone B without restriction. 6. Personal belongings-soft items permitted at RN discretion. 7. Visitors-none at this time. 8. Activities: soft cart items, hospital tablets (Netflix/Vinton+/music) approved per RN discretion. 9.? Bathroom available in Zone B without restriction. 10. Phone: limited to [facility] cordless phone at RN discretion. Due to VOLUNTARY status, if patient wishes to leave [facility], staff will contact [facility] Crisis Screener ([phone]) and Dial Maker ([phone]) as soon as possible. In the event of elopement, notify [facility] Police ([phone]). Patient is currently voluntarily at [facility] and seeking inpatient admission when a bed becomes available. [facility] Frontline Stakeholder Manager will continue seeking placement. Please contact the Dial Maker ([phone]) and [facility] Stakeholder Manager ([phone]) for any needed changes in the Safety Plan. Safety plan has been provided to interdepartmental care team.
--- NOTE | 2025-05-20 12:24 | ED.PSYCHBOAR ---
Date of service: 05/20/25 Time of Service: 12:25 Psychiatric Border Handoff Update Brief Story: Patient evaluated by mental health and plan for voluntary placement. Will continue to monitor until safe disposition found. Status: voluntary Able to leave: would need physician/MISAEL and crisis evaluation prior to leaving Mediation Reconciliation performed: Yes Code Status ordered: Yes Diet ordered: Yes Discharge Plan Discharge Details Chief Complaint: PsychEval Primary Care Provider: Sakina Meng V ED Provider: Dakota Greer Home Meds and New Rx's Prescriptions: No Action psyllium husk [Metamucil] 0.4 gram capsule 0.4 g PO DAILY gabapentin 300 mg capsule 400 mg PO QHS citalopram 10 mg tablet 20 mg PO DAILY Probiotic (B. coagulans) 10 billion cell capsule,delayed release(DR/EC) 1 cell PO DAILY clozapine 100 MG tablet 250 mg PO HS atenolol 25 MG tablet 25 mg PO DAILY lisinopril 5 MG tablet 5 mg PO DAILY Freedavite 1 EACH tablet 1 ea PO DAILY aspirin 325 mg Tablet,Delayed Release (Dr/Ec) 325 mg PO DAILY pantoprazole 40 mg tablet,delayed release (DR/EC) 40 mg PO DAILY Patient Comments: TAKE 1 TABLET BY MOUTH DAILY rosuvastatin 5 mg tablet 5 mg PO DAILY cholecalciferol (vitamin D3) [Vitamin D3] 50 mcg (2,000 unit) Tablet 50 mcg PO DAILY allopurinol 100 MG tablet 100 mg PO DAILY
--- NOTE | 2025-05-20 12:58 | PDOC.MHCN ---
Date of service: 05/20/25 Time of Service: 09:41 PHQ-9 Over the last 2 weeks, how often have you been bothered by any of the following problems? 1. Little interest or pleasure in doing things: nearly every day 2. Feeling down, depressed, or hopeless: nearly every day 3. Trouble falling or staying asleep, or sleeping too much: nearly every day 4. Feeling tired or having little energy: nearly every day 5. Poor appetite or overeating: several days 6. Feeling bad about yourself - or that you are a failure or have let yourself and your family down: nearly every day 7. Trouble concentrating on things, such as reading the newspaper or watching television: several days 8. Moving or speaking so slowly that other people could have noticed? - Or the opposite - being so fidgety or restless that you have been moving around a lot more than usual: several days 9. Thoughts that you would be better off or of hurting yourself in some way: more than half the days Total score: 20 If you checked off any problems, how difficult have these problems made it for you to do your work, take care of things at home, or get along with other people?: very difficult PHQ-9 Results: Positive Source: Developed by Drs. Gold Duque, Brisa Barrientos, Manuel Griggs and colleagues, with an educational nimo from [email or web address]. Suicide Severity Rate CSSRS Have you wished you were or wished you could go to sleep and not wake up?: Yes Have you actually had any thoughts of killing yourself?: Yes CSSRS2 Have you been thinking about how you might do this?: No Have you had these thoughts and had some intention of acting on them?: No Have you started to work out or worked out the details of how to kill yourself? Do you intend to carry out this plan?: No CSSRS3 Have you ever done anything, started to do anything or prepared to do anything to end your life?: No CSSRS4 Was this within the past three months?: No Screening Score Total Score: 4 Screening: Positive Mental Health Emergency Note Release [facility] release signed:: Yes Reason for Visit The client is known to [facility] and currently receives services through the adult outpatient program. Per report of the client he has been hospitalized numerous times, however is unable to recall the last time that he was hospitalized. The client reports that all hospitalizations were voluntary. Today the client presented to [facility] via EMS for increased anxiety and depression as well as suicidal ideations. This comic book writer assesses the client via telehealth. In the last 2 weeks has the pt presented for ES prior to today?: No Client Information Client is: Adult Outpatient Well Housed: Yes Non Suicidal Self Injury Current: No History: No Safety Risk/Harm to Self or Others Current Ideation to Harm Self or Others: Yes to self. Intent: no, has no intent. Plan: no.does not have a plan. History of suicide attempt: No history of suicide attempt reported Risk: Does risk to harm exist?: yes. Access to means: No. Risk: Low Risk Duty to warn indicated: No Asssessment/Mental Status Appearance: Disheveled and Poor hygiene Attitude: Cooperative Behavior: Unremarkable Speech: Soft Affect: Flat and Cogruent with mood Mood: Depressed and Anxious Thought process: Unremarkable Hallucinations: No Delusions: yes, (Reports that he feels like people are out to get him. ) Persectory/Paranoid Attention: Unremarkable Perception: Not impaired Orientation: Fully orientated Memory: Intact Insight: Fair Judgement: Fair Neurovegetative Symptoms Sleep: Decrease Appetitie: Decrease Interests: Decrease Energy: Decrease Libido: Not applicable Substance Use: Do you use nicotine?: No Have you used substances in the last 7 days?: No Additional Issues: Assaultive/Threatening Behavior: No Medical Concerns: No Client engaged in active self harm w/weapon: No Threatening to run away: No Child reported abuse/neglect: No Voluntarily presenting for services: Yes Domestic violence is a concern: No Extreme Psychosis or extreme behavior is present: No Impression The client is a single 54 y/o male that currently resides at a fpc in [place], [place]. The client identifies as male and uses he/ him pronouns. 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 All screening tools are completed and all under represented categories are honored during the assessment. The client presents with symptoms indicative of anxiety and depression, as demonstrated by pacing around the room, a noticeable lack of interest and energy, and a decrease in appetite and sleep. The client reports a change in mood and affect following the discontinuation of Topamax by his psychiatrist approximately 10 days ago. As a result, he observes an increase in feelings of depression, anxiety, and hopelessness. The client expresses passive suicidal ideations but explicitly denies any specific plan or intent. It is evident that the client would benefit from short-term inpatient treatment aimed at stabilization and a comprehensive medication evaluation. Resources Reosurces reviewed and given:: [id number] Plan/Disposition Recommended Disposition: Hospitalization (Referrals will be sent to , [facility] transfer station, [facility] and ) No. Plan: The client will remain at [facility] ED on voluntary status seeking inpatient treatment. The client will be re-assessed by [facility] daily until placement is secured or the client is able to be safety planned back to the community. Person reported agreement to plan: Yes Reports/communication Outcome discussed with: ED/Personnel (Verbal given to [facility] ED provider)
--- NOTE | 2025-05-20 13:12 | PDOC.CMPRO ---
Date of service: 05/20/25 Time of Service: 13:12 Care Management Progress Note Progress Note Text Progress Note Text: Tejas is a 54 year old man admitted on 05/19/25 from [place] where he resides. He presented with overwhelming anxiety and confusion. His confusion has cleared although he remains anxious. He is awaiting voluntary placement in an inpatient psychiatric facility. Referrals have been sent. Social Determinants of Health Screening Will the Patient Participate in the Screening?: Declined to provide
[2025-05-20] MEDS: Lisinopril 5 MG TAB PO (14:53)
[2025-05-20] MEDS: Atenolol 25 MG TAB PO (14:53)
[2025-05-20] MEDS: Pantoprazole 40 MG TABCR PO (14:53)
[2025-05-20] MEDS: Allopurinol 100 MG TAB PO (14:54)
[2025-05-20] MEDS: Aspirin 325 MG TAB PO (14:59)
[2025-05-20] MEDS: Citalopram 20 MG TAB PO (15:09)
[2025-05-20 18:51] LABS: Cannabinoids THC Negative (Negative); METHADONE URINE SCREEN Negative (Negative)
--- NOTE | 2025-05-20 19:02 | NUR.NOTE ---
Karla from [facility] called to say they would take him. given a nurse to nurse. asked that we call her with an ETA. pt called his mom-mom does not want him going to [facility]-says he is mentally ill and can't make that decision. had her speak to Dr Smith and she called mental health to have him re evaluated. [facility] was here to pick him up and that also was cancelled. spoke earlier to mom when she called and told her that [facility] had expressed and interest-(but needed and UDS). mom got angry-said she objected to [facility]-has no daryn in that place-has had several family members go there. [facility] called before we were able to obtain a urine for a UDS. had spoken to the doc after speaking to [facility]-told her about the conversatiion with mom. DOC said that we should stick to the original plan-that is when I made arrangement with [facility].Nursing Note:
--- NOTE | 2025-05-20 19:23 | ED.PSYCHBOAR ---
Date of service: 05/20/25 Time of Service: 19:26 Psychiatric Border Handoff Update Brief Story: In brief, this is a 54-year-old male patient boarding in our facility voluntarily for suicidal ideation without plan. Prior to my taking over their care, the patient was medically cleared, and has been resting comfortably. They have met with the health social work professor and we are awaiting final dispo. They have not required any additional medications for restraint or sedation. They have been admitted to ED psych observation. During my shift, the patient was accepted to both [facility] and [facility], and plans were made for transport. We received phone calls from both the patient's care facility ([facility]) and the patient's parent, stating that the patient had told them by phone that he was no longer suicidal and requesting reevaluation prior to transport. I reached out to [facility], who returns to the facility and reevaluated the patient. He states that he should not have lied and said that I was suicidal when I was not, and wants to return back to his care facility. [facility] has 24-hour supervision and care and will be able to monitor him, and certainly he could represent if he had return of his suicidal thoughts or feelings. A safety plan was completed, and at this time, the patient has had a full medical evaluation and is safe for discharge to home. They are hemodynamically stable, ambulatory, and tolerating PO. They are understanding of the follow-up plan and return precautions. They left our facility without incident. MD Venus Delgado MD Status: voluntary Able to leave: would need physician/MISAEL and crisis evaluation prior to leaving Discharge Plan Disposition Patient Disposition: Home Condition: Stable Discharge Details Clinical Impression: Depression Primary Care Provider: Sakina Meng V ED Provider: Venus Fuentes Home Meds and New Rx's Prescriptions: No Action psyllium husk [Metamucil] 0.4 gram capsule 0.4 g PO DAILY gabapentin 300 mg capsule 400 mg PO QHS citalopram 10 mg tablet 20 mg PO DAILY Probiotic (B. coagulans) 10 billion cell capsule,delayed release(DR/EC) 1 cell PO DAILY clozapine 100 MG tablet 250 mg PO HS atenolol 25 MG tablet 25 mg PO DAILY lisinopril 5 MG tablet 5 mg PO DAILY Freedavite 1 EACH tablet 1 ea PO DAILY aspirin 325 mg Tablet,Delayed Release (Dr/Ec) 325 mg PO DAILY pantoprazole 40 mg tablet,delayed release (DR/EC) 40 mg PO DAILY Patient Comments: TAKE 1 TABLET BY MOUTH DAILY rosuvastatin 5 mg tablet 5 mg PO DAILY cholecalciferol (vitamin D3) [Vitamin D3] 50 mcg (2,000 unit) Tablet 50 mcg PO DAILY allopurinol 100 MG tablet 100 mg PO DAILY Discharge Instructions Instructions: Depression, Adult ED Additional Instructions: You were seen in the emergency department for evaluation of suicidal thoughts and feelings. In her department you had a full physical examination performed, had laboratory studies that were largely reassuring, and met with a member of our social work team. Initially the plan was for you to be placed inpatient for medication management and ongoing support of your suicidal thoughts and feelings. Today, you report that you no longer have these thoughts and feelings and are desiring to return to your care facility. A safety plan was provided, please follow this plan to the latter including all follow-up calls and visits. You can always return to the emergency department for reevaluation if your symptoms change, worsen, or persist. Please follow-up with your primary care provider in the next few days to discuss this visit and any symptoms that change, worsen, or persist. Thank you for allowing us to be part of your care.
--- NOTE | 2025-05-20 23:26 | MHPN_ITS ---
Date of service: 05/20/25 Time of Service: 19:08 Mental Health Emergency Note Release [facility] release signed:: Yes Reason for Visit In the last 2 weeks has the pt presented for ES prior to today?: No Non Suicidal Self Injury Current: No History: No Safety Risk/Harm to Self or Others Current Ideation to Harm Self or Others: No Asssessment/Mental Status Appearance: Disheveled and Poor hygiene Attitude: Cooperative and Friendly Behavior: Unremarkable Speech: Normal Affect: Normal Mood: Anxious Thought process: Unremarkable Hallucinations: No evidence Delusions: No evidence Attention: Unremarkable Perception: Not impaired Orientation: Fully orientated Memory: Intact Insight: Fair Judgement: Fair Neurovegetative Symptoms Sleep: No change Appetitie: No change Interests: No change Energy: No change Libido: Not applicable Impression Tejas is a 54-year old male who was transported to [facility] after calling EMS. Tejas was screened and assessed by [facility] Bev Higgins 05.20.2025. Tejas reported increased suicidal ideations and agreed to voluntary inpatient placement. Tejas was accepted to [facility], but when transport came to pick him up he declined. When asked why he declined, Tejas reported that he lied earlier and was not having suicidal ideations. Plan/Disposition Recommended Disposition: Community resources. Plan: Tejas was safety planned home and will contact his medication provider to talk about his concerns. Reports/communication Outcome discussed with: ED/Personnel
== END 2025-05-20 19:48 | disposition home or self-care (01) ==
PROVIDERS: Emergency Medicine; Emergency Provider Emergency Medicine; PCP Family Medicine
DX: F32.A Depression, unspecified (principal); F41.9 Anxiety disorder, unspecified
CPT/HCPCS: 00123; 80053; 80307; 96127; 99283; G0378; 81003; 81015; 85025

== ENCOUNTER 2025-05-24 10:12 | Emergency (ER) | payer MEDICARE, MEDICAID, SELFPAY ==
[2025-05-24] VITALS (9 sets, daily range): BP systolic 127–163; BP diastolic 81–91; PULSE 71–96; RESP 16–27; TEMP 36.4–37; O2SAT 95–97
--- NOTE | 2025-05-24 10:51 | W.ED.GENAD ---
Discharge Plan Discharge Details Chief Complaint: PsychEval Primary Care Provider: Sakina Meng V ED Provider: Corinna Hernandez Home Meds and New Rx's Prescriptions: No Action psyllium husk [Metamucil] 0.4 gram capsule 0.52 g PO DAILY Rx Instructions: Per residence MAR, admin 1 cap PO Q AM gabapentin 300 mg capsule 500 mg PO QHS Patient Comments: Per residence MAR: 400mg x3 days (start date not indicated) then 500mg citalopram 10 mg tablet 20 mg PO DAILY Probiotic (B. coagulans) 10 billion cell capsule,delayed release(DR/EC) 1 cell PO DAILY clozapine 100 MG tablet 250 mg PO HS atenolol 25 MG tablet 25 mg PO DAILY lisinopril 5 MG tablet 5 mg PO DAILY Freedavite 1 EACH tablet 1 ea PO DAILY aspirin 325 mg Tablet,Delayed Release (Dr/Ec) 325 mg PO DAILY pantoprazole 40 mg tablet,delayed release (DR/EC) 40 mg PO DAILY Patient Comments: TAKE 1 TABLET BY MOUTH DAILY rosuvastatin 5 mg tablet 5 mg PO DAILY cholecalciferol (vitamin D3) [Vitamin D3] 50 mcg (2,000 unit) Tablet 50 mcg PO DAILY topiramate 25 mg tablet 25 mg PO HS multivitamin [Daily Multi-Vitamin] Tablet 1 tab PO DAILY cholestyramine 4 gram powder 4 g PO DAILY Rx Instructions: Per residence MAR, once daily/hold for constipation. MAR indicates daily refusal. Administer w/meal; avoid other meds within 1hr before or 4-6hr after dose indomethacin 50 mg capsule 50 mg PO PRN Rx Instructions: administer with food or milk allopurinol 100 MG tablet 100 mg PO DAILY HPI General Mode of arrival: ambulatory. Date/Time Provider Initiated Documentation: 05/24/25 10:14. Limitations to Documentation: altered mental status and physical limitation. Information obtained by: patient, RN/MD (BOSSMAN Ulloa and staff from [facility]), RN notes reviewed and old records reviewed. HPI Narrative: 54-year-old male with a past medical history of schizoaffective disorder, atrial septal aneurysm, cerebral artery occlusion, diabetes mellitus, diabetic polyneuropathy, and hypertension presents to the emergency department with left [facility] staff including an RN named Laila who reports that patient was combative this morning to staff which is not like his normal baseline mentation. Patient has been off his Topamax for approximately 1 month was restarted recently on 25 mg over the last 3 days at bedtime. Patient presents here with being combative with other staff this morning, change from baseline mentation, hallucinating and being disoriented. Related Data Home Medications ?Medication ?Instructions ?Recorded ?Confirmed Freedavite 1.8 mg iron-400 mcg 1 ea PO DAILY 01/16/13 05/24/25 tablet (bdqykgtw-nnt-dtss fum-folic ac) atenolol 25 mg tablet 25 mg PO DAILY 01/16/13 05/24/25 clozapine 100 mg tablet 250 mg PO HS 01/16/13 05/24/25 lisinopril 5 mg tablet 5 mg PO DAILY 01/16/13 05/24/25 allopurinol 100 mg tablet 100 mg PO DAILY 03/16/18 05/24/25 aspirin 325 mg tablet,delayed 325 mg PO DAILY 12/08/21 05/24/25 release cholecalciferol (vitamin D3) 50 50 mcg PO DAILY 12/08/21 05/24/25 mcg (2,000 unit) tablet (Vitamin D3) pantoprazole 40 mg tablet,delayed 40 mg PO DAILY 12/08/21 05/24/25 release rosuvastatin 5 mg tablet 5 mg PO DAILY 12/08/21 05/24/25 gabapentin 300 mg capsule 500 mg PO QHS 10/29/22 05/24/25 psyllium husk 0.4 gram capsule 0.52 g PO DAILY 10/29/22 05/24/25 (Metamucil) Bacillus coagulans 10 billion cell 1 cell PO DAILY 11/02/22 05/24/25 capsule,delayed release (Probiotic (B. coagulans)) citalopram 10 mg tablet 20 mg PO DAILY 11/02/22 05/24/25 cholestyramine 4 gram oral powder 4 g PO DAILY 05/24/25 05/24/25 indomethacin 50 mg capsule 50 mg PO PRN 05/24/25 05/24/25 multivitamin (Daily Multi-Vitamin 1 tab PO DAILY 05/24/25 05/24/25 tablet) topiramate 25 mg tablet 25 mg PO HS 05/24/25 05/24/25 Allergies Allergy/AdvReac Type Severity Reaction Status Date / Time valbenazine (From [facility]) AdvReac Mild Other (See Verified 05/20/25 01:35 Comment) General Stated Complaint: PsychEval GUS: 2 Review of Systems Narrative: History is somewhat limited, history supplied by staff of the alf including Laila RN and a male staff member. No reported falls no fever chills patient confused. Unobtainable due to mental condition Exam Narrative Exam Narrative: Constitutional: Labile mentation, does not answer questions appropriately, no gross motor or focal neurodeficits noted,. Appears stated age. Obese body habitus. Head: Normocephalic, no trauma. Eyes: Pupils PERRL, Red reflex noted, EOM's intact. Eyelids symmetrical without lesions, discharge, or swelling. ENT: Bilateral TM's WNL, External ear normal to inspection, no mastoid TTP, swelling, or erythema, Nasal turbinates WNL, no nasal discharge. poor, dry mucous membranes. Chest: RRR, Normal S1, S2, distal pulses intact. Resp: Lungs clear to auscultation bilaterally, no wheezes, rales, or rhonchi. Abdomen: Soft, non-distended, Normoactive bowel sounds all 4 quads. Musculoskeletal: Moves all 4 extremities without difficulty. Skin: Capillary refill less than 2 sec. does have a small diabetic ulcer noted to his left second toe on the distal tip, no surrounding induration or erythema, no other suspicious lesions or wounds noted. Neurologic: No facial droop, studio operation engineer equal bilaterally, shuffling gait. Hematologic/Lymphatic: No ecchymosis, no lymphadenopathy. Course Vital Signs Vital signs: Vital Signs Pulse 96 H 05/24/25 10:13 Respiratory Rate 16 05/24/25 10:13 Blood Pressure 147/91 H 05/24/25 10:13 Pulse Oximetry 95 05/24/25 10:13 Pulse 96 H 05/24/25 10:13 Respiratory Rate 16 05/24/25 10:13 Blood Pressure 147/91 H 05/24/25 10:13 Pulse Oximetry 95 05/24/25 10:13 Medical Decision Making 54-year-old male with a past medical history of schizoaffective disorder, atrial septal aneurysm, cerebral artery occlusion, diabetes mellitus, diabetic polyneuropathy, and hypertension presents to the emergency department with left [facility] alf staff including an RN named Laila who reports that patient was combative this morning to staff which is not like his normal baseline mentation. Patient has been off his Topamax for approximately 1 month was restarted recently on 25 mg over the last 3 days at bedtime. Patient presents here with being combative with other staff this morning, change from baseline mentation, hallucinating and being disoriented. Medical clearance workup ordered including UDS urinalysis CBC CMP TSH salicylate and Tylenol level , patient to zone B dressed in paper scrubs, he does have a dressing and padding noted to his left foot with a small diabetic ulcer to his second left toe, no surrounding induration redness or drainage. He does smell of urine, urinalysis ordered. No reports of any trauma or falls recently. Patient is not oriented, hallucinating.Confused, easily directable and non-combative at this time. Patient has a leukocytosis 27.37, absolute neutrophils 22.99 does have a left shift salicylate is less than 2.8 Tylenol less than 2. Patient moved back to main ER due to need for medical clearance. Urinalysis is still pending. IV ordered, blood cultures x 2, liter of normal saline BUN is 24 glucose 114 alk phos 130. Will repeat CBC and Lactate ordered. CT head and CXR pending at this time. Care is to be handed off to oncoming provider ANGELO Canchola pending further workup and disposition. I did discuss patient case in details with him he verbalized understanding. Patient has remained cooperative throughout the remainder of stay. Medical Records Medical records reviewed: Yes I reviewed the patient's medical records. Medical records narrative: Patient was last in our emergency department 4 days ago and was excepted at that time to [facility] and then had stated that he lied about being suicidal. He was thus subsequently sent home to the [facility]. Lab Data Lab results reviewed: Yes I reviewed the patient's lab results. Labs: 05/24/25 14:59 Blood Blood Culture - Pending 05/24/25 13:53 Blood Blood Culture - Pending Laboratory Tests Range/Units 05/24/25 05/24/25 11:15 15:13 WBC (4.4-10.8) 10^3/uL 27.37 H* RBC (4.36-5.78) 10^6/uL 5.46 Hgb (13.5-17.5) g/dL 16.0 Hct (40.0-50.0) % 48.5 MCV (80-95) fL 89 MCH (27.0-33.0) pg 29.3 MCHC (32.0-36.0) % 33.0 RDW (11.8-14.1) % 13.5 Plt Count (130-400) 10^3/uL 309 MPV (8.0-11.0) fL 11.3 H Immature Gran % % 0.0 Neutrophils % % 84.0 Lymphocytes % % 13.0 Monocytes % % 3.0 Eosinophils % % 0.0 Basophils % % 0.0 Nucleated RBC % (0.0-0.3) % 0.0 Absolute Neutrophils (1.2-6.7) 10^3/uL 22.99 H Absolute Lymphocytes (1.2-3.4) 10^3/uL 3.56 H Absolute Monocytes (0.1-0.8) 10^3/uL 0.82 H Absolute Eosinophils (0.0-0.7) 10^3/uL 0.00 Absolute Basophils (0.0-0.2) 10^3/uL 0.00 RBC Morphology Normal VBG Lactate (<or=2.0) mmol/L 1.3 Sodium (136-145) mmol/L 141 Potassium (3.5-5.1) mmol/L 3.9 Chloride (98-107) mmol/L 104 Carbon Dioxide (21.0-32.0) mmol/L 27.5 Anion Gap (3-11) mmol/L 9.5 BUN (7-18) mg/dL 24 H Creatinine (0.70-1.30) mg/dL 1.2 Est GFR (CKD-EPI 2020) (mL/min/1.73m2) 72.31 Glucose (74-106) mg/dL 114 H Calcium (8.5-10.1) mg/dL 10.0 Total Bilirubin (0.2-1.0) mg/dL 0.5 AST (15-37) U/L 30 ALT (16-63) U/L 46 Alkaline Phosphatase (46-116) U/L 130 H Total Protein (6.4-8.2) g/dL 8.3 H Albumin (3.4-5.0) g/dL 4.3 TSH (0.36-3.74) uIU/mL 1.17 Salicylates (<2.8) mg/dL < 2.8 Acetaminophen (10-30) ug/mL < 2 PFSH All Active Problems Depression (Chronic) Abscess (Acute) Ulcer of heel (Acute) BMI 38.0-38.9,adult (Acute) History of tobacco use (Acute) IBS (irritable bowel syndrome) (Chronic) Foot deformity (Acute) Tremor (Acute) Nail dystrophy (Acute) Osteomyelitis of toe of left foot (Acute) Type 2 diabetes mellitus (Chronic) Discharge planning issues (Acute) Staphylococcus aureus bacteremia (Acute) Fever (Acute) Positive blood culture (Acute) Diabetic peripheral neuropathy (Chronic) GERD (gastroesophageal reflux disease) (Chronic) Gout (Acute) Schizoaffective disorder (Chronic) HTN (hypertension) (Chronic) Cellulitis of great toe, left (Acute) Cellulitis of second toe, left (Acute) Diabetes mellitus type 2 in obese (Chronic) Medical History Acute pain of left knee (03/04/16) Diverticulosis Cerebral artery occlusion Atrial septal aneurysm Fatty liver Schizoaffective disorder Hypothyroidism Hyperlipidemia Morbid obesity Diabetes mellitus Diabetic polyneuropathy Essential hypertension Surgical History repair Patent foramen ovale Cholecystectomy Family History Mother Personal history of malignant neoplasm Breast cancer Father Heart disease Atrial Fibrillation Sister Epilepsy Grandfather Personal history of malignant neoplasm Leukemia Grandmother Personal history of malignant neoplasm pancreatic cancer Social History Smoking/Tobacco Use Status: Former Tobacco Use Smoking risk assessment performed?: Yes Alcohol Intake: never Drug use: Never Substance use type: does not use Housing: other Do you feel safe at home: Yes Do you feel safe in your relationship?: Yes
[2025-05-24 11:25] LABS: Abs Immature Grans 0.18 10^3/uL (0.0-0.06); HCT 48.5 % (40.0-50.0); HGB 16.0 g/dL (13.5-17.5); MCH 29.3 pg (27.0-33.0); MCHC 33.0 % (32.0-36.0); MCV 89 fL (80-95); MPV 11.3 fL (8.0-11.0); Platelet Count 309 10^3/uL (130-400); RBC 5.46 10^6/uL (4.36-5.78); RDW 13.5 % (11.8-14.1); RDW-SD 43.6 fL
--- NOTE | 2025-05-24 11:48 | NUR.NOTE ---
Nursing Note: [facility] [place] staff telephone numbers Lucei (RN) [phone] Harold[facility] (Administer) [phone] Advised that sometimes easier to reach them by cell than residential phone.
[2025-05-24 12:03] LABS: Salicylate < 2.8 mg/dL (<2.8)
[2025-05-24 12:04] LABS: Acetaminophen < 2 ug/mL (10-30)
[2025-05-24 12:07] LABS: Immature Grans % 0.0 %; RBC Morphology Normal
[2025-05-24 12:16] LABS: ALT 46 U/L (16-63); AST 30 U/L (15-37); Albumin 4.3 g/dL (3.4-5.0); Alkaline Phosphatase 130 U/L (46-116); Anion Gap 9.5 mmol/L (3-11); BUN 24 mg/dL (7-18); Bilirubin, Total 0.5 mg/dL (0.2-1.0); CO2 27.5 mmol/L (21.0-32.0); Calcium 10.0 mg/dL (8.5-10.1); Chloride 104 mmol/L (98-107); Estimated GFR 72.31 (mL/min/1.73m2); Glucose 114 mg/dL (74-106); Potassium 3.9 mmol/L (3.5-5.1); Sodium 141 mmol/L (136-145); TSH (W/Ref FT4) 1.17 uIU/mL (0.36-3.74); Total Protein 8.3 g/dL (6.4-8.2)
--- NOTE | 2025-05-24 12:45 | DI.RAD_ITS ---
Exam(s) XR CHEST 2V PA LATERAL EXAM: XR CHEST 2V PA LATERAL CLINICAL HISTORY: AMS, Behavioral changes. TECHNIQUE: 2D digital imaging was performed. COMPARISON: No exams were available for comparison FINDINGS: 2 views: Heart size is normal. The mediastinum is not widened. Lungs are clear. No infiltrates nor pleural effusions. IMPRESSION: No acute pulmonary findings. DATA REPOSITORY: RADIATION DOSE DELIVERED:
[2025-05-24] MEDS: LORazepam 1 MG TAB PO (13:01)
--- NOTE | 2025-05-24 14:00 | DI.CT_ITS ---
Exam(s) CT HEAD WO EXAM: CT HEAD WO CLINICAL HISTORY: AMS. TECHNIQUE: Imaging Protocol: Axial computed tomography images with coronal and sagittal reformatted images were created and reviewed COMPARISON: No exams were available for comparison FINDINGS: There are no skull fractures. There is no fluid in the visualized paranasal sinuses. Incidentally noted is an incomplete posterior C1 arch which appears to be developmental. There is no evidence of intracranial hemorrhage, mass effect, or shift of midline structures. There are no extra-axial fluid collections. The ventricles are not enlarged or shifted and there is no blood within the ventricular system nor within the basal cisterns. IMPRESSION: No acute intracranial findings on this noninfused CT scan of the brain. Report called by myself to ER 05/24/2025 at 3:50 p.m. RADIATION DOSE DELIVERED: 931.41mGy.cm Total DLP DATA REPOSITORY: All CT scans at this facility are submitted to the National Radiology Data Registry (NRDR) Dose Index Registry (DIR) with the [employer] (A[employer]). RADIATION OPTIMIZATION: All CT scans at this facility use at least one of these dose optimization techniques: automated exposure control; mA and/or kV adjustment per patient size (includes targeted exams where dose is matched to clinical indication); or iterative reconstruction.
[2025-05-24 14:25] LABS: WBC 27.37 10^3/uL (4.4-10.8)
[2025-05-24] MEDS: Normal Saline 1,000 ML 1000 ML IV (15:19)
--- NOTE | 2025-05-24 15:48 | ED.PROG_ITS ---
Date of service: 05/24/25 Time of Service: 15:48 Medical Decision Making This dictation utilizes [id number] dictation software and may contain unedited grammatical errors. Patient seen in signout from Elinor Hernandez NP, please see her complete note. This patient is here for alteration from baseline, hallucinations with a history of schizophrenia, he was here last week and had a bed at [facility] but then stated he lied about his suicidal ideations and the bed was canceled, he returned to [facility], they did try to restart him on Topamax which he has been without for quite some time, started him on 25 mg for a dose last night-he used to be on 100 mg twice daily. He is easily redirectable and has stable vitals but was found to have a significant leukocytosis of 27, his lactate is negative, studies like chest x-ray, blood cultures, urine sample, CT head are pending, the patient did voluntarily void on the floor in the psychiatric room in ED so it has been sometime in trying to collect a urine sample, he does wear depends and has odor of UTI, I am awaiting the sample to start empiric antibiotics as well as culture collection, then he will be medically cleared for further evaluation by [facility] if he does not need admission. Another possible source of his leukocytosis is a very minor diabetic foot ulcer that could be chronic it is nonerythematous. Patients' medical history: History of cerebral artery occlusion, atrial septal aneurysm, schizoaffective disorder, morbid obesity, diabetes mellitus, osteomyelitis, hypertension. Family and social history: Lives at a [place] [facility], denies illicit substance use, no EtOH use. Differential / pathologies of concern include cellulitis, sepsis, leukocytosis, UTI, bacteremia, suicidal ideation, psychosis, leukemia. Diagnostic studies of: - CBC, CMP, lactate, TSH, salicylate and acetaminophen level, blood cultures, urinalysis, UDS, x-ray chest, CT head by prior provider - Reviewed these labs, WBC is 27 with no left shift, significant elevation of absolute neutrophils and absolute lymphocytes and monocytes - Lactate negative - CMP without actionable abnormality - TSH within normal limits - Salicylates and acetaminophen negative. - XR Chest shows no acute pathology - CT head shows no acute pathology - UA pending collection @ sign-out - UDS pending collection @ sign-out - Blood Cx's collected, pending *Added ETOH for AMS, Ammonia for AMS, CRP to test acute phase reactants -ETOH neg -Ammonia neg -CRP neg Interventions of: -2mg Ativan, 1L IVF NS prior to sign-out. -Plan for empiric ABX of ceftriaxone- by 2100 hours patient has not given us urine sample- giving empiric ABX at this point - Consulted with Hospitalist Dr. Abdi, no reason for OBS @ 2100, [place] [facility] [place] for leukemia work-up. - Spoke with [facility]ematology Fellow at 2200- recommend LDH and peripheral blood smear, and recheck CBC tomorrow- no recommendations for bone marrow sample or other advanced diagnostics- they suspect this could be just due to acute psychotic agitation. ED Course/Assessment/Plan: 54-year-old male with recent discontinuation of Topamax by [facility] presents decompensated and acutely psychotic from likely longstanding medication change and chronic schizophrenia. He was recently here and was planned to go to [facility] but he reneged on his story of suicidal ideation in [place] canceled his bed. Due to the fact that he has bounced back and decompensated he likely needs stabilization but this is complicated by a severe leukocytosis of 27.7 with elevated lymphocytes and monocytes as well. Hospitalist team did not feel there was anything for them to intervene on, the patient clearly is u nreliable to self start any outpatient follow-up via hematology appointments at this time without specific confirmation of his primary care team and mental health care team as well as the grease refining supervisor. We had great difficulty obtaining a urine sample and I think the patient should receive ceftriaxone regardless with repeat CBC tomorrow followed by case management consult, [facility] evaluation, possibly getting referral to medical capable psych facility, but if his CBC demonstrates stability and he does not decompensate further and remains afebrile and nontoxic with no other normalities to labs he could likely follow- up with this on an outpatient basis after mental health stabilization. Patient signed out to oncoming provider at shift-change. Did not feel is warranted to fully sedate the patient who is acutely psychotic and highly agitated to collect a urine sample, will repeat labs in the morning. If stable and continued to be afebrile with stable vitals it would be reasonable for [facility] to evaluate at that time. Telepsychiatry ordered, Care Mgmt Consult ordered. Repeat labs qAM ordered. Disposition of Psychosis. Patient verbalized understanding of the plan and return to ED criteria and engaged in shared decision making. Medical Records Medical records reviewed: Yes I reviewed the patient's medical records. Imaging Data Radiologic Study: Attestation: I personally reviewed and interpreted this imaging study as follows: Imaging: X-Ray Radiologist's impression: EXAM: XR CHEST 2V PA LATERAL CLINICAL HISTORY: AMS, Behavioral changes. TECHNIQUE: 2D digital imaging was performed. COMPARISON: No exams were available for comparison FINDINGS: 2 views: Heart size is normal. The mediastinum is not widened. Lungs are clear. No infiltrates nor pleural effusions. IMPRESSION: No acute pulmonary findings. Radiologic Study #2: Attestation: I personally reviewed and interpreted this imaging study as follows: Imaging: CT Scan Radiologist's impression: EXAM: CT HEAD WO CLINICAL HISTORY: AMS. TECHNIQUE: Imaging Protocol: Axial computed tomography images with coronal and sagittal reformatted images were created and reviewed COMPARISON: No exams were available for comparison FINDINGS: There are no skull fractures. There is no fluid in the visualized paranasal sinuses. Incidentally noted is an incomplete posterior C1 arch which appears to be developmental. There is no evidence of intracranial hemorrhage, mass effect, or shift of midline structures. There are no extra-axial fluid collections. The ventricles are not enlarged or shifted and there is no blood within the ventricular system nor within the basal cisterns. IMPRESSION: No acute intracranial findings on this noninfused CT scan of the brain. Report called by myself to ER 05/24/2025 at 3:50 p.m. Lab Data Lab results reviewed: Yes I reviewed the patient's lab results. Labs: 05/24/25 16:01 Blood Blood Culture - Pending 05/24/25 14:59 Blood Blood Culture - Pending Laboratory Tests Range/Units 05/24/25 05/24/25 05/24/25 11:15 15:13 15:54 WBC (4.4-10.8) 10^3/uL 27.37 H* RBC (4.36-5.78) 10^6/uL 5.46 Hgb (13.5-17.5) g/dL 16.0 Hct (40.0-50.0) % 48.5 MCV (80-95) fL 89 MCH (27.0-33.0) pg 29.3 MCHC (32.0-36.0) % 33.0 RDW (11.8-14.1) % 13.5 Plt Count (130-400) 10^3/uL 309 MPV (8.0-11.0) fL 11.3 H Reticulocyte % (Auto) (0.5-2.4) % 1.4 Immature Gran % % 0.0 Neutrophils % % 84.0 Lymphocytes % % 13.0 Monocytes % % 3.0 Eosinophils % % 0.0 Basophils % % 0.0 Nucleated RBC % (0.0-0.3) % 0.0 Absolute Neutrophils (1.2-6.7) 10^3/uL 22.99 H Absolute Lymphocytes (1.2-3.4) 10^3/uL 3.56 H Absolute Monocytes (0.1-0.8) 10^3/uL 0.82 H Absolute Eosinophils (0.0-0.7) 10^3/uL 0.00 Absolute Basophils (0.0-0.2) 10^3/uL 0.00 RBC Morphology Normal VBG Lactate (<or=2.0) mmol/L 1.3 Sodium (136-145) mmol/L 141 Potassium (3.5-5.1) mmol/L 3.9 Chloride (98-107) mmol/L 104 Carbon Dioxide (21.0-32.0) mmol/L 27.5 Anion Gap (3-11) mmol/L 9.5 BUN (7-18) mg/dL 24 H Creatinine (0.70-1.30) mg/dL 1.2 Est GFR (CKD-EPI 2020) (mL/min/1.73m2) 72.31 Glucose (74-106) mg/dL 114 H Calcium (8.5-10.1) mg/dL 10.0 Total Bilirubin (0.2-1.0) mg/dL 0.5 AST (15-37) U/L 30 ALT (16-63) U/L 46 Alkaline Phosphatase (46-116) U/L 130 H Ammonia Cancelled C-Reactive Protein (<or=0.5) mg/dL < 0.50 Total Protein (6.4-8.2) g/dL 8.3 H Albumin (3.4-5.0) g/dL 4.3 Procalcitonin ng/mL < 0.10 TSH (0.36-3.74) uIU/mL 1.17 Salicylates (<2.8) mg/dL < 2.8 Acetaminophen (10-30) ug/mL < 2 Ethyl Alcohol (<10) mg/dL < 3.0 Range/Units 05/24/25 16:55 WBC (4.4-10.8) 10^3/uL RBC (4.36-5.78) 10^6/uL Hgb (13.5-17.5) g/dL Hct (40.0-50.0) % MCV (80-95) fL MCH (27.0-33.0) pg MCHC (32.0-36.0) % RDW (11.8-14.1) % Plt Count (130-400) 10^3/uL MPV (8.0-11.0) fL Reticulocyte % (Auto) (0.5-2.4) % Immature Gran % % Neutrophils % % Lymphocytes % % Monocytes % % Eosinophils % % Basophils % % Nucleated RBC % (0.0-0.3) % Absolute Neutrophils (1.2-6.7) 10^3/uL Absolute Lymphocytes (1.2-3.4) 10^3/uL Absolute Monocytes (0.1-0.8) 10^3/uL Absolute Eosinophils (0.0-0.7) 10^3/uL Absolute Basophils (0.0-0.2) 10^3/uL RBC Morphology VBG Lactate (<or=2.0) mmol/L Sodium (136-145) mmol/L Potassium (3.5-5.1) mmol/L Chloride (98-107) mmol/L Carbon Dioxide (21.0-32.0) mmol/L Anion Gap (3-11) mmol/L BUN (7-18) mg/dL Creatinine (0.70-1.30) mg/dL Est GFR (CKD-EPI 2020) (mL/min/1.73m2) Glucose (74-106) mg/dL Calcium (8.5-10.1) mg/dL Total Bilirubin (0.2-1.0) mg/dL AST (15-37) U/L ALT (16-63) U/L Alkaline Phosphatase (46-116) U/L Ammonia < 10 L C-Reactive Protein (<or=0.5) mg/dL Total Protein (6.4-8.2) g/dL Albumin (3.4-5.0) g/dL Procalcitonin ng/mL TSH (0.36-3.74) uIU/mL Salicylates (<2.8) mg/dL Acetaminophen (10-30) ug/mL Ethyl Alcohol (<10) mg/dL Discharge Plan Discharge Details Chief Complaint: PsychEval Primary Care Provider: Sakina Meng V ED Provider: Armin Vail Home Meds and New Rx's Prescriptions: No Action psyllium husk [Metamucil] 0.4 gram capsule 0.52 g PO DAILY Rx Instructions: Per residence MAR, admin 1 cap PO Q AM gabapentin 300 mg capsule 500 mg PO QHS Patient Comments: Per residence MAR: 400mg x3 days (start date not indicated) then 500mg citalopram 10 mg tablet 20 mg PO DAILY Probiotic (B. coagulans) 10 billion cell capsule,delayed release(DR/EC) 1 cell PO DAILY clozapine 100 MG tablet 250 mg PO HS atenolol 25 MG tablet 25 mg PO DAILY lisinopril 5 MG tablet 5 mg PO DAILY Freedavite 1 EACH tablet 1 ea PO DAILY aspirin 325 mg Tablet,Delayed Release (Dr/Ec) 325 mg PO DAILY pantoprazole 40 mg tablet,delayed release (DR/EC) 40 mg PO DAILY Patient Comments: TAKE 1 TABLET BY MOUTH DAILY rosuvastatin 5 mg tablet 5 mg PO DAILY cholecalciferol (vitamin D3) [Vitamin D3] 50 mcg (2,000 unit) Tablet 50 mcg PO DAILY topiramate 25 mg tablet 25 mg PO HS multivitamin [Daily Multi-Vitamin] Tablet 1 tab PO DAILY cholestyramine 4 gram powder 4 g PO DAILY Rx Instructions: Per residence MAR, once daily/hold for constipation. MAR indicates daily refusal. Administer w/meal; avoid other meds within 1hr before or 4-6hr after dose indomethacin 50 mg capsule 50 mg PO PRN Rx Instructions: administer with food or milk allopurinol 100 MG tablet 100 mg PO DAILY
[2025-05-24 16:17] LABS: Procalcitonin < 0.10 ng/mL
[2025-05-24 17:13] LABS: C-Reactive Protein < 0.50 mg/dL (<or=0.5)
[2025-05-24 17:36] LABS: Ammonia < 10 umol/L (11-32)
[2025-05-24] MEDS: Haloperidol 1 MG TAB 2 MG PO (18:24)
[2025-05-24] MEDS: Gabapentin 100 MG CAP 500 MG PO (19:23)
[2025-05-24] MEDS: cefTRIAXone 2 GM/50 ML BAG IVPB (21:45)
[2025-05-25 00:09] VITALS: BP 138/90; PULSE 74; RESP 18; O2SAT 99
[2025-05-25 01:35] VITALS: BP 138/88; PULSE 70; RESP 18; TEMP 36.5; O2SAT 99
[2025-05-25 03:31] VITALS: BP 146/86; PULSE 69; RESP 18; TEMP 36.5; O2SAT 97
[2025-05-25 05:28] VITALS: BP 130/84; PULSE 90; RESP 18; TEMP 37; O2SAT 97
[2025-05-25 08:23] LABS: Abs Immature Grans 0.14 10^3/uL (0.0-0.06); HCT 47.1 % (40.0-50.0); HGB 15.3 g/dL (13.5-17.5); Immature Grans % 0.6 %; MCH 29.5 pg (27.0-33.0); MCHC 32.5 % (32.0-36.0); MCV 91 fL (80-95); MPV 11.4 fL (8.0-11.0); Platelet Count 275 10^3/uL (130-400); RBC 5.18 10^6/uL (4.36-5.78); RDW 13.5 % (11.8-14.1); RDW-SD 45.6 fL; WBC 24.17 10^3/uL (4.4-10.8)
[2025-05-25 08:39] LABS: ALT 45 U/L (16-63); AST 32 U/L (15-37); Albumin 4.1 g/dL (3.4-5.0); Alkaline Phosphatase 122 U/L (46-116); Anion Gap 10.2 mmol/L (3-11); BUN 24 mg/dL (7-18); Bilirubin, Total 0.7 mg/dL (0.2-1.0); C-Reactive Protein 0.80 mg/dL (<or=0.5); CO2 28.8 mmol/L (21.0-32.0); Calcium 9.6 mg/dL (8.5-10.1); Chloride 105 mmol/L (98-107); Estimated GFR 72.31 (mL/min/1.73m2); Glucose 100 mg/dL (74-106); Potassium 3.9 mmol/L (3.5-5.1); Sodium 144 mmol/L (136-145); Total Protein 8.0 g/dL (6.4-8.2)
[2025-05-25 08:49] LABS: RBC Morphology Normal
[2025-05-25 08:52] LABS: Cannabinoids THC Negative (Negative); METHADONE URINE SCREEN Negative (Negative)
[2025-05-25 08:55] LABS: Glucose Negative (Negative)
[2025-05-25] MEDS: Aspirin E.C. 325 MG TABEC PO (09:09)
[2025-05-25] MEDS: Cholecalciferol (Vitamin D3) 1,000 UNIT TAB 2000 UNITS PO (09:09)
[2025-05-25] MEDS: Allopurinol 100 MG TAB PO (09:09)
[2025-05-25] MEDS: Rosuvastatin 5 MG TAB PO (09:09)
[2025-05-25] MEDS: Cholestyramine/Aspartame PKT 1 EACH PO (09:09)
--- NOTE | 2025-05-25 09:09 | CMPROGNOTE_ITS ---
Date of service: 05/25/25 Time of Service: 12:37 Care Management Progress Note Progress Note Text Progress Note Text: CM huddled with staff (TESSA RN, [facility], ED charge auditor, ED provider) surrounding Tejas's plan of care. At the time of the huddle, Tejas was lying in bed and, per RN report, had received medications earlier. Psychiatric consultation is currently pending. Per [facility], Tejas is expressing SI and HI. He declined to complete the rating scale assessment. When asked if he had a plan related to his SI, he initially responded, ?just do it.? Following that, he imitated stabbing himself in the heart with safety tray food knife. Tejas then stated, he will kill my own mother. Prior to the huddle, Tejas stated, First I will kill Sugar Faulkner (Momo Mike RN/Management), then I'll kill you (referencing Lisette Kramer RN); This write was present for this statement. He has a recent history of being seen in a few days ago, during which he was offered a bed at an inpatient psychiatric treatment facility. However, he declined the offer at that time, stating he had fabricated his SI. Please refer to [facility] documentation for additional detail. Per [facility], no formal referrals have been placed at this time. It was agreed during the huddle that an EE would be initiated due to the patient?s current presentation and ongoing safety concerns. Prior to the huddle, Tejas appeared labile and was observed frantically pacing the hallway in . Tejas does not have a guardian. CM will continue to follow. Status Status: Involuntary Social Determinants of Health Screening Will the Patient Participate in the Screening?: Unable to obtain
--- NOTE | 2025-05-25 09:09 | PDOC.CMSAFE ---
Date of service: 05/25/25 Time of Service: 12:14 Care Management Safety Plan Status Status: Involuntary (Doc initiating cert) Guardianship if Applicable Guardianship: Parent (likely mother) Reason for Wait Reason for Wait: Inpatient Admission and Assessment/Screening Safety Plan Safety Plan: INVOLUNTARY FOR INPATIENT PSYCHIATRIC STABILIZATION.? Patient is appropriate in all interactions since arriving at [facility]; Pt has demonstrated appropriate coping and communication skills, has articulated his or her needs and concerns and is fully engaged during staff interactions. Safety plan has been established with patient, and care team, to adhere to patient goals, identify restrictions based on behavioral status, address nutrition, and determine allowed personal belongings, tools for hygiene and personal care. Determine level of activity including ambulation, level of supervision, visitors, and determine privileges based on behaviors and level of engagement by pt. SAFETY PLAN: 1. Will remain on suicide precautions, in paper clothes 2. Will remain in Zone B under direct supervision of one-on-one staff at all times provided by [employer]; SID, INSTANT POTATO PROCESSING SUPERVISOR tank operator. 3. May have paper cups, plates, finger foods as well as a cardboard spoon with which to eat meals. 4. Follow [facility] Management of the Admitted Behavioral Health Patient policy. 5. Shower available in Zone B without restriction. 6. Personal belongings-soft items permitted at RN discretion. 7. Visitors-none at this time. 8. Activities: soft cart items approved per RN discretion. 9.? Bathroom available in Zone B without restriction. 10. Phone: limited to certified legal investigator on [facility] cordless phone at RN discretion. Due to INVOLUNTARY status, patient is being held at [facility] by the Department of Mental Health ([facility]) until 2nd certification by [facility] Psychiatrist can be performed (within 24 hours). Staff will provide de-escalation support (CPI) as needed. If patient wishes to leave [facility], staff will contact [facility] Crisis Screener ([phone]) and Consumer Marketing Analyst ([phone]) as soon as possible. In the event of elopement, notify [place] [employer] ([phone]). Patient is currently involuntarily at [facility]. [facility] Frontline Dog Beautician will continue seeking placement. Please contact the Consumer Marketing Analyst for any needed changes to Safety Plan. Safety plan has been provided to interdepartmental care team. Patient will be transported by the medical center at time of discharge.
[2025-05-25] MEDS: Atenolol 25 MG TAB PO (09:10)
[2025-05-25] MEDS: Pantoprazole 40 MG TABCR PO (09:10)
[2025-05-25] MEDS: Lisinopril 5 MG TAB PO (09:10)
[2025-05-25] MEDS: OLANZapine 10 MG TAB PO (10:16)
--- NOTE | 2025-05-25 13:09 | W.TELEPSYCH ---
Date of service: 05/25/25 Time of Service: 13:09 Summary Note PSYCHIATRY CONSULT NOTE: INITIAL EVALUATION Date/Time:?05/25/2025 1:08:31 PM Name:Abdoul Tolentino :?1970 Location of the patient:?[facility] ED Consulting Array Clinician:?Brad Mckinnon Location of the clinician:?[facility] Length of Consult:?40 minutes SUMMARY 54-year-old male, with history of schizophrenia, history of poor self-care, history of psychiatric hospitalization, with unknown current excessive drug use, unknown history of self-harming/suicidal behavior/violent behavior, arrived via EMS alerted by care home for psychosis, altered mental status. Patient originally presented about a week ago with suicidal ideation but ultimately refused to be transferred to the [facility] for treatment. He went back to his care home and has had continued decompensation. He presented back to the emergency department grossly psychotic. He has had several medication changes recently which may be affecting his presentation. When seen today, he is very difficult to interview. He has gotten a dosage of Zyprexa which seems to be affecting him. It is reported to me that he has been generally disorganized, hallucinating, talking to corners of the room when nothing is there. Patient does present grossly psychotic and is appropriate for involuntary hospitalization at this point. I reviewed his medications and he is in the process of being restarted on topiramate. This can be increased to 25 mg twice daily. He may also benefit from adjusting his clozapine. He is currently on 250 mg p.o. nightly. Recommend getting an EKG if possible, and if QTC < 500 adding 50 mg clozapine in the morning.Patient is at elevated risk of danger to self, danger due to grave disability/poor self-care. Patient presently meets criteria for inpatient psychiatric hospitalization. Working Diagnoses:? F20.9 Schizophrenia, unspecified Rule Out Diagnoses:? CPT Codes:?72181 - Psychiatric Diagnostic Evaluation with Medical Services PLAN Disposition:?Involuntary admission when medically stable ? Observation level ? Psychiatric 1:1 needed??Continue psych 1:1 OR Close observation per hospital protocol Work-up:?EKG Pharmacological:? Recommend increasing Clozapine to 50mg Qam and 250mg QHS, increase Topiramate to 25mg BID ? Is patient psychotic? - Yes; Were antipsychotic medications started? - Yes ? Informed consent: Patient is unable to understand risks benefits of or consent to above recommended psychiatric medications in their current mental state. No surrogate decision maker is available. Without recommended medication patient will likely deteriorate further and possibly place themselves or others at risk. Patient is not legally compelled to take recommended medication at this time. Follow up needed while in the hospital??As needed for management of behavior or change in mental status Other:? Parts of this note were dictated using voice recognition software and may contain small irregularities and grammatical errors which are unintentional. ? If questions arise about the psychiatric care of this patient, please call the [facility]?to request a follow-up consult. ?Please do not contact me individually through the EMR chat as I am not?regularly logged on to?this system. The psychiatrist for the follow-up visit may be a different psychiatrist Discussed plan with onsite steam shovelman:?Yes - Attempted Dr Diaz and he is with another patient. Spoke with Dakota Lacy RN HISTORY This evaluation was conducted remotely with the assistance of onsite staff via HIPAA-compliant video call. Patient consented to proceed with the telehealth visit. Requested by:?Dr Diaz Sources of information:?Patient, medical record History of Present Illness:? 54-year-old male, living in care home, single, unemployed, with history of schizophrenia, history of poor self-care, history of psychiatric hospitalization, with unknown current excessive drug use, unknown history of self-harming/suicidal behavior/violent behavior, arrived via EMS alerted by care home for psychosis, altered mental status. UDS negative, Alcohol undetectable. In the hospital, patient has been in behavioral control with no reported issues. Patient apparently had been in the emergency department the prior week for suicidality. He was accepted to [facility] and then refused to be transported, saying he had lied about his suicidal ideation. He returned to his care home. They attempted to restart him on topiramate which he had been off for quite some time. They started him on 25 mg nightly. He used to be on 100 mg twice daily he was found to have leukocytosis in the ED, possible UTI. He has been recommended to be empirically treated with ceftriaxone, because it has been difficult to get a urine sample due to his psychosis and agitation. Sample was able to be obtained and his UDS was negative, and UA seemed to be unremarkable. Spoke with Dakota Lacy RN. he is disorganized and they are pursuing involuntary admission at this point. Looking potentially for med recommendations. He has been psychotic, perseverating, has intermittent HI toward his mother and the RN. Usually is pretty functional and this presentation is way off his baseline.. On psychiatric evaluation, patient is unreliable, disorganized, cooperative, alert, pleasant, unable to give clear history. Patient has trouble telling me why he is here. He says 'someone gave me some pills. He is perseverating on being given some pills. he doesnt know what. he says he was at the . He cant tell me how the pills made him feel. He says to the RN some things about local MH facility which is shutting down, asking about it but totally out of context. he endorses hearing talking. observed at times talking to the corner. patient was asking for medication this morning and was given some zyprexa. responses are very latent if at all. RN says this presentation hasnt been his usual in the ED he is usually much more responsive.. Collateral Contacted No-- patient meets criteria for inpatient hospitalization. PSYCHIATRIC REVIEW OF SYSTEMS (symptoms in past two weeks) Pertinent Positives:?depressed mood/insomnia/agitation/anxiety/impulsivity Pertinent Negatives:?no anhedonia/no hopelessness/no irritability/no aggressive behavior/no command hallucinations/no panic attacks PSYCHIATRIC HISTORY Past Psychiatric Diagnoses/Problems:?schizophrenia Psychiatric Treatment:?Hospitalizations:?psychiatric hospitalization ???Other Past treatment:?medication management ???Current treatment:?medication management; treatment adherent Drug/Alcohol History ???Current excessive drug/alcohol use:?unknown ???Past excessive drug/alcohol use:?unknown ???Drug/alcohol use comment:?Treatment:?unknown ???Withdrawal symptoms:?unknown ???UDS results:?UDS negative ???BAL results:?undetectable ???Active withdrawal Protocol:? Stressors:?unknown Trauma:?unknown Family Psychiatric History:?unknown HEALTH HISTORY Medical Problems:? deemed medically stable Is patient linked with PCP??unknown Psychiatric and other clinically relevant medications:?Citalopram 20 mg p.o. every morning, gabapentin 500 mg p.o. nightly, topiramate 25 mg p.o. nightly, Clozapine 250 mg p.o. nightly. Patient has received Zyprexa 10 mg as needed. Antibiotics have been discontinued. Allergies/Adverse Medication Reactions:?Valbenazine Physical Findings:?no clinically significant changes in vital signs, no clinically significant abnormal lab values DEMOGRAPHICS/SOCIAL HISTORY Gender:?male Living Situation:?living in care home Relationship Status:?single Education:?unknown Employment:?unemployed Social Support Network:?supportive social network of family or friends Legal History:?unknown Special Considerations:?none RISK EVALUATION Suicidality/self-injury:?unknown Primary Suicide Screening (PSS-3) 1. In the past two weeks, have you felt down, depressed, or hopeless??YES 2. In the past two weeks, have you had thoughts of killing yourself??YES 3. In your lifetime, have you ever attempted to kill yourself??NO 3a. Within the past 6 months??NO ESS-6 Secondary Screen ( If #2 is yes or #3a is yes within the past 6 months, then complete secondary screen) 1. Positive on PSS-3 questions 2 & 3 ? active suicidal ideation with a past attempt??NO 2. Have you been thinking about how you might kill yourself??NO 3. Have you had some intention of acting on your thoughts??NO 4. Lifetime psychiatric hospitalization??YES 5. Has drinking or substance abuse ever been a problem for you??NO 6. Current irritability, agitation, or aggression??YES PSS-3/ESS-6 Secondary Screen Scoring:?Mild PSS-3/ESS-6 Scoring Interpretation Legend PSS-3 screen incomplete [Blank PSS-3 questions #2 OR #3a] PSS-3 screen unable to assess [Unable to Assess responses on PSS-3 questions #2 AND #3a] Mild [No current attempt AND No suicide plan or intent AND Score (0-2)] Moderate [No current attempt AND Active suicidal ideation with plan or intent (not both) OR Score (3-4)] Severe [Current attempt OR Suicide plan and intent OR Score (5-6)] HI/Violence/Property Destruction:?unknown Access to Firearms:?none Grave disability/Poor self-care:?yes poor self-care Psychosis:?Yes Protective Factors:?unable to assess High Utilization Criteria:?none Signs of Secondary Gain:?none MENTAL STATUS EXAM Appearance and Attire:? Unkempt Psychomotor agitation:? Psychomotor retardation Attitude and behavior:? Cooperative Speech:? Increased latency Mood:?unable to assess Affect:? Flat Thought Process:? Not linear, Not logical, Incoherent, Vague Thought content:?unable to assess Perception:? Auditory hallucinations Intelligence:?unable to assess Abstraction:?unable to assess Language:?unable to assess Orientation:? Grossly oriented Sensorium:? Drowsy Knowledge:?unable to assess Memory:?unable to assess Insight:? Severe impairment Judgment:? Severe impairment SUMMARY RISK ASSESSMENT Current Suicide Risk Elevated??PSS-3/ESS-6 Scoring: Mild? Current Violence Risk Elevated??No Issues with ability to care for self.?Yes Brad Mckinnon, , [facility]
--- NOTE | 2025-05-25 13:30 | RT.EKG_ITS ---
APPROVED REPORT Exam: Resting ECG Reason for Exam: QT Monitoring Patient Location: E HR:102 bpm ECG Measurements Heart Rate 102 AXIS WV 161 P 74 QRSd 150 QRS 9 QT 397 T 6 QTc 516 Conclusion Sinus tachycardia...rate> 99 Right bundle branch block...QRSd>120, terminal axis(90,270) Lateral infarct, age indeterminate...Q>35mS, T neg, V5-V6 I aVL Normal QT interval. . There are no significant changes compared to prior EKG performed on 04/16/2018 at 09:21.
--- NOTE | 2025-05-25 14:47 | PDOC.MHCN_ITS ---
Date of service: 05/25/25 Time of Service: 11:23 Mental Health Emergency Note Release [facility] release signed:: Yes Reason for Visit The client is a single 54-year-old male that resides in a fpc in [place], [place]. 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 In the last 2 weeks has the pt presented for ES prior to today?: No Client Information Client is: Adult Outpatient Well Housed: No,status: Not homeless, Risk: Does risk to harm exist?: yes. Risk: High Risk Duty to warn indicated: No Asssessment/Mental Status Appearance: Disheveled and Poor hygiene Attitude: Guarded Behavior: Agitated Speech: Slow and Hesitant Affect: Cogruent with mood Mood: Anxious and Irritable Hallucinations: yes, Visual Delusions: yes, Persectory/Paranoid and Bizarre Attention: Unremarkable Perception: Not impaired Orientation: Fully orientated Memory: Intact Insight: Poor Judgement: Poor Neurovegetative Symptoms Sleep: Decrease Appetitie: Decrease Interests: Decrease Energy: Decrease Libido: Not applicable Substance Use: Do you use nicotine?: No Have you used substances in the last 7 days?: No Additional Issues: Assaultive/Threatening Behavior: Yes Medical Concerns: No Client engaged in active self harm w/weapon: No Threatening to run away: No Child reported abuse/neglect: No Voluntarily presenting for services: No Domestic violence is a concern: No Extreme Psychosis or extreme behavior is present: Yes Impression The client is laying down in the hospital bed dressed in proper paper hospital attire and appears to be resting with his eyes closed. This justowriter operator introduces herself and the client briefly opens his eyes. The client is unable to recognize this justowriter operator from interactions at [facility] or from assessing him last week while at [facility]. The client?s mood appears to be labile and agitated at times. The client appears to be showing poor insight and judgment and appears to be presenting with hallucinations and delusions. The client states: ?I am God, I know you guys want to help but there is a big wall out there and we are never going to get through.? The client states: ?I saw Seema Avilez she was in hell with a few other people.?Based on the client?s current mental status the client appears to be a risk to both himself and others at this time. This justowriter operator asks the client if he is currently having thoughts of wanting to kill himself and he states: ?yes.? This justowriter operator asks the client if he has a plan and he states: ?just do it? and then makes a gesture as if he has a knife in his hand to stab his heart. Per report of [facility] staff the client has made multiple statements that he is going to kill himself since being in the emergency department. This justowriter operator asks the client if he is having thoughts of wanting to hurt other people and he states: ?yes I am going to kill my own fuckin mother.? [facility] nurse Dakota reports that the client has been making multiple statements to him stating: ?I am going to fuckin kill you.? Plan/Disposition Recommended Disposition: Hospitalization No. Plan: Based on the client?s poor insight and judgement as well as current altered mental status there is significant risk to himself and others within the community. Given these factors it is this clinician?s professional opinion that the client requires short-term, immediate and intensive treatment in a secured environment to manage his symptoms to ensure the safety of both himself and the community until he can safety return to the community. Hospitalization is necessary as adequate treatment cannot be provided in the community due to the severity of his condition and potential risks. Person reported agreement to plan: No Reports/communication Outcome discussed with: ED/Personnel ([place] completed with [facility] staff and Dr. Diaz)
--- NOTE | 2025-05-25 15:25 | ED.PSYCHBOAR ---
Date of service: 05/25/25 Time of Service: 15:25 Psychiatric Border Handoff Update Brief Story: Patient has a history of schizoaffective disorder. Patient had been stable for quite some time, and now recently he is transition to be notably unstable with both homicidal and suicidal ideations and evidences of acute psychosis. Patient was medically cleared by my colleagues, repeat laboratory workup is improving which shows white count that is decreasing to 24, absolute neutrophil count is now 18, ammonia level negative. Urinalysis has returned today is negative. UDS negative. Patient was seen and assessed by mental health this morning, and they know the patient well. They feel that he is well off his baseline. He has had multiple statements of homicidal and suicidal ideations. They recommend EE status. We did get a psychiatric consult, and psychiatry at this time recommends transitioning Topamax to twice daily, adding 50 mg of clozapine to the morning, as well as getting a screening EKG for QT evaluation. The patient will be placed on an involuntary status, and placement will be sought. Status: EE Able to leave: no, this patient is an EE Mediation Reconciliation performed: Yes Code Status ordered: Yes Diet ordered: Yes Telepsych recommendations (re: meds for agitation, etc): Please see brief story Discharge Plan Discharge Details Chief Complaint: PsychEval Clinical Impression: Homicidal ideations, Suicide ideation, Psychosis Primary Care Provider: Sakina Meng V ED Provider: Armin Diaz Home Meds and New Rx's Prescriptions: No Action psyllium husk [Metamucil] 0.4 gram capsule 0.52 g PO DAILY Rx Instructions: Per residence MAR, admin 1 cap PO Q AM gabapentin 300 mg capsule 500 mg PO QHS Patient Comments: Per residence MAR: 400mg x3 days (start date not indicated) then 500mg citalopram 10 mg tablet 20 mg PO DAILY Probiotic (B. coagulans) 10 billion cell capsule,delayed release(DR/EC) 1 cell PO DAILY clozapine 100 MG tablet 250 mg PO HS atenolol 25 MG tablet 25 mg PO DAILY lisinopril 5 MG tablet 5 mg PO DAILY Freedavite 1 EACH tablet 1 ea PO DAILY aspirin 325 mg Tablet,Delayed Release (Dr/Ec) 325 mg PO DAILY pantoprazole 40 mg tablet,delayed release (DR/EC) 40 mg PO DAILY Patient Comments: TAKE 1 TABLET BY MOUTH DAILY rosuvastatin 5 mg tablet 5 mg PO DAILY cholecalciferol (vitamin D3) [Vitamin D3] 50 mcg (2,000 unit) Tablet 50 mcg PO DAILY topiramate 25 mg tablet 25 mg PO HS multivitamin [Daily Multi-Vitamin] Tablet 1 tab PO DAILY cholestyramine 4 gram powder 4 g PO DAILY Rx Instructions: Per residence MAR, once daily/hold for constipation. MAR indicates daily refusal. Administer w/meal; avoid other meds within 1hr before or 4-6hr after dose indomethacin 50 mg capsule 50 mg PO PRN Rx Instructions: administer with food or milk allopurinol 100 MG tablet 100 mg PO DAILY
--- NOTE | 2025-05-25 18:11 | ED.PROG_ITS ---
Date of service: 05/25/25 Time of Service: 18:12 Medical Decision Making Responded to staff emergency triggered by patient becoming more dysregulated and agitated. He had been redirectable for the most part but appears to be spiraling and becoming less able to redirect. He took an aggressive stance with fists raised against nurse staffing the psychiatric belcher. He was offered oral Ativan to help with his agitation. He has refused this and is becoming more aggressive. Will order IM Ativan before situation becomes more dangerous. Per the nurse taking care of him now he received Haldol yesterday which did not seem to help as well as Ativan which did seem to help. Will continue other medications as previously recommended by psychiatry. Discharge Plan Discharge Details Chief Complaint: PsychEval Clinical Impression: Homicidal ideations, Suicide ideation, Psychosis Primary Care Provider: Sakina Meng V ED Provider: Gold Shipman [place] Meds and New Rx's Prescriptions: No Action psyllium husk [Metamucil] 0.4 gram capsule 0.52 g PO DAILY Rx Instructions: Per residence MAR, admin 1 cap PO Q AM gabapentin 300 mg capsule 500 mg PO QHS Patient Comments: Per residence MAR: 400mg x3 days (start date not indicated) then 500mg citalopram 10 mg tablet 20 mg PO DAILY Probiotic (B. coagulans) 10 billion cell capsule,delayed release(DR/EC) 1 cell PO DAILY clozapine 100 MG tablet 250 mg PO HS atenolol 25 MG tablet 25 mg PO DAILY lisinopril 5 MG tablet 5 mg PO DAILY Freedavite 1 EACH tablet 1 ea PO DAILY aspirin 325 mg Tablet,Delayed Release (Dr/Ec) 325 mg PO DAILY pantoprazole 40 mg tablet,delayed release (DR/EC) 40 mg PO DAILY Patient Comments: TAKE 1 TABLET BY MOUTH DAILY rosuvastatin 5 mg tablet 5 mg PO DAILY cholecalciferol (vitamin D3) [Vitamin D3] 50 mcg (2,000 unit) Tablet 50 mcg PO DAILY topiramate 25 mg tablet 25 mg PO HS multivitamin [Daily Multi-Vitamin] Tablet 1 tab PO DAILY cholestyramine 4 gram powder 4 g PO DAILY Rx Instructions: Per residence MAR, once daily/hold for constipation. MAR indicates daily refusal. Administer w/meal; avoid other meds within 1hr before or 4-6hr after dose indomethacin 50 mg capsule 50 mg PO PRN Rx Instructions: administer with food or milk allopurinol 100 MG tablet 100 mg PO DAILY Restraint Face to Face Time of Face to Face Face to Face: Time of Face to Face: 18:05 Patient's Immediate Situation Requiring Restraints/Seclusion: Harm to Staff & Others Patient's Medical & Behavioral Condition: Increasing agitation and aggressiveness requiring chemical sedation
[2025-05-25] MEDS: LORazepam 20 MG/10 ML VIAL IM (19:01)
--- NOTE | 2025-05-26 07:48 | CMSP_ITS ---
Date of service: 05/26/25 Time of Service: 07:49 Care Management Safety Plan Status Status: Involuntary Reason for Wait Reason for Wait: Inpatient Admission Safety Plan Safety Plan: INVOLUNTARY FOR INPATIENT PSYCHIATRIC STABILIZATION.? Patient is appropriate in all interactions since arriving at [facility]; Pt has demonstrated appropriate coping and communication skills, has articulated his or her needs and concerns and is fully engaged during staff interactions. Safety plan has been established with patient, and care team, to adhere to patient goals, identify restrictions based on behavioral status, address nutrition, and determine allowed personal belongings, tools for hygiene and personal care. Determine level of activity including ambulation, level of supervision, visitors, and determine privileges based on behaviors and level of engagement by pt. SAFETY PLAN: 1. Will remain on suicide precautions, in paper clothes 2. Will remain in Zone B under direct supervision of one-on-one staff at all times provided by [employer]; SID, WHEEL ALIGNMENT TECHNICIAN [employer] former arbor end. 3. May have paper cups, plates, finger foods as well as a cardboard spoon with which to eat meals. 4. Follow [facility] Management of the Admitted Behavioral Health Patient policy. 5. Shower available in Zone B without restriction. 6. Personal belongings-soft items permitted at RN discretion. 7. Visitors-none at this time. 8. Activities: soft cart items approved per RN discretion. 9.? Bathroom available in Zone B without restriction. 10. Phone: limited to criminal legal assistant on [facility] cordless phone at RN discretion. Due to INVOLUNTARY status, patient is being held at [facility] by the Department of Mental Health ([facility]) until 2nd certification by [facility] Psychiatrist can be performed (within 24 hours). Staff will provide de-escalation support (CPI) as needed. If patient wishes to leave [facility], staff will contact [facility] Crisis Screener ([phone]) and Production Assembler ([phone]) as soon as possible. In the event of elopement, notify [place] [employer] ([phone]). Patient is currently involuntarily at [facility]. [facility] Frontline Injection Maintenance Technician will continue seeking placement. Please contact the Production Assembler for any needed changes to Safety Plan. Safety plan has been provided to interdepartmental care team. Patient will be transported by [employer] at time of discharge.
--- NOTE | 2025-05-26 07:48 | PDOC.CMPRO ---
Date of service: 05/26/25 Time of Service: 12:40 Care Management Progress Note Progress Note Text Progress Note Text: CM discussed Tejas's plan of care with TESSA RN. Tejas had a psych consult yesterday which aided in med recommendations (see documentation). Per RN, the patients behaviors have continued from yesterday. First certification for EE complete, second cert at 11:00. Per report, [facility] declined. [facility] is reviewing this referral. PAUL will continue to follow. Status Status: Involuntary Reason for Wait: Inpatient Admission Social Determinants of Health Screening Will the Patient Participate in the Screening?: Unable to obtain
--- NOTE | 2025-05-26 07:48 | PDOC.CMSAFE ---
Date of service: 05/26/25 Time of Service: 07:49 Care Management Safety Plan Status Status: Involuntary Reason for Wait Reason for Wait: Inpatient Admission Safety Plan Safety Plan: INVOLUNTARY FOR INPATIENT PSYCHIATRIC STABILIZATION.? Patient is appropriate in all interactions since arriving at [facility]; Pt has demonstrated appropriate coping and communication skills, has articulated his or her needs and concerns and is fully engaged during staff interactions. Safety plan has been established with patient, and care team, to adhere to patient goals, identify restrictions based on behavioral status, address nutrition, and determine allowed personal belongings, tools for hygiene and personal care. Determine level of activity including ambulation, level of supervision, visitors, and determine privileges based on behaviors and level of engagement by pt. SAFETY PLAN: 1. Will remain on suicide precautions, in paper clothes 2. Will remain in Zone B under direct supervision of one-on-one staff at all times provided by [employer]; SID, MULE DRIVER user support analyst. 3. May have paper cups, plates, finger foods as well as a cardboard spoon with which to eat meals. 4. Follow [facility] Management of the Admitted Behavioral Health Patient policy. 5. Shower available in Zone B without restriction. 6. Personal belongings-soft items permitted at RN discretion. 7. Visitors-none at this time. 8. Activities: soft cart items approved per RN discretion. 9.? Bathroom available in Zone B without restriction. 10. Phone: limited to patent paralegal on [facility] cordless phone at RN discretion. Due to INVOLUNTARY status, patient is being held at [facility] by the Department of Mental Health ([facility]) until 2nd certification by [facility] Psychiatrist can be performed (within 24 hours). Staff will provide de-escalation support (CPI) as needed. If patient wishes to leave [facility], staff will contact [facility] Crisis Screener ([phone]) and Rubber Thread Spooler ([phone]) as soon as possible. In the event of elopement, notify [place] [employer] Police ([phone]). Patient is currently involuntarily at [facility]. [facility] Frontline Learning And Development Specialist will continue seeking placement. Please contact the Rubber Thread Spooler for any needed changes to Safety Plan. Safety plan has been provided to interdepartmental care team. Patient will be transported by [employer] at time of discharge.
--- NOTE | 2025-05-26 08:11 | ED.PSYCHBOAR ---
Date of service: 05/26/25 Time of Service: 08:12 Psychiatric Border Handoff Update Brief Story: I received signout on this 54-year-old male with history of schizophrenia currently suicidal and EE. Status: EE Able to leave: no, this patient is an EE Behavioral Concerns: Required intramuscular diazepam last night Barriers to Disposition: Pending placement Medical Concerns: 2:22 PM I spoke with the patient's nurse Dakota. His second certification has gone through. Will sign patient out to Dr. Vee. No active behavioral issues my shift. Mediation Reconciliation performed: Yes Code Status ordered: Yes Diet ordered: Yes Future to do Items: Follow-up for placement Discharge Plan Discharge Details Chief Complaint: PsychEval Clinical Impression: Homicidal ideations, Suicide ideation, Psychosis Primary Care Provider: Sakina Meng V ED Provider: Maksim Peacock Home Meds and New Rx's Prescriptions: No Action psyllium husk [Metamucil] 0.4 gram capsule 0.52 g PO DAILY Rx Instructions: Per residence MAR, admin 1 cap PO Q AM gabapentin 300 mg capsule 500 mg PO QHS Patient Comments: Per residence MAR: 400mg x3 days (start date not indicated) then 500mg citalopram 10 mg tablet 20 mg PO DAILY Probiotic (B. coagulans) 10 billion cell capsule,delayed release(DR/EC) 1 cell PO DAILY clozapine 100 MG tablet 250 mg PO HS atenolol 25 MG tablet 25 mg PO DAILY lisinopril 5 MG tablet 5 mg PO DAILY Freedavite 1 EACH tablet 1 ea PO DAILY aspirin 325 mg Tablet,Delayed Release (Dr/Ec) 325 mg PO DAILY pantoprazole 40 mg tablet,delayed release (DR/EC) 40 mg PO DAILY Patient Comments: TAKE 1 TABLET BY MOUTH DAILY rosuvastatin 5 mg tablet 5 mg PO DAILY cholecalciferol (vitamin D3) [Vitamin D3] 50 mcg (2,000 unit) Tablet 50 mcg PO DAILY topiramate 25 mg tablet 25 mg PO HS multivitamin [Daily Multi-Vitamin] Tablet 1 tab PO DAILY cholestyramine 4 gram powder 4 g PO DAILY Rx Instructions: Per residence MAR, once daily/hold for constipation. MAR indicates daily refusal. Administer w/meal; avoid other meds within 1hr before or 4-6hr after dose indomethacin 50 mg capsule 50 mg PO PRN Rx Instructions: administer with food or milk allopurinol 100 MG tablet 100 mg PO DAILY
[2025-05-26 16:12] VITALS: BP 126/83; PULSE 97; RESP 18; TEMP 35.8; O2SAT 97
[2025-05-26] MEDS: Gabapentin 100 MG CAP 500 MG PO (19:32)
--- NOTE | 2025-05-26 23:16 | MHPN_ITS ---
Date of service: 05/26/25 Time of Service: 11:00 Mental Health Emergency Note Release [facility] release signed:: Yes Reason for Visit The client is known to [facility] and currently receives services through the adult outpatient program. Per report of the client he has been hospitalized numerous times, however is unable to recall the last time that he was hospitalized. The client is at [facility] ED on EE status. This morning's assessment is conducted by a psychiatrist from [facility] for the 2nd certification. In the last 2 weeks has the pt presented for ES prior to today?: Yes, presented at [facility] ED Impression The client is a single 54 y/o male that currently resides at a detention in [place], [place]. The client identifies as male and uses he/ him pronouns. 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 Per 2nd certification from [facility]: on my exam the patient presents unclothed and guarded, repeatedly closing the door during the interview, requiring multiple attempts to engage. During our brief conversation, he makes paranoid statements about the food being poisoned and being 'very upset' History and current presentation are concerned for unspecified psychosis. Plan/Disposition Recommended Disposition: Hospitalization No. Plan: The client will remain at [facility] ED on EE status pending placement in an inpatient facility. Per the psychiatrist from [facility] she is going to pass the 2nd cert. The client will be re-assessed two times daily until placement is secured. Person reported agreement to plan: No Reports/communication Outcome discussed with: ED/Personnel (Verbal given to [facility] zone b staff)
--- NOTE | 2025-05-26 23:16 | PDOC.MHPN2 ---
Date of service: 05/26/25 Time of Service: 11:00 Mental Health Emergency Note Release [facility] release signed:: Yes Reason for Visit The client is known to [facility] and currently receives services through the adult outpatient program. Per report of the client he has been hospitalized numerous times, however is unable to recall the last time that he was hospitalized. The client is at [facility] ED on EE status. This morning's assessment is conducted by a psychiatrist from [facility] for the 2nd certification. In the last 2 weeks has the pt presented for ES prior to today?: Yes, presented at [facility] ED Impression The client is a single 54 y/o male that currently resides at a jail in [place], [place]. The client identifies as male and uses he/ him pronouns. 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 Per 2nd certification from [facility]: on my exam the patient presents unclothed and guarded, repeatedly closing the door during the interview, requiring multiple attempts to engage. During our brief conversation, he makes paranoid statements about the food being poisoned and being 'very upset' History and current presentation are concerned for unspecified psychosis. Plan/Disposition Recommended Disposition: Hospitalization No. Plan: The client will remain at [facility] ED on EE status pending placement in an inpatient facility. Per the psychiatrist from [facility] she is going to pass the 2nd cert. The client will be re-assessed two times daily until placement is secured. Person reported agreement to plan: No Reports/communication Outcome discussed with: ED/Personnel (Verbal given to [facility] zone b staff)
--- NOTE | 2025-05-26 23:32 | MHPN_ITS ---
Date of service: 05/26/25 Time of Service: 18:32 Mental Health Emergency Note Release [facility] release signed:: Yes Reason for Visit The client is known to [facility] and currently receives services through the adult outpatient program. Per report of the client he has been hospitalized numerous times, however is unable to recall the last time that he was hospitalized. The client is at [facility] ED on EE status. This pattern chart writer meets with the client via telehealth for 2nd daily assessment. In the last 2 weeks has the pt presented for ES prior to today?: Yes, presented at [facility] ED Impression The client is a single 54 y/o male that currently resides at a residential in [place], [place]. The client identifies as male and uses he/ him pronouns. 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 Per report of [facility] b nurse Dakota the client is decompensating rapidly even since this pattern chart writer saw him this morning for his 2nd certification. Dakota reports that the client is refusing food and medications stating that he has only eaten one bite of food since breakfast yesterday morning. Dakota reports that the client is currently unclothed, but is laying in bed. Upon this writers arrival to his room the client states: I need my medication. When this pattern chart writer asked the client to repeat what he said he repeatedly states: life without parole. The client is oriented to place and time. When asked about SI and HI the client states: I want to shit, get out you cock sucker, you've got him Herac[employer] Jiffy. When asked if the client is hearing voices he states: i've gotta play a scratch ticket. Plan/Disposition Recommended Disposition: Hospitalization No. Plan: The client will remain at [facility] ED on EE status pending placement in an inpatient facility. The client will be re-assessed 2x daily until placement is secured. Person reported agreement to plan: No Reports/communication Outcome discussed with: ED/Personnel (Verbal given to [facility] b staff)
--- NOTE | 2025-05-27 07:33 | CMSP_ITS ---
Date of service: 05/27/25 Time of Service: 07:34 Care Management Safety Plan Status Status: Involuntary Reason for Wait Reason for Wait: Inpatient Admission Safety Plan Safety Plan: INVOLUNTARY FOR INPATIENT PSYCHIATRIC STABILIZATION.? Patient is appropriate in all interactions since arriving at [facility]; Pt has demonstrated appropriate coping and communication skills, has articulated his or her needs and concerns and is fully engaged during staff interactions. Safety plan has been established with patient, and care team, to adhere to patient goals, identify restrictions based on behavioral status, address nutrition, and determine allowed personal belongings, tools for hygiene and personal care. Determine level of activity including ambulation, level of supervision, visitors, and determine privileges based on behaviors and level of engagement by pt. SAFETY PLAN: 1. Will remain on suicide precautions, in paper clothes 2. Will remain in Zone B under direct supervision of one-on-one staff at all times provided by [employer]; SID, CONDENSER TESTER anvil seating press operator. 3. May have paper cups, plates, finger foods as well as a cardboard spoon with which to eat meals. 4. Follow [facility] Management of the Admitted Behavioral Health Patient policy. 5. Shower available in Zone B without restriction. 6. Personal belongings-soft items permitted at RN discretion. 7. Visitors-none at this time. 8. Activities: soft cart items approved per RN discretion. 9.? Bathroom available in Zone B without restriction. 10. Phone: limited to patent legal assistant on [facility] cordless phone at RN discretion. Due to INVOLUNTARY status, patient is being held at [facility] by the Department of Mental Health ([facility]) until 2nd certification by [facility] Psychiatrist can be performed (within 24 hours). Staff will provide de-escalation support (CPI) as needed. If patient wishes to leave [facility], staff will contact [facility] Crisis Screener ([phone]) and Mold Stamper ([phone]) as soon as possible. In the event of elopement, notify [place] [employer] Police ([phone]). Patient is currently involuntarily at [facility]. [facility] Frontline Aerodynamics Teacher will continue seeking placement. Please contact the Mold Stamper for any needed changes to Safety Plan. Safety plan has been provided to interdepartmental care team. Patient will be transported by [employer] at time of discharge.
--- NOTE | 2025-05-27 07:33 | CMPROGNOTE_ITS ---
Date of service: 05/27/25 Time of Service: 16:04 Care Management Progress Note Progress Note Text Progress Note Text: CM discussed Tejas's plan of care with TESSA RN. Tejas was sitting on the floor in his room and appeared comfortable and calm. Per RN, Tejas has refused medication and meals today. Per report, Newton declined. Stanley is reviewing this referral. Tejas was reported to be uncoporative with [facility] via zoom. CM will continue to follow. Status Status: Involuntary Reason for Wait: Inpatient Admission Social Determinants of Health Screening Will the Patient Participate in the Screening?: Unable to obtain
--- NOTE | 2025-05-27 07:33 | PDOC.CMSAFE ---
Date of service: 05/27/25 Time of Service: 07:34 Care Management Safety Plan Status Status: Involuntary Reason for Wait Reason for Wait: Inpatient Admission Safety Plan Safety Plan: INVOLUNTARY FOR INPATIENT PSYCHIATRIC STABILIZATION.? Patient is appropriate in all interactions since arriving at [facility]; Pt has demonstrated appropriate coping and communication skills, has articulated his or her needs and concerns and is fully engaged during staff interactions. Safety plan has been established with patient, and care team, to adhere to patient goals, identify restrictions based on behavioral status, address nutrition, and determine allowed personal belongings, tools for hygiene and personal care. Determine level of activity including ambulation, level of supervision, visitors, and determine privileges based on behaviors and level of engagement by pt. SAFETY PLAN: 1. Will remain on suicide precautions, in paper clothes 2. Will remain in Zone B under direct supervision of one-on-one staff at all times provided by [employer]; SID, NEON PUMPER donor relations associate. 3. May have paper cups, plates, finger foods as well as a cardboard spoon with which to eat meals. 4. Follow [facility] Management of the Admitted Behavioral Health Patient policy. 5. Shower available in Zone B without restriction. 6. Personal belongings-soft items permitted at RN discretion. 7. Visitors-none at this time. 8. Activities: soft cart items approved per RN discretion. 9.? Bathroom available in Zone B without restriction. 10. Phone: limited to legal intern on [facility] cordless phone at RN discretion. Due to INVOLUNTARY status, patient is being held at [facility] by the Department of Mental Health ([facility]) until 2nd certification by [facility] Psychiatrist can be performed (within 24 hours). Staff will provide de-escalation support (CPI) as needed. If patient wishes to leave [facility], staff will contact [facility] Crisis Screener ([phone]) and Skein Bleacher ([phone]) as soon as possible. In the event of elopement, notify [place] [employer] Police ([phone]). Patient is currently involuntarily at [facility]. [facility] Frontline Surface Room Shop Optician will continue seeking placement. Please contact the Skein Bleacher for any needed changes to Safety Plan. Safety plan has been provided to interdepartmental care team. Patient will be transported by [employer] at time of discharge.
--- NOTE | 2025-05-27 07:54 | ED.PSYCHBOAR ---
Date of service: 05/27/25 Time of Service: 07:54 Psychiatric Border Handoff Update Brief Story: History of schizophrenia. Increased agitation Status: EE Able to leave: no, this patient is an EE Behavioral Concerns: No concerns last night Barriers to Disposition: Pending placement. 3:30 PM No active behavioral issues on my shift. Patient was signed out to Dr. Vee. Mediation Reconciliation performed: Yes Code Status ordered: Yes Diet ordered: Yes Discharge Plan Discharge Details Chief Complaint: PsychEval Clinical Impression: Homicidal ideations, Suicide ideation, Psychosis Primary Care Provider: Sakina Meng V ED Provider: Maksim Peacock [place] Meds and New Rx's Prescriptions: No Action psyllium husk [Metamucil] 0.4 gram capsule 0.52 g PO DAILY Rx Instructions: Per residence MAR, admin 1 cap PO Q AM gabapentin 300 mg capsule 500 mg PO QHS Patient Comments: Per residence MAR: 400mg x3 days (start date not indicated) then 500mg citalopram 10 mg tablet 20 mg PO DAILY Probiotic (B. coagulans) 10 billion cell capsule,delayed release(DR/EC) 1 cell PO DAILY clozapine 100 MG tablet 250 mg PO HS atenolol 25 MG tablet 25 mg PO DAILY lisinopril 5 MG tablet 5 mg PO DAILY Freedavite 1 EACH tablet 1 ea PO DAILY aspirin 325 mg Tablet,Delayed Release (Dr/Ec) 325 mg PO DAILY pantoprazole 40 mg tablet,delayed release (DR/EC) 40 mg PO DAILY Patient Comments: TAKE 1 TABLET BY MOUTH DAILY rosuvastatin 5 mg tablet 5 mg PO DAILY cholecalciferol (vitamin D3) [Vitamin D3] 50 mcg (2,000 unit) Tablet 50 mcg PO DAILY topiramate 25 mg tablet 25 mg PO HS multivitamin [Daily Multi-Vitamin] Tablet 1 tab PO DAILY cholestyramine 4 gram powder 4 g PO DAILY Rx Instructions: Per residence MAR, once daily/hold for constipation. MAR indicates daily refusal. Administer w/meal; avoid other meds within 1hr before or 4-6hr after dose indomethacin 50 mg capsule 50 mg PO PRN Rx Instructions: administer with food or milk allopurinol 100 MG tablet 100 mg PO DAILY
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
[2025-05-27] MEDS: Gabapentin 100 MG CAP 500 MG PO (21:42)
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
[2025-05-28] MEDS: Aspirin E.C. 325 MG TABEC PO (06:53)
[2025-05-28] MEDS: Rosuvastatin 5 MG TAB PO (06:53)
[2025-05-28] MEDS: Allopurinol 100 MG TAB PO (06:54)
[2025-05-28] MEDS: Lisinopril 5 MG TAB PO (06:54)
[2025-05-28] MEDS: Pantoprazole 40 MG TABCR PO (06:54)
[2025-05-28] MEDS: Cholecalciferol (Vitamin D3) 1,000 UNIT TAB 2000 UNITS PO (06:54)
[2025-05-28] MEDS: Atenolol 25 MG TAB PO (06:54)
[2025-05-28 06:57] VITALS: BP 150/90; PULSE 127; RESP 14; O2SAT 94
[2025-05-28 08:07] VITALS: BP 158/85; PULSE 125; RESP 20; O2SAT 99
--- NOTE | 2025-05-28 08:17 | ED.PROG1_ITS ---
Date of service: 05/28/25 Time of Service: 08:17 Psychiatric Border Handoff Update Brief Story: 54-year-old male with schizophrenia on EE. I received signout patient. No active behavioral issues. Of note his heart rate has increased this morning. He took his atenolol. Status: EE Able to leave: no, this patient is an EE Behavioral Concerns: Continues to be negative Medical Concerns: Patient reportedly had kicked his left second toe for which I ordered x-rays there is reportedly bruising. He was also refusing and reportedly hiding his clozapine. As a result given he was going to take intramuscular medications I ordered him 5 mg of intramuscular olanzapine. 2:21 PM X-ray read showing no acute abnormalities per radiology. Patient is reportedly more calm now. 3:51 PM Tachycardia resolved. I signed patient out to Dr. Vee. Mediation Reconciliation performed: Yes Code Status ordered: Yes Diet ordered: Yes Discharge Plan Discharge Details Chief Complaint: PsychEval Clinical Impression: Homicidal ideations, Suicide ideation, Psychosis Primary Care Provider: Sakina Meng V ED Provider: Maksim [facility] Meds and New Rx's Prescriptions: No Action psyllium husk [Metamucil] 0.4 gram capsule 0.52 g PO DAILY Rx Instructions: Per residence NOV, admin 1 cap PO Q AM gabapentin 300 mg capsule 500 mg PO QHS Patient Comments: Per residence NOV: 400mg x3 days (start date not indicated) then 500mg citalopram 10 mg tablet 20 mg PO DAILY Probiotic (B. coagulans) 10 billion cell capsule,delayed release(DR/EC) 1 cell PO DAILY clozapine 100 MG tablet 250 mg PO HS atenolol 25 MG tablet 25 mg PO DAILY lisinopril 5 MG tablet 5 mg PO DAILY Freedavite 1 EACH tablet 1 ea PO DAILY aspirin 325 mg Tablet,Delayed Release (Dr/Ec) 325 mg PO DAILY pantoprazole 40 mg tablet,delayed release (DR/EC) 40 mg PO DAILY Patient Comments: TAKE 1 TABLET BY MOUTH DAILY rosuvastatin 5 mg tablet 5 mg PO DAILY cholecalciferol (vitamin D3) [Vitamin D3] 50 mcg (2,000 unit) Tablet 50 mcg PO DAILY topiramate 25 mg tablet 25 mg PO HS multivitamin [Daily Multi-Vitamin] Tablet 1 tab PO DAILY cholestyramine 4 gram powder 4 g PO DAILY Rx Instructions: Per residence MAR, once daily/hold for constipation. MAR indicates daily refusal. Administer w/meal; avoid other meds within 1hr before or 4-6hr after dose indomethacin 50 mg capsule 50 mg PO PRN Rx Instructions: administer with food or milk allopurinol 100 MG tablet 100 mg PO DAILY
[2025-05-28] MEDS: OLANZapine 10 MG VIAL 5 MG IM (10:50)
--- NOTE | 2025-05-28 11:02 | PDOC.MHPN2 ---
Date of service: 05/28/25 Time of Service: 11:03 Mental Health Emergency Note Release [facility] release signed:: Yes Reason for Visit The client is known to [facility] and this clinician and currently receives services through the adult outpatient program. Per report of the client he has been hospitalized numerous times, however, is unable to recall the last time that he was hospitalized. He has been stable and employed by [facility] for over 20 years. The client is at [facility] ED on EE status. This morning's assessment is conducted in Zone B. In the last 2 weeks has the pt presented for ES prior to today?: Yes, presented at [facility] ED Impression The Joni client is a single 54 y/o male that currently resides at a penitentiary in [place], [place]. The client identifies as male and uses he/ him pronouns. 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 The client is observed lying in bed counting to 12 and then counting down from 12 over and over and chanting comments about fucking your mother up the ass with a corkscrew. He also called this clinician and others fucking bitches although making vulgar statements he is not aggressive or threatening. He threw his blankets off of himself and it is noted he only had a depends on. Nursing also reported that he was lying in his own urine this am and needed to be bathed by nursing. He is observed as being weak and saying ouch a lot. He recognized this clinician from years of knowing him. He would only take a small sip of his Ensure if he was asked to make eye contact. He was assisted in changing from the bed he was into a stretcher so that he can have his head lifted to assist with eating as he is reported to not be eating enough or drinking. He did take his meds today however, it was noted by staff that his last night meds were found under his sheet. He is heard asking several times for his Clozaril. During huddle it was decided that for now he will be getting IM anti psychotics to try and get him to feel better. This clinician called [facility] who reported he was declined with no explanation. Per chart review he was declined by [facility] due to his WBC being high. Plan/Disposition Recommended Disposition: Hospitalization facilities contacted. Plan: This clinician will outreach to [facility] in the am to alert them of the client being declined to get assistance in placement. The cleitn will remain at [facility] pending acceptance and be re-assessed twice daily. Person reported agreement to plan: No Reports/communication Outcome discussed with: ED/Personnel
[2025-05-28 11:18] VITALS: BP 142/84; PULSE 61; RESP 13; TEMP 37.2; O2SAT 93
--- NOTE | 2025-05-28 11:45 | DI.RAD_ITS ---
Exam(s) XR FOOT LT COMPLETE EXAM: XR FOOT LT COMPLETE CLINICAL HISTORY: Left foot discomfort. TECHNIQUE: 2D digital imaging was performed of the left foot. Three images were obtained. AP, oblique and lateral views were obtained. COMPARISON: CR LEFT FOOT COMPLETE from 04/07/2018 CR LEFT GREAT TOE from 05/11/2018 FINDINGS: BONES: No acute fracture is present. No bony destructive lesion is seen. There is a plantar calcaneal spur. There is an enthesophyte at the posterior calcaneus. JOINTS: No dislocation present. There has been fusion of the interphalangeal joint of the great toe. There is a hallux valgus deformity. There is stable alignment of the 2nd through 5th toes. SOFT TISSUE: Normal. IMPRESSION: No acute abnormality. DATA REPOSITORY: RADIATION DOSE DELIVERED:
--- NOTE | 2025-05-28 19:00 | RT.EKG_ITS ---
APPROVED REPORT Exam: Resting ECG Reason for Exam: QTC monitoring Patient Location: E HR:129 bpm ECG Measurements Heart Rate 129 AXIS NC 133 P 84 QRSd 131 QRS -57 QT 336 T -6 QTc 493 Conclusion Sinus tachycardia...rate> 99 Right bundle branch block...QRSd>120, terminal axis(90,270) Inferior infarct, old...Q >35mS, II III aVF No STEMI
--- NOTE | 2025-05-28 19:02 | PSYCHFUP_ITS ---
Date of service: 05/28/25 Time of Service: 19:00 Summary Note PSYCHIATRY CONSULT NOTE: FOLLOW-UP EVALUATION Date/Time:?05/28/2025 7:01:08 PM Name:Abdoul Tolentino :?1970 Location of the patient:?[facility] ED Consulting Array Clinician:?Christiana Sims Location of the clinician:?[place], [place] SUMMARY Patient is 54 year old male who resides in chcf in [place]. He past psychiatric history significant for schizophrenia, prior inpatient psychiatric hospitalizations. Patient initially presented on 05/20/25 with suicidal ideation refused to be transferred to the [facility] for treatment and was subsequently discharged back to his ch[facility]. After returning to his ch[facility] he continued to decompensate psychiatrically. He presented back to the emergency department grossly psychotic and was evaluated on 05/25/25 at which time it was recommended to initiate topiramate 25 mg twice daily and clozapine 250 mg at bed time. Psychiatry was consulted for reevaluation on 05/28/25. Patient has been refusing most medication and staff and is unclear how much of the clozapine 250 mg at bed time he has been getting as staff have been finding the patient is cheeking the medication and it is taking hours to give it to him. At this time and continues to be in significantly decompensated psychiatric state. Patient does not have an IV line at this time and it appears to be a challenge at this time. Patient has had some success with IM medications per staff. RISK ASSESSMENT Current Suicide Risk Elevated???low Current Violence Risk Elevated???undetermined Issues with ability to care for self???Yes, decline in ADLS Does patient require psychiatric hospitalization???Yes Working Diagnoses:? 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 CPT Codes:?30394 (OP/ED) / 07161 (IP) ? Moderate Complexity Follow-up PLAN Disposition:?Involuntary admission when medically stable ? Observation level ? Psychiatric 1:1 needed??Continue psych 1:1 OR Close observation per hospital protocol Work-up:?EKG Pharmacological:? * Discontinuing clozapine unclear if patient has been taking regularly as the pills have been found in his bed sheets and patient is cheeking medication. Schedule PO/IM olanzapine 10 mg twice day * Is patient psychotic? - Yes; Were antipsychotic medications started? - Yes * Informed consent: Patient is unable to understand risks benefits of or consent to above recommended psychiatric medications in their current mental state. No surrogate decision maker is available. Without recommended medication patient will likely deteriorate further and possibly place themselves or others at risk. Patient is not legally compelled to take recommended medication at this time. Follow up needed while in the hospital??As needed for management of behavior or change in mental status Other:? * Please obtain baseline EKG to monitor for QTc prolongation, cardiac arrhythmias, and torsades de pointes. Would maintain potassium above 4.0 and magnesium above 2.0 * If questions arise about the psychiatric care of this patient, please call the [facility]?to request a follow-up consult. ?Please do not contact me individually through the EMR chat as I am not?regularly logged on to?this system. The psychiatrist for the follow-up visit may be a different psychiatrist Discussed plan with onsite produce service team member:?Yes - emergency room physician Dr. Salvatore Vee HISTORY This evaluation was conducted remotely with the assistance of onsite staff via HIPAA-compliant video call. Patient consented to proceed with the telehealth visit. Requested by:?Emergency medicine colleagues, Medical Record Reviewed/Appreciated:? Patient status since last psychiatric visit?:?in behavioral control with no reported issues; agitated; medicated for agitation Interval History:? Patient is 54 year old male who resides in chcf in [place]. He past psychiatric history significant for schizophrenia, prior inpatient psychiatric hospitalizations. Patient initially presented on 05/20/25 with suicidal ideation refused to be transferred to the [facility] for treatment and was subsequently discharged back to his chcf. After returning to his chcf he continued to decompensate psychiatrically. He presented back to the emergency department grossly psychotic and was evaluated on 05/25/25 at which time it was recommended to initiate topiramate 25 mg twice daily and clozapine 250 mg at bed time. Psychiatry was consulted for reevaluation on 05/28/25. On psychiatric interview, patient is talking nonsensically randomly mumbling numbers and phrases. Patient is not able to participate meaningfully in psychiatric interview. Collateral Contacted Contacted charge nurse--charge nurse (at bedside). Nurse reports the patient has been refusing the clozapine and finding the pills either that he has cheeked or in his bed sheets. Nursing also reports that it is also taking hours to give him the medication Current psychiatric and other clinically relevant medications:?clozapine 250 mg at bedtime MENTAL STATUS EXAM Appearance and Attire:?poor level of hygiene and self grooming Psychomotor agitation:?calm kinetics Attitude and behavior:? Responding to internal stimuli Speech:?nonsensical speech Mood:? Mixed, Anxious Affect:? Labile Thought Process:?significant loosening of associations, highly disorganized in thought processes Thought content:?some paranoia Perception:?did appear to be responding to internal stimuli at times Intelligence:? Low average Abstraction:? Poor reasoning Language:? No abnormality Orientation:? Oriented to person Sensorium:?altered sensorium Knowledge:? Mild impairment Memory:? Impaired to Executive function Insight:?poor insight Judgment:?poor judgment Christiana Sims, DO ? ?
[2025-05-28] MEDS: OLANZapine 10 MG VIAL IM (19:05)
[2025-05-28] MEDS: Gabapentin 100 MG CAP 500 MG PO (22:54)
[2025-05-29] VITALS (48 sets, daily range): BP systolic 114–216; BP diastolic 69–193; PULSE 104–171; RESP 16–42; TEMP 37.4; O2SAT 93–99
--- NOTE | 2025-05-29 07:15 | RT.EKG_ITS ---
APPROVED REPORT Exam: Resting ECG Reason for Exam: tachycardia Patient Location: E HR:129 bpm ECG Measurements Heart Rate 129 AXIS [place] 125 P 74 QRSd 137 QRS 15 QT 331 T -15 QTc 486 Conclusion Sinus tachycardia, rate 129 Right bundle branch block, unchanged from priors No significant change in QTc No STEMI
--- NOTE | 2025-05-29 07:17 | ED.PSYCHBOAR ---
Date of service: 05/29/25 Time of Service: 07:35 Psychiatric Border Handoff Update Brief Story: In brief, this is a 54-year-old male patient boarding in our emergency department on an EE hold for decompensated schizophrenia. Prior to my taking over their care, the patient was medically cleared, though there have been ongoing concerns with the patient not taking medications by mouth and requiring intramuscular injections. He has been largely immobile, requiring repositioning by nursing. He has been declining food and drink. This morning I was called to zone V to evaluate the patient, who was noted to have a heart rate to 130s. He was otherwise hemodynamically appropriate. Given this finding I am concerned for dehydration, metabolic derangement, and the decision was made to take the patient back to the main ED for repeat EKG, IV initiation, laboratory studies to include CBC, CMP, magnesium, phosphorus, and rehydration. I reviewed the patient's prior workup, which was quite robust given an initial concern for an elevated white blood cell count. Of note, the patient has had a negative set of blood cultures, negative urinalysis and chest x-ray, and does not have any other localizing infectious findings on my repeat examination. However, given his ongoing tachycardia and tachypnea, it is reasonable for us to proceed with a more expansive workup, and I will obtain a CT pulmonary embolism scan and a CT abdomen and pelvis. - I reviewed the patient's laboratory studies, noting an improvement in his leukocytosis to 22 today. He has no anemia or thrombocytopenia. Chemistry panel is without significant electrolyte derangement, evidence of new kidney dysfunction, though he does have a mild transaminitis which is new compared to most recent priors. CT imaging reviewed and shows no pulmonary embolism nor other acute pathology to explain patient's symptoms. However, I do note that the patient's bladder appears quite distended, and the patient was unable to void spontaneously. For this reason we attempted straight catheterization but ultimately the patient required coud? Yuen placement for drainage of over 1 L of yellow urine. The patient was noted to have on full physical skin exam a mild redness and induration of the little medial aspect of the left great toe. Unfortunately, the patient is not tolerating large pills orally, but I do feel that this is appropriate for a trial of topical triple antibiotic ointment, which was ordered 3 times daily. Following 2 L of rehydration, as well as placement of the Yuen catheter, and noted the patient's tachycardia to improve significantly. He meets criteria for medical clearance once more, Yuen will remain in place, and I did huddle with [facility] and care management. The patient will require a medical/psychiatric facility regardless, and they will be made aware of the new Yuen catheter requirement. It would not be unreasonable as this patient improves to attempt a void trial. The patient remained hemodynamically improved while under my care, and was signed out to the oncoming provider pending final disposition. He remains in zone B after repeat medical clearance. Venus Fuentes MD Status: EE Able to leave: no, this patient is an EE Discharge Plan Discharge Details Chief Complaint: PsychEval Clinical Impression: Homicidal ideations, Suicide ideation, Psychosis Primary Care Provider: Sakina Meng V ED Provider: Venus Fuentes Home Meds and New Rx's Prescriptions: No Action psyllium husk [Metamucil] 0.4 gram capsule 0.52 g PO DAILY Rx Instructions: Per residence MAR, admin 1 cap PO Q AM gabapentin 300 mg capsule 500 mg PO QHS Patient Comments: Per residence MAR: 400mg x3 days (start date not indicated) then 500mg citalopram 10 mg tablet 20 mg PO DAILY Probiotic (B. coagulans) 10 billion cell capsule,delayed release(DR/EC) 1 cell PO DAILY clozapine 100 MG tablet 250 mg PO HS atenolol 25 MG tablet 25 mg PO DAILY lisinopril 5 MG tablet 5 mg PO DAILY Freedavite 1 EACH tablet 1 ea PO DAILY aspirin 325 mg Tablet,Delayed Release (Dr/Ec) 325 mg PO DAILY pantoprazole 40 mg tablet,delayed release (DR/EC) 40 mg PO DAILY Patient Comments: TAKE 1 TABLET BY MOUTH DAILY rosuvastatin 5 mg tablet 5 mg PO DAILY cholecalciferol (vitamin D3) [Vitamin D3] 50 mcg (2,000 unit) Tablet 50 mcg PO DAILY topiramate 25 mg tablet 25 mg PO HS multivitamin [Daily Multi-Vitamin] Tablet 1 tab PO DAILY cholestyramine 4 gram powder 4 g PO DAILY Rx Instructions: Per residence MAR, once daily/hold for constipation. MAR indicates daily refusal. Administer w/meal; avoid other meds within 1hr before or 4-6hr after dose indomethacin 50 mg capsule 50 mg PO PRN Rx Instructions: administer with food or milk allopurinol 100 MG tablet 100 mg PO DAILY
--- NOTE | 2025-05-29 07:26 | NUR.NOTE ---
Patient moved back to main ED for IV rehydration and medical care.
[2025-05-29] MEDS: Normal Saline Flush 10 ML SYR IVP (07:30)
[2025-05-29] MEDS: Lactated Ringers 1,000 ML 1000 ML IV ×2 (07:40→09:33)
[2025-05-29 07:53] LABS: Abs Immature Grans 0.17 10^3/uL (0.0-0.06); HCT 45.6 % (40.0-50.0); HGB 15.1 g/dL (13.5-17.5); Immature Grans % 0.8 %; MCH 29.4 pg (27.0-33.0); MCHC 33.1 % (32.0-36.0); MCV 89 fL (80-95); MPV 11.8 fL (8.0-11.0); Platelet Count 329 10^3/uL (130-400); RBC 5.14 10^6/uL (4.36-5.78); RDW 13.8 % (11.8-14.1); RDW-SD 44.7 fL; WBC 22.14 10^3/uL (4.4-10.8)
[2025-05-29 08:10] LABS: RBC Morphology Normal
[2025-05-29 08:21] LABS: ALT 82 U/L (16-63); AST 53 U/L (15-37); Albumin 3.6 g/dL (3.4-5.0); Alkaline Phosphatase 123 U/L (46-116); Anion Gap 14.9 mmol/L (3-11); BUN 24 mg/dL (7-18); Bilirubin, Total 0.8 mg/dL (0.2-1.0); CO2 21.1 mmol/L (21.0-32.0); Calcium 9.7 mg/dL (8.5-10.1); Chloride 109 mmol/L (98-107); Estimated GFR 72.31 (mL/min/1.73m2); Glucose 112 mg/dL (74-106); Magnesium 2.2 mg/dL (1.8-2.4); Potassium 3.9 mmol/L (3.5-5.1); Sodium 145 mmol/L (136-145); Total Protein 7.7 g/dL (6.4-8.2)
--- NOTE | 2025-05-29 08:32 | DI.CT_ITS ---
Exam(s) CT CHEST PE ABD PELVIS W EXAM: CT CHEST PE ABD PELVIS W CLINICAL HISTORY: tachycardia, tachypneic, transaminitis. TECHNIQUE: Imaging Protocol: Axial computed tomography images with coronal and sagittal reformatted images were created and reviewed. Computer aided detection (CAD) was utilized. CONTRAST MATERIAL: Intravenous: Omnipaque 350 Contrast volume:100 ml Oral: / no COMPARISON: CT RENAL COLIC WO CONTRAST from 09/30/2016 CR XR CHEST 2V PA LATERAL from 05/24/2025 FINDINGS: CHEST: There is streak artifact related to patient arm positioning. Exam is also mildly limited by respiratory motion. Pulmonary parenchyma: No consolidation. No dominant measurable mass. Tracheobronchial tree: No bronchiectasis. No mucous plugging.No bronchial wall thickening. Pleura: No effusion or pneumothorax. Mediastinum: Within normal limits. Pulmonary arteries: No visible emboli. Cardiovascular: The heart size is normal. Metallic density noted between the atria. No pericardial effusion. Thoracic aorta non-dilated. Bones: Unremarkable for age. No lytic or blastic lesions. No compression fractures. Soft tissues: Unremarkable. ABDOMEN and PELVIS: Liver: There is streak artifact related to patient arm positioning. Mildly enlarged. [id number] hepatic steatosis.. No suspicious mass. Gallbladder and biliary tract: Cholecystectomy. Pancreas: Normal density, no abnormal calcifications or inflammatory process. Spleen: Normal. Kidneys: Normal size, contour and axis. No radiodense stones. No obstructive uropathy. No suspicious masses seen. Adrenal glands: No masses seen. Aorta: Abdominal portion non-dilated. Lymph nodes: Within normal limits. Soft tissues: Unremarkable. Bladder: Over distended but otherwise unremarkable. Bowel: No obstruction or bowel wall thickening. No evidence of appendicitis. Peritoneal cavity: No ascites. No focal collection. No mesenteric inflammatory response. No free air. Bones: Unremarkable for age. Reproductive organs: Unremarkable for age. IMPRESSION: Exam is somewhat limited due to respiratory motion and streak artifact. No acute abnormality in the chest, abdomen or pelvis. Mildly enlarged liver with mild hepatic steatosis. Status post cholecystectomy. RADIATION DOSE DELIVERED: 1,896.17mGy.cm Total DLP DATA REPOSITORY: All CT scans at this facility are submitted to the National Radiology Data Registry (NRDR) Dose Index Registry (DIR) with the [employer] (A[employer]). RADIATION OPTIMIZATION: All CT scans at this facility use at least one of these dose optimization techniques: automated exposure control; mA and/or kV adjustment per patient size (includes targeted exams where dose is matched to clinical indication); or iterative reconstruction.
[2025-05-29] MEDS: Water,Injection,Sterile 10 ML VIAL ×3 (08:38→20:43)
[2025-05-29] MEDS: OLANZapine 10 MG VIAL IM ×2 (08:38→20:43)
[2025-05-29] MEDS: Omnipaque 350 MG/ML 500 ML BTL-Imaging package IJ (09:06)
[2025-05-29] MEDS: Lisinopril 5 MG TAB PO (09:07)
[2025-05-29] MEDS: Normal Saline - Diluent 50 ML VIAL IJ (09:08)
[2025-05-29] MEDS: Atenolol 25 MG TAB PO (09:11)
[2025-05-29] MEDS: Pantoprazole 40 MG TABCR PO (09:16)
[2025-05-29] MEDS: Allopurinol 100 MG TAB PO (09:18)
[2025-05-29] MEDS: Rosuvastatin 5 MG TAB PO (09:20)
[2025-05-29] MEDS: Aspirin E.C. 325 MG TABEC PO (09:21)
[2025-05-29] MEDS: Cholecalciferol (Vitamin D3) 1,000 UNIT TAB 2000 UNITS PO (09:23)
[2025-05-29] MEDS: Lidocaine 2% Jelly 6 ML SYR ×2 (10:30→10:45)
[2025-05-29] MEDS: Lidocaine 2% Jelly 11 ML SYR (10:40)
--- NOTE | 2025-05-29 11:24 | PDOC.CMSAFE ---
Date of service: 05/29/25 Time of Service: 11:24 Care Management Safety Plan Status Status: Involuntary Guardianship if Applicable Guardianship: Parent (Mother is attempting to obtain guardianship) Safety Plan Safety Plan: INVOLUNTARY FOR INPATIENT PSYCHIATRIC STABILIZATION.? Patient is appropriate in all interactions since arriving at [facility]; Pt has demonstrated appropriate coping and communication skills, has articulated his or her needs and concerns and is fully engaged during staff interactions. Safety plan has been established with patient, and care team, to adhere to patient goals, identify restrictions based on behavioral status, address nutrition, and determine allowed personal belongings, tools for hygiene and personal care. Determine level of activity including ambulation, level of supervision, visitors, and determine privileges based on behaviors and level of engagement by pt. SAFETY PLAN: 1. Will remain on suicide precautions, in paper clothes 2. Will remain in Zone B under direct supervision of one-on-one staff at all times provided by [employer]; SID, MELANGEUR OPERATOR oil pipe inspector helper. 3. May have paper cups, plates, finger foods as well as a cardboard spoon with which to eat meals. 4. Follow [facility] Management of the Admitted Behavioral Health Patient policy. 5. Shower available in Zone B without restriction. 6. Personal belongings-soft items permitted at RN discretion. 7. Visitors- supportive visitors, at RN discretion. 8. Activities: soft cart items approved per RN discretion. 9.? Bathroom available in Zone B without restriction. 10. Phone: limited to use of [facility] cordless phone at RN discretion. Due to INVOLUNTARY status, patient is being held at [facility] by the Department of Mental Health ([facility]) until 2nd certification by [facility] Psychiatrist can be performed (within 24 hours). Staff will provide de-escalation support (CPI) as needed. If patient wishes to leave [facility], staff will contact [facility] Crisis Screener ([phone]) and Hostess Host ([phone]) as soon as possible. In the event of elopement, notify [place] [employer] ([phone]). Patient is currently involuntarily at [facility]. [facility] Frontline Machinist Mate will continue seeking placement. Please contact the Hostess Host for any needed changes to Safety Plan. Safety plan has been provided to interdepartmental care team. Patient will be transported by [facility] at time of discharge.
--- NOTE | 2025-05-29 11:41 | CMPROGNOTE_ITS ---
Date of service: 05/29/25 Time of Service: 11:41 Care Management Progress Note Progress Note Text Progress Note Text: CM huddled with ED provider, [facility] clinician, and ED nurse discharge to discuss Tejas's plan of care. Per report, Tejas has continued to decompensate over the weekend; he is currently requiring 1:1 nursing care including repositioning and feeding. Per provider, he was retaining urine, therefore a briones catheter was placed. MD stated that a full head to toe scan was completed this morning, which was negative. His WBC was 22 today, which has been trending down since his arrival, when it was over 27. Per [facility], Stanley and Newton Omar both d eclined Tejas's referral. Marquita [facility], reached out to [facility] animal caregiver, to request support due to potential challenges with placement. Tejas has been seen by tele psych, who made med recommendations yesterday; MD will continue to request support from telepsych as needed. Per report, Tejas's mother is supportive, and is attempting to obtain guardianship; she is on the HIPAA. Per [facility], there are no accepting bed offers today; safety plan in place. CM will continue to follow. Guardianship if Applicable Guardianship: Parent (Mother is attempting to obtain guardianship) Social Determinants of Health Screening Will the Patient Participate in the Screening?: Unable to obtain
--- NOTE | 2025-05-29 11:52 | MHPN_ITS ---
Date of service: 05/29/25 Time of Service: 11:54 Mental Health Emergency Note Release [facility] release signed:: Yes Reason for Visit The client is known to [facility] and this clinician and currently receives services through the adult outpatient program. Per report of the client he has been hospitalized numerous times, however, is unable to recall the last time that he was hospitalized. He has been stable and employed by [facility] for over 20 years. The client is at [facility] ED on EE status. This morning's assessment is conducted in the ED as he turned medical due to not being able to urinate and needing a higher intensity of care. The y plan to move him back to Zone B once he becomes more stable. In the last 2 weeks has the pt presented for ES prior to today?: Yes, presented at [facility] ED Impression The client is a single 54 y/o male that currently resides at a jail in [place], [place]. The client identifies as male and uses he/ him pronouns. 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 All underrepresented categories were honored during this assessment. The client is observed lying in bed and continuing to counting to 12 and then counting down from 12 over and over and chanting comments about fucking your mother up the ass with a corkscrew. He is observed with his eyes closed while he counts and at times when asked will open his eyes and make contact with those that are speaking however, continues to count and/or darts his eyes around the ceiling. He is unable to share what he is seeing. He stated he still wants to go to a hospital however, believes he is in the [place] [facility] currently. He continues to eat minimally but has been taking bites with encouragement. Sleep is unknown at this time. Plan/Disposition Recommended Disposition: Hospitalization facilities contacted. Plan: This clinician will forward updated hospital information as well as this note to and [facility] to request a new review from those hospitals. The client will remain at [facility] pending acceptance. This clinician also has alerted [facility] that we need support in locating a bed after he had been refused by all hospitals. Person reported agreement to plan: No Reports/communication Outcome discussed with: ED/Personnel
--- NOTE | 2025-05-29 12:13 | NUR.NOTE ---
now in zone B. pt still in bed. pillows supporting pt on L side. sips of boost given.Nursing Note:
[2025-05-29] MEDS: OLANZapine 10 MG VIAL 5 MG IM (16:21)
[2025-05-29] MEDS: Gabapentin 100 MG CAP 500 MG PO (19:53)
--- NOTE | 2025-05-30 07:05 | ED.PROG1_ITS ---
Date of service: 05/30/25 Time of Service: 07:05 Psychiatric Border Handoff Update Brief Story: Currently on EEG in the setting of schizophrenia Status: EE Able to leave: no, this patient is an EE Behavioral Concerns: None Potential Disposition: I reassessed this patient. He was sitting on a commode naked intermittently speaking nonsensically. He was cooperative. He let me examine his toe. There are some mild redness and induration on the medial aspect of the left great toe. Does have a healing diabetic foot ulcer on the underside of the left great toe. Yuen catheter was in place. Will attempt a voiding trial as patient was not retaining last week. Patient's nurse Dakota suspect that there is a chance that this could be behavioral as patient was reportedly urinating frequently last week. His leukocytosis is improved slightly over the past several days. He had a urinalysis obtained at the start of his recent hospitalization which was nitrite negative. Patient had A1c earlier this year which was 5.7% and not consistent with diabetes. Update from the state is that there are multiple medically complex patients awaiting hospitalization. 12:[address] Knox from podiatry to evaluate the patient. 3:37 PM Following diazepam patient was able to tolerate MRI of his left lower extremity with and without contrast. Fortunately there was no signs of osteomyelitis nor of any deeper fluid collection on this exam limited by motion. I was in touch again with Dr. Knox who advised amoxicillin/clavulanate acid as an initial antibiotic choice along with santyl, dakins soaked 4x4, kerlix daily which I ordered. Patient has not yet urinated. He has reportedly been drinking water. He presently has 300 cc on bladder scan. He is not having any abdominal pain reportedly. Will continue to monitor and sign patient out to Dr. Vee. If patient develops abdominal pain or his bladder volume increases he may unfortunately require another Yuen catheter to be placed. I hope to avoid having to place another Yuen catheter as this would certainly limit the patient's options for psychiatric placement. I did place another consult for psychiatry to reassess the patient given his ongoing boarding in the emergency department. In reviewing the patient's medications he has twice daily 10 mg olanzapine ordered. Will decrease his as needed to 5 mg every 12 so that his maximum daily dose will only be 30 mg. Podiatry had initially recommended ciprofloxacin however I advised that I would like to stick with amoxicillin clavulanic acid given QTc prolongation in setting of antipsychotics. Mediation Reconciliation performed: Yes Code Status ordered: Yes Diet ordered: Yes Discharge Plan Discharge Details Chief Complaint: PsychEval Clinical Impression: Homicidal ideations, Suicide ideation, Psychosis, Cellulitis of great toe, left Primary Care Provider: Sakina Meng V ED Provider: Maksim Peacock [place] Meds and New Rx's Prescriptions: No Action psyllium husk [Metamucil] 0.4 gram capsule 0.52 g PO DAILY Rx Instructions: Per residence MAR, admin 1 cap PO Q AM gabapentin 300 mg capsule 500 mg PO QHS Patient Comments: Per residence MAR: 400mg x3 days (start date not indicated) then 500mg citalopram 10 mg tablet 20 mg PO DAILY Probiotic (B. coagulans) 10 billion cell capsule,delayed release(DR/EC) 1 cell PO DAILY clozapine 100 MG tablet 250 mg PO HS atenolol 25 MG tablet 25 mg PO DAILY lisinopril 5 MG tablet 5 mg PO DAILY Freedavite 1 EACH tablet 1 ea PO DAILY aspirin 325 mg Tablet,Delayed Release (Dr/Ec) 325 mg PO DAILY pantoprazole 40 mg tablet,delayed release (DR/EC) 40 mg PO DAILY Patient Comments: TAKE 1 TABLET BY MOUTH DAILY rosuvastatin 5 mg tablet 5 mg PO DAILY cholecalciferol (vitamin D3) [Vitamin D3] 50 mcg (2,000 unit) Tablet 50 mcg PO DAILY topiramate 25 mg tablet 25 mg PO HS multivitamin [Daily Multi-Vitamin] Tablet 1 tab PO DAILY cholestyramine 4 gram powder 4 g PO DAILY Rx Instructions: Per residence MAR, once daily/hold for constipation. MAR indicates daily refusal. Administer w/meal; avoid other meds within 1hr before or 4-6hr after dose indomethacin 50 mg capsule 50 mg PO PRN Rx Instructions: administer with food or milk allopurinol 100 MG tablet 100 mg PO DAILY
[2025-05-30] MEDS: OLANZapine 10 MG VIAL IM ×2 (07:56→19:54)
[2025-05-30 08:01] VITALS: BP 135/83; PULSE 89; RESP 18; TEMP 37.1; O2SAT 97
[2025-05-30] MEDS: Water,Injection,Sterile 10 ML VIAL ×2 (08:07→20:48)
[2025-05-30] MEDS: Rosuvastatin 5 MG TAB PO (08:46)
[2025-05-30] MEDS: Atenolol 25 MG TAB PO (08:46)
[2025-05-30] MEDS: Aspirin E.C. 325 MG TABEC PO (08:46)
[2025-05-30] MEDS: Lisinopril 5 MG TAB PO (08:46)
[2025-05-30] MEDS: Allopurinol 100 MG TAB PO (08:46)
[2025-05-30] MEDS: Pantoprazole 40 MG TABCR PO (08:46)
[2025-05-30] MEDS: Cholecalciferol (Vitamin D3) 1,000 UNIT TAB 2000 UNITS PO (08:46)
--- NOTE | 2025-05-30 09:24 | NUR.NOTE ---
Nursing Note: Showered pt. Noted left great tow to be swollen and reddened with painful blanching on palpation. Pt has been assessed for this wound. Bacitracin applied as per NOV. Provider notified to assess ongoing changes.
--- NOTE | 2025-05-30 10:47 | NUR.NOTE ---
Nursing Note: this nurse contacted MD. pt showing signs of increased orientation, able to remember this nurses name and communicate likes/dislikes effectively. pt reporting L foot pain and buttock pain. pt sitting in recliner chair in upright position. pt offered to go for a walk to help reduce buttock pain and offer a position change. pt reported he cant walk r/t foot pain. MD notified of discomfort r/t wounds. no new orders. pt legs elevated in recliner chair.
--- NOTE | 2025-05-30 10:52 | NUR.NOTE ---
Nursing Note: no bathing charted this am, however, in nurse to nurse report it was noted that pt received full shower. pt is clean, hair is wet and brushed, clothes are clean and fresh as well.
[2025-05-30 11:11] VITALS: BP 120/81; PULSE 84; RESP 18; TEMP 36.7; O2SAT 96
--- NOTE | 2025-05-30 11:26 | NUR.NOTE ---
Nursing Note: 1120 pt reporting pain to L foot marybeth, notified
[2025-05-30] MEDS: Acetaminophen 500 MG TAB 1000 MG PO (11:27)
--- NOTE | 2025-05-30 12:00 | NUR.NOTE ---
Nursing Note: brief checked for incontinence/urination, brief is dry/intact
--- NOTE | 2025-05-30 12:45 | DI.MRI_ITS ---
Exam(s) MR LOWER EXTREMITY LT WO EXAM: MR LOWER EXTREMITY LT WO CLINICAL HISTORY: left great toe pain. TECHNIQUE: Multiplanar multisequence MRI was performed. The patient could not tolerate the length of the examination. T1 and stir sagittal and coronal, T1 axial and fat suppressed T1 coronal and axial sequences were performed. No postcontrast images.. COMPARISON: Plain films of the foot 28 May 2025 FINDINGS: The exam is significantly limited by patient motion. Multiple repeat images were performed. BONES/JOINTS: No evidence of fracture. No evidence of bone lesion. There has been previous fusion at the interphalangeal joint of the great toe. There are hammertoe deformities of the 2nd through 5th toes. Chronic appearing bony density is noted adjacent to the base of the 2nd proximal phalanx. There is also chronic deformity of the proximal phalanx of the 2nd toe. SOFT TISSUES: No localized collection. Soft tissue edema noted around the great toe. IMPRESSION: Extremely limited exam. Soft tissue edema around the great toe. Grossly normal marrow signal given degree of motion artifact. DATA REPOSITORY:
--- NOTE | 2025-05-30 13:00 | W.PODCONSULT ---
Date of service: 05/30/25 Time of Service: 13:00 Assessment and Plan Assessment and plan (1) Chronic ulcer of left foot: Status: Acute (2) Contusion of left foot: Status: Acute (3) Cellulitis: Status: Acute Assessment and plan: Patient was evaluated today. Patient is not an active participant in his care and is unable to provide any history. There is redness, swelling as well as open wounds to the left hallux. There is a large, ischemic/necrotic wound to the plantar aspect of the left first metatarsal head. His white count is elevated. I recommend antibiotics. He recommended an MRI which was reviewed however of low quality due to motion artifact there is no clear evidence for an abscess or osteomyelitis at this time. X-rays were reviewed and without significant or clear evidence for osteomyelitis either. I reviewed his x-rays and there is no evidence for soft tissue gas on either x-rays or MRI at this time. I recommend conservative care at this time with antibiotics and daily wound care consisting of dressing changes with Santyl, Dakin soaked 4 x 4 gauze, Kerlix and an Kristopher wrap to be changed by nursing. If the redness swelling and ulcers persist, he may require further imaging or perhaps a bone biopsy to evaluate for osteomyelitis. For now we will continue with conservative care until there is further psychiatric management History of Present Illness Narrative: Patient consulted for ulcer to the left foot of unknown duration. Is unable to offer any medical history due to current mental status. Denies pain. Does state expected left foot. No pain reported Consults Consult date: 05/30/25 Requesting physician: Maksim Peacock [facility] All Active Problems (Updated 05/30/25 @ 16:16 by Maksim Peacock MD) Cellulitis of great toe, left (Acute) Cellulitis (Acute) Contusion of left foot (Acute) Chronic ulcer of left foot (Acute) Psychosis (Acute) Suicide ideation (Acute) Homicidal ideations (Acute) Depression (Chronic) Abscess (Acute) Ulcer of heel (Acute) BMI 38.0-38.9,adult (Acute) History of tobacco use (Acute) IBS (irritable bowel syndrome) (Chronic) Foot deformity (Acute) Tremor (Acute) Nail dystrophy (Acute) Fever (Acute) Staphylococcus aureus bacteremia (Acute) Discharge planning issues (Acute) Type 2 diabetes mellitus (Chronic) Positive blood culture (Acute) Osteomyelitis of toe of left foot (Acute) Diabetic peripheral neuropathy (Chronic) GERD (gastroesophageal reflux disease) (Chronic) Gout (Acute) Schizoaffective disorder (Chronic) HTN (hypertension) (Chronic) Diabetes mellitus type 2 in obese (Chronic) Cellulitis of second toe, left (Acute) Cellulitis of great toe, left (Acute) Medical History Acute pain of left knee (03/04/16) Diverticulosis Cerebral artery occlusion Atrial septal aneurysm Fatty liver Schizoaffective disorder Hypothyroidism Hyperlipidemia Morbid obesity Diabetes mellitus Diabetic polyneuropathy Essential hypertension Surgical History repair Patent foramen ovale Cholecystectomy Family History Mother Personal history of malignant neoplasm Breast cancer Father Heart disease Atrial Fibrillation Sister Epilepsy Grandfather Personal history of malignant neoplasm Leukemia Grandmother Personal history of malignant neoplasm pancreatic cancer Social History Smoking/Tobacco Use Status: Former Tobacco Use Smoking risk assessment performed?: Yes Alcohol Intake: never Drug use: Never Substance use type: does not use Housing: other Do you feel safe at home: Yes Do you feel safe in your relationship?: Yes Exam Extrem Other: Left lower extremity physical exam: Derm: Unstageable ulcer noted subleft first MPJ 100% necrotic base, there is mild swelling around the ulcer, no erythema, no proximal streaking no probe to bone or capsule at this time no undermining no tunneling very well adhered necrotic eschar noted. Nailbed trauma noted to the left hallux as well as left second toenail with surrounding edema and ecchymosis nail noted to be loose with ecchymosis. Left hallux is with edema and erythema with small superficial wounds noted. No bogginess no crepitus no fluctuance no proximal streaking or lymphangitis. MSK: Bunion deformity with extension contracture at the MPJ level. No pain. Vascular: PT pulses are palpable bilaterally, DP pulses are nonpalpable bilaterally, skin is thin, dry and intact bilaterally hair growth absent bilaterally. MSK: Deferred due to patient mental status. Patient is a poor historian Results Last Vital Signs Temp 98.1 F 05/30/25 11:11 Pulse 84 05/30/25 11:11 Resp 18 05/30/25 11:11 BP 120/81 05/30/25 11:11 Pulse Ox 96 05/30/25 11:11 Labs 05/29/25 07:45 05/29/25 07:45
--- NOTE | 2025-05-30 13:08 | NUR.NOTE ---
Nursing Note: nurse sitting with pt, very pleasent with nurse, assisted with lunch feeding. encouraged ambulation pt refused. repositioned in chair, weight shifted to right side with blankets and pillows
[2025-05-30] MEDS: diazePAM 5 MG TAB PO (13:11)
--- NOTE | 2025-05-30 13:15 | MHPN_ITS ---
Date of service: 05/30/25 Time of Service: 13:17 Mental Health Emergency Note Release [facility] release signed:: Yes Reason for Visit The client is known to [facility] and this clinician and currently receives services through the adult outpatient program. Per report of the client he has been hospitalized numerous times, however, is unable to recall the last time that he was hospitalized. He has been stable and employed by [facility] for over 20 years. The client is at [facility] ED on EE status. This morning's assessment is conducted back in Zone B. The client has had his Yuen catheter removed. In the last 2 weeks has the pt presented for ES prior to today?: Yes, presented at [facility] ED Client Information Client is: Adult Outpatient Non Suicidal Self Injury Current: No History: No Safety Risk/Harm to Self or Others Current Ideation to Harm Self or Others: No Risk: Does risk to harm exist?: yes. Access to means: No. Risk: Moderate Risk Duty to warn indicated: No Asssessment/Mental Status Appearance: Well groomed Attitude: Cooperative Behavior: Agitated and Other (emotional ) Speech: Normal and Loud Affect: Cogruent with mood Mood: Sad, Depressed and Irritable Thought process: Racing, Loose associations and Tangential Hallucinations: yes, Visual and Auditory Delusions: No Attention: Wandering Perception: Not impaired Orientation: Fully orientated Memory: Intact Insight: Fair Judgement: Fair Neurovegetative Symptoms Sleep: No change Appetitie: Increase Substance Use: Do you use nicotine?: No Have you used substances in the last 7 days?: No Additional Issues: Assaultive/Threatening Behavior: No Medical Concerns: No Client engaged in active self harm w/weapon: No Threatening to run away: No Child reported abuse/neglect: No Voluntarily presenting for services: No Domestic violence is a concern: No Extreme Psychosis or extreme behavior is present: Yes Impression The client is a single 54 y/o male that currently resides at a residential in [place], [place]. The client identifies as male and uses he/ him pronouns. 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 All underrepresented categories were honored during this assessment. The client presents reclined in a reclining chair, covered by a blanket today interacting with the nurse and calling this clinician's name as she entered the Zone B. He is covered by a blanket. The client is observed making good eye contact where as yesterday he kept his eyes close most of the time. He smiled at the sight of this clinician. The client just took a shower and he reported that felt good. He continues to have uncontrolled verbal responses with a lot of use of the word Fuck however, no counting today but more directly at his hallucinations Fuck you Arnold, Good idea Colin, Smile again Bitch. He is observed also being more emotional as he shares some thoughts that may not make sense but are deeply emotional for him. He was continuously reassured that he is safe and no one is going to harm him here. During the huddle it was discussed to get a CAT scan of his left toe as it looks painful and they will request another tele-psych. The client is reported to have eaten a full breakfast, and drink several bottles of Ensure and water. They are just waiting to see if he can void naturally or if he will require another Yuen. Per report of DM the Yuen would be a barrier to treatment in a psych facility. It is believed that the retention may be a behavioral component to his current symptomology and so the more he improves the less likely this will be needed. The client ordered lunch and was getting ready to eat when this clinician left. Plan/Disposition Recommended Disposition: Hospitalization facilities contacted. Plan: The client will remain at [facility] pending acceptance. This clinician also has alerted DM of observations from today. He will be assessed twice daily until p laced. He will receive necessary medical work ups as needed. Person reported agreement to plan: Yes Reports/communication Outcome discussed with: ED/Personnel
[2025-05-30] MEDS: Normal Saline Flush 10 ML SYR IVP (14:18)
--- NOTE | 2025-05-30 15:45 | CMSP_ITS ---
Date of service: 05/30/25 Time of Service: 15:45 Care Management Safety Plan Status Status: Involuntary Guardianship if Applicable Guardianship: Parent (Mother is attempting to obtain guardianship) Reason for Wait Reason for Wait: Inpatient Admission Safety Plan Safety Plan: INVOLUNTARY FOR INPATIENT PSYCHIATRIC STABILIZATION.? Patient is appropriate in all interactions since arriving at [facility]; Pt has demonstrated appropriate coping and communication skills, has articulated his or her needs and concerns and is fully engaged during staff interactions. Safety plan has been established with patient, and care team, to adhere to patient goals, identify restrictions based on behavioral status, address n utrition, and determine allowed personal belongings, tools for hygiene and personal care. Determine level of activity including ambulation, level of supervision, visitors, and determine privileges based on behaviors and level of engagement by pt. SAFETY PLAN: 1. Will remain on suicide precautions, in paper clothes 2. 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 3. May have paper cups, plates, finger foods as well as a cardboard spoon with which to eat meals. 4. Follow [facility] Management of the Admitted Behavioral Health Patient policy. 5. Shower available in Zone B without restriction. 6. Personal belongings-soft items permitted at RN discretion. 7. Visitors- supportive visitors, at RN discretion. 8. Activities: soft cart items approved per RN discretion. 9.? Bathroom available in Zone B without restriction. 10. Phone: limited to use of [facility] cordless phone at RN discretion. Due to INVOLUNTARY status, patient is being held at [facility] by the Department of Mental Health ([facility]) until 2nd certification by [facility] Psychiatrist can be performed (within 24 hours). Staff will provide de-escalation support (CPI) as needed. If patient wishes to leave [facility], staff will contact [facility] Crisis Screener ([phone]) and Geotechnical Field Technician ([phone]) as soon as possible. In the event of elopement, notify [place] [employer] ([phone]). Patient is currently involuntarily at [facility]. [facility] Frontline Filleter will continue seeking placement. Please contact the Geotechnical Field Technician for any needed c hanges to Safety Plan. Safety plan has been provided to interdepartmental care team. Patient will be transported by [facility] at time of discharge.
--- NOTE | 2025-05-30 15:45 | PDOC.CMSAFE ---
Date of service: 05/30/25 Time of Service: 15:45 Care Management Safety Plan Status Status: Involuntary Guardianship if Applicable Guardianship: Parent (Mother is attempting to obtain guardianship) Reason for Wait Reason for Wait: Inpatient Admission Safety Plan Safety Plan: INVOLUNTARY FOR INPATIENT PSYCHIATRIC STABILIZATION.? Patient is appropriate in all interactions since arriving at [facility]; Pt has demonstrated appropriate coping and communication skills, has articulated his or her needs and concerns and is fully engaged during staff interactions. Safety plan has been established with patient, and care team, to adhere to patient goals, identify restrictions based on behavioral status, address nutrition, and determine allowed personal belongings, tools for hygiene and personal care. Determine level of activity including ambulation, level of supervision, visitors, and determine privileges based on behaviors and level of engagement by pt. SAFETY PLAN: 1. Will remain on suicide precautions, in paper clothes 2. Will remain in Zone B under direct supervision of one-on-one staff at all times provided by [employer]; SID, ACID RETORT OPERATOR business law instructor. 3. May have paper cups, plates, finger foods as well as a cardboard spoon with which to eat meals. 4. Follow [facility] Management of the Admitted Behavioral Health Patient policy. 5. Shower available in Zone B without restriction. 6. Personal belongings-soft items permitted at RN discretion. 7. Visitors- supportive visitors, at RN discretion. 8. Activities: soft cart items approved per RN discretion. 9.? Bathroom available in Zone B without restriction. 10. Phone: limited to use of [facility] cordless phone at RN discretion. Due to INVOLUNTARY status, patient is being held at [facility] by the Department of Mental Health ([facility]) until 2nd certification by [facility] Psychiatrist can be performed (within 24 hours). Staff will provide de-escalation support (CPI) as needed. If patient wishes to leave [facility], staff will contact [facility] Crisis Screener ([phone]) and Director Private ([phone]) as soon as possible. In the event of elopement, notify [place] [employer] ([phone]). Patient is currently involuntarily at [facility]. [facility] Frontline Product Marketing Consultant will continue seeking placement. Please contact the Director Private for any needed changes to Safety Plan. Safety plan has been provided to interdepartmental care team. Patient will be transported by [facility] at time of discharge.
--- NOTE | 2025-05-30 15:47 | PDOC.CMPRO ---
Date of service: 05/30/25 Time of Service: 15:47 Care Management Progress Note Progress Note Text Progress Note Text: CM huddled with TOM ARRIETA, RN supervisor mapping, charge entry specialist, and [facility] clinician regarding Tejas's plan of care. Per report, Tejas's RN is conducting a voiding trial, as his briones catheter was removed, and at that point he had still not voided on his own. Per LEN Juárez, Tejas is being considered at [facility], but there are no beds available today, and no anticipated bed until Wednesday at the earliest. Per [facility] child caregiver private home, Tejas is second in line for a bed with medical comorbidities in the state currently. Marquita [facility], stated that she would reach out to Tejas's mother to inquire about visiting him, as she is noted to be a good support for Tejas. Overall, Tejas appears to be improving, and was ambulating with nursing this morning for short durations, per RN. He has wounds on his feet; MD will consult Podiatry to help determine a treatment plan. Tejas is involuntary, waiting for inpatient psychiatric treatment. Safety plan in place; CM will continue to follow. Guardianship if Applicable Guardianship: Parent (Mother is attempting to obtain guardianship) Social Determinants of Health Screening Will the Patient Participate in the Screening?: Unable to obtain
[2025-05-30] MEDS: Amoxicillin 875/Clav. 125 TAB PO ×2 (17:49→20:47)
[2025-05-30] MEDS: Collagenase 30 GM TUBE TP (17:49)
[2025-05-30] MEDS: Lidocaine 2% Jelly 6 ML SYR (18:30)
[2025-05-30 19:28] VITALS: BP 144/76; PULSE 80; RESP 18; TEMP 36.8; O2SAT 97
[2025-05-30] MEDS: Gabapentin 100 MG CAP 500 MG PO (19:53)
--- NOTE | 2025-05-30 21:05 | W.TELEPSYCHF ---
Date of service: 05/30/25 Time of Service: 08:30 Summary Note PSYCHIATRY CONSULT NOTE: FOLLOW-UP EVALUATION Date/Time:?05/30/2025 8:59:27 PM Name:Abdoul Tolenitno :?1970 Location of the patient:?[facility] ED Consulting Array Clinician:?Christiana Sims Location of the clinician:?[place], [place] SUMMARY Patient is 54 year old male who resides in penitentiary in [place]. He past psychiatric history significant for schizophrenia, prior inpatient psychiatric hospitalizations. Patient initially presented on 05/20/25 with suicidal ideation refused to be transferred to the [facility] for treatment and was subsequently discharged back to his penitentiary. After returning to his penitentiary he continued to decompensate psychiatrically. He presented back to the emergency department grossly psychotic and was evaluated on 05/25/25 at which time it was recommended to initiate topiramate 25 mg twice daily and clozapine 250 mg at bed time. Psychiatry was consulted for reevaluation on 05/28/25 at which time patient was not taking any oral medications including the clozapine and could not have an IV line at that time. Psychiatry started olanzapine 10 mg IM twice daily for symptoms of psychosis. Psychiatry was consulted again on 05/30/25. Patient continues to be responding to internal stimuli, irritable, labile, but is observed to be less agitated overall and some improvement in his ability to answer questions. RISK ASSESSMENT Current Suicide Risk Elevated???moderate Current Violence Risk Elevated???undetermined Issues with ability to care for self???Yes, decline in ADLS Does patient require psychiatric hospitalization???Yes Working Diagnoses:? 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 CPT Codes:?40927 (OP/ED) / 14527 (IP) ? Moderate Complexity Follow-up PLAN Disposition:?Psychiatric admission when medically stable ? Observation level ? Psychiatric 1:1 needed??Continue psych 1:1 OR Close observation per hospital protocol Work-up:? Pharmacological:? Discontinue topiramate 25 mg twice daily Initiate Depakote 500 mg twice daily Continue citalopram 20 mg daily Continue olanzapine 10 mg twice daily IM Is patient psychotic? - Yes; Were antipsychotic medications started? - Yes Informed consent: Patient is unable to understand risks benefits of or consent to above recommended psychiatric medications in their current mental state. No surrogate decision maker is available. Without recommended medication patient will likely deteriorate further and possibly place themselves or others at risk. Patient is not legally compelled to take recommended medication at this time. Follow up needed while in the hospital??As needed for management of behavior or change in mental status Other:? If questions arise about the psychiatric care of this patient, please call the [facility]?to request a follow-up consult. ?Please do not contact me individually through the EMR chat as I am not?regularly logged on to?this system. The psychiatrist for the follow-up visit may be a different psychiatrist Discussed plan with onsite pipe or steam fitter furnace installer:?Yes - emergency room physician Salvatore Gonzalez HISTORY This evaluation was conducted remotely with the assistance of onsite staff via HIPAA-compliant video call. Patient consented to proceed with the telehealth visit. Requested by:?Emergency medicine colleagues, Medical Record Reviewed/Appreciated:? Patient status since last psychiatric visit?:?in behavioral control with no reported issues; agitated Interval History:? Patient is 54 year old male who resides in penitentiary in [place]. He past psychiatric history significant for schizophrenia, prior inpatient psychiatric hospitalizations. Patient initially presented on 05/20/25 with suicidal ideation refused to be transferred to the [facility] for treatment and was subsequently discharged back to his penitentiary. After returning to his penitentiary he continued to decompensate psychiatrically. He presented back to the emergency department grossly psychotic and was evaluated on 05/25/25 at which time it was recommended to initiate topiramate 25 mg twice daily and clozapine 250 mg at bed time. Psychiatry was consulted for reevaluation on 05/28/25 at which time patient was not taking any oral medications including the clozapine and could not have an IV line at that time. Psychiatry started olanzapine 10 mg IM twice daily for symptoms of psychosis. Psychiatry was consulted again on 05/30/25. On psychiatric interview, patient is alert and oriented to self. Patient states. Fuck it. Patient denies any pain. He reports that he did not have anything to eat today. Patient appeared to be responding to internal stimuli throughout the interview. He does report increasing irritability on direct questioning. Patient thoughts of harming self or others on direct questioning. Collateral Contacted Contacted nurse--. Per nursing patient has been taking medications orally but does have trouble with swallowing. Current psychiatric and other clinically relevant medications:?topiramate 25 mg twice daily citalopram 20 mg daily olanzapine 10 mg twice daily IM MENTAL STATUS EXAM Appearance and Attire:?poor level of hygiene and self grooming Psychomotor agitation:?calm kinetics Attitude and behavior:?poor historian Speech: loud nonsensical? Mood:?labile Affect:? Inappropriate Thought Process:?significant loosening of associations, highly disorganized in thought processes Thought content:? Poverty of content Perception:?did appear to be responding to internal stimuli at times Intelligence:? Low average Abstraction:? Poor reasoning Language:? No abnormality Orientation:? Oriented to person Sensorium:? Distractible Knowledge:? Mild impairment Memory:? Impaired to Immediate recall, Impaired to Recent recall (3 min), Impaired to Remote recall, Impaired to Executive function Insight:?poor insight Judgment:?poor judgment Christiana Sims, DO ?
[2025-05-30] MEDS: Polyethylene Glycol 3350 17 GM PACKET PO (21:17)
--- NOTE | 2025-05-31 00:04 | MHPN_ITS ---
Date of service: 05/29/25 Time of Service: 17:30 Mental Health Emergency Note Release [facility] release signed:: Yes Reason for Visit In the last 2 weeks has the pt presented for ES prior to today?: Yes, presented at Impression Tejas was not able to engage in conversation with this va underwriter. Tejas was observed by this va underwriter as sitting in a chair and counting. Tejas struggled to engage with this va underwriter, but appeared to understand the questions being asked. This va underwriter told Tejas that if he needed anything throughout the night, he can asked for this va underwriter and we can talk again. Tejas repeated this writers name then started count again. Plan/Disposition Recommended Disposition: Hospitalization facilities contacted. Plan: Tejas will remain at [facility] waiting for involuntary inpatient placement. Reports/communication Outcome discussed with: ED/Personnel
--- NOTE | 2025-05-31 00:04 | PDOC.MHPN2 ---
Date of service: 05/29/25 Time of Service: 17:30 Mental Health Emergency Note Release [facility] release signed:: Yes Reason for Visit In the last 2 weeks has the pt presented for ES prior to today?: Yes, presented at Impression Tejas was not able to engage in conversation with this business writer. Tejas was observed by this business writer as sitting in a chair and counting. Tejas struggled to engage with this business writer, but appeared to understand the questions being asked. This business writer told Tejas that if he needed anything throughout the night, he can asked for this business writer and we can talk again. Tejas repeated this writers name then started count again. Plan/Disposition Recommended Disposition: Hospitalization facilities contacted. Plan: Tejas will remain at [facility] waiting for involuntary inpatient placement. Reports/communication Outcome discussed with: ED/Personnel
--- NOTE | 2025-05-31 00:05 | PDOC.MHPN2 ---
Date of service: 05/30/25 Time of Service: 19:45 Mental Health Emergency Note Release [facility] release signed:: Yes Reason for Visit In the last 2 weeks has the pt presented for ES prior to today?: Yes, presented at Asssessment/Mental Status Appearance: Disheveled Attitude: Passive and Friendly Behavior: Unremarkable Speech: Pressured, Soft and Slow Affect: Labile, Constricted and Flat Mood: Depressed and Anxious Thought process: Loose associations Hallucinations: yes, Visual and Auditory Delusions: yes, Bizarre Attention: Unremarkable Perception: Not impaired Orientation: Fully orientated Memory: Intact Insight: Fair Judgement: Fair Neurovegetative Symptoms Sleep: No change Appetitie: No change Interests: No change Energy: No change Libido: Not applicable Impression Tejas was not able answer this writers questions.Tejas was orientated to this continuity writer and appeared to register the questions being asked but did not respond with expected answers. Tejas would mutter different curse words and speak to his hallucations. Tejas made appropriate eye contact. Tejas attempted to try and go to the bathroom but was unsuccessful and Tejas was catheterized again. Plan/Disposition Recommended Disposition: Hospitalization facilities contacted. Plan: Tejas will remain at [facility] till inpatient placement has been found. Reports/communication Outcome discussed with: ED/Personnel
[2025-05-31] MEDS: Allopurinol 100 MG TAB PO (08:01)
[2025-05-31] MEDS: Aspirin E.C. 325 MG TABEC PO (08:01)
[2025-05-31] MEDS: Pantoprazole 40 MG TABCR PO (08:02)
[2025-05-31] MEDS: Atenolol 25 MG TAB PO (08:02)
[2025-05-31] MEDS: Cholecalciferol (Vitamin D3) 1,000 UNIT TAB 2000 UNITS PO (08:02)
[2025-05-31] MEDS: OLANZapine 10 MG VIAL IM ×2 (08:03→20:13)
[2025-05-31] MEDS: Rosuvastatin 5 MG TAB PO (08:03)
[2025-05-31] MEDS: Lisinopril 5 MG TAB PO (08:03)
[2025-05-31 08:05] VITALS: BP 129/83; PULSE 84; RESP 18; TEMP 36.8; O2SAT 98
--- NOTE | 2025-05-31 08:19 | CMSP_ITS ---
Date of service: 05/31/25 Time of Service: 08:24 Care Management Safety Plan Status Status: Involuntary Reason for Wait Reason for Wait: Inpatient Admission Safety Plan Safety Plan: INVOLUNTARY FOR INPATIENT PSYCHIATRIC STABILIZATION.? Patient is appropriate in all interactions since arriving at [facility]; Pt has demonstrated appropriate coping and communication skills, has articulated his or her needs and concerns and is fully engaged during staff interactions. Safety plan has been established with patient, and care team, to adhere to patient goals, identify restrictions based on behavioral status, address nutrition, and determine allowed personal belongings, tools for hygiene and personal care. Determine level of activity including ambulation, level of supervision, visitors, and determine privileges based on behaviors and level of engagement by pt. SAFETY PLAN: 1. Will remain on suicide precautions, in paper clothes 2. Will remain in Zone B under direct supervision of one-on-one staff at all times provided by [employer]; SID, FILTER PULP WASHER vegetable farming supervisor. 3. May have paper cups, plates, finger foods as well as a cardboard spoon with which to eat meals. 4. Follow [facility] Management of the Admitted Behavioral Health Patient policy. 5. Shower available in Zone B without restriction. 6. Personal belongings-soft items permitted at RN discretion. 7. Visitors-none at this time. 8. Activities: soft cart items approved per RN discretion. 9.? Bathroom available in Zone B without restriction. 10. Phone: limited to litigation legal assistant on [facility] cordless phone at RN discretion. Due to INVOLUNTARY status, patient is being held at [facility] by the Department of Mental Health ([facility]) until 2nd certification by [facility] Psychiatrist can be performed (within 24 hours). Staff will provide de-escalation support (CPI) as needed. If patient wishes to leave [facility], staff will contact [facility] Crisis Screener ([phone]) and Woods Overseer ([phone]) as soon as possible. In the event of elopement, notify [place] [employer] ([phone]). Patient is currently involuntarily at [facility]. [facility] Frontline Storeperson will continue seeking placement. Please contact the Woods Overseer for any needed changes to Safety Plan. Safety plan has been provided to interdepartmental care team. Patient will be transported by [employer] at time of discharge.
--- NOTE | 2025-05-31 08:19 | CMPROGNOTE_ITS ---
Date of service: 05/31/25 Time of Service: 11:48 Care Management Progress Note Progress Note Text Progress Note Text: CM huddled with TOM ARRIETA, RN cryptologic supervisor, hemodialysis charge nurse, TESSA RN and [facility] clinician regarding Tejas's plan of care. Tejas was lying in bed and appeared calm during this huddle. Per report, Tejas did not pass his voiding trial, and continues to have a briones catheter in place. Per LEN Juárez, Tejas is being considered at [facility], but there are no beds available today. Marquita states Cassie Scott ([facility] Psychologist) is going to begin working with Tejas. LEN Juárez, Tejas's mother was able to visit Tejas yesterday, and is coming again. Per RN, Tejas has another Tele-psych consult yesterday which created a new medication rec for him. Tejas is involuntary, waiting for inpatient psychiatric treatment. Safety plan in place; CM will continue to follow. Guardianship if Applicable Guardianship: Parent (Mother is attempting to obtain guardianship) Social Determinants of Health Screening Will the Patient Participate in the Screening?: Unable to obtain
--- NOTE | 2025-05-31 08:19 | PDOC.CMSAFE ---
Date of service: 05/31/25 Time of Service: 08:24 Care Management Safety Plan Status Status: Involuntary Reason for Wait Reason for Wait: Inpatient Admission Safety Plan Safety Plan: INVOLUNTARY FOR INPATIENT PSYCHIATRIC STABILIZATION.? Patient is appropriate in all interactions since arriving at [facility]; Pt has demonstrated appropriate coping and communication skills, has articulated his or her needs and concerns and is fully engaged during staff interactions. Safety plan has been established with patient, and care team, to adhere to patient goals, identify restrictions based on behavioral status, address nutrition, and determine allowed personal belongings, tools for hygiene and personal care. Determine level of activity including ambulation, level of supervision, visitors, and determine privileges based on behaviors and level of engagement by pt. SAFETY PLAN: 1. Will remain on suicide precautions, in paper clothes 2. Will remain in Zone B under direct supervision of one-on-one staff at all times provided by [employer]; SID, TOY ASSEMBLER government professor. 3. May have paper cups, plates, finger foods as well as a cardboard spoon with which to eat meals. 4. Follow [facility] Management of the Admitted Behavioral Health Patient policy. 5. Shower available in Zone B without restriction. 6. Personal belongings-soft items permitted at RN discretion. 7. Visitors-none at this time. 8. Activities: soft cart items approved per RN discretion. 9.? Bathroom available in Zone B without restriction. 10. Phone: limited to real estate legal assistant on [facility] cordless phone at RN discretion. Due to INVOLUNTARY status, patient is being held at [facility] by the Department of Mental Health ([facility]) until 2nd certification by [facility] Psychiatrist can be performed (within 24 hours). Staff will provide de-escalation support (CPI) as needed. If patient wishes to leave [facility], staff will contact [facility] Crisis Screener ([phone]) and Needlemaker ([phone]) as soon as possible. In the event of elopement, notify [place] [employer] Police ([phone]). Patient is currently involuntarily at [facility]. [facility] Frontline Police Artist will continue seeking placement. Please contact the Needlemaker for any needed changes to Safety Plan. Safety plan has been provided to interdepartmental care team. Patient will be transported by [employer] at time of discharge.
[2025-05-31 08:43] LABS: Abs Immature Grans 0.16 10^3/uL (0.0-0.06); HCT 43.6 % (40.0-50.0); HGB 14.5 g/dL (13.5-17.5); Immature Grans % 0.9 %; MCH 29.5 pg (27.0-33.0); MCHC 33.3 % (32.0-36.0); MCV 89 fL (80-95); MPV 11.7 fL (8.0-11.0); Platelet Count 304 10^3/uL (130-400); RBC 4.91 10^6/uL (4.36-5.78); RDW 13.9 % (11.8-14.1); RDW-SD 45.3 fL; WBC 18.81 10^3/uL (4.4-10.8)
[2025-05-31] MEDS: Amoxicillin 875/Clav. 125 TAB PO ×2 (08:52→20:13)
[2025-05-31] MEDS: Divalproex 500 MG TABEC PO ×2 (08:52→20:12)
[2025-05-31] MEDS: Water,Injection,Sterile 10 ML VIAL ×2 (08:58→20:49)
[2025-05-31 09:01] LABS: RBC Morphology Normal
[2025-05-31] MEDS: Collagenase 30 GM TUBE TP (09:35)
--- NOTE | 2025-05-31 12:24 | PDOC.MHPN2 ---
Date of service: 05/31/25 Time of Service: 12:26 Mental Health Emergency Note Release [facility] release signed:: Yes Reason for Visit The client is known to [facility] and this clinician and currently receives services through the adult outpatient program. Per report of the client he has been hospitalized numerous times, however, is unable to recall the last time that he was hospitalized. He has been stable and employed by [facility] for over 20 years. The client is at [facility] ED on EE status. This morning's assessment is conducted back in Zone B. The client has had his Yuen catheter put back in last evening. It is believed that his inability to void is a result of the internal stimuli. In the last 2 weeks has the pt presented for ES prior to today?: Yes, presented at [facility] ED Client Information Client is: Adult Outpatient Well Housed: Yes Non Suicidal Self Injury Current: No History: No Safety Risk/Harm to Self or Others Current Ideation to Harm Self or Others: Yes to self. Intent: no, has no intent. Plan: no.does not have a plan. History of suicide attempt: No history of suicide attempt reported Risk: Does risk to harm exist?: yes. Access to means: No. Risk: High Risk Duty to warn indicated: No Asssessment/Mental Status Appearance: Well groomed Attitude: Cooperative Behavior: Unremarkable Speech: Soft Affect: Cogruent with mood Mood: Sad and Depressed Thought process: Loose associations and Tangential Hallucinations: yes, Visual and Auditory Delusions: No Attention: Wandering (but greatly improved. ) Perception: Not impaired Orientation: Fully orientated Memory: Intact Insight: Poor Judgement: Fair Neurovegetative Symptoms Sleep: No change Appetitie: Increase Interests: No change Energy: Decrease Libido: Not applicable Substance Use: Do you use nicotine?: No Have you used substances in the last 7 days?: No Additional Issues: Assaultive/Threatening Behavior: No Medical Concerns: No Client engaged in active self harm w/weapon: No Threatening to run away: No Child reported abuse/neglect: No Voluntarily presenting for services: Yes Domestic violence is a concern: No Extreme Psychosis or extreme behavior is present: Yes Impression The client is a single 54 y/o male that currently resides at a prison in [place], [place]. The client identifies as male and uses he/ him pronouns. 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 All underrepresented categories were honored during this assessment. The client is observed lying in bed upon arrival. When he saw this clinician he began to tear up and stated he was upset that the Red Sox won. He later noted that he is a Patriots fan. He initially denied having any auditory or visual hallucinations and recanted that when this clinician asked him about Arnold and Colin. He said I can't lie. He is reported to be eating and drinking well however, is still unable to void his urine and so the Yuen catheter is still in. He is oriented and knows where he is, what his is and recognizes this clinician. His mood appears more sad and depressed today. There was a discussion about the EE and this clinician informed them that although he is improving he is still unable to make clear decisions at this time and if he declined and wanted to leave it would be harder to EE him again at this time. Plan/Disposition Recommended Disposition: Hospitalization ([facility] reported possible bed tomorrow at [facility]. ) facilities contacted. Plan: The client will remain at [facility] pending acceptance to a hospital. As noted above there might be a possible bed tomorrow so this will be followed up on in the am. He will be reassessed twice daily until placed. Person reported agreement to plan: Yes Reports/communication Outcome discussed with: ED/Personnel
--- NOTE | 2025-05-31 15:46 | ED.PSYCHBOAR ---
Date of service: 05/31/25 Time of Service: 15:46 Psychiatric Border Handoff Update Brief Story: 54-year-old male with history of schizophrenia, here on involuntary hold awaiting placement. ED course complicated by leukocytosis with notable toe infection, now on antibiotics. Urinary retention, now status post Yuen catheter placement. Status: EE Able to leave: no, this patient is an EE Behavioral Concerns: none Potential Disposition: [facility] possible tomorrow Medical Concerns: Urinary retention, Yuen catheter placed and draining Mediation Reconciliation performed: Yes Code Status ordered: Yes Diet ordered: Yes Future to do Items: Tick panel pending. Syphilis serology pending. Discharge Plan Discharge Details Chief Complaint: PsychEval Clinical Impression: Homicidal ideations, Suicide ideation, Psychosis, Cellulitis of great toe, left Primary Care Provider: Sakina Meng V ED Provider: Jase Batista Home Meds and New Rx's Prescriptions: No Action psyllium husk [Metamucil] 0.4 gram capsule 0.52 g PO DAILY Rx Instructions: Per residence MAR, admin 1 cap PO Q AM gabapentin 300 mg capsule 500 mg PO QHS Patient Comments: Per residence MAR: 400mg x3 days (start date not indicated) then 500mg citalopram 10 mg tablet 20 mg PO DAILY Probiotic (B. coagulans) 10 billion cell capsule,delayed release(DR/EC) 1 cell PO DAILY clozapine 100 MG tablet 250 mg PO HS atenolol 25 MG tablet 25 mg PO DAILY lisinopril 5 MG tablet 5 mg PO DAILY Freedavite 1 EACH tablet 1 ea PO DAILY aspirin 325 mg Tablet,Delayed Release (Dr/Ec) 325 mg PO DAILY pantoprazole 40 mg tablet,delayed release (DR/EC) 40 mg PO DAILY Patient Comments: TAKE 1 TABLET BY MOUTH DAILY rosuvastatin 5 mg tablet 5 mg PO DAILY cholecalciferol (vitamin D3) [Vitamin D3] 50 mcg (2,000 unit) Tablet 50 mcg PO DAILY topiramate 25 mg tablet 25 mg PO HS multivitamin [Daily Multi-Vitamin] Tablet 1 tab PO DAILY cholestyramine 4 gram powder 4 g PO DAILY Rx Instructions: Per residence MAR, once daily/hold for constipation. MAR indicates daily refusal. Administer w/meal; avoid other meds within 1hr before or 4-6hr after dose indomethacin 50 mg capsule 50 mg PO PRN Rx Instructions: administer with food or milk allopurinol 100 MG tablet 100 mg PO DAILY
--- NOTE | 2025-05-31 17:26 | NUR.NOTE ---
Nursing Note: Patient minimally assisted with 2 RN's to ambulate to recliner to eat dinner.
[2025-05-31 19:09] VITALS: BP 96/68; PULSE 83; RESP 18; TEMP 36.8; O2SAT 98
[2025-05-31 19:53] VITALS: BP 96/61; PULSE 81; RESP 16; TEMP 36.6; O2SAT 100
[2025-05-31] MEDS: Gabapentin 100 MG CAP 500 MG PO (20:12)
[2025-06-01] MEDS: Allopurinol 100 MG TAB PO (08:13)
[2025-06-01] MEDS: Aspirin E.C. 325 MG TABEC PO (08:15)
[2025-06-01] MEDS: Pantoprazole 40 MG TABCR PO (08:15)
[2025-06-01] MEDS: Rosuvastatin 5 MG TAB PO (08:17)
[2025-06-01] MEDS: Cholecalciferol (Vitamin D3) 1,000 UNIT TAB 2000 UNITS PO (08:18)
[2025-06-01] MEDS: Lisinopril 5 MG TAB PO (08:19)
[2025-06-01] MEDS: Atenolol 25 MG TAB PO (08:20)
[2025-06-01] MEDS: OLANZapine 10 MG VIAL IM ×2 (08:32→21:02)
[2025-06-01] MEDS: Water,Injection,Sterile 10 ML VIAL ×4 (08:32→21:02)
[2025-06-01] MEDS: Polyethylene Glycol 3350 17 GM PACKET PO ×2 (08:33→21:02)
[2025-06-01] MEDS: Amoxicillin 875/Clav. 125 TAB PO ×2 (08:39→21:01)
[2025-06-01] MEDS: Divalproex 500 MG TABEC PO ×2 (08:54→21:01)
[2025-06-01 08:55] VITALS: BP 134/88; PULSE 92; RESP 16; TEMP 37.3; O2SAT 98
[2025-06-01 12:11] LABS: Lyme Ab w Rflx to Lyme Confirm Positive (Negative)
[2025-06-01 12:27] LABS: Syphilis Serology (RPR) Negative (Negative)
[2025-06-01] MEDS: Collagenase 30 GM TUBE TP (13:18)
--- NOTE | 2025-06-01 13:23 | MHPN_ITS ---
Date of service: 06/01/25 Time of Service: 13:25 Mental Health Emergency Note Release [facility] release signed:: Yes Reason for Visit The client is known to [facility] and this clinician and currently receives services through the adult outpatient program. Per report of the client he has been hospitalized numerous times, however, is unable to recall the last time that he was hospitalized. He has been stable and employed by [facility] for over 20 years. The client is at [facility] ED on EE status. This morning's assessment is conducted back in Zone B. In the last 2 weeks has the pt presented for ES prior to today?: Yes, presented at [facility] ED Impression The client is a single 54 y/o male that currently resides at a fpc in [place], [place]. The client identifies as male and uses he/ him pronouns. 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 All underrepresented categories were honored during this assessment. The client is observed sitting in a recliner fast asleep and difficult to arouse. There is loud music playing for the client's comfort and he is softer spoken today so a request was made to turn it down some. He, once awake was minimally able to engage due to how sleepy he was. It was observed however, that he is still responding to internal stimuli as he is heard telling Bitch to shut up. He also acknowledges that he can still hear and see them but they are not as loud as they have been. He eventually wakes up and sees this clinician sitting in the nursing station and calls my name. He then started sharing some of his confused stories and asks for breakfast. He is reported to have already had breakfast and did order Mac and Cheese for lunch, with green beans and vanilla ice cream. He was observed drinking an entire Boost drink. The client while sleeping was not fully asleep as when the nurse was showing the in's and outs of Zone B the client is heard returning comments. When fully awake he was heard using terminology just used by the nurse. The client is not oriented to time or place. Plan/Disposition Recommended Disposition: Hospitalization facilities contacted. Plan: It is possible the [facility] will be accepting the client today pending movement of other patients. Reports/communication Outcome discussed with: ED/Personnel
[2025-06-01 14:51] LABS: Lyme IgG Ab Positive (Negative)
--- NOTE | 2025-06-01 15:09 | ED.PROG1_ITS ---
Date of service: 06/01/25 Time of Service: 15:10 Psychiatric Border Handoff Update Brief Story: Patient has history of schizophrenia. Patient here on EE hold for psychosis. Status: EE Behavioral Concerns: none Potential Disposition: Possible [facility], not yet confirmed Medical Concerns: Yuen catheter in place Mediation Reconciliation performed: Yes Code Status ordered: Yes Diet ordered: Yes Future to do Items: Follow-up on tick panel Discharge Plan Discharge Details Chief Complaint: PsychEval Clinical Impression: Homicidal ideations, Suicide ideation, Psychosis, Cellulitis of great toe, left Primary Care Provider: Sakina Meng V ED Provider: Jase Batista [place] Meds and New Rx's Prescriptions: No Action psyllium husk [Metamucil] 0.4 gram capsule 0.52 g PO DAILY Rx Instructions: Per residence MAR, admin 1 cap PO Q AM gabapentin 300 mg capsule 500 mg PO QHS Patient Comments: Per residence MAR: 400mg x3 days (start date not indicated) then 500mg citalopram 10 mg tablet 20 mg PO DAILY Probiotic (B. coagulans) 10 billion cell capsule,delayed release(DR/EC) 1 cell PO DAILY clozapine 100 MG tablet 250 mg PO HS atenolol 25 MG tablet 25 mg PO DAILY lisinopril 5 MG tablet 5 mg PO DAILY Freedavite 1 EACH tablet 1 ea PO DAILY aspirin 325 mg Tablet,Delayed Release (Dr/Ec) 325 mg PO DAILY pantoprazole 40 mg tablet,delayed release (DR/EC) 40 mg PO DAILY Patient Comments: TAKE 1 TABLET BY MOUTH DAILY rosuvastatin 5 mg tablet 5 mg PO DAILY cholecalciferol (vitamin D3) [Vitamin D3] 50 mcg (2,000 unit) Tablet 50 mcg PO DAILY topiramate 25 mg tablet 25 mg PO HS multivitamin [Daily Multi-Vitamin] Tablet 1 tab PO DAILY cholestyramine 4 gram powder 4 g PO DAILY Rx Instructions: Per residence MAR, once daily/hold for constipation. MAR indicates daily refusal. Administer w/meal; avoid other meds within 1hr before or 4-6hr after dose indomethacin 50 mg capsule 50 mg PO PRN Rx Instructions: administer with food or milk allopurinol 100 MG tablet 100 mg PO DAILY
--- NOTE | 2025-06-01 17:53 | NUR.NOTE ---
Nursing Note: Pt's mother's telephone numbers home: [phone] cell: [phone]
--- NOTE | 2025-06-01 18:07 | CMSP_ITS ---
Date of service: 06/01/25 Time of Service: 18:08 Care Management Safety Plan Status Status: Involuntary Guardianship if Applicable Guardianship: Parent (Mother is attempting to obtain guardianship) Reason for Wait Reason for Wait: Inpatient Admission Safety Plan Safety Plan: INVOLUNTARY FOR INPATIENT PSYCHIATRIC STABILIZATION.? Patient is appropriate in all interactions since arriving at [facility]; Pt has demonstrated appropriate coping and communication skills, has articulated his or her needs and concerns and is fully engaged during staff interactions. Safety plan has been established with patient, and care team, to adhere to patient goals, identify restrictions based on behavioral status, address nutrition, and determine allowed personal belongings, tools for hygiene and personal care. Determine level of activity including ambulation, level of supervision, visitors, and determine privileges based on behaviors and level of engagement by pt. SAFETY PLAN: 1. Will remain on suicide precautions, in paper clothes 2. Will remain in Zone B under direct supervision of one-on-one staff at all times provided by [employer]; SID, LEGAL NURSE CONSULTANT call worker. 3. May have paper cups, plates, finger foods as well as a cardboard spoon with which to eat meals. 4. Follow [facility] Management of the Admitted Behavioral Health Patient policy. 5. Shower available in Zone B without restriction. 6. Personal belongings-soft items permitted at RN discretion. 7. Visitors- supportive visitors, at RN discretion. 8. Activities: soft cart items approved per RN discretion. 9.? Bathroom available in Zone B without restriction. 10. Phone: limited to use on [facility] cordless phone at RN discretion. Due to INVOLUNTARY status, patient is being held at [facility] by the Department of Mental Health ([facility]) until 2nd certification by [facility] Psychiatrist can be performed (within 24 hours). Staff will provide de-escalation support (CPI) as needed. If patient wishes to leave [facility], staff will contact [facility] Crisis Screener ([phone]) and Cephalometric Tracer ([phone]) as soon as possible. In the event of elopement, notify [place] [employer] ([phone]). Patient is currently involuntarily at [facility]. [facility] Frontline Saw Setter will continue seeking placement. Please contact the Cephalometric Tracer for any needed changes to Safety Plan. Safety plan has been provided to interdepartmental care team. Patient will be transported by [facility] at time of discharge.
--- NOTE | 2025-06-01 18:09 | CMPROGNOTE_ITS ---
Date of service: 06/01/25 Time of Service: 18:09 Care Management Progress Note Progress Note Text Progress Note Text: CM huddled with ED RN, ED nurse discharge, HS clinician and RN line construction supervisor regarding Tejas's plan of care. Per RN, Tejas has been conversing appropriately and is engaging well with his care. Throughout the day, his RN helped support Tejas with ambulation, which greatly improved throughout the day with encouragement. Per [facility], [facility] is considering him for admission, pending a discharge from their facility. There was a conversation about transportation, as it was considered to transport Tejas via EMS, but due to his improved ambulation, it was decided that he would be appropriate to ride in a private vehicle; [facility] will coordinate this once he has a bed offer. Anticipate, per [facility], that he will have a bed offer today or tomorrow. Tejas is involuntary, awaiting inpatient psychiatric treatment. Safety plan in place; CM will continue to follow. Guardianship if Applicable Guardianship: Parent (Mother is attempting to obtain guardianship) Social Determinants of Health Screening Will the Patient Participate in the Screening?: Unable to obtain
[2025-06-01] MEDS: OLANZapine 10 MG VIAL 5 MG IM (18:43)
[2025-06-01 19:29] VITALS: BP 138/84; PULSE 80; TEMP 36.2; O2SAT 98
[2025-06-01] MEDS: Gabapentin 100 MG CAP 500 MG PO (21:00)
[2025-06-01] MEDS: Bisacodyl 10 MG SUPP PR (21:21)
--- NOTE | 2025-06-01 23:32 | MHPN_ITS ---
Date of service: 06/01/25 Time of Service: 18:07 Mental Health Emergency Note Release [facility] release signed:: Yes Reason for Visit The client is known to [facility] and currently receives services through the adult outpatient program. Per report of the client he has been hospitalized numerous times, however is unable to recall the last time that he was hospitalized. The client is at [facility] ED on EE status. This publications writer meets with the client via telehealth for 2nd daily assessment. In the last 2 weeks has the pt presented for ES prior to today?: Unknown Client Information Client is: Adult Outpatient Well Housed: Yes Non Suicidal Self Injury Current: No History: No Safety Risk/Harm to Self or Others Current Ideation to Harm Self or Others: No Risk: Does risk to harm exist?: yes. Access to means: No. Risk: High Risk Duty to warn indicated: No Asssessment/Mental Status Appearance: Inappropriate Attitude: Other (Uncooperative ) Behavior: Agitated Speech: Incoherent Affect: Cogruent with mood Mood: Irritable Thought process: Loose associations, Tangential and Poverty of content Hallucinations: No Delusions: No Attention: Unremarkable Perception: Not impaired Orientation: Fully orientated Memory: Intact Insight: Poor Judgement: Poor Neurovegetative Symptoms Sleep: No change Appetitie: No change Interests: No change Energy: No change Libido: Not applicable Impression The client is a 54 year old biological male. The client presents in a inappropriate appearance and is seen sitting in a chair in the Zone B of [facility] via zoom. Affect is congruent with mood and speech is incoherent. Client is uncooperative with this clinician. Thought process appears to be tangential with loose associations and poverty of content. There are no delusions observed by this clinician. The client does not disclose visual and auditory hallucinations. The client was reported to be sleeping and [facility] staff [place] stated they were going to wake them up. Per collateral report of [facility] staff Dakota the client did some exercise today by walking around. Dakota stated the client had improved cognition earlier in the day and after his nap the client presented with the baseline behaviors of the past few days The client reported doing good to this clinician. The client stated they have not been sleeping or eating well. The client denied SI and HI. The client presented with word salad to this clinician throughout the encounter and told this clinician to go fuck themselves a couple of times. Plan/Disposition Recommended Disposition: Hospitalization facilities contacted. Plan: The client will remain at [facility] ED on EE status pending placement in an inpatient facility. The client will be re-assessed 2x daily until placement is secured. Reports/communication Outcome discussed with: ED/Personnel
[2025-06-02 07:56] VITALS: BP 144/81; PULSE 72; RESP 18; TEMP 36.3; O2SAT 97
--- NOTE | 2025-06-02 08:05 | ED.PSYCHBOAR ---
Date of service: 06/02/25 Time of Service: 08:05 Psychiatric Border Handoff Update Brief Story: Patient pending transport and arrival and per signout. No reported issues on prior shift. Patient's tach panel is positive for Lyme's Lyme, add doxycycline in addition to the Augmentin he takes for his foot infection. Status: EE Able to leave: no, this patient is an EE Mediation Reconciliation performed: Yes Code Status ordered: Yes Diet ordered: Yes Discharge Plan Disposition Specific Psychiatric Facility: [facility] Medical[facility]Psychiatric Unit Condition: Stable Discharge Details Chief Complaint: PsychEval Clinical Impression: Homicidal ideations, Suicide ideation, Psychosis, Cellulitis of great toe, left, Lyme disease Primary Care Provider: Sakina Meng V ED Provider: Dakota Greer Home Meds and New Rx's Prescriptions: Continued psyllium husk [Metamucil] 0.4 gram capsule 0.52 g PO DAILY Rx Instructions: Per residence MAR, admin 1 cap PO Q AM gabapentin 300 mg capsule 500 mg PO QHS Patient Comments: Per residence MAR: 400mg x3 days (start date not indicated) then 500mg citalopram 10 mg tablet 20 mg PO DAILY clozapine 100 MG tablet 250 mg PO HS atenolol 25 MG tablet 25 mg PO DAILY lisinopril 5 MG tablet 5 mg PO DAILY aspirin 325 mg Tablet,Delayed Release (Dr/Ec) 325 mg PO DAILY pantoprazole 40 mg tablet,delayed release (DR/EC) 40 mg PO DAILY Patient Comments: TAKE 1 TABLET BY MOUTH DAILY rosuvastatin 5 mg tablet 5 mg PO DAILY cholecalciferol (vitamin D3) [Vitamin D3] 50 mcg (2,000 unit) Tablet 50 mcg PO DAILY topiramate 25 mg tablet 25 mg PO HS multivitamin [Daily Multi-Vitamin] Tablet 1 tab PO DAILY cholestyramine 4 gram powder 4 g PO DAILY Rx Instructions: Per residence MAR, once daily/hold for constipation. MAR indicates daily refusal. Administer w/meal; avoid other meds within 1hr before or 4-6hr after dose indomethacin 50 mg capsule 50 mg PO PRN Rx Instructions: administer with food or milk allopurinol 100 MG tablet 100 mg PO DAILY No Action Probiotic (B. coagulans) 10 billion cell capsule,delayed release(DR/EC) 1 cell PO DAILY Freedavite 1 EACH tablet 1 ea PO DAILY Discharge Instructions Additional Instructions: You are being transferred to [facility] for further management of your psychiatric illness. You are also being treated for foot infection and also you tested positive for Lyme's here being treated with Augmentin and doxycycline.
[2025-06-02] MEDS: Water,Injection,Sterile 10 ML VIAL (08:13)
[2025-06-02] MEDS: OLANZapine 10 MG VIAL IM (08:14)
[2025-06-02] MEDS: Doxycycline Hyclate 100 MG CAP PO (08:55)
[2025-06-02] MEDS: Cholecalciferol (Vitamin D3) 1,000 UNIT TAB 2000 UNITS PO (08:55)
[2025-06-02] MEDS: Divalproex 500 MG TABEC PO (08:55)
[2025-06-02] MEDS: Lisinopril 5 MG TAB PO (08:55)
[2025-06-02] MEDS: Atenolol 25 MG TAB PO (08:56)
[2025-06-02] MEDS: Polyethylene Glycol 3350 17 GM PACKET PO (08:56)
[2025-06-02] MEDS: Amoxicillin 875/Clav. 125 TAB PO (08:56)
[2025-06-02] MEDS: Aspirin E.C. 325 MG TABEC PO (08:56)
[2025-06-02] MEDS: Pantoprazole 40 MG TABCR PO (08:56)
[2025-06-02] MEDS: Allopurinol 100 MG TAB PO (08:56)
[2025-06-02] MEDS: Rosuvastatin 5 MG TAB PO (08:56)
[2025-06-02] MEDS: Collagenase 30 GM TUBE TP (12:15)
--- NOTE | 2025-06-02 14:56 | CMPROGNOTE_ITS ---
Date of service: 06/02/25 Time of Service: 14:56 Care Management Progress Note Progress Note Text Progress Note Text: Tejas was accepted at [facility] for inpatient psychiatric care. Secure transportation was coordinated by [facility], as he was an involuntary patient. CM will contine to follow. Guardianship if Applicable Guardianship: Parent (Mother is attempting to obtain guardianship) Social Determinants of Health Screening Will the Patient Participate in the Screening?: Unable to obtain
[2025-06-03 15:28] LABS: B. miyamotoi PCR Negative (Negative); Babesia divergens/MO-1 Negative (Negative); Ehrlichia muris eauclairensis Negative (Negative)
--- NOTE | 2025-06-04 12:44 | NUR.NOTE ---
Lyme antibody w/rflx lyme wb positive; lyme ab confirmation positive. Given to Dr Peacock for review. Nursing Note:
== END 2025-06-02 12:37 ==
PROVIDERS: Emergency Medicine; Physician Assistant; Registered Nurse Emergency; Student in an Organized Health Care Education/Training Program; Emergency Provider Emergency Medicine; PCP Family Medicine
DX: S90.32XA Contusion of left foot, initial encounter (principal); F25.9 Schizoaffective disorder, unspecified; R45.851 Suicidal ideations; R45.850 Homicidal ideations; L03.032 Cellulitis of left toe; A69.20 Lyme disease, unspecified; X58.XXXA Exposure to other specified factors, initial encounter
CPT/HCPCS: 00123; 36415; 36416; 51702; 71275; 74177; 80053; 80307; 82962; 84145; 86617; 87040; 87798; 93005; 96365; 96372; 99285; G0378; 70450; 71046; 73630; 73718; 80320; 80329; 81003; 82140; 83605; 83735; 84100; 84443; 85025; 85045; 86140; 86592; 86618; 93010; J0696; J2060; J2359; J3490